=== PATIENT | male | born 1955 | race Caucasian/White ===

== ENCOUNTER 2017-12-05 13:34 | Inpatient (IN) ==
--- NOTE | 2017-12-05 14:08 | Emergency Department Note ---
Disposition Clinical Impression: Elevated troponin Decubitus ulcer Qualifiers: Pressure ulcer location: sacral region Pressure ulcer stage: unspecified pressure ulcer stage Qualified Code(s): L89.159 - Pressure ulcer of sacral region, unspecified stage Sepsis Qualifiers: Sepsis type: sepsis due to unspecified organism Qualified Code(s): A41.9 - Sepsis, unspecified organism Disposition: Admitted As Inpatient Condition: Good Time of Disposition: 17:36 General Adult HPI - General Chief complaint: ED General Medical Stated complaint: General Time Seen by Provider: 12/05/17 13:40 Source: patient, EMS Limitations: other Nursing Notes Reviewed: Yes Vital Signs Reviewed: Yes - History of Present Illness HPI Narrative: 62-year-old male presents emergency department via EMS for concern of wound infection. Patient is a poor historian states that he is been having chronic leg wounds addressed by home health Tim past several years. States they typically come visit him twice a week. Today they realized he was developing the wound on the back of his concern for infection sent here for further evaluation. Patient at this time has no complaints such as fever, nausea, vomiting. He denies any significant pain. He does appears slightly confused but is alert and oriented to person place and time. Concern for sepsis workup initiated. Patient was log rolled and he had a large decubitus ulcer to the lumbar and sacral region with eschar. It is foul-smelling. His leg wounds appear well tended to and not infected. Not hypotensive and does not require fluid resuscitation at this time. Pain Scale: 0 - Related Data Home Medications Medication Instructions Recorded Confirmed Furosemide [Lasix] 40 mg PO DAILY 04/27/15 12/05/17 Gabapentin [Neurontin] 600 mg PO TID 04/27/15 12/05/17 Ferrous Sulfate [Iron] 325 mg PO DAILY 04/30/16 12/05/17 Doxycycline 100 mg PO BID 12/05/17 12/05/17 Spironolactone [Aldactone] 100 mg PO DAILY 12/05/17 12/05/17 Allergies Allergy/AdvReac Type Severity Reaction Status Date / Time No Known Allergies Allergy Verified 03/19/15 11:08 All systems ED: reviewed and negative except as stated. Review of Systems: As Per HPI Constitutional: Denies: fever, chills ENT ED: Denies: congestion Cardiovascular: Denies: chest pain Respiratory: Denies: cough, dyspnea Gastrointestinal: Denies: abdominal pain, nausea, vomiting Genitourinary: Denies: dysuria Musculoskeletal: Reports: back pain Integumentary: Reports: abrasion, lesions. Denies: rash Neurological: Reports: confusion. Denies: headache Endocrine: Reports: fatigue Past Medical History - Past Medical History Attestation: Yes The following information was validated with the patient. Source: patient Medical history: Reports: other Surgical history: Reports: no surgical history Psychiatric history: Reports: no psych history - Social History Smoking Status: Never smoker Smokeless Tobacco Status: No Alcohol use: Reports: rarely Drug use: Reports: marijuana Physical Exam - General Limitations: other General appearance: alert, in no apparent distress, obese (morbidly) - Head Head exam: atraumatic, normocephalic, normal inspection - Eye Eye exam: Present: normal appearance, PERRL, EOMI, scleral icterus (mild) - ENT ENT exam: normal exam, normal oropharynx, mucous membranes moist - Neck Neck exam: Present: normal inspection, full ROM, trachea midline - Chest Chest inspection: Present: normal inspection, symmetric chest wall rise - Respiratory Respiratory exam: Present: normal lung sounds bilaterally - Cardiovascular Cardiovascular exam: Present: regular rate, normal rhythm, normal heart sounds - Abdominal Exam Abdominal exam: Present: soft (obese), Non-Tender, hernia (umbilical, reducible) . Absent: tenderness, distention, guarding, rebound, rigidity - Extremities Exam Extremities exam: Present: full ROM, other (lymphedema bilateral). Absent: tenderness, pedal edema - Back Exam Back exam: Present: other (decubitus ulcer to lower back and sacrum with eschar) - Neurological Exam Neurological exam: Present: alert, oriented X3 - Expanded Neurological Exam Patient oriented to: Present: person, place, time - Psychiatric Psychiatric exam: Present: flat affect - Expanded Skin Exam Type of lesion: Present: other (decubitus ulcer) Distribution: back Description: Present: size (large) 1 - eschar 2 - decubitus ulceration with erythema and foul smell Course Course Narrative: 62-year-old male presents with back wound. Concern for infection. There is eschar to the lumbar sacral region. Patient has no other complaints. Lungs are clear auscultation bilaterally. Heart's regular rate and rhythm. Review of his labs leukocytosis of 16. Lactate is normal 1.6. Creatinine function is normal. His liver function is elevated. Sodium and chloride are low. He has been given 1 L normal saline bolus. Card catheter was place given his wounds. Urinalysis appears slightly contaminated with many squamous cells but no nitrites or leuk esterase. - Reevaluation(s) Reevaluation #1: CT does not reveal abscess or fistula. He will require wound care and admission for sepsis secondary to skin infection with possible surgerical consultation. Patient was given aspirin given his elevated troponin. EKG did not show's ischemic changes. He remains hemodynamically stable. He will not require a 30 mL per kilo fluid resuscitation. CT of the head is unremarkable. Impression is decubitus ulcer elevated troponin and sepsis. - Consultations Consultation #1: Spoke with on-call hospitalist dwight Hernandez to admit for decubitus ulcer, sepsis, elevated trop. No further orders at this time Time: 17:58 Vital Signs Temperature 97.6 F 12/05/17 13:47 Pulse Rate 88 12/05/17 13:47 Respiratory Rate 18 12/05/17 13:47 Blood Pressure 117/73 12/05/17 13:47 O2 Sat by Pulse Oximetry 94 12/05/17 13:47 Temperature 98.2 F 12/05/17 19:04 Pulse Rate 88 12/05/17 19:04 Respiratory Rate 20 12/05/17 19:04 Blood Pressure 122/48 12/05/17 19:04 O2 Sat by Pulse Oximetry 92 12/05/17 19:04 Oxygen Delivery Oxygen Delivery Room Air Medical Decision Making - MDM Narrative Medical decision making narrative: Patient was discussed with my attending physician who agrees with ED management and final disposition. They independently evaluated the patient. Please refer to their attestation to this encounter for additional information. This note was generated by [employer] voice recognition software and as a result grammatical or spelling errors may occur using this program. - Medical Records Medical records reviewed: Yes I reviewed the patient's medical records. - Lab Data Lab results reviewed: Yes I reviewed the patient's lab results. Result diagrams: 12/05/17 14:31 18 14:31 Lab Results 12/05/17 12/05/17 12/05/17 Range/Units 14:16 14:31 14:31 WBC 16.4 H (4.3-11.1) K/mcL RBC 4.70 (4.19-5.50) M/mcL Hgb 11.8 L (12.9-16.9) g/dL Hct 37.2 L (37.5-50.1) % MCV 79.1 L (83.0-100.0) fL MCH 25.1 L (28.0-33.3) pg MCHC 31.7 (31.6-35.5) g/dL RDW 17.0 H (11.5-14.5) % Plt Count 512 H (140-400) K/mcL MPV 9.8 (9.4-12.4) fL Immature Gran % 0.9 (0-4) % Seg Neutrophils % 85.8 % Lymphocytes % 7.7 % Monocytes % 5.3 % Eosinophils % 0.1 % Basophils % 0.2 % Neutrophils # 14.1 H (1.6-8.9) K/mcL Lymphocytes # 1.3 (0.6-4.6) K/mcL Monocytes # 0.9 (0.0-1.3) K/mcL Eosinophils # 0.0 (0.0-0.6) K/mcL Basophils # 0.0 (0.0-0.2) K/mcL PT 17.7 H (9.4-12.1) Seconds INR 1.6 APTT 27.0 (26.0-36.0) Seconds Sodium (136-145) mEq/L Potassium (3.5-5.1) mEq/L Chloride (98-107) mEq/L Carbon Dioxide (23-29) mEq/L BUN (8-23) mg/dL Creatinine (0.70-1.30) mg/dL Est GFR ( Amer) (> 60) Est GFR (Non-Af Amer) (> 60) BUN/Creatinine Ratio (6-26) Glucose (70-105) mg/dL Calculated Osmolality (280-300) Lactic Acid (0.5-2.2) mmol/L Calcium (8.6-10.3) mg/dL Phosphorus (2.7-4.5) mg/dL Magnesium (1.6-2.6) mg/dL Total Bilirubin (0.3-1.0) mg/dL Direct Bilirubin (0.0-0.2) mg/dL Indirect Bilirubin (0.0-1.2) mg/dL AST (13-39) Units/L ALT (7-52) Units/L Alkaline Phosphatase (34-104) Units/L Troponin I (< 0.04) ng/mL Serum Total Protein (6.4-8.9) g/dL Albumin (3.5-5.7) g/dL Globulin (2.4-3.5) g/dL Albumin/Globulin Ratio (1.1-2.2) Urine Color Dark Yellow (Yellow) Urine Clarity Slightly Hazy (Clear) Urine pH 6.0 (5.0-8.0) pH Units Ur Specific [place] > 1.030 H (1.010-1.025) Urine Protein 30 H (Neg-Trace) mg/dL Urine Glucose (UA) Normal (Normal) mg/dL Urine Ketones 15 H (Negative) mg/dL Urine Blood Negative (Negative) Urine Nitrite Negative (Negative) Urine Bilirubin Large H (Negative) Urine Urobilinogen Normal (Normal) mg/dL Ur Leukocyte Esterase Negative (Negative) Urine Microscopic RBC 5-15 H (0-3) per hpf Urine Microscopic WBC 3-5 H (0-3) per hpf Ur Squamous Epith Cells Many H (None-Few) per lpf Urine Bacteria Many H (None-Few) per hpf Hyaline Casts Moderate H (None-Few) per lpf Ur Culture Indicated? NO (NO) 12/05/17 12/05/17 Range/Units 14:31 14:31 WBC (4.3-11.1) K/mcL RBC (4.19-5.50) M/mcL Hgb (12.9-16.9) g/dL Hct (37.5-50.1) % MCV (83.0-100.0) fL MCH (28.0-33.3) pg MCHC (31.6-35.5) g/dL RDW (11.5-14.5) % Plt Count (140-400) K/mcL MPV (9.4-12.4) fL Immature Gran % (0-4) % Seg Neutrophils % % Lymphocytes % % Monocytes % % Eosinophils % % Basophils % % Neutrophils # (1.6-8.9) K/mcL Lymphocytes # (0.6-4.6) K/mcL Monocytes # (0.0-1.3) K/mcL Eosinophils # (0.0-0.6) K/mcL Basophils # (0.0-0.2) K/mcL PT (9.4-12.1) Seconds INR APTT (26.0-36.0) Seconds Sodium 132 L (136-145) mEq/L Potassium 4.4 (3.5-5.1) mEq/L Chloride 95 L (98-107) mEq/L Carbon Dioxide 25 (23-29) mEq/L BUN 23 (8-23) mg/dL Creatinine 0.90 (0.70-1.30) mg/dL Est GFR ( Amer) > 60 (> 60) Est GFR (Non-Af Amer) > 60 (> 60) BUN/Creatinine Ratio 26 (6-26) Glucose 119 H (70-105) mg/dL Calculated Osmolality 279 L (280-300) Lactic Acid 1.6 (0.5-2.2) mmol/L Calcium 8.4 L (8.6-10.3) mg/dL Phosphorus 4.1 (2.7-4.5) mg/dL Magnesium 2.1 (1.6-2.6) mg/dL Total Bilirubin 0.7 (0.3-1.0) mg/dL Direct Bilirubin 0.4 H (0.0-0.2) mg/dL Indirect Bilirubin 0.3 (0.0-1.2) mg/dL AST 98 H (13-39) Units/L ALT 60 H (7-52) Units/L Alkaline Phosphatase 39 (34-104) Units/L Troponin I 0.04 H* (< 0.04) ng/mL Serum Total Protein 7.5 (6.4-8.9) g/dL Albumin 2.8 L (3.5-5.7) g/dL Globulin 4.7 H (2.4-3.5) g/dL Albumin/Globulin Ratio 0.6 L (1.1-2.2) Urine Color (Yellow) Urine Clarity (Clear) Urine pH (5.0-8.0) pH Units Ur Specific [place] (1.010-1.025) Urine Protein (Neg-Trace) mg/dL Urine Glucose (UA) (Normal) mg/dL Urine Ketones (Negative) mg/dL Urine Blood (Negative) Urine Nitrite (Negative) Urine Bilirubin (Negative) Urine Urobilinogen (Normal) mg/dL Ur Leukocyte Esterase (Negative) Urine Microscopic RBC (0-3) per hpf Urine Microscopic WBC (0-3) per hpf Ur Squamous Epith Cells (None-Few) per lpf Urine Bacteria (None-Few) per hpf Hyaline Casts (None-Few) per lpf Ur Culture Indicated? (NO) - Radiology Data Radiology results reviewed: Yes I reviewed the patient's radiology results. Abdomen/Pelvis CT 12/05/17 15:48 IMPRESSION: 1. Nonspecific soft tissue findings at the [place] cleft may be related to underlying ulceration or infection. No discrete fluid collection is seen. 2. The bowel gas findings are most in keeping with mild adynamic ileus but are nonspecific. 3. Nonspecific right inguinal and right pelvic adenopathy may be reactive or neoplastic. 4. Degenerative changes with grade 1 anterolisthesis L4 on L5. D/ / Saturnino Macias / Saturnino Macias Interpreting Provider: Saturnino Macias Head CT 12/05/17 15:48 IMPRESSION: No acute intracranial abnormality. D/ / Dm Silverman MD / Dm Silverman MD Interpreting Provider: Dm Silverman MD - EKG Data EKG #1 EKG attestation: Yes I reviewed and interpreted this EKG. EKG results narrative: EKG performed 1440 forced normal sinus rhythm 84 beats per minute, normal axis, good R wave progression,. No ST elevation or depression. No T wave inversion. There is no old EKG available for comparison at this time. No acute ischemic changes. Attestation Statement - Attestation Attestation: Patient was seen with resident physician. I reviewed the history, physical, assessment and plan, and agree with the findings. I also personally evaluated this patient and had [id number] time with this patient. 62-year-old morbidly obese male presents emergency department for check of chronic decubitus ulcers. Patient states that he has not been feeling well. He has home healthcare that attempts to take care of his decubitus ulcers. Says his been not feeling well for some time. No fevers or chills no chest pain shortness of breath. He is really nonspecific in terms of symptoms not giving us much to work with in that regard. Review of systems was done, the patient is poor historian all areas were covered but only positive as above. Physical exam vital signs are stable patient's afebrile with stable blood pressure. ENT is unremarkable. Heart regular rhythm and rate. Lungs clear. Abdomen obese nontender. Extremities lymphedema lower extremities with erythema throughout. Patient was log rolled in the back he has significant and extensive decubitus ulcers. The skin appears to be black and sharp at this point. Neurologically the patient occasionally is confused but moves all extremities. There does not appear to be focal deficits. Psych flat affect. Skin decubitus ulcers as noted. ED course we will start the patient on vancomycin do full septic workup and have admitted the hospital for further evaluation and treatment. Labs revealed elevated white blood cell count. CT scan head was unremarkable. CT scan of the abdomen and pelvis did not reveal an abscess but changes consistent with the decubitus ulcers. Patient was given IV hydration while he was in the emergency department. Was also found to have an elevated troponin of 0.04 which is just above the cutoff for negative. This information was communicated to the hospitalist service while arranging for admission. Critical care time 35 minutes. Agree with resident physician assessment and plan.
[2017-12-05 14:36] LABS: Bilirubin,Urine Large (Negative); Blood,Urine Negative (Negative); Color,Urine Dark Yellow (Yellow); Glucose,Urine (UA) Normal (Normal); Ketones,Urine 15 mg/dL (Negative); Leukocyte Esterase,Urine Negative (Negative); Nitrite,Urine Negative (Negative); Protein,Urine 30 mg/dL (Neg-Trace); Specific Gravity,Urine > 1.030 (1.010-1.025); Urobilinogen,Urine Normal (Normal)
[2017-12-05 14:39] LABS: Bacteria,Urine Many per hpf (None-Few); Hyaline Casts,Urine Moderate per lpf (None-Few); Squamous Epithelial Cell,Urine Many per lpf (None-Few)
[2017-12-05 14:41] LABS: Clarity,Urine Slightly Hazy (Clear)
[2017-12-05 14:45] LABS: Basophils % 0.2 %; Eosinophils % 0.1 %; Hematocrit 37.2 % (37.5-50.1); Hemoglobin 11.8 g/dL (12.9-16.9); Immature Granulocytes % 0.9 % (0-4); Lymphocytes # 1.3 K/mcL (0.6-4.6); Lymphocytes % 7.7 %; Mean Corpuscular HGB Conc 31.7 g/dL (31.6-35.5); Mean Corpuscular Hemoglobin 25.1 pg (28.0-33.3); Mean Corpuscular Volume 79.1 fL (83.0-100.0); Mean Platelet Volume 9.8 fL (9.4-12.4); Monocytes # 0.9 K/mcL (0.0-1.3); Monocytes % 5.3 %; Neutrophils # 14.1 K/mcL (1.6-8.9); Platelet Count 512 K/mcL (140-400); Segmented Neutrophils % 85.8 %
[2017-12-05 14:50] LABS: INR 1.6; Prothrombin Time 17.7 Seconds (9.4-12.1)
[2017-12-05 15:06] LABS: Alanine Aminotransferase 60 Units/L (7-52); Albumin 2.8 g/dL (3.5-5.7); Albumin/Globulin Ratio 0.6 (1.1-2.2); Alkaline Phosphatase 39 Units/L (34-104); Aspartate Amino Transferase 98 Units/L (13-39); BUN/Creatinine Ratio 26 (6-26); Bilirubin,Direct 0.4 mg/dL (0.0-0.2); Bilirubin,Indirect 0.3 mg/dL (0.0-1.2); Bilirubin,Total 0.7 mg/dL (0.3-1.0); Blood Urea Nitrogen 23 mg/dL (8-23); Calcium 8.4 mg/dL (8.6-10.3); Carbon Dioxide 25 mEq/L (23-29); Chloride 95 mEq/L (98-107); Globulin 4.7 g/dL (2.4-3.5); Glucose 119 mg/dL (70-105); Magnesium 2.1 mg/dL (1.6-2.6); Osmolality,Calculated 279 (280-300); Phosphorous 4.1 mg/dL (2.7-4.5); Potassium 4.4 mEq/L (3.5-5.1); Sodium 132 mEq/L (136-145); Total Protein 7.5 g/dL (6.4-8.9); eGFR For African Americans > 60 (> 60); eGFR For Non-African Americans > 60 (> 60)
[2017-12-05] MEDS ORDERED: 0.9 % Sodium Chloride 1,000 ML IVC ONE ×2 (15:09→18:24)
[2017-12-05 15:10] LABS: Troponin I 0.04 ng/mL (< 0.04)
[2017-12-05] MEDS ORDERED: Isovue-370 500 ML INFUS..BTL IV ONE (15:48)
[2017-12-05] MEDS ORDERED: Aspirin 81 MG TAB.CHEW PO STA (17:11)
[2017-12-05] MEDS ORDERED: *HR* HYDROcodone/Acet 5/325 mg TABLET PO PRN (19:48)
[2017-12-05] MEDS ORDERED: Naloxone 0.4 MG/ML INJ IVP PRN (19:49)
--- NOTE | 2017-12-05 20:01 | Internal Med History&Physical ---
<Saad Garcia J - Last Filed: 12/05/17 19:58> Date of Encounter: 12/05/17 Time of Encounter: 19:58 Internal Medicine - H&P: HPI Chief complaint: Large wound on buttocks Admitted From: Home Plans for Post Hospital Care: Home History of present illness: Mr. Adams is a 62 year old male with a history of bilateral lower extremity chronic wounds which are being cared for by home health wound care. The patient is a poor historian and limited in his ability to pay is patent in the H &P. However, he reports that his wound care team typically visits him only twice a week. Today while dressing his wounds they realize he had a large infection on his buttocks with eschar. Patient is slightly confused but alert to person and situation but disoriented to place and time. He is unaware of how long he has had these wounds on his buttocks. The patient was rolled was found to have large decubitus ulcer along the intergluteal cleft into the gluteal folds and extending onto the buttock bilaterally toward greater trochanter. CT of abdomen and pelvis was obtained revealing nonspecific soft tissue findings at the gluteal cleft. No discrete fluid collection seen. Head CT negative for acute intracranial abnormality Past Med Surg Social Fam HX - Past Medical History Medical history: other Psychiatric history: no psych history - Past Surgical History Surgical History: no surgical history - Social History Smoking Status: Never smoker Smokeless Tobacco Status: No Alcohol use: rarely Drug use: marijuana - Family History Father Living Status: Hx Family Cardiac Disorders: Yes (htn) Hx Family Neurologic Disorders: Yes Internal Medicine - H&P: Meds Furosemide [Lasix] 40 mg PO DAILY 04/27/15 [History] Gabapentin [Neurontin] 600 mg PO TID 04/27/15 [History] Ferrous Sulfate [Iron] 325 mg PO DAILY 04/30/16 [History] Doxycycline 100 mg PO BID 12/05/17 [History] Spironolactone [Aldactone] 100 mg PO DAILY 12/05/17 [History] 3 Allergy/AdvReac Type Severity Reaction Status Date / Time No Known Allergies Allergy Verified 03/19/15 11:08 All Systems PM: A 10-system review of systems was performed and is negative for pertinent findings except as documented above in the HPI. Review of systems: REVIEW OF SYSTEMS GENERAL: Negative for any nausea, vomiting, fevers, chills, or weight loss. NEUROLOGIC: Negative for any blurry vision, blind spots, double vision, facial asymmetry, dysphagia, dysarthria, hemiparesis, hemisensory deficits, vertigo, ataxia. HEENT: Negative for any head trauma, neck trauma, neck stiffness, photophobia, phonophobia, sinusitis, rhinitis. CARDIAC: Negative for any chest pain, dyspnea on exertion, paroxysmal nocturnal dyspnea, peripheral edema. PULMONARY: Negative for any shortness of breath, wheezing, COPD, or TB exposure. GASTROINTESTINAL: Negative for any abdominal pain, nausea, vomiting, bright red blood per rectum, melena. GENITOURINARY: Negative for any dysuria, hematuria, incontinence. INTEGUMENTARY: Large decubitus ulcers on his buttocks RHEUMATOLOGIC: Negative for any joint pains, photosensitive rashes, history of vasculitis or kidney problems. HEMATOLOGIC: Negative for any abnormal bruising, frequent infections or bleeding. - Constitutional Vitals: Temp Pulse Resp BP Pulse Ox 98.2 F 88 20 122/48 92 12/05/17 19:04 12/05/17 19:04 12/05/17 19:04 12/05/17 19:04 12/05/17 19:04 General appearance: Present: A&O X 1 Exam: PHYSICAL EXAMINATION: GENERAL: The patient is a morbidly obese ill-appearing male in no apparent distress. He is alert and oriented to self and situation, disoriented to place and time VITAL SIGNS: Temperature 98.2, respiratory rate 20, SPO2 92% on nasal cannula 2 L, pulse rate 88 and blood pressure 122/48 HEENT: Head is normocephalic and atraumatic. Extraocular muscles are intact. Pupils are equal, round, and reactive to light and accommodation. NECK: Supple. No carotid bruits. No lymphadenopathy or thyromegaly. LUNGS: Clear/diminished to auscultation. HEART: Regular rate and rhythm without murmur, S1, S2. ABDOMEN: Round, Soft, nontender, and nondistended. Positive active bowel sounds. No hepatosplenomegaly was noted. NEUROLOGIC: Confused, no slurred speech or facial droop noted - Expanded Lower Extremities Exam Lower Leg exam: Present: erythema (Bilateral lower extremities), swelling, tenderness 1 - Bilateral lymphedema, erythema - Expanded Back Exam 1 - Large decubitus ulcers with eschar in the gluteal cleft to the gluteal folds and laterally to greater trochanter. No obvious tunneling noted - Neurological Exam Neurological exam: Present: alert, altered. Absent: facial droop, speech deficit - Skin Skin exam: Present: erythema, warm. Absent: intact Internal Med - H&P Results - Labs CBC & Chem 7: 12/05/17 14:31 12/05/17 14:31 - EKG Data EKG comments: Review of EKG shows normal sinus rhythm rate of 84, no ST elevation or depression, no T-wave inversion. No prior EKG available for comparison 12/05/17 20:25 - Impressions Impressions Abdomen/Pelvis CT 12/05/17 15:48 IMPRESSION: 1. Nonspecific soft tissue findings at the cleft may be related to underlying ulceration or infection. No discrete fluid collection is seen. 2. The bowel gas findings are most in keeping with mild adynamic ileus but are nonspecific. 3. Nonspecific right inguinal and right pelvic adenopathy may be reactive or neoplastic. 4. Degenerative changes with grade 1 anterolisthesis L4 on L5. D/ / Saturnino Macias / Saturnino Macias Interpreting Provider: Saturnino Macias Head CT 12/05/17 15:48 IMPRESSION: No acute intracranial abnormality. D/ / Dm Silverman MD / Dm Silverman MD Interpreting Provider: Dm Silverman MD - Assessment and plan (1) Sepsis Current Visit: Yes Status: Acute Assessment and plan: Large decubitus ulcer with eschar in the sacral region found today by his wound care team. Patient is being treated for lymphedema and wounds to his bilateral legs by home wound care team. -Consult surgery-spoke with Dr. Hawkins who will see the patient in consultation -Aerobic and anaerobic wound cultures -Blood cultures -Hydrocodone pain management -Vancomycin with pharmacy to dose and Zosyn -enrollment services vice president consult to set up a home wound care. Also patient may benefit from a stay in a short-term care facility for wound care -Consult to nutrition-assess by mouth supplementation needs, patient would benefit from increased protein intake -Consult wound care team Qualifiers: Sepsis type: sepsis due to unspecified organism Qualified Code(s): A41.9 - Sepsis, unspecified organism (2) Decubitus ulcer Current Visit: Yes Status: Acute Qualifiers: Pressure ulcer location: sacral region Pressure ulcer stage: unspecified pressure ulcer stage Qualified Code(s): L89.159 - Pressure ulcer of sacral region, unspecified stage (3) Elevated troponin Current Visit: Yes Status: Acute Assessment and plan: Troponin elevation of 0.04. Likely due to sepsis. Patient denies any chest pain, EKG did not show any ischemic changes. Patient remains hemodynamically stable, continue to trend troponins (4) Lymphedema of both lower extremities Current Visit: Yes Status: Acute Assessment and plan: Chronic, consult wound care (5) DVT prophylaxis Current Visit: Yes Status: Acute Assessment and plan: Heparin 5000 units SC BID - Time Spent With Patient Total time spent is greater than 50% in coordination of care (as documented) at patient's floor/unit and/or counseling patient: Greater than 35 minutes <Alonzo Preston - Last Filed: 12/05/17 22:57> Date of Encounter: 12/05/17 Internal Medicine - H&P: HPI History of present illness: Mr. Adams is a 62 year old male All Systems PM: A 10-system review of systems was performed and is negative for pertinent findings except as documented above in the HPI. - Constitutional Vitals: Temp Pulse Resp BP Pulse Ox 98.2 F 88 20 122/48 92 12/05/17 19:04 12/05/17 19:04 12/05/17 19:04 12/05/17 19:04 12/05/17 19:04 Internal Med - H&P Results - Labs CBC & Chem 7: 12/05/17 14:31 12/05/17 14:31 - Attending Attestation Seen and examined independently, agree with plan as documented in JULIANO Torrez's documentation - Assessment and plan (1) Lymphedema of both lower extremities Current Visit: Yes Status: Acute (2) Decubitus ulcer Current Visit: Yes Status: Acute Qualifiers: Pressure ulcer location: sacral region Pressure ulcer stage: unspecified pressure ulcer stage Qualified Code(s): L89.159 - Pressure ulcer of sacral region, unspecified stage (3) Elevated troponin Current Visit: Yes Status: Acute (4) Sepsis Current Visit: Yes Status: Acute Qualifiers: Sepsis type: sepsis due to unspecified organism Qualified Code(s): A41.9 - Sepsis, unspecified organism (5) DVT prophylaxis Current Visit: Yes Status: Acute - Time Spent With Patient Total time spent is greater than 50% in coordination of care (as documented) at patient's floor/unit and/or counseling patient:
[2017-12-05] MEDS: Gabapentin 300 MG CAPSULE PO SCH (21:53)
[2017-12-06 01:09] LABS: Basophils % 0.3 %; Eosinophils # 0.1 K/mcL (0.0-0.6); Eosinophils % 0.7 %; Hematocrit 35.9 % (37.5-50.1); Hemoglobin 11.6 g/dL (12.9-16.9); Immature Granulocytes % 0.8 % (0-4); Lymphocytes # 1.6 K/mcL (0.6-4.6); Lymphocytes % 13.2 %; Mean Corpuscular HGB Conc 32.3 g/dL (31.6-35.5); Mean Corpuscular Hemoglobin 25.5 pg (28.0-33.3); Mean Corpuscular Volume 78.9 fL (83.0-100.0); Mean Platelet Volume 9.8 fL (9.4-12.4); Monocytes # 0.9 K/mcL (0.0-1.3); Monocytes % 7.9 %; Neutrophils # 9.1 K/mcL (1.6-8.9); Platelet Count 476 K/mcL (140-400); Red Blood Count 4.55 M/mcL (4.19-5.50); Red Cell Distribution Width 17.2 % (11.5-14.5); Segmented Neutrophils % 77.1 %
[2017-12-06 01:25] LABS: BUN/Creatinine Ratio 32 (6-26); Blood Urea Nitrogen 24 mg/dL (8-23); Calcium 8.3 mg/dL (8.6-10.3); Carbon Dioxide 25 mEq/L (23-29); Chloride 98 mEq/L (98-107); Glucose 127 mg/dL (70-105); Osmolality,Calculated 278 (280-300); Potassium 4.6 mEq/L (3.5-5.1); Sodium 131 mEq/L (136-145); eGFR For African Americans > 60 (> 60); eGFR For Non-African Americans > 60 (> 60)
[2017-12-06] MEDS: *HR* Heparin 5,000 UNIT/ML VIAL SQ SCH ×2 (06:46→17:21)
[2017-12-06] MEDS: Piperacillin/Tazobactam 3.375 GM in 0.9 % Sodium Chloride Mini Bag 100 ML IVPB SCH ×2 (09:01→17:20)
[2017-12-06] MEDS: Gabapentin 300 MG CAPSULE PO SCH ×3 (09:02→22:48)
[2017-12-06] MEDS: Furosemide 40 MG TABLET PO SCH (09:02)
--- NOTE | 2017-12-06 10:17 | Internal Med Progress Note ---
Date of Encounter: 12/06/17 Time of Encounter: 10:15 - Assessment and plan (1) Sepsis Current Visit: Yes Status: Acute Assessment and plan: acute metabolic encephalopathy 2ryt o sepsis due to Large infected necrotic decubitus ulcers with eschar in the sacral region WBC 16.4, hypotension 99/72, confused Patient is being treated for lymphedema and wounds to his bilateral legs by home wound care team. -Consulted surgery- -Aerobic and anaerobic wound cultures -Blood cultures -Hydrocodone -Vancomycin and Zosyn day 2, may de-escalate antibiotic therapy when possible -donor services team leader consult . -Consult wound care team Qualifiers: Sepsis type: sepsis due to unspecified organism Qualified Code(s): A41.9 - Sepsis, unspecified organism (2) Lymphedema of both lower extremities Current Visit: Yes Status: Acute Assessment and plan: Chronic, consulted wound care (3) Decubitus ulcer Current Visit: Yes Status: Acute Qualifiers: Pressure ulcer location: sacral region Pressure ulcer stage: unspecified pressure ulcer stage Qualified Code(s): L89.159 - Pressure ulcer of sacral region, unspecified stage (4) Elevated troponin Current Visit: Yes Status: Acute Assessment and plan: Likely due to demadn ischemia. Troponin elevation of 0.04. Patient denied any chest pain, EKG did not show any ischemic changes. (5) DVT prophylaxis Current Visit: Yes Status: Acute Assessment and plan: Heparin 5000 units SC BID (6) Morbidly obese Current Visit: Yes Status: Acute - Time Spent With Patient Total time spent is greater than 50% in coordination of care (as documented) at patient's floor/unit and/or counseling patient: - Subjective Interval history: has numbness on the his right bottom, denies CP or SOB, no abdominal pain , no fever, no diarrhea, confused - Constitutional Vitals: Temp Pulse Resp BP Pulse Ox 98.3 F 86 18 119/73 92 12/06/17 07:32 12/06/17 07:32 12/06/17 07:32 12/06/17 06:10 12/06/17 07:32 General appearance: Present: A&O X 1, morbidly obese - Head Head exam: Present: atraumatic, normocephalic - Eye Eye exam: Present: PERRL, conjuntiva pink, sclera anicteric Pupils: Present: PERRL - Neck Neck exam general surgery: Present: supple, trachea midline. Absent: lymphadenopathy - Respiratory Respiratory exam: Present: CTAB. Absent: accessory muscle use, rales, rhonchi, wheezes - Cardiovascular Cardiovascular exam: Present: RRR, +S1, +S2. Absent: diastolic murmur, gallop, rubs, systolic murmur - GI/Abdominal GI/Abdominal exam: Present: normal bowel sounds, soft, no peritoneal signs. Absent: distended, tenderness - Extremities Exam Extremities exam: Present: warm, radial pulses palpable and symmetrical. Absent : calf tenderness, cyanotic, pedal edema - Neurological Exam Neurological exam: Present: CN II-XII intact, no focal deficits. Absent: oriented X3, pronater drift, facial droop, speech deficit - Skin Skin exam: Absent: dry, intact Additional comments: large necrotic tissue area on the right buttock extending to the right lumbar area. Multiple large ulcers on left buttocks and left lower extremity Internal Medicine: Result - Labs CBC & Chem 7: 12/06/17 00:43 12/06/17 00:43 Labs: Short CBC 12/06/17 Range/Units 00:43 WBC 11.9 H (4.3-11.1) K/mcL Hgb 11.6 L (12.9-16.9) g/dL Hct 35.9 L (37.5-50.1) % Plt Count 476 H (140-400) K/mcL Neutrophils # 9.1 H (1.6-8.9) K/mcL BMP 12/06/17 00:43 Sodium 131 L Potassium 4.6 Chloride 98 Carbon Dioxide 25 BUN 24 H Creatinine 0.75 Glucose 127 H Calcium 8.3 L Cardiac Enzymes 12/06/17 Range/Units 00:43 Troponin I 0.03 (< 0.04) ng/mL - ABG Interpretation ABG results: PT/INR, D-dimer PT 17.7 Seconds (9.4-12.1) H 12/05/17 14:31 Consult Discharge Plan - Plan Referrals: Nicolas Sanchez MD [Primary Care Provider] -
--- NOTE | 2017-12-06 11:15 | General Surgery Consult Note ---
<LaurohititogetLawson - Last Filed: 12/06/17 13:16> Date of Encounter: 12/06/17 Time of Encounter: 08:45 Assessment and Plan (1) Decubitus ulcer Current Visit: Yes Status: Acute Large decubitus ulcers affecting R buttock into austen cleft and onto L buttock large Eschar. No evidence of tunneling CT scan did not reveal abscess or fistula Wound cultures pending No need for surgical debridement at this time. Wound care recommendations: Apply 50/50 Mixture of Santyl and Gentamicin ointment to the sacral ulcer Change dressing Daily Keep area clean as possible Q2H turns Patient can follow up with surgery wound clinic if convenient for him. If he'd prefer to continue wound care where he has his lymphadema managed that is up to him. Qualifiers: Pressure ulcer location: sacral region Pressure ulcer stage: unspecified pressure ulcer stage Qualified Code(s): L89.159 - Pressure ulcer of sacral region, unspecified stage (2) Sepsis Current Visit: Yes Status: Acute Pt met sepsis criteria based on Tachypnea and WBC count of 16.4 Blood cultures and Wound cultures pending. Management per Primary team. Qualifiers: Sepsis type: sepsis due to unspecified organism Qualified Code(s): A41.9 - Sepsis, unspecified organism (3) Lymphedema of both lower extremities Current Visit: Yes Status: Acute Pt with chronic lymphadema. Managed by home health nurses/wound care. (4) Morbidly obese Current Visit: Yes Status: Acute History of Present Illness Consult date: 12/05/17 Reason for consult: wound care Requesting physician: Saad Garcia History of present illness: 62 yo M c PMHx of Lyphedema, morbid obesity, HTN, Peripheral neuropathy, and Iron Deficency Anemia reports to the [facility] after home health nurses who manage his B/L lymphedema noticed a large sacral decubitus ulcer while trying to get patient up from a fall. Patient does not appear to be a reliable historian. Patient was brought in for evaluation. Patient denies pain in the affected area. He denies Fever, N, V, D. In the ED patient was found to have an elevated WBC of 16.4. He met sepsis criteria based on that and a breathing rate of 20. His LA was normal at 1.6. He has been afebrile since admission. CT scan of head showed no acute process CT scan of abd/pelvis showed: "1. Nonspecific soft tissue findings at the austen cleft may be related to underlying ulceration or infection. No discrete fluid collection is seen. 2. The bowel gas findings are most in keeping with mild adynamic ileus but are nonspecific. 3. Nonspecific right inguinal and right pelvic adenopathy may be reactive or neoplastic. 4. Degenerative changes with grade 1 anterolisthesis L4 on L5." Patient was admitted for management of his sepsis presumeably 2/2 to wound. Patient was started on Vanc and Zosyn. Surgery was consulted for wound care recommendations. Past Med Surg Social Fam HX - Past Medical History Medical history: other Psychiatric history: no psych history - Past Surgical History Surgical History: no surgical history - Social History Smoking Status: Never smoker Smokeless Tobacco Status: No Alcohol use: rarely Drug use: marijuana - Family History Father Living Status: Hx Family Cardiac Disorders: Yes (htn) Hx Family Neurologic Disorders: Yes Medications and Allergies Furosemide [Lasix] 40 mg PO DAILY 04/27/15 [History] Gabapentin [Neurontin] 600 mg PO TID 04/27/15 [History] Ferrous Sulfate [Iron] 325 mg PO DAILY 04/30/16 [History] Doxycycline 100 mg PO BID 12/05/17 [History] Spironolactone [Aldactone] 100 mg PO DAILY 12/05/17 [History] 3 Allergy/AdvReac Type Severity Reaction Status Date / Time No Known Allergies Allergy Verified 03/19/15 11:08 Review of Systems All systems PM: The remainder of the systems were reviewed and are negative General Surgery Exam Initial Vital Signs Temp Pulse Resp BP Pulse Ox 97.6 F 88 18 117/73 94 12/05/17 13:47 12/05/17 13:47 12/05/17 13:47 12/05/17 13:47 12/05/17 13:47 - General physical appearance well developed, well nourished, no distress, obese - Eyes normal ocular movement - ENT normal mucosa - Neck trachea midline - Respiratory normal expansion, normal respiratory effort, clear to auscultation - Cardiovascular Cardiovascular exam: Present: RRR, no murmurs/rubs/gallops - Abdomen Abdomen general surgery: Present: bowel sounds present, soft, non tender - Integumentary Integumentary general surgery: Present: other (Large decubitus ulcers affecting R buttock into cleft and onto L buttock, no tunnelling noted) - Musculoskeletal Present: normal posture - Psychiatric Psychiatric general surgery: Present: speech is normal Exam Initial Vital Signs Temp Pulse Resp BP Pulse Ox 97.6 F 88 18 117/73 94 12/05/17 13:47 12/05/17 13:47 12/05/17 13:47 12/05/17 13:47 12/05/17 13:47 Results - Labs 12/06/17 00:43 12/06/17 00:43 Abnormal lab results WBC 11.9 K/mcL (4.3-11.1) H 12/06/17 00:43 Hgb 11.6 g/dL (12.9-16.9) L 12/06/17 00:43 Hct 35.9 % (37.5-50.1) L 12/06/17 00:43 MCV 78.9 fL (83.0-100.0) L 12/06/17 00:43 MCH 25.5 pg (28.0-33.3) L 12/06/17 00:43 RDW 17.2 % (11.5-14.5) H 12/06/17 00:43 Plt Count 476 K/mcL (140-400) H 12/06/17 00:43 Neutrophils # 9.1 K/mcL (1.6-8.9) H 12/06/17 00:43 PT 17.7 Seconds (9.4-12.1) H 12/05/17 14:31 Sodium 131 mEq/L (136-145) L 12/06/17 00:43 BUN 24 mg/dL (8-23) H 12/06/17 00:43 BUN/Creatinine Ratio 32 (6-26) H 12/06/17 00:43 Glucose 127 mg/dL (70-105) H 12/06/17 00:43 POC Glucose 113 mg/dL (70-99) H 12/05/17 19:21 Calculated Osmolality 278 (280-300) L 12/06/17 00:43 Calcium 8.3 mg/dL (8.6-10.3) L 12/06/17 00:43 Direct Bilirubin 0.4 mg/dL (0.0-0.2) H 12/05/17 14:31 AST 98 Units/L (13-39) H 12/05/17 14:31 ALT 60 Units/L (7-52) H 12/05/17 14:31 Albumin 2.8 g/dL (3.5-5.7) L 12/05/17 14:31 Globulin 4.7 g/dL (2.4-3.5) H 12/05/17 14:31 Albumin/Globulin Ratio 0.6 (1.1-2.2) L 12/05/17 14:31 Ur Specific [place] > 1.030 (1.010-1.025) H 12/05/17 14:16 Urine Protein 30 mg/dL (Neg-Trace) H 12/05/17 14:16 Urine Ketones 15 mg/dL (Negative) H 12/05/17 14:16 Urine Bilirubin Large (Negative) H 12/05/17 14:16 Urine Microscopic RBC 5-15 per hpf (0-3) H 12/05/17 14:16 Urine Microscopic WBC 3-5 per hpf (0-3) H 12/05/17 14:16 Ur Squamous Epith Cells Many per lpf (None-Few) H 12/05/17 14:16 Urine Bacteria Many per hpf (None-Few) H 12/05/17 14:16 Hyaline Casts Moderate per lpf (None-Few) H 12/05/17 14:16 Diabetes panel 12/06/17 Range/Units 00:43 Sodium 131 L (136-145) mEq/L Potassium 4.6 (3.5-5.1) mEq/L Chloride 98 (98-107) mEq/L Carbon Dioxide 25 (23-29) mEq/L BUN 24 H (8-23) mg/dL Creatinine 0.75 (0.70-1.30) mg/dL Glucose 127 H (70-105) mg/dL Calcium 8.3 L (8.6-10.3) mg/dL Calcium panel 12/06/17 Range/Units 00:43 Calcium 8.3 L (8.6-10.3) mg/dL Pituitary panel 12/06/17 Range/Units 00:43 Sodium 131 L (136-145) mEq/L Potassium 4.6 (3.5-5.1) mEq/L Chloride 98 (98-107) mEq/L Carbon Dioxide 25 (23-29) mEq/L BUN 24 H (8-23) mg/dL Creatinine 0.75 (0.70-1.30) mg/dL Glucose 127 H (70-105) mg/dL Calcium 8.3 L (8.6-10.3) mg/dL Adrenal panel 12/06/17 Range/Units 00:43 Sodium 131 L (136-145) mEq/L Potassium 4.6 (3.5-5.1) mEq/L Chloride 98 (98-107) mEq/L Carbon Dioxide 25 (23-29) mEq/L BUN 24 H (8-23) mg/dL Creatinine 0.75 (0.70-1.30) mg/dL Glucose 127 H (70-105) mg/dL Calcium 8.3 L (8.6-10.3) mg/dL All other labs normal. Consult Discharge Plan - Plan Referrals: Nicolas Sanchez MD [Primary Care Provider] - <Antonio Hawkins - Last Filed: 12/06/17 15:47> Date of Encounter: 12/06/17 Review of Systems All systems PM: The remainder of the systems were reviewed and are negative General Surgery Exam Initial Vital Signs Temp Pulse Resp BP Pulse Ox 97.6 F 88 18 117/73 94 12/05/17 13:47 12/05/17 13:47 12/05/17 13:47 12/05/17 13:47 12/05/17 13:47 Exam Initial Vital Signs Temp Pulse Resp BP Pulse Ox 97.6 F 88 18 117/73 94 12/05/17 13:47 12/05/17 13:47 12/05/17 13:47 12/05/17 13:47 12/05/17 13:47 Results - Labs 12/06/17 00:43 12/06/17 00:43 Abnormal lab results WBC 11.9 K/mcL (4.3-11.1) H 12/06/17 00:43 Hgb 11.6 g/dL (12.9-16.9) L 12/06/17 00:43 Hct 35.9 % (37.5-50.1) L 12/06/17 00:43 MCV 78.9 fL (83.0-100.0) L 12/06/17 00:43 MCH 25.5 pg (28.0-33.3) L 12/06/17 00:43 RDW 17.2 % (11.5-14.5) H 12/06/17 00:43 Plt Count 476 K/mcL (140-400) H 12/06/17 00:43 Neutrophils # 9.1 K/mcL (1.6-8.9) H 12/06/17 00:43 PT 17.7 Seconds (9.4-12.1) H 12/05/17 14:31 Sodium 131 mEq/L (136-145) L 12/06/17 00:43 BUN 24 mg/dL (8-23) H 12/06/17 00:43 BUN/Creatinine Ratio 32 (6-26) H 12/06/17 00:43 Glucose 127 mg/dL (70-105) H 12/06/17 00:43 POC Glucose 113 mg/dL (70-99) H 12/05/17 19:21 Calculated Osmolality 278 (280-300) L 12/06/17 00:43 Calcium 8.3 mg/dL (8.6-10.3) L 12/06/17 00:43 Direct Bilirubin 0.4 mg/dL (0.0-0.2) H 12/05/17 14:31 AST 98 Units/L (13-39) H 12/05/17 14:31 ALT 60 Units/L (7-52) H 12/05/17 14:31 Albumin 2.8 g/dL (3.5-5.7) L 12/05/17 14:31 Globulin 4.7 g/dL (2.4-3.5) H 12/05/17 14:31 Albumin/Globulin Ratio 0.6 (1.1-2.2) L 12/05/17 14:31 Ur Specific [place] > 1.030 (1.010-1.025) H 12/05/17 14:16 Urine Protein 30 mg/dL (Neg-Trace) H 12/05/17 14:16 Urine Ketones 15 mg/dL (Negative) H 12/05/17 14:16 Urine Bilirubin Large (Negative) H 12/05/17 14:16 Urine Microscopic RBC 5-15 per hpf (0-3) H 12/05/17 14:16 Urine Microscopic WBC 3-5 per hpf (0-3) H 12/05/17 14:16 Ur Squamous Epith Cells Many per lpf (None-Few) H 12/05/17 14:16 Urine Bacteria Many per hpf (None-Few) H 12/05/17 14:16 Hyaline Casts Moderate per lpf (None-Few) H 12/05/17 14:16 Diabetes panel 12/06/17 Range/Units 00:43 Sodium 131 L (136-145) mEq/L Potassium 4.6 (3.5-5.1) mEq/L Chloride 98 (98-107) mEq/L Carbon Dioxide 25 (23-29) mEq/L BUN 24 H (8-23) mg/dL Creatinine 0.75 (0.70-1.30) mg/dL Glucose 127 H (70-105) mg/dL Calcium 8.3 L (8.6-10.3) mg/dL Calcium panel 12/06/17 Range/Units 00:43 Calcium 8.3 L (8.6-10.3) mg/dL Pituitary panel 12/06/17 Range/Units 00:43 Sodium 131 L (136-145) mEq/L Potassium 4.6 (3.5-5.1) mEq/L Chloride 98 (98-107) mEq/L Carbon Dioxide 25 (23-29) mEq/L BUN 24 H (8-23) mg/dL Creatinine 0.75 (0.70-1.30) mg/dL Glucose 127 H (70-105) mg/dL Calcium 8.3 L (8.6-10.3) mg/dL Adrenal panel 12/06/17 Range/Units 00:43 Sodium 131 L (136-145) mEq/L Potassium 4.6 (3.5-5.1) mEq/L Chloride 98 (98-107) mEq/L Carbon Dioxide 25 (23-29) mEq/L BUN 24 H (8-23) mg/dL Creatinine 0.75 (0.70-1.30) mg/dL Glucose 127 H (70-105) mg/dL Calcium 8.3 L (8.6-10.3) mg/dL All other labs normal. - Attending Attestation I have personally seen and examined the patient. I have reviewed pertinent labs , imaging, progress notes, including this one. I agree with the above assessment and plan and wish to include the following... 62M with unstageable decubitus ulcer; poor historian, limited mobility, h/o lower extremity lymphedema; non septic; no acute surgical intervention; Wound care recommendations: Apply 50/50 Mixture of Santyl and Gentamicin ointment to the sacral ulcer Change dressing Daily Keep area clean as possible Q2H turns Patient can follow up with surgery wound clinic if convenient for him. If he'd prefer to continue wound care where he has his lymphadema managed that is up to him. general surgery will sign off; please call with any new questions or concerns
[2017-12-06] MEDS ORDERED: Ondansetron 4 MG/2 ML VIAL ONE (18:33)
[2017-12-06] MEDS: Ondansetron 4 MG/2 ML VIAL IVP PRN (18:43)
[2017-12-06] MEDS ORDERED: Piperacillin/Tazobactam 3.375 GM in 0.9 % Sodium Chloride Mini Bag 100 ML IVPB SCH (21:00)
[2017-12-06] MEDS: Gentamicin Oint 15 GM TUBE TP SCH (22:54)
[2017-12-07] MEDS: Ondansetron 4 MG/2 ML VIAL IVP PRN ×2 (03:01→09:06)
[2017-12-07] MEDS: Piperacillin/Tazobactam 3.375 GM in 0.9 % Sodium Chloride Mini Bag 100 ML IVPB SCH ×3 (03:01→18:10)
[2017-12-07] MEDS: *HR* Heparin 5,000 UNIT/ML VIAL SQ SCH ×2 (06:34→18:02)
[2017-12-07] MEDS: Gabapentin 300 MG CAPSULE PO SCH (10:53)
--- NOTE | 2017-12-07 11:09 | Internal Med Progress Note ---
Date of Encounter: 12/07/17 Time of Encounter: 11:06 - Assessment and plan (1) Sepsis Current Visit: Yes Status: Acute Assessment and plan: acute metabolic encephalopathy 2ryt o sepsis due to Large infected necrotic decubitus ulcers with eschar in the sacral region WBC 16.4, hypotension 99/72, confused Patient is being treated for lymphedema and wounds to his bilateral legs by home wound care team. -Consulted surgery-no intervention at the moment -Aerobic and anaerobic wound cultures -Blood cultures , send urine culture -Hydrocodone -Vancomycin and Zosyn day 3, may de-escalate antibiotic therapy when possible -ground services instructor consult . -Consult wound care team Qualifiers: Sepsis type: sepsis due to unspecified organism Qualified Code(s): A41.9 - Sepsis, unspecified organism (2) Ileus Current Visit: Yes Status: Acute Assessment and plan: Possible ileus Start IV fluids Consider NG tube Zofran as needed Order KUB CT scan of the abdomen and pelvis from 12/05/2017 showed:1. Nonspecific soft tissue findings at the austen cleft may be related to underlying ulceration or infection. No discrete fluid collection is seen. 2. The bowel gas findings are most in keeping with mild adynamic ileus but are nonspecific. 3. Nonspecific right inguinal and right pelvic adenopathy may be reactive or neoplastic. 4. Degenerative changes with grade 1 anterolisthesis L4 on L5. (3) Lymphedema of both lower extremities Current Visit: Yes Status: Acute Assessment and plan: Chronic, consulted wound care (4) Decubitus ulcer Current Visit: Yes Status: Acute Qualifiers: Pressure ulcer location: sacral region Pressure ulcer stage: unspecified pressure ulcer stage Qualified Code(s): L89.159 - Pressure ulcer of sacral region, unspecified stage (5) Elevated troponin Current Visit: Yes Status: Acute Assessment and plan: Likely due to demadn ischemia. Troponin elevation of 0.04. Patient denied any chest pain, EKG did not show any ischemic changes. 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 Complains of diffuse abdominal pain. Not passing gas has numbness on the his right bottom, denies CP or SOB, no fever, confused - Constitutional Vitals: Temp Pulse Resp BP Pulse Ox 97.8 F 86 18 114/74 95 12/07/17 06:51 12/07/17 06:51 12/07/17 06:51 12/07/17 06:51 12/07/17 06:51 General appearance: Present: A&O X 1, morbidly obese Exam: - Head Head exam: Present: atraumatic, normocephalic - Eye Eye exam: Present: PERRL, conjuntiva pink, sclera anicteric Pupils: Present: PERRL - Neck Neck exam general surgery: Present: supple, trachea midline. Absent: lymphadenopathy - Respiratory Respiratory exam: Present: CTAB. Absent: accessory muscle use, rales, rhonchi, wheezes - Cardiovascular Cardiovascular exam: Present: RRR, +S1, +S2. Absent: diastolic murmur, gallop, rubs, systolic murmur - GI/Abdominal GI/Abdominal exam: Present: normal bowel sounds, soft, no peritoneal signs. Absent: distended, tenderness - Extremities Exam Extremities exam: Present: warm, radial pulses palpable and symmetrical. Absent : calf tenderness, cyanotic, pedal edema - Neurological Exam Neurological exam: Present: CN II-XII intact, no focal deficits. Absent: oriented X3, pronater drift, facial droop, speech deficit - Skin Skin exam: Absent: dry, intact Additional comments: large necrotic tissue area on the right buttock extending to the right lumbar area. Multiple large ulcers on left buttocks and left lower extremity Internal Medicine: Result - Labs CBC & Chem 7: 12/06/17 00:43 12/06/17 00:43 - ABG Interpretation ABG results: PT/INR, D-dimer PT 17.7 Seconds (9.4-12.1) H 12/05/17 14:31 Consult Discharge Plan - Plan Referrals: Nicolas Sanchez MD [Primary Care Provider] -
[2017-12-07] MEDS: Furosemide 40 MG TABLET PO SCH (11:11)
[2017-12-07] MEDS ORDERED: 0.9 % Sodium Chloride 1,000 ML IVC SCH (11:15)
[2017-12-07 11:37] LABS: Basophils # 0.1 K/mcL (0.0-0.2); Basophils % 0.6 %; Eosinophils % 0.2 %; Immature Granulocytes % 0.8 % (0-4); Lymphocytes # 1.4 K/mcL (0.6-4.6); Lymphocytes % 16.8 %; Mean Corpuscular Volume 80.6 fL (83.0-100.0); Mean Platelet Volume 10.3 fL (9.4-12.4); Monocytes # 0.9 K/mcL (0.0-1.3); Monocytes % 11.1 %; Platelet Count 441 K/mcL (140-400); Red Blood Count 5.21 M/mcL (4.19-5.50); Red Cell Distribution Width 18.1 % (11.5-14.5); Segmented Neutrophils % 70.5 %
[2017-12-07 11:40] LABS: Neutrophils # 5.9 K/mcL (1.6-8.9)
[2017-12-07 11:58] LABS: BUN/Creatinine Ratio 32 (6-26); Blood Urea Nitrogen 33 mg/dL (8-23); Calcium 8.1 mg/dL (8.6-10.3); Carbon Dioxide 25 mEq/L (23-29); Chloride 97 mEq/L (98-107); Glucose 127 mg/dL (70-105); Osmolality,Calculated 287 (280-300); Potassium 4.7 mEq/L (3.5-5.1); Sodium 134 mEq/L (136-145); eGFR For African Americans > 60 (> 60); eGFR For Non-African Americans > 60 (> 60)
[2017-12-07] MEDS: 0.9 % Sodium Chloride 1,000 ML IVC SCH (21:06)
[2017-12-07] MEDS: Gentamicin Oint 15 GM TUBE TP SCH (21:07)
[2017-12-08] MEDS: 0.9 % Sodium Chloride 1,000 ML IVC SCH ×4 (01:44→20:30)
[2017-12-08] MEDS: Piperacillin/Tazobactam 3.375 GM in 0.9 % Sodium Chloride Mini Bag 100 ML IVPB SCH ×3 (01:45→17:16)
[2017-12-08] MEDS: Gentamicin Oint 15 GM TUBE TP SCH (01:46)
--- NOTE | 2017-12-08 05:50 | Electrocardiograph Report ---
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
[2017-12-08 05:52] LABS: Mean Corpuscular HGB Conc 31.2 g/dL (31.6-35.5); Mean Corpuscular Hemoglobin 24.9 pg (28.0-33.3); Mean Corpuscular Volume 79.9 fL (83.0-100.0); Mean Platelet Volume 9.9 fL (9.4-12.4); Platelet Count 377 K/mcL (140-400); Red Blood Count 4.13 M/mcL (4.19-5.50); Red Cell Distribution Width 17.4 % (11.5-14.5)
[2017-12-08 05:59] LABS: Hemoglobin 10.3 g/dL (12.9-16.9)
[2017-12-08 06:12] LABS: BUN/Creatinine Ratio 29 (6-26); Blood Urea Nitrogen 27 mg/dL (8-23); Calcium 7.3 mg/dL (8.6-10.3); Carbon Dioxide 30 mEq/L (23-29); Chloride 102 mEq/L (98-107); Glucose 100 mg/dL (70-105); Osmolality,Calculated 291 (280-300); Potassium 4.1 mEq/L (3.5-5.1); Sodium 138 mEq/L (136-145); eGFR For African Americans > 60 (> 60); eGFR For Non-African Americans > 60 (> 60)
[2017-12-08] MEDS: *HR* Heparin 5,000 UNIT/ML VIAL SQ SCH ×2 (06:33→17:16)
[2017-12-08] MEDS ORDERED: Aminoglycoside Consult 1 EACH MC ONE (08:22)
[2017-12-08] MEDS ORDERED: 0.9 % Sodium Chloride 1,000 ML IVC SCH (11:18)
--- NOTE | 2017-12-08 11:19 | Internal Med Progress Note ---
Date of Encounter: 12/08/17 Time of Encounter: 11:15 - Assessment and plan (1) Sepsis Current Visit: Yes Status: Acute Assessment and plan: acute metabolic encephalopathy 2ryt o sepsis due to Large infected necrotic decubitus ulcers with eschar in the sacral region WBC 16.4, hypotension 99/72, confused Patient is being treated for lymphedema and wounds to his bilateral legs by home wound care team. -Consulted surgery-no intervention at the moment -Aerobic and anaerobic wound cultures -Blood cultures , send urine culture -Hydrocodone Wound cultures are growing Proteus and Staphylococcus aureus, Proteus sensitivity is still pending Discontinue Vancomycin at day 4 Zosyn day 4, we will adjust antibiotic therapy after sensitivities available -rehabilitation services director consult . -Consult wound care team Qualifiers: Sepsis type: sepsis due to unspecified organism Qualified Code(s): A41.9 - Sepsis, unspecified organism (2) Ileus Current Visit: Yes Status: Acute Assessment and plan: Severe ileus possibly from sepsis Increase IV fluids NG tube to suction Zofran as needed CT scan of the abdomen and pelvis from 12/05/2017 showed:1. Nonspecific soft tissue findings at the cleft may be related to underlying ulceration or infection. No discrete fluid collection is seen. 2. The bowel gas findings are most in keeping with mild adynamic ileus but are nonspecific. 3. Nonspecific right inguinal and right pelvic adenopathy may be reactive or neoplastic. 4. Degenerative changes with grade 1 anterolisthesis L4 on L5. (3) Lymphedema of both lower extremities Current Visit: Yes Status: Acute Assessment and plan: Chronic, consulted wound care (4) Decubitus ulcer Current Visit: Yes Status: Acute Qualifiers: Pressure ulcer location: sacral region Pressure ulcer stage: unspecified pressure ulcer stage Qualified Code(s): L89.159 - Pressure ulcer of sacral region, unspecified stage (5) Elevated troponin Current Visit: Yes Status: Acute Assessment and plan: Likely due to demadn ischemia. Troponin elevation of 0.04. Patient denied any chest pain, EKG did not show any ischemic changes. (6) DVT prophylaxis Current Visit: Yes Status: Acute Assessment and plan: Heparin 5000 units SC BID (7) Morbidly obese Current Visit: Yes Status: Acute - Time Spent With Patient Total time spent is greater than 50% in coordination of care (as documented) at patient's floor/unit and/or counseling patient: - Subjective Interval history: Complains of less nausea, vomiting stopped after placing the NG tube. Complains of less diffuse abdominal pain. Not passing gas has numbness on the his right bottom, denies CP or SOB, no fever, confused at times - Constitutional Vitals: Temp Pulse Resp BP Pulse Ox 98.3 F 82 19 121/64 91 12/08/17 07:00 12/08/17 07:00 12/08/17 07:00 12/08/17 07:00 12/08/17 07:00 General appearance: Present: A&O X 2, morbidly obese Exam: - Head Head exam: Present: atraumatic, normocephalic - Eye Eye exam: Present: PERRL, conjuntiva pink, sclera anicteric Pupils: Present: PERRL - Neck Neck exam general surgery: Present: supple, trachea midline. Absent: lymphadenopathy - Respiratory Respiratory exam: Present: CTAB. Absent: accessory muscle use, rales, rhonchi, wheezes - Cardiovascular Cardiovascular exam: Present: RRR, +S1, +S2. Absent: diastolic murmur, gallop, rubs, systolic murmur - GI/Abdominal GI/Abdominal exam: Present: normal bowel sounds, soft, no peritoneal signs. Absent: distended, tenderness - Extremities Exam Extremities exam: Present: warm, radial pulses palpable and symmetrical. Absent : calf tenderness, cyanotic, pedal edema - Neurological Exam Neurological exam: Present: CN II-XII intact, no focal deficits. Absent: oriented X3, pronater drift, facial droop, speech deficit - Skin Skin exam: Absent: dry, intact Additional comments: large necrotic tissue area on the right buttock extending to the right lumbar area. Multiple large ulcers on left buttocks and left lower extremity Internal Medicine: Result - Labs CBC & Chem 7: 12/08/17 05:13 12/08/17 05:13 Labs: Short CBC 12/07/17 12/08/17 Range/Units 11:26 05:13 WBC 8.3 7.9 (4.3-11.1) K/mcL Hgb 13.0 10.3 L D (12.9-16.9) g/dL Hct 42.0 33.0 L (37.5-50.1) % Plt Count 441 H 377 (140-400) K/mcL Neutrophils # 5.9 (1.6-8.9) K/mcL BMP 12/07/17 12/08/17 11:26 05:13 Sodium 134 L 138 Potassium 4.7 4.1 Chloride 97 L 102 Carbon Dioxide 25 30 H BUN 33 H 27 H Creatinine 1.04 0.93 Glucose 127 H 100 Calcium 8.1 L 7.3 L - ABG Interpretation ABG results: PT/INR, D-dimer PT 17.7 Seconds (9.4-12.1) H 12/05/17 14:31 Consult Discharge Plan - Plan Referrals: Nicolas Sanchez MD [Primary Care Provider] -
[2017-12-09] MEDS: Piperacillin/Tazobactam 3.375 GM in 0.9 % Sodium Chloride Mini Bag 100 ML IVPB SCH ×2 (01:29→08:07)
[2017-12-09] MEDS: 0.9 % Sodium Chloride 1,000 ML IVC SCH ×3 (03:11→16:29)
[2017-12-09 04:28] LABS: Hematocrit 32.6 % (37.5-50.1); Mean Corpuscular HGB Conc 30.7 g/dL (31.6-35.5); Mean Corpuscular Hemoglobin 24.9 pg (28.0-33.3); Mean Corpuscular Volume 81.1 fL (83.0-100.0); Platelet Count 366 K/mcL (140-400); Red Blood Count 4.02 M/mcL (4.19-5.50); Red Cell Distribution Width 17.7 % (11.5-14.5)
[2017-12-09 04:36] LABS: INR 1.7; Prothrombin Time 18.5 Seconds (9.4-12.1)
[2017-12-09 04:39] LABS: BUN/Creatinine Ratio 26 (6-26); Blood Urea Nitrogen 20 mg/dL (8-23); Calcium 7.3 mg/dL (8.6-10.3); Carbon Dioxide 29 mEq/L (23-29); Chloride 105 mEq/L (98-107); Glucose 78 mg/dL (70-105); Osmolality,Calculated 297 (280-300); Potassium 3.7 mEq/L (3.5-5.1); Sodium 143 mEq/L (136-145); eGFR For African Americans > 60 (> 60); eGFR For Non-African Americans > 60 (> 60)
[2017-12-09] MEDS: Gentamicin Oint 15 GM TUBE TP SCH (04:54)
[2017-12-09] MEDS: *HR* Heparin 5,000 UNIT/ML VIAL SQ SCH ×2 (05:36→18:03)
--- NOTE | 2017-12-09 10:20 | Internal Med Progress Note ---
Date of Encounter: 12/09/17 Time of Encounter: 10:17 - Assessment and plan (1) Sepsis Current Visit: Yes Status: Acute Assessment and plan: acute metabolic encephalopathy 2ry to sepsis due to Large infected necrotic decubitus ulcers with eschar in the sacral region WBC 16.4, hypotension 99/72, confused Patient is being treated for lymphedema and wounds to his bilateral legs by home wound care team. -Consulted surgery-no intervention at the moment Wound cultures grew Proteous, MSSA and Ecoli all sensitive to Levaquin -Hydrocodone Wound cultures are growing Proteus and Staphylococcus aureus, Proteus sensitivity is still pending Discontinued Vancomycin at day 4, descontinue Zosyn at day 5, Start Levaquin IV -support services manager consult . -Consult wound care team Qualifiers: Sepsis type: sepsis due to unspecified organism Qualified Code(s): A41.9 - Sepsis, unspecified organism (2) Ileus Current Visit: Yes Status: Acute Assessment and plan: Severe ileus possibly from sepsis Improving IV fluids Remove NG tube Try clear liquids Zofran as needed CT scan of the abdomen and pelvis from 12/05/2017 showed:1. Nonspecific soft tissue findings at the [place] cleft may be related to underlying ulceration or infection. No discrete fluid collection is seen. 2. The bowel gas findings are most in keeping with mild adynamic ileus but are nonspecific. 3. Nonspecific right inguinal and right pelvic adenopathy may be reactive or neoplastic. 4. Degenerative changes with grade 1 anterolisthesis L4 on L5. (3) Lymphedema of both lower extremities Current Visit: Yes Status: Acute Assessment and plan: Chronic, consulted wound care (4) Decubitus ulcer Current Visit: Yes Status: Acute Qualifiers: Pressure ulcer location: sacral region Pressure ulcer stage: unspecified pressure ulcer stage Qualified Code(s): L89.159 - Pressure ulcer of sacral region, unspecified stage (5) Elevated troponin Current Visit: Yes Status: Acute Assessment and plan: Likely due to demadn ischemia. Troponin elevation of 0.04. Patient denied any chest pain, EKG did not show any ischemic changes. (6) DVT prophylaxis Current Visit: Yes Status: Acute Assessment and plan: Heparin 5000 units SC BID (7) Morbidly obese Current Visit: Yes Status: Acute - Time Spent With Patient Total time spent is greater than 50% in coordination of care (as documented) at patient's floor/unit and/or counseling patient: - Subjective Interval history: Complains of less nausea, vomiting stopped after placing the NG tube. Passing gas now. Complains of no abdominal pain, has numbness on the his right bottom, denies CP or SOB, no fever. - Constitutional Vitals: Temp Pulse Resp BP Pulse Ox 98.4 F 76 20 121/65 94 12/09/17 07:23 12/09/17 07:23 12/09/17 07:23 12/09/17 07:23 12/09/17 07:23 General appearance: Present: A&O X 3, morbidly obese Exam: - Head Head exam: Present: atraumatic, normocephalic - Eye Eye exam: Present: PERRL, conjuntiva pink, sclera anicteric Pupils: Present: PERRL - Neck Neck exam general surgery: Present: supple, trachea midline. Absent: lymphadenopathy - Respiratory Respiratory exam: Present: CTAB. Absent: accessory muscle use, rales, rhonchi, wheezes - Cardiovascular Cardiovascular exam: Present: RRR, +S1, +S2. Absent: diastolic murmur, gallop, rubs, systolic murmur - GI/Abdominal GI/Abdominal exam: Present: normal bowel sounds, soft, no peritoneal signs. Absent: distended, tenderness - Extremities Exam Extremities exam: Present: warm, radial pulses palpable and symmetrical. Absent : calf tenderness, cyanotic, pedal edema - Neurological Exam Neurological exam: Present: CN II-XII intact, no focal deficits. Absent: oriented X3, pronater drift, facial droop, speech deficit - Skin Skin exam: Absent: dry, intact Additional comments: large necrotic tissue area on the right buttock extending to the right lumbar area. Multiple large ulcers on left buttocks and left lower extremity Internal Medicine: Result - Labs CBC & Chem 7: 12/09/17 03:40 12/09/17 03:40 Labs: Short CBC 12/09/17 Range/Units 03:40 WBC 7.1 (4.3-11.1) K/mcL Hgb 10.0 L (12.9-16.9) g/dL Hct 32.6 L (37.5-50.1) % Plt Count 366 (140-400) K/mcL BMP 12/09/17 03:40 Sodium 143 Potassium 3.7 Chloride 105 Carbon Dioxide 29 BUN 20 Creatinine 0.77 Glucose 78 Calcium 7.3 L - ABG Interpretation ABG results: PT/INR, D-dimer PT 18.5 Seconds (9.4-12.1) H 12/09/17 03:40 Consult Discharge Plan - Plan Referrals: Nicolas Sanchez MD [Primary Care Provider] -
[2017-12-09] MEDS: Levofloxacin 750 MG/150 ML 750 MG/150 ML BAG IVPB SCH (11:49)
[2017-12-09] MEDS: MORPHINE SUL Oral CONC 10 MG/0.5 ML ORAL.SYG SL PRN (16:29)
[2017-12-09] MEDS: Ondansetron 4 MG/2 ML VIAL IVP PRN (20:59)
[2017-12-10] MEDS: Ondansetron 4 MG/2 ML VIAL IVP PRN ×2 (03:08→08:34)
[2017-12-10] MEDS: *HR* Heparin 5,000 UNIT/ML VIAL SQ SCH ×2 (06:04→18:20)
--- NOTE | 2017-12-10 08:13 | Internal Med Progress Note ---
Date of Encounter: 12/10/17 Time of Encounter: 08:11 - Assessment and plan (1) Sepsis Current Visit: Yes Status: Acute Assessment and plan: acute metabolic encephalopathy 2ry to sepsis due to Large infected necrotic decubitus ulcers with eschar in the sacral region WBC 16.4, hypotension 99/72, confused Patient is being treated for lymphedema and wounds to his bilateral legs by home wound care team. -Consulted surgery-no intervention at the [facility] Wound cultures grew Proteous, MSSA and Ecoli all sensitive to Levaquin Discontinued Vancomycin at day 4, descontinued Zosyn at day 5, Continue Levaquin IV day #2 -library services assistant consult . -Consult wound care team Qualifiers: Sepsis type: sepsis due to unspecified organism Qualified Code(s): A41.9 - Sepsis, unspecified organism (2) Ileus Current Visit: Yes Status: Acute Assessment and plan: Severe ileus possibly from sepsis Not improving IV fluids Removed NG tube but had to be reinserted on 12/09/17 NPO Zofran as needed Small bowel series Surgery will be reconsulted CT scan of the abdomen and pelvis from 12/05/2017 showed:1. Nonspecific soft tissue findings at the [place] cleft may be related to underlying ulceration or infection. No discrete fluid collection is seen. 2. The bowel gas findings are most in keeping with mild adynamic ileus but are nonspecific. 3. Nonspecific right inguinal and right pelvic adenopathy may be reactive or neoplastic. 4. Degenerative changes with grade 1 anterolisthesis L4 on L5. (3) Lymphedema of both lower extremities Current Visit: Yes Status: Acute Assessment and plan: Chronic, consulted wound care (4) Decubitus ulcer Current Visit: Yes Status: Acute Qualifiers: Pressure ulcer location: sacral region Pressure ulcer stage: unspecified pressure ulcer stage Qualified Code(s): L89.159 - Pressure ulcer of sacral region, unspecified stage (5) Elevated troponin Current Visit: Yes Status: Acute Assessment and plan: Likely due to demadn ischemia. Troponin elevation of 0.04. Patient denied any chest pain, EKG did not show any ischemic changes. (6) Morbidly obese Current Visit: Yes Status: Acute - Time Spent With Patient Total time spent is greater than 50% in coordination of care (as documented) at patient's floor/unit and/or counseling patient: - Subjective Interval history: Had to have the NG tube placed again. Complains of nausea, vomiting stopped after placing the NG tube. Not passing gas. Complains of no abdominal pain, has numbness on the his right bottom, denies CP or SOB, no fever. - Constitutional Vitals: Temp Pulse Resp BP Pulse Ox 97.9 F 86 19 118/71 98 12/10/17 07:00 12/10/17 07:00 12/10/17 07:00 12/10/17 07:00 12/10/17 07:00 General appearance: Present: A&O X 3, morbidly obese Exam: - Head Head exam: Present: atraumatic, normocephalic NG tube in place - Eye Eye exam: Present: PERRL, conjuntiva pink, sclera anicteric Pupils: Present: PERRL - Neck Neck exam general surgery: Present: supple, trachea midline. Absent: lymphadenopathy - Respiratory Respiratory exam: Present: CTAB. Absent: accessory muscle use, rales, rhonchi, wheezes - Cardiovascular Cardiovascular exam: Present: RRR, +S1, +S2. Absent: diastolic murmur, gallop, rubs, systolic murmur - GI/Abdominal GI/Abdominal exam: Present: normal bowel sounds, soft, no peritoneal signs. Absent: distended, tenderness - Extremities Exam Extremities exam: Present: warm, radial pulses palpable and symmetrical. Absent : calf tenderness, cyanotic, pedal edema - Neurological Exam Neurological exam: Present: CN II-XII intact, no focal deficits. Absent: oriented X3, pronater drift, facial droop, speech deficit - Skin Skin exam: Absent: dry, intact Additional comments: large necrotic tissue area on the right buttock extending to the right lumbar area. Multiple large ulcers on left buttocks and left lower extremities Internal Medicine: Result - Labs CBC & Chem 7: 12/09/17 03:40 12/09/17 03:40 - ABG Interpretation ABG results: PT/INR, D-dimer PT 18.5 Seconds (9.4-12.1) H 12/09/17 03:40 - Impressions Impressions KUB X-Ray 12/10/17 04:47 IMPRESSION: Appropriate esophagogastric tube positioning. D/ / Kip Eden / Kip Eden Interpreting Provider: Kip Eden Consult Discharge Plan - Plan Referrals: Nicolas Sanchez MD [Primary Care Provider] -
[2017-12-10] MEDS: MORPHINE SUL Oral CONC 10 MG/0.5 ML ORAL.SYG SL PRN (08:35)
[2017-12-10] MEDS: Gentamicin Oint 15 GM TUBE TP SCH ×2 (08:38→19:20)
[2017-12-10] MEDS: Levofloxacin 750 MG/150 ML 750 MG/150 ML BAG IVPB SCH (11:50)
[2017-12-10] MEDS: D5% in 0.45% NACL 1,000 ML IVC SCH (14:31)
[2017-12-10 15:15] LABS: Magnesium 2.4 mg/dL (1.6-2.6); Phosphorous 2.5 mg/dL (2.7-4.5)
[2017-12-10] MEDS ORDERED: Bisacodyl 10 MG RECTAL SUPPOSITORY RC ONE (16:04)
[2017-12-10] MEDS ORDERED: Isovue-370 500 ML INFUS..BTL IV ONE (16:11)
--- NOTE | 2017-12-10 16:24 | General Surgery Progress Note ---
<Bautista Jordan - Last Filed: 12/10/17 16:41> Date of Encounter: 12/10/17 Time of Encounter: 14:00 - Assessment and Plan (1) Ileus Current Visit: Yes Status: Acute Patient's last bowel movement 12/06 Large amount of stool seen on imaging No obstruction Afebrile, no wt ct Plan: Aggressive bowel regimen: Dulcolax/Colase; ileus does not seem to be medication induced - limited morphine use in setting of acute pressure ulcer/he is non- diabetic. Suspect ileus induced in part by large stool volume Repeat KUB in the AM; a repeat CT abd/pelvis per radiology cannot be done without significant artifact due to barium dye Black eschar service as protective barrier, continue wound care, no surgery at this time, will continue to follow patient and course of ileus and wound care Trial clears with NG tube off; plan for LIWS if patient experiences nausea/ vomiting at dinner time, after CT abd/pelvis (2) Decubitus ulcer Current Visit: Yes Status: Acute Qualifiers: Pressure ulcer location: sacral region Pressure ulcer stage: unspecified pressure ulcer stage Qualified Code(s): L89.159 - Pressure ulcer of sacral region, unspecified stage Subjective Narrative: Patient reconsulted in setting of constipation since 12/06 and re-evalation of necrotic decubitus ulcer. He denies fevers, abdominal bloating, he had nausea/vomiting when on clears yesterday. He currently has an NG tube that his off while barium is in his system. Objective Vital Signs - Last 8 Hours Pulse Resp BP 12/10/17 16:00 76 18 112/56 Intake and Output 12/10/17 12/10/17 12/10/17 07:59 15:59 23:59 Intake Total 0 / 0 150 / 150 Output Total 5125 / 5125 Balance -5125 / -5125 150 / 150 Intake: IV Fluids 150 / 150 Levaquin Premix 750mg/150 mL 150 / 150 750 mg In 150 ml @ 100 mls/hr IVPB DAILY [facility] Rx#:[id number] Oral 0 / 0 Output: Catheter 525 / 525 Gastric Drainage 4600 / 4600 Other: Weight 182.6 kg Blood Glucose* 87 Patient Weight 12/10/17 23:59 Weight 182.6 kg - General physical appearance well developed, well nourished, no distress - Eyes normal ocular movement - ENT normal mucosa - Neck Neck exam: no lymphadectomy - Respiratory normal expansion, normal respiratory effort, clear to auscultation - Cardiovascular Cardiovascular exam: Present: RRR, no murmurs/rubs/gallops. Absent: JVD - Abdomen Abdomen: Present: soft. Absent: guarding, rebound, rigid - Integumentary other (large eschar sacral) - Psychiatric speech is normal, memory intact, other (slow to answer questions) - Labs 12/09/17 03:40 12/09/17 03:40 Calcium panel 12/10/17 Range/Units 14:39 Phosphorus 2.5 L (2.7-4.5) mg/dL Consult Discharge Plan - Plan Referrals: Nicolas Sanchez MD [Primary Care Provider] - <Antonio Hawkins - Last Filed: 12/10/17 17:25> Date of Encounter: 12/10/17 Objective Vital Signs - Last 8 Hours Pulse Resp BP 12/10/17 16:00 76 18 112/56 Intake and Output 12/10/17 12/10/17 12/10/17 07:59 15:59 23:59 Intake Total 0 / 0 150 / 150 Output Total 5125 / 5125 Balance -5125 / -5125 150 / 150 Intake: IV Fluids 150 / 150 Levaquin Premix 750mg/150 mL 150 / 150 750 mg In 150 ml @ 100 mls/hr IVPB DAILY [facility] Rx#:[id number] Oral 0 / 0 Output: Catheter 525 / 525 Gastric Drainage 4600 / 4600 Other: Weight 182.6 kg Blood Glucose* 87 Patient Weight 12/10/17 23:59 Weight 182.6 kg - Labs 12/09/17 03:40 12/09/17 03:40 Calcium panel 12/10/17 Range/Units 14:39 Phosphorus 2.5 L (2.7-4.5) mg/dL - Attending Attestation I have personally seen and examined the patient. I have reviewed pertinent labs , imaging, progress notes, including this one. I agree with the above assessment and plan and wish to include the following... 62M, called due to concern for ileus; reportedly having bowel function, but did have NG output of >4L upon insertion of NG tube; No obvious infectious cause from IV lines, urinary tract, or GI tract. Patient is non peritoneal; WBC wnl; recommend the following limit narcotics keep NG at present to LIWS replete lytes (k@4.0, Po4@3.0, Mg@ 2.0) CT scan to evalu for intraabdominal cause of ileus aggressive bowel regimen for stool burden will cont to follow;
[2017-12-11] MEDS: D5% in 0.45% NACL 1,000 ML IVC SCH (01:02)
[2017-12-11] MEDS: *HR* Heparin 5,000 UNIT/ML VIAL SQ SCH ×2 (05:28→18:01)
[2017-12-11] MEDS ORDERED: Isovue-370 500 ML INFUS..BTL IV ONE (09:07)
--- NOTE | 2017-12-11 09:10 | General Surgery Progress Note ---
<RaymongetLawson - Last Filed: 12/11/17 11:01> Date of Encounter: 12/11/17 Time of Encounter: 08:30 - Assessment and Plan (1) Ileus Current Visit: Yes Status: Acute LBM 12/06 CT scan of the abdomen and pelvis from 12/05/2017 showed:1. Nonspecific soft tissue findings at the cleft may be related to underlying ulceration or infection. No discrete fluid collection is seen. 2. The bowel gas findings are most in keeping with mild adynamic ileus but are nonspecific. 3. Nonspecific right inguinal and right pelvic adenopathy may be reactive or neoplastic. 4. Degenerative changes with grade 1 anterolisthesis L4 on L5. Attempted to get CT scan 12/10 but was unabe to due to presence of retained contrast from prior study got KUB instead KUB from 12/10/17 showed: 1. No significant advancement of the contrast in the small bowel since the previous study. The contrast was injected over 9 hours ago. Findings are concerning for a small bowel obstruction. Attmepted to get a CT scan again today but still unable to due to retained contrast so got KUB instead. KUB this morning shows: "Contrast filled dilated small bowel loop. Contrast appears more distal when compared to the small bowel follow-through examination 1 day prior. No contrast is seen within the colon." Plan: repeat KUB in 6hrs to track progress of contrast. limit narcotics Continue NG continue aggressive bowel regimen (2) Decubitus ulcer Current Visit: Yes Status: Acute Large decubitus ulcers affecting R buttock into cleft and onto L buttock large Eschar. No evidence of tunneling CT scan did not reveal abscess or fistula Wound cultures pending No need for surgical debridement at this time. Wound care recommendations: Apply 50/50 Mixture of Santyl and Gentamicin ointment to the sacral ulcer Change dressing Daily Keep area clean as possible Q2H turns Patient can follow up with surgery wound clinic if convenient for him. If he'd prefer to continue wound care where he has his lymphadema managed that is up to him. Qualifiers: Pressure ulcer location: sacral region Pressure ulcer stage: unspecified pressure ulcer stage Qualified Code(s): L89.159 - Pressure ulcer of sacral region, unspecified stage (3) Sepsis Current Visit: Yes Status: Acute Management per Primary team. WBC has resolved. Qualifiers: Sepsis type: sepsis due to unspecified organism Qualified Code(s): A41.9 - Sepsis, unspecified organism (4) Lymphedema of both lower extremities Current Visit: Yes Status: Acute Pt with chronic lymphadema. Managed by home health nurses/wound care. (5) Morbidly obese Current Visit: Yes Status: Acute Subjective Patient reports: no new complaints, no bowel movement, afebrile Narrative: Patient still hasn't had BM. Large output from NG tube. Pt afebrile, denies abd pain, nausea, vomiting. Objective Vital Signs - Last 8 Hours Temp Pulse Resp BP Pulse Ox 12/11/17 07:35 97.4 F L 74 18 119/59 99 12/11/17 04:45 98.6 F 75 18 129/57 96 Intake and Output 12/10/17 12/11/17 12/11/17 23:59 07:59 15:59 Intake Total 850 / 850 1000 / 1000 Output Total 3150 / 3150 1650 / 1650 Balance -2300 / -2300 -650 / -650 Intake: IV Fluids 1000 / 1000 D5% And 0.45% Nacl 1000 Ml Bag 1000 / 1000 1,000 ML @ 150 mls/hr IVC . Q6H40M [facility] Rx#:[id number] Oral 850 / 850 Output: Urine 650 / 650 Catheter 600 / 600 Gastric Drainage 2550 / 2550 1000 / 1000 Other: Weight 173.6 kg Blood Glucose* 100 116 Patient Weight 12/11/17 23:59 Weight 173.6 kg - General physical appearance well developed, no distress, obese - Eyes normal ocular movement - ENT normal mucosa - Neck Neck exam: trachea midline - Respiratory normal expansion, normal respiratory effort, clear to auscultation - Cardiovascular Cardiovascular exam: Present: RRR, no murmurs/rubs/gallops - Abdomen Abdomen: Present: soft, non tender - Integumentary other (large sacral eschar) - Psychiatric speech is normal - Labs 12/09/17 03:40 12/09/17 03:40 Calcium panel 12/10/17 Range/Units 14:39 Phosphorus 2.5 L (2.7-4.5) mg/dL Consult Discharge Plan - Plan Referrals: Nicolas Sanchez MD [Primary Care Provider] - 12/21/17 10:15 am <Antonio Hawkins - Last Filed: 12/11/17 17:28> Date of Encounter: 12/11/17 Objective Vital Signs - Last 8 Hours Temp Pulse Resp BP Pulse Ox 12/11/17 15:32 98.3 F 68 18 133/71 96 12/11/17 12:00 97.9 F 73 18 120/68 95 Intake and Output 12/11/17 12/11/17 12/11/17 07:59 15:59 23:59 Intake Total 1000 / 1000 Output Total 1650 / 1650 1800 / 1800 1000 / 1000 Balance -650 / -650 -1800 / -1800 -1000 / -1000 Intake: IV Fluids 1000 / 1000 D5% And 0.45% Nacl 1000 Ml Bag 1000 / 1000 1,000 ML @ 150 mls/hr IVC . Q6H40M [facility] Rx#:[id number] Output: Urine 650 / 650 Catheter 800 / 800 Gastric Drainage 1000 / 1000 1000 / 1000 1000 / 1000 Other: Weight 173.6 kg Blood Glucose* 116 92 Patient Weight 12/11/17 23:59 Weight 173.6 kg - Labs 12/09/17 03:40 12/11/17 11:35 Diabetes panel 12/11/17 Range/Units 11:35 Sodium 141 (136-145) mEq/L Potassium 3.6 (3.5-5.1) mEq/L Chloride 105 (98-107) mEq/L Carbon Dioxide 33 H (23-29) mEq/L BUN 16 (8-23) mg/dL Creatinine 0.64 L (0.70-1.30) mg/dL Glucose 110 H (70-105) mg/dL Calcium 7.4 L (8.6-10.3) mg/dL Triglycerides 107 (< 150) mg/dL Calcium panel 12/11/17 Range/Units 11:35 Calcium 7.4 L (8.6-10.3) mg/dL Phosphorus 2.5 L (2.7-4.5) mg/dL Pituitary panel 12/11/17 Range/Units 11:35 Sodium 141 (136-145) mEq/L Potassium 3.6 (3.5-5.1) mEq/L Chloride 105 (98-107) mEq/L Carbon Dioxide 33 H (23-29) mEq/L BUN 16 (8-23) mg/dL Creatinine 0.64 L (0.70-1.30) mg/dL Glucose 110 H (70-105) mg/dL Calcium 7.4 L (8.6-10.3) mg/dL Adrenal panel 12/11/17 Range/Units 11:35 Sodium 141 (136-145) mEq/L Potassium 3.6 (3.5-5.1) mEq/L Chloride 105 (98-107) mEq/L Carbon Dioxide 33 H (23-29) mEq/L BUN 16 (8-23) mg/dL Creatinine 0.64 L (0.70-1.30) mg/dL Glucose 110 H (70-105) mg/dL Calcium 7.4 L (8.6-10.3) mg/dL - Attending Attestation I have personally seen and examined the patient. I have reviewed pertinent labs , imaging, progress notes, including this one. I agree with the above assessment and plan and wish to include the following... concern for ileus vs small bowel obstruction; due to body habitus, his exam isn' t exactly reliable; KUB demonstrates progress of contrast; will plan for repeat KUB this evening; if contrast progresses to colon, recommend reglan and/ erythromycin, diet as tolerated, aggressive bowel regimen; if there is found to be an obstruction, then cont with NG tube to LIWS;
--- NOTE | 2017-12-11 09:42 | Internal Med Progress Note ---
Date of Encounter: 12/11/17 Time of Encounter: 09:40 - Assessment and plan (1) Sepsis Current Visit: Yes Status: Acute Assessment and plan: acute metabolic encephalopathy 2ry to sepsis due to Large infected necrotic decubitus ulcers with eschar in the sacral region WBC 16.4, hypotension 99/72, confused Patient is being treated for lymphedema and wounds to his bilateral legs by home wound care team. -Consulted surgery-no intervention at the [facility] Wound cultures grew Proteous, MSSA and Ecoli all sensitive to Levaquin Discontinued Vancomycin at day 4, descontinued Zosyn at day 5, Continue Levaquin IV day #3 -student services representative consult . -Consulted wound care team Qualifiers: Sepsis type: sepsis due to unspecified organism Qualified Code(s): A41.9 - Sepsis, unspecified organism (2) Ileus Current Visit: Yes Status: Acute Assessment and plan: SBO vs possible Severe ileus from sepsis Not improving IV fluids Removed NG tube but had to be reinserted on 12/09/17 NPO Zofran as needed Small bowel series Surgery was reconsulted May start TPN PICC line consult CT scan of the abdomen and pelvis from 12/05/2017 showed:1. Nonspecific soft tissue findings at the [place] cleft may be related to underlying ulceration or infection. No discrete fluid collection is seen. 2. The bowel gas findings are most in keeping with mild adynamic ileus but are nonspecific. 3. Nonspecific right inguinal and right pelvic adenopathy may be reactive or neoplastic. 4. Degenerative changes with grade 1 anterolisthesis L4 on L5. KUB from 12/10/17 showed: 1. No significant advancement of the contrast in the small bowel since the previous study. The contrast was injected over 9 hours ago. Findings are concerning for a small bowel obstruction. (3) Lymphedema of both lower extremities Current Visit: Yes Status: Acute Assessment and plan: Chronic, consulted wound care (4) Decubitus ulcer Current Visit: Yes Status: Acute Qualifiers: Pressure ulcer location: sacral region Pressure ulcer stage: unspecified pressure ulcer stage Qualified Code(s): L89.159 - Pressure ulcer of sacral region, unspecified stage (5) Elevated troponin Current Visit: Yes Status: Acute Assessment and plan: Likely due to demadn ischemia. Troponin elevation of 0.04. Patient denied any chest pain, EKG did not show any ischemic changes. (6) Morbidly obese Current Visit: Yes Status: Acute - Time Spent With Patient Total time spent is greater than 50% in coordination of care (as documented) at patient's floor/unit and/or counseling patient: - Subjective Interval history: NG tube still draining large amounts. Complains of nausea, vomiting stopped after placing the NG tube. Not passing gas. Complains of no abdominal pain, has numbness on the his right bottom, denies CP or SOB, no fever. - Constitutional Vitals: Temp Pulse Resp BP Pulse Ox 97.4 F L 74 18 119/59 99 12/11/17 07:35 12/11/17 07:35 12/11/17 07:35 12/11/17 07:35 12/11/17 07:35 General appearance: Present: A&O X 3, morbidly obese Exam: - Head Head exam: Present: atraumatic, normocephalic NG tube in place - Eye Eye exam: Present: PERRL, conjuntiva pink, sclera anicteric Pupils: Present: PERRL - Neck Neck exam general surgery: Present: supple, trachea midline. Absent: lymphadenopathy - Respiratory Respiratory exam: Present: CTAB. Absent: accessory muscle use, rales, rhonchi, wheezes - Cardiovascular Cardiovascular exam: Present: RRR, +S1, +S2. Absent: diastolic murmur, gallop, rubs, systolic murmur - GI/Abdominal GI/Abdominal exam: Present: normal bowel sounds, soft, no peritoneal signs. Absent: distended, tenderness - Extremities Exam Extremities exam: Present: warm, radial pulses palpable and symmetrical. Absent : calf tenderness, cyanotic, pedal edema - Neurological Exam Neurological exam: Present: CN II-XII intact, no focal deficits. Absent: oriented X3, pronater drift, facial droop, speech deficit - Skin Skin exam: Absent: dry, intact Additional comments: large necrotic tissue area on the right buttock extending to the right lumbar area. Multiple large ulcers on left buttocks and left lower extremities Internal Medicine: Result - Labs CBC & Chem 7: 12/09/17 03:40 12/09/17 03:40 - ABG Interpretation ABG results: PT/INR, D-dimer PT 18.5 Seconds (9.4-12.1) H 04/25/18 03:40 - Impressions Impressions Small Bowel X-Ray 12/10/17 08:07 IMPRESSION: Markedly limited exam as described. The patient could not continue the examination was not able to drink additional contrast D/ / Benjamin Mcintosh MD / Benjamin Mcintosh MD Interpreting Provider: Benjamin Mcintosh MD X-Ray 12/10/17 19:00 IMPRESSION: 1. No significant advancement of the contrast in the small bowel since the previous study. The contrast was injected over 9 hours ago. Findings are concerning for a small bowel obstruction. D/ / 12/10/2017 19:40:16 Jeramie Duenas MD / jeffrey Interpreting Provider: Jeramie Duenas MD Consult Discharge Plan - Plan Referrals: Nicolas Sanchez MD [Primary Care Provider] -
[2017-12-11] MEDS ORDERED: D10% in Water 500 ML IVC PRN ×3 (10:38→10:55)
[2017-12-11] MEDS: Levofloxacin 750 MG/150 ML 750 MG/150 ML BAG IVPB SCH (10:45)
[2017-12-11] MEDS ORDERED: Lidocaine -MPF 1% 5 ML AMPUL INFILT ONE (11:35)
[2017-12-11 12:31] LABS: BUN/Creatinine Ratio 25 (6-26); Blood Urea Nitrogen 16 mg/dL (8-23); Calcium 7.4 mg/dL (8.6-10.3); Carbon Dioxide 33 mEq/L (23-29); Chloride 105 mEq/L (98-107); Glucose 110 mg/dL (70-105); Magnesium 2.2 mg/dL (1.6-2.6); Osmolality,Calculated 294 (280-300); Phosphorous 2.5 mg/dL (2.7-4.5); Potassium 3.6 mEq/L (3.5-5.1); Sodium 141 mEq/L (136-145); Triglycerides 107 mg/dL (< 150); eGFR For African Americans > 60 (> 60); eGFR For Non-African Americans > 60 (> 60)
[2017-12-11] MEDS ORDERED: Potassium Phosphate 44 MEQ in 0.9 % Sodium Chloride 250 ML IVPB ONE (13:27)
[2017-12-11] MEDS ORDERED: Clinimix E 5%-15% SOLUTION 2,000 ML with MVI, adult with vitamin K 10 ML IVC SCH (17:00)
[2017-12-12] MEDS: Gentamicin Oint 15 GM TUBE TP SCH (01:28)
[2017-12-12] MEDS: D5% in 0.45% NACL 1,000 ML IVC SCH ×2 (03:13→17:03)
[2017-12-12] MEDS: *HR* Heparin 5,000 UNIT/ML VIAL SQ SCH ×2 (05:10→17:03)
[2017-12-12 05:48] LABS: BUN/Creatinine Ratio 29 (6-26); Blood Urea Nitrogen 17 mg/dL (8-23); Calcium 7.7 mg/dL (8.6-10.3); Carbon Dioxide 30 mEq/L (23-29); Chloride 105 mEq/L (98-107); Glucose 128 mg/dL (70-105); Magnesium 2.3 mg/dL (1.6-2.6); Osmolality,Calculated 291 (280-300); Phosphorous 3.2 mg/dL (2.7-4.5); Potassium 3.7 mEq/L (3.5-5.1); Sodium 139 mEq/L (136-145); eGFR For African Americans > 60 (> 60); eGFR For Non-African Americans > 60 (> 60)
[2017-12-12] MEDS: Levofloxacin 750 MG/150 ML 750 MG/150 ML BAG IVPB SCH (10:40)
--- NOTE | 2017-12-12 10:41 | General Surgery Progress Note ---
<RaymongetLawson - Last Filed: 12/12/17 11:13> Date of Encounter: 12/12/17 Time of Encounter: 09:00 - Assessment and Plan (1) Ileus Current Visit: Yes Status: Acute LBM 12/06 CT scan of the abdomen and pelvis from 12/05/2017 showed:1. Nonspecific soft tissue findings at the cleft may be related to underlying ulceration or infection. No discrete fluid collection is seen. 2. The bowel gas findings are most in keeping with mild adynamic ileus but are nonspecific. 3. Nonspecific right inguinal and right pelvic adenopathy may be reactive or neoplastic. 4. Degenerative changes with grade 1 anterolisthesis L4 on L5. Attempted to get CT scan 12/10 but was unabe to due to presence of retained contrast from prior study got KUB instead KUB from 12/10/17 showed: 1. No significant advancement of the contrast in the small bowel since the previous study. The contrast was injected over 9 hours ago. Findings are concerning for a small bowel obstruction. Attmepted to get a CT scan again yesterday but still unable to due to retained contrast so got KUB instead. KUB yesterday showed: "Contrast filled dilated small bowel loop. Contrast appears more distal when compared to the small bowel follow-through examination 1 day prior. No contrast is seen within the colon." Repeat KUB this morning shows: "Progression of oral contrast material to more distal decompressed small bowel loops." To my and Dr. Velázquez's reading appears to be some contrast in ascending colon. Increase in bowel sounds on exam Plan: limit narcotics Continue NG continue aggressive bowel regimen start Reglan 20mg IVPB q8H for 35hrs then discontinue. (2) Decubitus ulcer Current Visit: Yes Status: Acute Large decubitus ulcers affecting R buttock into austen cleft and onto L buttock large Eschar. No evidence of tunneling CT scan did not reveal abscess or fistula Wound cultures pending No need for surgical debridement at this time. Wound care recommendations: Apply 50/50 Mixture of Santyl and Gentamicin ointment to the sacral ulcer Change dressing Daily Keep area clean as possible Q2H turns Patient can follow up with surgery wound clinic if convenient for him. If he'd prefer to continue wound care where he has his lymphadema managed that is up to him. Qualifiers: Pressure ulcer location: sacral region Pressure ulcer stage: unspecified pressure ulcer stage Qualified Code(s): L89.159 - Pressure ulcer of sacral region, unspecified stage (3) Sepsis Current Visit: Yes Status: Acute Management per Primary team. WBC has resolved. Qualifiers: Sepsis type: sepsis due to unspecified organism Qualified Code(s): A41.9 - Sepsis, unspecified organism (4) Lymphedema of both lower extremities Current Visit: Yes Status: Acute Pt with chronic lymphadema. Managed by home health nurses/wound care. (5) Morbidly obese Current Visit: Yes Status: Acute Subjective Patient reports: no new complaints, no bowel movement, afebrile Narrative: Patient denies abd pain, N, V, D, Fever chills, Chest pain. Patient reports possibly some flatus. KUB this morning shows progression of contrast from . Appears that some contrast has reached ascending colon. Patient has had very minimal out put from NG since 4am. Objective Vital Signs - Last 8 Hours Temp Pulse Resp BP Pulse Ox 12/12/17 07:08 98.1 F 81 18 125/61 92 12/12/17 03:22 97.7 F 74 18 122/90 91 Intake and Output 12/11/17 12/12/17 12/12/17 23:59 07:59 15:59 Intake Total 473 / 473 483 / 483 Output Total 2550 / 2550 1225 / 1225 Balance -2077 / -2077 -742 / -742 Intake: Oral 473 / 473 483 / 483 Output: Catheter 650 / 650 400 / 400 Gastric Drainage 1900 / 1900 825 / 825 Other: Weight 180.5 kg Blood Glucose* 112 142 Patient Weight 12/12/17 23:59 Weight 180.5 kg - General physical appearance well developed, well nourished, no distress, obese - Eyes normal ocular movement - ENT normal mucosa - Neck Neck exam: trachea midline - Respiratory normal expansion, normal respiratory effort, clear to auscultation - Cardiovascular Cardiovascular exam: Present: RRR, no murmurs/rubs/gallops - Abdomen Abdomen: Present: bowel sounds present (hypoactive but increased from prior exam ), soft, non tender - Integumentary other (large eschar covered by dressing) - Psychiatric speech is normal - Labs 12/09/17 03:40 12/12/17 04:00 Diabetes panel 12/11/17 12/12/17 Range/Units 11:35 04:00 Sodium 141 139 (136-145) mEq/L Potassium 3.6 3.7 (3.5-5.1) mEq/L Chloride 105 105 (98-107) mEq/L Carbon Dioxide 33 H 30 H (23-29) mEq/L BUN 16 17 (8-23) mg/dL Creatinine 0.64 L 0.58 L (0.70-1.30) mg/dL Glucose 110 H 128 H (70-105) mg/dL Calcium 7.4 L 7.7 L (8.6-10.3) mg/dL Triglycerides 107 (< 150) mg/dL Calcium panel 12/11/17 12/12/17 Range/Units 11:35 04:00 Calcium 7.4 L 7.7 L (8.6-10.3) mg/dL Phosphorus 2.5 L 3.2 (2.7-4.5) mg/dL Pituitary panel 12/11/17 12/12/17 Range/Units 11:35 04:00 Sodium 141 139 (136-145) mEq/L Potassium 3.6 3.7 (3.5-5.1) mEq/L Chloride 105 105 (98-107) mEq/L Carbon Dioxide 33 H 30 H (23-29) mEq/L BUN 16 17 (8-23) mg/dL Creatinine 0.64 L 0.58 L (0.70-1.30) mg/dL Glucose 110 H 128 H (70-105) mg/dL Calcium 7.4 L 7.7 L (8.6-10.3) mg/dL Adrenal panel 12/11/17 12/12/17 Range/Units 11:35 04:00 Sodium 141 139 (136-145) mEq/L Potassium 3.6 3.7 (3.5-5.1) mEq/L Chloride 105 105 (98-107) mEq/L Carbon Dioxide 33 H 30 H (23-29) mEq/L BUN 16 17 (8-23) mg/dL Creatinine 0.64 L 0.58 L (0.70-1.30) mg/dL Glucose 110 H 128 H (70-105) mg/dL Calcium 7.4 L 7.7 L (8.6-10.3) mg/dL Consult Discharge Plan - Plan Referrals: Nicolas Sanchez MD [Primary Care Provider] - 12/21/17 10:15 am <Hank Velázquez - Last Filed: 12/13/17 11:11> Date of Encounter: 12/12/17 Objective Vital Signs - Last 8 Hours Temp Pulse Resp BP Pulse Ox 12/13/17 10:44 98.9 F 91 27 132/71 96 12/13/17 07:18 98.8 F 82 22 122/71 97 12/13/17 03:46 77 19 137/81 94 Intake and Output 12/12/17 12/13/17 12/13/17 23:59 07:59 15:59 Intake Total 774 / 774 1595 / 1595 0 / 0 Output Total 2400 / 2400 1350 / 1350 1000 / 1000 Balance -1626 / -1626 245 / 245 -1000 / -1000 Intake: IV Fluids 54 / 54 1000 / 1000 D5% And 0.45% Nacl 1000 Ml Bag 1000 / 1000 1,000 ML @ 90 mls/hr IVC . Q11H7M [facility] Rx#:[id number] Reglan 20 MG In 0.9 % Sodium 54 / 54 Chloride 50 ML @ 108 mls/hr IVPB Q8H [facility] Rx#:[id number] Oral 720 / 720 595 / 595 0 / 0 Output: Gastric Tube Lavage Amount 700 / 700 Left Nare 700 / 700 Catheter 550 / 550 650 / 650 1000 / 1000 Gastric Drainage 1150 / 1150 700 / 700 Other: Meal Dinner Breakfast Percent of Meal Consumed 0% 0% Stool Size Small Stool Consistency liquid Stool Color Brown # Bowel Movement Diapers 1 Weight 180.2 kg Blood Glucose* 122 110 116 Patient Weight 12/13/17 23:59 Weight 180.2 kg - Labs 12/09/17 03:40 12/13/17 03:00 Diabetes panel 12/13/17 Range/Units 03:00 Sodium 137 (136-145) mEq/L Potassium 3.9 (3.5-5.1) mEq/L Chloride 105 (98-107) mEq/L Carbon Dioxide 27 (23-29) mEq/L BUN 22 (8-23) mg/dL Creatinine 0.60 L (0.70-1.30) mg/dL Glucose 117 H (70-105) mg/dL Calcium 7.8 L (8.6-10.3) mg/dL Calcium panel 12/13/17 Range/Units 03:00 Calcium 7.8 L (8.6-10.3) mg/dL Phosphorus 3.0 (2.7-4.5) mg/dL Pituitary panel 12/13/17 Range/Units 03:00 Sodium 137 (136-145) mEq/L Potassium 3.9 (3.5-5.1) mEq/L Chloride 105 (98-107) mEq/L Carbon Dioxide 27 (23-29) mEq/L BUN 22 (8-23) mg/dL Creatinine 0.60 L (0.70-1.30) mg/dL Glucose 117 H (70-105) mg/dL Calcium 7.8 L (8.6-10.3) mg/dL Adrenal panel 12/13/17 Range/Units 03:00 Sodium 137 (136-145) mEq/L Potassium 3.9 (3.5-5.1) mEq/L Chloride 105 (98-107) mEq/L Carbon Dioxide 27 (23-29) mEq/L BUN 22 (8-23) mg/dL Creatinine 0.60 L (0.70-1.30) mg/dL Glucose 117 H (70-105) mg/dL Calcium 7.8 L (8.6-10.3) mg/dL - Attending Attestation I examined this patient and my medical decision-making was reviewed with the Resident Physician. I agree with the documented findings, disposition and treatment plan as described except to the extent set forth below. The patient is seen and evaluated on morning rounds with resident. He has high nasogastric tube output. We will continue with nasogastric tube drainage. Start Reglan. Hank Velázquez MD FACS
[2017-12-12] MEDS: Metoclopramide 20 MG in 0.9 % Sodium Chloride 50 ML IVPB SCH ×2 (12:36→21:08)
--- NOTE | 2017-12-12 13:56 | Internal Med Progress Note ---
Date of Encounter: 12/12/17 Time of Encounter: 13:51 - Assessment and plan (1) Sepsis Current Visit: Yes Status: Acute Assessment and plan: acute metabolic encephalopathy 2ry to sepsis due to Large infected necrotic decubitus ulcers with eschar in the sacral region WBC 16.4, hypotension 99/72, confused Patient is being treated for lymphedema and wounds to his bilateral legs by home wound care team. -Consulted surgery-no intervention at the moment Wound cultures grew Proteous, MSSA and Ecoli all sensitive to Levaquin Discontinued Vancomycin at day 4, descontinued Zosyn at day 5, Continue Levaquin IV day #4 -business services director consult . -Consulted wound care team Qualifiers: Sepsis type: sepsis due to unspecified organism Qualified Code(s): A41.9 - Sepsis, unspecified organism (2) Ileus Current Visit: Yes Status: Acute Assessment and plan: SBO vs possible Severe ileus from sepsis Not improving IV fluids Removed NG tube but had to be reinserted on 12/09/17 NPO Reglan tried by surgery recommendations Zofran as needed TPN CT scan of the abdomen and pelvis from 12/05/2017 showed:1. Nonspecific soft tissue findings at the cleft may be related to underlying ulceration or infection. No discrete fluid collection is seen. 2. The bowel gas findings are most in keeping with mild adynamic ileus but are nonspecific. 3. Nonspecific right inguinal and right pelvic adenopathy may be reactive or neoplastic. 4. Degenerative changes with grade 1 anterolisthesis L4 on L5. KUB from 12/10/17 showed: 1. No significant advancement of the contrast in the small bowel since the previous study. The contrast was injected over 9 hours ago. Findings are concerning for a small bowel obstruction. KUB from 12/11/17 showed: Progression of oral contrast material to more distal decompressed small bowel loops. (3) Lymphedema of both lower extremities Current Visit: Yes Status: Acute Assessment and plan: Chronic, consulted wound care (4) Decubitus ulcer Current Visit: Yes Status: Acute Qualifiers: Pressure ulcer location: sacral region Pressure ulcer stage: unspecified pressure ulcer stage Qualified Code(s): L89.159 - Pressure ulcer of sacral region, unspecified stage (5) Elevated troponin Current Visit: Yes Status: Acute Assessment and plan: Likely due to demadn ischemia. Troponin elevation of 0.04. Patient denied any chest pain, EKG did not show any ischemic changes. (6) Morbidly obese Current Visit: Yes Status: Acute - Time Spent With Patient Total time spent is greater than 50% in coordination of care (as documented) at patient's floor/unit and/or counseling patient: - Subjective Interval history: NG tube still draining large amounts. Having nausea, vomiting stopped after placing the NG tube. Not passing gas. Complains of no abdominal pain, has numbness on the his right bottom, denies CP or SOB, no fever. - Constitutional Vitals: Temp Pulse Resp BP Pulse Ox 98 F 78 16 133/76 98 12/12/17 11:25 12/12/17 11:25 12/12/17 11:25 12/12/17 11:25 12/12/17 11:25 General appearance: Present: A&O X 3, morbidly obese Exam: - Head Head exam: Present: atraumatic, normocephalic NG tube in place - Eye Eye exam: Present: PERRL, conjuntiva pink, sclera anicteric Pupils: Present: PERRL - Neck Neck exam general surgery: Present: supple, trachea midline. Absent: lymphadenopathy - Respiratory Respiratory exam: Present: CTAB. Absent: accessory muscle use, rales, rhonchi, wheezes - Cardiovascular Cardiovascular exam: Present: RRR, +S1, +S2. Absent: diastolic murmur, gallop, rubs, systolic murmur - GI/Abdominal GI/Abdominal exam: Present: normal bowel sounds, soft, no peritoneal signs. Absent: distended, tenderness - Extremities Exam Extremities exam: Present: warm, radial pulses palpable and symmetrical. Absent : calf tenderness, cyanotic, pedal edema - Neurological Exam Neurological exam: Present: CN II-XII intact, no focal deficits. Absent: oriented X3, pronater drift, facial droop, speech deficit - Skin Skin exam: Absent: dry, intact Additional comments: large necrotic tissue area on the right buttock extending to the right lumbar area. Multiple large ulcers on left buttocks and left lower extremities Internal Medicine: Result - Labs CBC & Chem 7: 12/09/17 03:40 12/12/17 04:00 Labs: BMP 12/12/17 04:00 Sodium 139 Potassium 3.7 Chloride 105 Carbon Dioxide 30 H BUN 17 Creatinine 0.58 L Glucose 128 H Calcium 7.7 L - ABG Interpretation ABG results: PT/INR, D-dimer PT 18.5 Seconds (9.4-12.1) H 12/09/17 03:40 - Impressions Impressions KUB X-Ray 12/11/17 00:00 IMPRESSION: Contrast filled dilated small bowel loop. No contrast is seen within the colon. Bowel obstruction is not excluded. D/ / 12/11/2017 10:16:28 Manpreet High MD / will Interpreting Provider: Manpreet High MD X-Ray 12/11/17 17:00 IMPRESSION: Persistent distention of the small bowel, similar to the prior examination. No significant progression of the contrast from the previous examination. D/ / Jayant Linares MD / Jayant Linares MD Interpreting Provider: Jayant Linares MD X-Ray 12/12/17 07:36 IMPRESSION: Progression of oral contrast material to more distal decompressed small bowel loops. D/ / 12/12/2017 10:12:10 Karri Desai MD / will Interpreting Provider: Karri Desai MD Consult Discharge Plan - Plan Referrals: Nicolas Sanchez MD [Primary Care Provider] - 12/21/17 10:15 am
[2017-12-12] MEDS ORDERED: Metoclopramide 10 MG/2 ML VIAL IVP SCH (16:00)
[2017-12-12] MEDS ORDERED: [UNRECOGNIZED DRUG - OTHER] IVC SCH (17:00)
[2017-12-12] MEDS ORDERED: CLINIMIX E IVC SCH (17:00)
[2017-12-12] MEDS ORDERED: MVI IVC SCH (17:00)
[2017-12-12] MEDS ORDERED: PARENTERAL AMINO ACID 10% IVC SCH (17:00)
[2017-12-13 03:38] LABS: BUN/Creatinine Ratio 37 (6-26); Blood Urea Nitrogen 22 mg/dL (8-23); Calcium 7.8 mg/dL (8.6-10.3); Carbon Dioxide 27 mEq/L (23-29); Chloride 105 mEq/L (98-107); Glucose 117 mg/dL (70-105); Magnesium 2.1 mg/dL (1.6-2.6); Osmolality,Calculated 288 (280-300); Potassium 3.9 mEq/L (3.5-5.1); Sodium 137 mEq/L (136-145); eGFR For African Americans > 60 (> 60); eGFR For Non-African Americans > 60 (> 60)
[2017-12-13] MEDS: Metoclopramide 20 MG in 0.9 % Sodium Chloride 50 ML IVPB SCH ×3 (04:23→20:12)
[2017-12-13] MEDS: D5% in 0.45% NACL 1,000 ML IVC SCH ×2 (04:23→15:38)
[2017-12-13] MEDS: Gentamicin Oint 15 GM TUBE TP SCH (04:53)
[2017-12-13] MEDS: *HR* Heparin 5,000 UNIT/ML VIAL SQ SCH ×2 (06:38→17:01)
[2017-12-13] MEDS: Levofloxacin 750 MG/150 ML 750 MG/150 ML BAG IVPB SCH (08:56)
--- NOTE | 2017-12-13 09:51 | General Surgery Progress Note ---
<LaurohititogetLawson - Last Filed: 12/13/17 10:21> Date of Encounter: 12/13/17 Time of Encounter: 08:00 - Assessment and Plan (1) Ileus Current Visit: Yes Status: Acute CT scan of the abdomen and pelvis from 12/05/2017 showed:1. Nonspecific soft tissue findings at the austen cleft may be related to underlying ulceration or infection. No discrete fluid collection is seen. 2. The bowel gas findings are most in keeping with mild adynamic ileus but are nonspecific. 3. Nonspecific right inguinal and right pelvic adenopathy may be reactive or neoplastic. 4. Degenerative changes with grade 1 anterolisthesis L4 on L5. Attempted to get CT scan 12/10 but was unabe to due to presence of retained contrast from prior study got KUB instead KUB from 12/10/17 showed: 1. No significant advancement of the contrast in the small bowel since the previous study. The contrast was injected over 9 hours ago. Findings are concerning for a small bowel obstruction. Attmepted to get a CT scan again yesterday but still unable to due to retained contrast so got KUB instead. KUB yesterday showed: "Contrast filled dilated small bowel loop. Contrast appears more distal when compared to the small bowel follow-through examination 1 day prior. No contrast is seen within the colon." Repeat KUB this morning shows: "Progression of oral contrast material to more distal decompressed small bowel loops." To my and Dr. Velázquez's reading appears to be some contrast in ascending colon. Increase in bowel sounds on exam Patient has had 2 BM since last exam. Plan: limit narcotics Continue NG stop LIWS attach to torres bag if low output can d/c continue aggressive bowel regimen continue Reglan 20mg IVPB q8H for 36hrs then discontinue. (2) Decubitus ulcer Current Visit: Yes Status: Acute Large decubitus ulcers affecting R buttock into austen cleft and onto L buttock large Eschar. No evidence of tunneling CT scan did not reveal abscess or fistula Wound cultures pending No need for surgical debridement at this time. Wound care recommendations: Apply 50/50 Mixture of Santyl and Gentamicin ointment to the sacral ulcer Change dressing Daily Keep area clean as possible Q2H turns Patient can follow up with surgery wound clinic if convenient for him. If he'd prefer to continue wound care where he has his lymphadema managed that is up to him. Qualifiers: Pressure ulcer location: sacral region Pressure ulcer stage: unspecified pressure ulcer stage Qualified Code(s): L89.159 - Pressure ulcer of sacral region, unspecified stage (3) Sepsis Current Visit: Yes Status: Resolved Management per Primary team. WBC has resolved. Qualifiers: Sepsis type: sepsis due to unspecified organism Qualified Code(s): A41.9 - Sepsis, unspecified organism (4) Lymphedema of both lower extremities Current Visit: Yes Status: Acute Pt with chronic lymphadema. Managed by home health nurses/wound care. (5) Morbidly obese Current Visit: Yes Status: Acute Subjective Patient reports: no new complaints, flatus, bowel movement, afebrile Narrative: Patient reprots passing gas last night. Patient had small liquid BM yesterday and again last night. Bowel sounds improved. Objective Vital Signs - Last 8 Hours Temp Pulse Resp BP Pulse Ox 12/13/17 07:18 98.8 F 82 22 122/71 97 12/13/17 03:46 77 19 137/81 94 Intake and Output 12/12/17 12/13/17 12/13/17 23:59 07:59 15:59 Intake Total 774 / 774 1595 / 1595 0 / 0 Output Total 2400 / 2400 1350 / 1350 Balance -1626 / -1626 245 / 245 0 / 0 Intake: IV Fluids 54 / 54 1000 / 1000 D5% And 0.45% Nacl 1000 Ml Bag 1000 / 1000 1,000 ML @ 90 mls/hr IVC . Q11H7M [facility] Rx#:[id number] Reglan 20 MG In 0.9 % Sodium 54 / 54 Chloride 50 ML @ 108 mls/hr IVPB Q8H [facility] Rx#:[id number] Oral 720 / 720 595 / 595 0 / 0 Output: Gastric Tube Lavage Amount 700 / 700 Left Nare 700 / 700 Catheter 550 / 550 650 / 650 Gastric Drainage 1150 / 1150 700 / 700 Other: Meal Dinner Breakfast Percent of Meal Consumed 0% 0% Stool Size Small Stool Consistency liquid Stool Color Brown # Bowel Movement Diapers 1 Weight 180.2 kg Blood Glucose* 122 110 Patient Weight 12/13/17 23:59 Weight 180.2 kg - General physical appearance well developed, well nourished, no distress - Eyes normal ocular movement - ENT normal mucosa - Neck Neck exam: trachea midline - Respiratory normal expansion, normal respiratory effort, clear to auscultation, other ( decreased breath soudns through out) - Cardiovascular Cardiovascular exam: Present: RRR, no murmurs/rubs/gallops - Abdomen Abdomen: Present: bowel sounds present, soft, non tender - Integumentary other (large escharon sacrum covered by dressing) - Psychiatric oriented to time, oriented to person, oriented to place, speech is normal - Labs 12/09/17 03:40 12/13/17 03:00 Diabetes panel 12/13/17 Range/Units 03:00 Sodium 137 (136-145) mEq/L Potassium 3.9 (3.5-5.1) mEq/L Chloride 105 (98-107) mEq/L Carbon Dioxide 27 (23-29) mEq/L BUN 22 (8-23) mg/dL Creatinine 0.60 L (0.70-1.30) mg/dL Glucose 117 H (70-105) mg/dL Calcium 7.8 L (8.6-10.3) mg/dL Calcium panel 12/13/17 Range/Units 03:00 Calcium 7.8 L (8.6-10.3) mg/dL Phosphorus 3.0 (2.7-4.5) mg/dL Pituitary panel 12/13/17 Range/Units 03:00 Sodium 137 (136-145) mEq/L Potassium 3.9 (3.5-5.1) mEq/L Chloride 105 (98-107) mEq/L Carbon Dioxide 27 (23-29) mEq/L BUN 22 (8-23) mg/dL Creatinine 0.60 L (0.70-1.30) mg/dL Glucose 117 H (70-105) mg/dL Calcium 7.8 L (8.6-10.3) mg/dL Adrenal panel 12/13/17 Range/Units 03:00 Sodium 137 (136-145) mEq/L Potassium 3.9 (3.5-5.1) mEq/L Chloride 105 (98-107) mEq/L Carbon Dioxide 27 (23-29) mEq/L BUN 22 (8-23) mg/dL Creatinine 0.60 L (0.70-1.30) mg/dL Glucose 117 H (70-105) mg/dL Calcium 7.8 L (8.6-10.3) mg/dL Consult Discharge Plan - Plan Referrals: Nicolas Sanchez MD [Primary Care Provider] - 12/21/17 10:15 am <Hank Velázquez - Last Filed: 12/13/17 11:26> Date of Encounter: 12/13/17 Objective Vital Signs - Last 8 Hours Temp Pulse Resp BP Pulse Ox 12/13/17 10:44 98.9 F 91 27 132/71 96 12/13/17 07:18 98.8 F 82 22 122/71 97 12/13/17 03:46 77 19 137/81 94 Intake and Output 12/12/17 12/13/17 12/13/17 23:59 07:59 15:59 Intake Total 774 / 774 1595 / 1595 0 / 0 Output Total 2400 / 2400 1350 / 1350 1000 / 1000 Balance -1626 / -1626 245 / 245 -1000 / -1000 Intake: IV Fluids 54 / 54 1000 / 1000 D5% And 0.45% Nacl 1000 Ml Bag 1000 / 1000 1,000 ML @ 90 mls/hr IVC . Q11H7M [facility] Rx#:[id number] Reglan 20 MG In 0.9 % Sodium 54 / 54 Chloride 50 ML @ 108 mls/hr IVPB Q8H [facility] Rx#:[id number] Oral 720 / 720 595 / 595 0 / 0 Output: Gastric Tube Lavage Amount 700 / 700 Left Nare 700 / 700 Catheter 550 / 550 650 / 650 1000 / 1000 Gastric Drainage 1150 / 1150 700 / 700 Other: Meal Dinner Breakfast Percent of Meal Consumed 0% 0% Stool Size Small Stool Consistency liquid Stool Color Brown # Bowel Movement Diapers 1 Weight 180.2 kg Blood Glucose* 122 110 116 Patient Weight 12/13/17 23:59 Weight 180.2 kg - Labs 12/09/17 03:40 12/13/17 03:00 Diabetes panel 12/13/17 Range/Units 03:00 Sodium 137 (136-145) mEq/L Potassium 3.9 (3.5-5.1) mEq/L Chloride 105 (98-107) mEq/L Carbon Dioxide 27 (23-29) mEq/L BUN 22 (8-23) mg/dL Creatinine 0.60 L (0.70-1.30) mg/dL Glucose 117 H (70-105) mg/dL Calcium 7.8 L (8.6-10.3) mg/dL Calcium panel 12/13/17 Range/Units 03:00 Calcium 7.8 L (8.6-10.3) mg/dL Phosphorus 3.0 (2.7-4.5) mg/dL Pituitary panel 12/13/17 Range/Units 03:00 Sodium 137 (136-145) mEq/L Potassium 3.9 (3.5-5.1) mEq/L Chloride 105 (98-107) mEq/L Carbon Dioxide 27 (23-29) mEq/L BUN 22 (8-23) mg/dL Creatinine 0.60 L (0.70-1.30) mg/dL Glucose 117 H (70-105) mg/dL Calcium 7.8 L (8.6-10.3) mg/dL Adrenal panel 12/13/17 Range/Units 03:00 Sodium 137 (136-145) mEq/L Potassium 3.9 (3.5-5.1) mEq/L Chloride 105 (98-107) mEq/L Carbon Dioxide 27 (23-29) mEq/L BUN 22 (8-23) mg/dL Creatinine 0.60 L (0.70-1.30) mg/dL Glucose 117 H (70-105) mg/dL Calcium 7.8 L (8.6-10.3) mg/dL - Attending Attestation I examined this patient and my medical decision-making was reviewed with the Resident Physician. I agree with the documented findings, disposition and treatment plan as described except to the extent set forth below. The patient had 2 bowel movements yesterday. Nasogastric tube drainage remains high. She does have hypoactive bowel sounds. We will place the nasogastric tube to Torres bag to see if we can get the nasogastric tube out later today if there is not much drainage. Continue aggressive treatment for ileus Hank Velázquez MD FACS
--- NOTE | 2017-12-13 11:48 | Internal Med Progress Note ---
Date of Encounter: 12/13/17 Time of Encounter: 11:45 - Assessment and plan (1) Sepsis Current Visit: Yes Status: Resolved Assessment and plan: acute metabolic encephalopathy 2ry to sepsis due to Large infected necrotic decubitus ulcers with eschar in the sacral region WBC 16.4, hypotension 99/72, confused Patient is being treated for lymphedema and wounds to his bilateral legs by home wound care team. -Consulted surgery-no intervention at the moment Wound cultures grew Proteous, MSSA and Ecoli all sensitive to Levaquin Discontinued Vancomycin at day 4, descontinued Zosyn at day 5, Continue Levaquin IV day #5 -patient services technician consult . -Consulted wound care team Qualifiers: Sepsis type: sepsis due to unspecified organism Qualified Code(s): A41.9 - Sepsis, unspecified organism (2) Ileus Current Visit: Yes Status: Acute Assessment and plan: SBO vs possible Severe ileus from sepsis Not improving IV fluids Removed NG tube but had to be reinserted on 12/09/17 NPO Reglan for 36h recommended by surgery Zofran as needed TPN CT scan of the abdomen and pelvis from 12/05/2017 showed:1. Nonspecific soft tissue findings at the cleft may be related to underlying ulceration or infection. No discrete fluid collection is seen. 2. The bowel gas findings are most in keeping with mild adynamic ileus but are nonspecific. 3. Nonspecific right inguinal and right pelvic adenopathy may be reactive or neoplastic. 4. Degenerative changes with grade 1 anterolisthesis L4 on L5. KUB from 12/10/17 showed: 1. No significant advancement of the contrast in the small bowel since the previous study. The contrast was injected over 9 hours ago. Findings are concerning for a small bowel obstruction. KUB from 12/11/17 showed: Progression of oral contrast material to more distal decompressed small bowel loops. (3) Lymphedema of both lower extremities Current Visit: Yes Status: Acute Assessment and plan: Chronic, consulted wound care (4) Decubitus ulcer Current Visit: Yes Status: Acute Qualifiers: Pressure ulcer location: sacral region Pressure ulcer stage: unspecified pressure ulcer stage Qualified Code(s): L89.159 - Pressure ulcer of sacral region, unspecified stage (5) Elevated troponin Current Visit: Yes Status: Acute Assessment and plan: Likely due to demadn ischemia. Troponin elevation of 0.04. Patient denied any chest pain, EKG did not show any ischemic changes. (6) Morbidly obese Current Visit: Yes Status: Acute - Time Spent With Patient Total time spent is greater than 50% in coordination of care (as documented) at patient's floor/unit and/or counseling patient: - Subjective Interval history: NG tube draining less Having nausea, vomiting stopped after placing the NG tube. Not passing gas. Complains of no abdominal pain, has numbness on the his right bottom, denies CP or SOB, no fever. - Constitutional Vitals: Temp Pulse Resp BP Pulse Ox 98.9 F 91 27 132/71 96 12/13/17 10:44 12/13/17 10:44 12/13/17 10:44 12/13/17 10:44 12/13/17 10:44 General appearance: Present: A&O X 3, morbidly obese Exam: - Head Head exam: Present: atraumatic, normocephalic NG tube in place - Eye Eye exam: Present: PERRL, conjuntiva pink, sclera anicteric Pupils: Present: PERRL - Neck Neck exam general surgery: Present: supple, trachea midline. Absent: lymphadenopathy - Respiratory Respiratory exam: Present: CTAB. Absent: accessory muscle use, rales, rhonchi, wheezes - Cardiovascular Cardiovascular exam: Present: RRR, +S1, +S2. Absent: diastolic murmur, gallop, rubs, systolic murmur - GI/Abdominal GI/Abdominal exam: Present: normal bowel sounds, soft, no peritoneal signs. Absent: distended, tenderness - Extremities Exam Extremities exam: Present: warm, radial pulses palpable and symmetrical. Absent : calf tenderness, cyanotic, pedal edema - Neurological Exam Neurological exam: Present: CN II-XII intact, no focal deficits. Absent: oriented X3, pronater drift, facial droop, speech deficit - Skin Skin exam: Absent: dry, intact Additional comments: large necrotic tissue area on the right buttock extending to the right lumbar area. Multiple large ulcers on left buttocks and left lower extremities Internal Medicine: Result - Labs CBC & Chem 7: 12/09/17 03:40 12/13/17 03:00 Labs: BMP 12/13/17 03:00 Sodium 137 Potassium 3.9 Chloride 105 Carbon Dioxide 27 BUN 22 Creatinine 0.60 L Glucose 117 H Calcium 7.8 L - ABG Interpretation ABG results: PT/INR, D-dimer PT 18.5 Seconds (9.4-12.1) H 12/09/17 03:40 - Impressions Impressions KUB X-Ray 12/12/17 07:36 IMPRESSION: Progression of oral contrast material to more distal decompressed small bowel loops. D/ / 12/12/2017 10:12:10 Karri Desai MD / will Interpreting Provider: Karri Desai MD Consult Discharge Plan - Plan Referrals: Nicolas Sanchez MD [Primary Care Provider] - 12/21/17 10:15 am
[2017-12-13] MEDS ORDERED: CLINIMIX E IVC SCH (17:00)
[2017-12-13] MEDS ORDERED: MVI IVC SCH (17:00)
[2017-12-13] MEDS ORDERED: PARENTERAL AMINO ACID 10% IVC SCH (17:00)
[2017-12-13] MEDS ORDERED: [UNRECOGNIZED DRUG - OTHER] IVC SCH (17:00)
[2017-12-14] MEDS: D5% in 0.45% NACL 1,000 ML IVC SCH ×2 (02:33→13:59)
[2017-12-14] MEDS: Metoclopramide 20 MG in 0.9 % Sodium Chloride 50 ML IVPB SCH ×2 (02:35→12:03)
[2017-12-14 05:35] LABS: BUN/Creatinine Ratio 44 (6-26); Blood Urea Nitrogen 26 mg/dL (8-23); Calcium 7.7 mg/dL (8.6-10.3); Carbon Dioxide 26 mEq/L (23-29); Chloride 103 mEq/L (98-107); Glucose 142 mg/dL (70-105); Osmolality,Calculated 285 (280-300); Phosphorous 3.1 mg/dL (2.7-4.5); Potassium 4.2 mEq/L (3.5-5.1); Sodium 134 mEq/L (136-145); eGFR For African Americans > 60 (> 60); eGFR For Non-African Americans > 60 (> 60)
[2017-12-14] MEDS: Gentamicin Oint 15 GM TUBE TP SCH (06:09)
[2017-12-14] MEDS: *HR* Heparin 5,000 UNIT/ML VIAL SQ SCH ×2 (06:30→17:41)
--- NOTE | 2017-12-14 09:32 | Internal Med Progress Note ---
<Dm Oliva - Last Filed: 12/14/17 09:20> Date of Encounter: 12/14/17 Time of Encounter: 09:20 (n) - Assessment and plan (1) Sepsis Current Visit: Yes Status: Resolved Assessment and plan: Acute metabolic encephalopathy secondary to sepsis due to Large infected necrotic decubitus ulcers with eschar in the sacral region On dadmission: WBC 16.4, hypotensive 99/72, confused Patient is being treated for lymphedema and wounds to his bilateral legs by home wound care team. -Consulted surgery-no intervention at the moment Wound cultures grew Proteous, MSSA and Ecoli all sensitive to Levaquin Discontinued Vancomycin on day 4, discontinued Zosyn on day 5, Continue Levaquin IV day #6 -real estate services administrator consulted -Consulted wound care team Qualifiers: Sepsis type: sepsis due to unspecified organism Qualified Code(s): A41.9 - Sepsis, unspecified organism (2) Decubitus ulcer Current Visit: Yes Status: Acute Assessment and plan: Large decubitus ulcers affecting R buttock into cleft and onto L buttock large Eschar. No evidence of tunneling CT scan did not reveal abscess or fistula No need for surgical debridement at this time. Wound care recommendations: Apply 50/50 Mixture of Santyl and Gentamicin ointment to the sacral ulcer Change dressing Daily Keep area clean as possible Q2H turns, assist to bed side chair Patient can follow up with surgery or wound care where he has lymphadema managed Qualifiers: Pressure ulcer location: sacral region Pressure ulcer stage: unspecified pressure ulcer stage Qualified Code(s): L89.159 - Pressure ulcer of sacral region, unspecified stage (3) Lymphedema of both lower extremities Current Visit: Yes Status: Acute Assessment and plan: Chronic, wound care following (4) Elevated troponin Current Visit: Yes Status: Acute Assessment and plan: Likely due to demand ischemia. Troponin elevation of 0.04. Patient denied any chest pain, EKG did not show any ischemic changes. (5) Morbidly obese Current Visit: Yes Status: Acute Assessment and plan: Diet modifications and exercise (6) Ileus Current Visit: Yes Status: Acute Assessment and plan: SBO vs severe ileus from sepsis CT scan of the abdomen and pelvis from 12/05/2017 showed:1. Nonspecific soft tissue findings at the austen cleft may be related to underlying ulceration or infection. No discrete fluid collection is seen. The bowel gas findings are most in keeping with mild adynamic ileus but are nonspecific. KUB from 12/11/17 revealed progression of oral contrast material to more distal decompressed small bowel loops. Slowly improving, hypoactive bowel sounds. Continue IV fluids and TPN Continue Reglan q8h, Zofran as needed Continue aggressive bowel regimen per surgery, Dulcolax and Colace BID - Time Spent With Patient Total time spent is greater than 50% in coordination of care (as documented) at patient's floor/unit and/or counseling patient: - Subjective Interval history: Patient seen and examined. Patient reports feeling improved and passing gas today. He has not had a BM today. NG remains in place on low intermittent suction with dark brown gastric output. Patient is net [id number] during this hospitalization and remains on D5 IVF and TPN. Surgery, wound care, and dietary are following. Encourage to bedside chair with PT. - Constitutional Vitals: Temp Pulse Resp BP Pulse Ox 99.0 F 93 18 117/75 95 12/14/17 07:17 12/14/17 07:17 12/14/17 07:17 12/14/17 07:17 12/14/17 07:17 General appearance: Present: cooperative, A&O X 3, morbidly obese, pleasant, no acute distress, answers questions appropriately - Head Head exam: Present: atraumatic, normocephalic - Eye Eye exam: Present: PERRL, conjuntiva pink, sclera anicteric Pupils: Present: PERRL - ENT ENT exam: Present: mucous membranes moist, normal oropharynx - Neck Neck exam general surgery: Present: supple, trachea midline. Absent: lymphadenopathy - Respiratory Respiratory exam: Present: decreased breath sounds, CTAB. Absent: accessory muscle use, rales, respiratory distress, rhonchi, wheezes - Cardiovascular Cardiovascular exam: Present: RRR, +S1, +S2. Absent: diastolic murmur, gallop, rubs, systolic murmur - GI/Abdominal GI/Abdominal exam: Present: hypoactive bowel sounds, soft, no peritoneal signs. Absent: distended, tenderness - Additional comments: torres in place - Extremities Exam Extremities exam: Present: warm, radial pulses palpable and symmetrical. Absent : calf tenderness, cyanotic, pedal edema - Neurological Exam Neurological exam: Present: CN II-XII intact, oriented X3, no focal deficits. Absent: pronater drift, facial droop, speech deficit - Psychiatric Psychiatric exam: Present: flat affect, normal mood - Skin Skin exam: Present: dry, excoriation (large eschar on sacrum covered by dressing ), intact Internal Medicine: Result - Labs CBC & Chem 7: 12/09/17 03:40 12/14/17 04:00 Labs: BMP 12/14/17 04:00 Sodium 134 L Potassium 4.2 Chloride 103 Carbon Dioxide 26 BUN 26 H Creatinine 0.59 L Glucose 142 H Calcium 7.7 L - ABG Interpretation ABG results: PT/INR, D-dimer PT 18.5 Seconds (9.4-12.1) H 12/09/17 03:40 - Pulse Oximetry Interpretation Digit-Finger Pulse Oximetry Readin (On RA) Consult Discharge Plan - Plan Referrals: Nicolas Sanchez MD [Primary Care Provider] - 12/21/17 10:15 am <Austin Cartagena H - Last Filed: 12/14/17 10:41> Date of Encounter: 12/14/17 - Assessment and plan (1) Lymphedema of both lower extremities Current Visit: Yes Status: Acute (2) Decubitus ulcer Current Visit: Yes Status: Acute Qualifiers: Pressure ulcer location: sacral region Pressure ulcer stage: unspecified pressure ulcer stage Qualified Code(s): L89.159 - Pressure ulcer of sacral region, unspecified stage (3) Elevated troponin Current Visit: Yes Status: Acute (4) Sepsis Current Visit: Yes Status: Resolved Qualifiers: Sepsis type: sepsis due to unspecified organism Qualified Code(s): A41.9 - Sepsis, unspecified organism (5) Morbidly obese Current Visit: Yes Status: Acute (6) Ileus Current Visit: Yes Status: Acute - Time Spent With Patient Total time spent is greater than 50% in coordination of care (as documented) at patient's floor/unit and/or counseling patient: - Constitutional Vitals: Temp Pulse Resp BP Pulse Ox 99.0 F 93 18 117/75 95 12/14/17 07:17 12/14/17 07:17 12/14/17 07:17 12/14/17 07:17 12/14/17 07:17 Internal Medicine: Result - Labs CBC & Chem 7: 04/25/18 03:40 12/14/17 04:00 Labs: BMP 12/14/17 04:00 Sodium 134 L Potassium 4.2 Chloride 103 Carbon Dioxide 26 BUN 26 H Creatinine 0.59 L Glucose 142 H Calcium 7.7 L - ABG Interpretation ABG results: PT/INR, D-dimer PT 18.5 Seconds (9.4-12.1) H 12/09/17 03:40 - Attending Attestation acute metabolic encephalopathy 2ry to sepsis due to Large infected necrotic decubitus ulcers with eschar in the sacral region WBC 16.4, hypotension 99/72, confused Patient is being treated for lymphedema and wounds to his bilateral legs by home wound care team. -Consulted surgery-no intervention at the moment Wound cultures grew Proteous, MSSA and Ecoli all sensitive to Levaquin Discontinued Vancomycin at day 4, descontinued Zosyn at day 5, Continue Levaquin IV day #6 -real estate services administrator consult . -Consulted wound care team Possible Severe ileus from sepsis Not improving IV fluids Removed NG tube but had to be reinserted on 12/09/17 NPO Reglan for 36h recommended by surgery Zofran as needed TPN CT scan of the abdomen and pelvis from 12/05/2017 showed:1. Nonspecific soft tissue findings at the cleft may be related to underlying ulceration or infection. No discrete fluid collection is seen. 2. The bowel gas findings are most in keeping with mild adynamic ileus but are nonspecific. 3. Nonspecific right inguinal and right pelvic adenopathy may be reactive or neoplastic. 4. Degenerative changes with grade 1 anterolisthesis L4 on L5. KUB from 12/10/17 showed: 1. No significant advancement of the contrast in the small bowel since the previous study. The contrast was injected over 9 hours ago. Findings are concerning for a small bowel obstruction. KUB from 12/11/17 showed: Progression of oral contrast material to more distal decompressed small bowel loops. I examined this patient and my medical decision-making was reviewed with the Resident Physician. I agree with the documented findings, disposition and treatment plan as described except to the extent set forth below.
[2017-12-14] MEDS: Levofloxacin 750 MG/150 ML 750 MG/150 ML BAG IVPB SCH (10:16)
--- NOTE | 2017-12-14 14:18 | General Surgery Progress Note ---
<LaurohititogetLawson - Last Filed: 12/14/17 14:15> Date of Encounter: 12/14/17 Time of Encounter: 08:00 - Assessment and Plan (1) Ileus Current Visit: Yes Status: Acute CT scan of the abdomen and pelvis from 12/05/2017 showed:1. Nonspecific soft tissue findings at the austen cleft may be related to underlying ulceration or infection. No discrete fluid collection is seen. 2. The bowel gas findings are most in keeping with mild adynamic ileus but are nonspecific. 3. Nonspecific right inguinal and right pelvic adenopathy may be reactive or neoplastic. 4. Degenerative changes with grade 1 anterolisthesis L4 on L5. Attempted to get CT scan 12/10 but was unabe to due to presence of retained contrast from prior study got KUB instead KUB from 12/10/17 showed: 1. No significant advancement of the contrast in the small bowel since the previous study. The contrast was injected over 9 hours ago. Findings are concerning for a small bowel obstruction. Attmepted to get a CT scan again yesterday but still unable to due to retained contrast so got KUB instead. KUB yesterday showed: "Contrast filled dilated small bowel loop. Contrast appears more distal when compared to the small bowel follow-through examination 1 day prior. No contrast is seen within the colon." Repeat KUB this morning shows: "Progression of oral contrast material to more distal decompressed small bowel loops." To my and Dr. Velázquez's reading appears to be some contrast in ascending colon. Plan: limit narcotics Continue NG continue aggressive bowel regimen continue Reglan 20mg IVPB q8H Checking KUB again today. (2) Decubitus ulcer Current Visit: Yes Status: Acute Large decubitus ulcers affecting R buttock into cleft and onto L buttock large Eschar. No evidence of tunneling CT scan did not reveal abscess or fistula Wound cultures pending No need for surgical debridement at this time. Wound care recommendations: Apply 50/50 Mixture of Santyl and Gentamicin ointment to the sacral ulcer Change dressing Daily Keep area clean as possible Q2H turns Patient can follow up with surgery wound clinic if convenient for him. If he'd prefer to continue wound care where he has his lymphadema managed that is up to him. Qualifiers: Pressure ulcer location: sacral region Pressure ulcer stage: unspecified pressure ulcer stage Qualified Code(s): L89.159 - Pressure ulcer of sacral region, unspecified stage (3) Sepsis Current Visit: Yes Status: Resolved Management per Primary team. Qualifiers: Sepsis type: sepsis due to unspecified organism Qualified Code(s): A41.9 - Sepsis, unspecified organism (4) Lymphedema of both lower extremities Current Visit: Yes Status: Acute Pt with chronic lymphadema. Managed by home health nurses/wound care. (5) Morbidly obese Current Visit: Yes Status: Acute Subjective Patient reports: no new complaints, flatus, bowel movement, diarrhea, afebrile Narrative: Patient reports more bowel movements and Flatus over night. Pating had 1,000 mL out NG since midnight when patient was seen this morning. Objective Vital Signs - Last 8 Hours Temp Pulse Resp BP Pulse Ox 12/14/17 11:56 98.5 F 95 18 121/74 94 12/14/17 07:17 99.0 F 93 18 117/75 95 Intake and Output 12/13/17 12/14/17 12/14/17 23:59 07:59 15:59 Intake Total 240 / 240 1108 / 1108 1204 / 1204 Output Total 1600 / 1600 1400 / 1400 1700 / 1700 Balance -1360 / -1360 -292 / -292 -496 / -496 Intake: IV Fluids 1108 / 1108 1204 / 1204 D5% And 0.45% Nacl 1000 Ml Bag 1000 / 1000 1000 / 1000 1,000 ML @ 90 mls/hr IVC . Q11H7M [facility] Rx#:[id number] Levaquin Premix 750mg/150 mL 150 / 150 750 mg In 150 ml @ 100 mls/hr IVPB DAILY [facility] Rx#:[id number] Reglan 20 MG In 0.9 % Sodium 108 / 108 54 / 54 Chloride 50 ML @ 108 mls/hr IVPB Q8H [facility] Rx#:[id number] Oral 240 / 240 0 / 0 Output: Gastric Tube Lavage Amount 1000 / 1000 1000 / 1000 Left Nare 1000 / 1000 1000 / 1000 Catheter 600 / 600 400 / 400 700 / 700 Gastric Drainage 1000 / 1000 Other: Meal npo Weight 177.4 kg Blood Glucose* 118 121 90 Patient Weight 12/14/17 23:59 Weight 177.4 kg - General physical appearance well developed, no distress, obese - Eyes normal ocular movement - ENT atraumatic, normocephalic - Neck Neck exam: trachea midline - Respiratory clear to auscultation, other (decreased breath soudns through out) - Cardiovascular Cardiovascular exam: Present: RRR, no murmurs/rubs/gallops - Abdomen Abdomen: Present: bowel sounds present (hypoactive), soft, non tender - Integumentary other (lymphedema BLE, Large eschar covered in dressing sacrum) - Neurologic CN 2-12 grossly intact - Psychiatric oriented to time, oriented to person, oriented to place, speech is normal - Labs 12/09/17 03:40 12/14/17 04:00 Diabetes panel 12/14/17 Range/Units 04:00 Sodium 134 L (136-145) mEq/L Potassium 4.2 (3.5-5.1) mEq/L Chloride 103 (98-107) mEq/L Carbon Dioxide 26 (23-29) mEq/L BUN 26 H (8-23) mg/dL Creatinine 0.59 L (0.70-1.30) mg/dL Glucose 142 H (70-105) mg/dL Calcium 7.7 L (8.6-10.3) mg/dL Calcium panel 12/14/17 Range/Units 04:00 Calcium 7.7 L (8.6-10.3) mg/dL Phosphorus 3.1 (2.7-4.5) mg/dL Pituitary panel 12/14/17 Range/Units 04:00 Sodium 134 L (136-145) mEq/L Potassium 4.2 (3.5-5.1) mEq/L Chloride 103 (98-107) mEq/L Carbon Dioxide 26 (23-29) mEq/L BUN 26 H (8-23) mg/dL Creatinine 0.59 L (0.70-1.30) mg/dL Glucose 142 H (70-105) mg/dL Calcium 7.7 L (8.6-10.3) mg/dL Adrenal panel 12/14/17 Range/Units 04:00 Sodium 134 L (136-145) mEq/L Potassium 4.2 (3.5-5.1) mEq/L Chloride 103 (98-107) mEq/L Carbon Dioxide 26 (23-29) mEq/L BUN 26 H (8-23) mg/dL Creatinine 0.59 L (0.70-1.30) mg/dL Glucose 142 H (70-105) mg/dL Calcium 7.7 L (8.6-10.3) mg/dL Consult Discharge Plan - Plan Referrals: Nicolas Sanchez MD [Primary Care Provider] - 12/21/17 10:15 am <Hank Velázquez - Last Filed: 12/14/17 17:00> Date of Encounter: 12/14/17 Objective Vital Signs - Last 8 Hours Temp Pulse Resp BP Pulse Ox 12/14/17 15:44 82 18 124/75 92 12/14/17 11:56 98.5 F 95 18 121/74 94 Intake and Output 12/14/17 12/14/17 12/14/17 07:59 15:59 23:59 Intake Total 1108 / 1108 1204 / 1204 Output Total 1400 / 1400 1700 / 1700 Balance -292 / -292 -496 / -496 Intake: IV Fluids 1108 / 1108 1204 / 1204 D5% And 0.45% Nacl 1000 Ml Bag 1000 / 1000 1000 / 1000 1,000 ML @ 90 mls/hr IVC . Q11H7M [facility] Rx#:[id number] Levaquin Premix 750mg/150 mL 150 / 150 750 mg In 150 ml @ 100 mls/hr IVPB DAILY [facility] Rx#:[id number] Reglan 20 MG In 0.9 % Sodium 108 / 108 54 / 54 Chloride 50 ML @ 108 mls/hr IVPB Q8H [facility] Rx#:[id number] Oral 0 / 0 Output: Gastric Tube Lavage Amount 1000 / 1000 1000 / 1000 Left Nare 1000 / 1000 1000 / 1000 Catheter 400 / 400 700 / 700 Other: Weight 177.4 kg Blood Glucose* 121 90 94 Patient Weight 12/14/17 23:59 Weight 177.4 kg - Labs 12/09/17 03:40 12/14/17 04:00 Diabetes panel 12/14/17 Range/Units 04:00 Sodium 134 L (136-145) mEq/L Potassium 4.2 (3.5-5.1) mEq/L Chloride 103 (98-107) mEq/L Carbon Dioxide 26 (23-29) mEq/L BUN 26 H (8-23) mg/dL Creatinine 0.59 L (0.70-1.30) mg/dL Glucose 142 H (70-105) mg/dL Calcium 7.7 L (8.6-10.3) mg/dL Calcium panel 12/14/17 Range/Units 04:00 Calcium 7.7 L (8.6-10.3) mg/dL Phosphorus 3.1 (2.7-4.5) mg/dL Pituitary panel 12/14/17 Range/Units 04:00 Sodium 134 L (136-145) mEq/L Potassium 4.2 (3.5-5.1) mEq/L Chloride 103 (98-107) mEq/L Carbon Dioxide 26 (23-29) mEq/L BUN 26 H (8-23) mg/dL Creatinine 0.59 L (0.70-1.30) mg/dL Glucose 142 H (70-105) mg/dL Calcium 7.7 L (8.6-10.3) mg/dL Adrenal panel 12/14/17 Range/Units 04:00 Sodium 134 L (136-145) mEq/L Potassium 4.2 (3.5-5.1) mEq/L Chloride 103 (98-107) mEq/L Carbon Dioxide 26 (23-29) mEq/L BUN 26 H (8-23) mg/dL Creatinine 0.59 L (0.70-1.30) mg/dL Glucose 142 H (70-105) mg/dL Calcium 7.7 L (8.6-10.3) mg/dL - Attending Attestation I examined this patient and my medical decision-making was reviewed with the Resident Physician. I agree with the documented findings, disposition and treatment plan as described except to the extent set forth below. The patient is seen and evaluated on morning rounds with resident. He has persistent mild adynamic ileus. We will continue to work to get the nasogastric tube removed and start him on diet. Hank Velázquez MD FACS
[2017-12-14] MEDS ORDERED: MVI IVC SCH (17:00)
[2017-12-14] MEDS ORDERED: [UNRECOGNIZED DRUG - OTHER] IVC SCH (17:00)
[2017-12-14] MEDS ORDERED: CLINIMIX E IVC SCH (17:00)
[2017-12-14] MEDS ORDERED: PARENTERAL AMINO ACID 10% IVC SCH (17:00)
[2017-12-14] MEDS: MORPHINE SUL Oral CONC 10 MG/0.5 ML ORAL.SYG SL PRN (20:53)
[2017-12-15] MEDS: D5% in 0.45% NACL 1,000 ML IVC SCH ×2 (02:38→17:21)
[2017-12-15] MEDS: Gentamicin Oint 15 GM TUBE TP SCH (03:45)
[2017-12-15] MEDS: *HR* Heparin 5,000 UNIT/ML VIAL SQ SCH ×2 (06:00→17:22)
[2017-12-15] MEDS ORDERED: Isovue-370 500 ML INFUS..BTL IV ONE (08:10)
--- NOTE | 2017-12-15 08:40 | General Surgery Progress Note ---
<BarbaratitoLawson deutsch - Last Filed: 12/15/17 11:12> Date of Encounter: 12/15/17 Time of Encounter: 07:30 - Assessment and Plan (1) Ileus Current Visit: Yes Status: Acute CT scan of the abdomen and pelvis from 12/05/2017 showed:1. Nonspecific soft tissue findings at the austen cleft may be related to underlying ulceration or infection. No discrete fluid collection is seen. 2. The bowel gas findings are most in keeping with mild adynamic ileus but are nonspecific. 3. Nonspecific right inguinal and right pelvic adenopathy may be reactive or neoplastic. 4. Degenerative changes with grade 1 anterolisthesis L4 on L5. Attempted to get CT scan 12/10 but was unabe to due to presence of retained contrast from prior study got KUB instead KUB from 12/10/17 showed: 1. No significant advancement of the contrast in the small bowel since the previous study. The contrast was injected over 9 hours ago. Findings are concerning for a small bowel obstruction. Attmepted to get a CT scan again but still unable to due to retained contrast so got KUB instead. KUB yesterday showed: "Contrast filled dilated small bowel loop. Contrast appears more distal when compared to the small bowel follow-through examination 1 day prior. No contrast is seen within the colon." Repeat KUB tshows: "Progression of oral contrast material to more distal decompressed small bowel loops." KUB 12/14: "Persistent small bowel distention, mildly improved from prior examination. Previously seen contrast has progressed the rectum. Diverticulosis." KUB 12/15: "1. Persistent small bowel distention concerning for a partial small bowel obstruction. 2. Large volume of residual contrast within the rectosigmoid colon." NG tube was out of place during the kub but not prior and nursing has already re -advanced NG tube. Plan: limit narcotics Continue NG continue aggressive bowel regimen continue Reglan 20mg IVPB q8H repeat KUB to confirm NG placement, hopefully CT tomorrow. (2) Decubitus ulcer Current Visit: Yes Status: Acute Large decubitus ulcers affecting R buttock into cleft and onto L buttock large Eschar. No evidence of tunneling CT scan did not reveal abscess or fistula Wound cultures pending No need for surgical debridement at this time. Wound care recommendations: Apply 50/50 Mixture of Santyl and Gentamicin ointment to the sacral ulcer Change dressing Daily Keep area clean as possible Q2H turns Patient can follow up with surgery wound clinic if convenient for him. If he'd prefer to continue wound care where he has his lymphadema managed that is up to him. Qualifiers: Pressure ulcer location: sacral region Pressure ulcer stage: unspecified pressure ulcer stage Qualified Code(s): L89.159 - Pressure ulcer of sacral region, unspecified stage (3) Sepsis Current Visit: Yes Status: Resolved Management per Primary team. Qualifiers: Sepsis type: sepsis due to unspecified organism Qualified Code(s): A41.9 - Sepsis, unspecified organism (4) Lymphedema of both lower extremities Current Visit: Yes Status: Acute Pt with chronic lymphadema. Managed by home health nurses/wound care. (5) Morbidly obese Current Visit: Yes Status: Acute Subjective Patient reports: no new complaints, flatus, no bowel movement, afebrile Narrative: Patient reports no bowel movement, no abd pain. NG output 1800 since midnight. Objective Vital Signs - Last 8 Hours Temp Pulse Resp BP Pulse Ox 12/15/17 07:00 97.7 F 106 18 128/79 93 12/15/17 04:00 98.1 F 91 16 133/80 94 Intake and Output 12/14/17 12/15/17 12/15/17 23:59 07:59 15:59 Intake Total 100 / 100 1000 / 1000 Output Total 1900 / 1900 2800 / 2800 Balance -1800 / -1800 -1800 / -1800 Intake: IV Fluids 1000 / 1000 D5% And 0.45% Nacl 1000 Ml Bag 1000 / 1000 1,000 ML @ 90 mls/hr IVC . Q11H7M [facility] Rx#:[id number] Oral 100 / 100 0 / 0 Output: Urine 700 / 700 Catheter 900 / 900 300 / 300 Gastric Drainage 1000 / 1000 1800 / 1800 Other: Weight 175.7 kg Blood Glucose* 113 113 Patient Weight 12/15/17 23:59 Weight 175.7 kg - General physical appearance no distress, no pain, obese - Eyes normal ocular movement - ENT normal mucosa - Neck Neck exam: trachea midline - Respiratory clear to auscultation, other (diminished breathsounds) - Cardiovascular Cardiovascular exam: Present: RRR, no murmurs/rubs/gallops - Abdomen Abdomen: Present: soft, non tender. Absent: bowel sounds present - Integumentary other (BLE lymphadema, Sacral eschar with dressing in place) - Neurologic CN 2-12 grossly intact - Musculoskeletal normal posture - Psychiatric oriented to time, oriented to person, oriented to place, speech is normal, memory intact - Labs 12/15/17 04:00 12/15/17 04:00 Consult Discharge Plan - Plan Referrals: Nicolas Sanchez MD [Primary Care Provider] - 12/21/17 10:15 am <Antonio Hawkins - Last Filed: 12/15/17 19:59> Date of Encounter: 12/15/17 Objective Vital Signs - Last 8 Hours Pulse Resp BP Pulse Ox 12/15/17 16:00 91 18 114/76 91 Intake and Output 12/15/17 12/15/17 12/15/17 07:59 15:59 23:59 Intake Total 1000 / 1000 1000 / 1000 Output Total 2800 / 2800 400 / 400 400 / 400 Balance -1800 / -1800 600 / 600 -400 / -400 Intake: IV Fluids 1000 / 1000 1000 / 1000 D5% And 0.45% Nacl 1000 Ml Bag 1000 / 1000 1000 / 1000 1,000 ML @ 90 mls/hr IVC . Q11H7M [facility] Rx#:[id number] Oral 0 / 0 Output: Urine 700 / 700 Catheter 300 / 300 400 / 400 400 / 400 Gastric Drainage 1800 / 1800 Other: Weight 175.7 kg Blood Glucose* 113 127 106 Patient Weight 12/15/17 23:59 Weight 175.7 kg - Labs 12/15/17 04:00 12/15/17 04:00 Diabetes panel 12/15/17 Range/Units 04:00 Sodium 133 L (136-145) mEq/L Potassium 4.1 (3.5-5.1) mEq/L Chloride 101 (98-107) mEq/L Carbon Dioxide 27 (23-29) mEq/L BUN 25 H (8-23) mg/dL Creatinine 0.53 L (0.70-1.30) mg/dL Glucose 113 H (70-105) mg/dL Calcium 8.0 L (8.6-10.3) mg/dL AST 32 (13-39) Units/L ALT 48 (7-52) Units/L Alkaline Phosphatase 62 (34-104) Units/L Albumin 2.5 L (3.5-5.7) g/dL Calcium panel 12/15/17 Range/Units 04:00 Calcium 8.0 L (8.6-10.3) mg/dL Phosphorus 3.4 (2.7-4.5) mg/dL Albumin 2.5 L (3.5-5.7) g/dL Pituitary panel 12/15/17 Range/Units 04:00 Sodium 133 L (136-145) mEq/L Potassium 4.1 (3.5-5.1) mEq/L Chloride 101 (98-107) mEq/L Carbon Dioxide 27 (23-29) mEq/L BUN 25 H (8-23) mg/dL Creatinine 0.53 L (0.70-1.30) mg/dL Glucose 113 H (70-105) mg/dL Calcium 8.0 L (8.6-10.3) mg/dL Adrenal panel 12/15/17 Range/Units 04:00 Sodium 133 L (136-145) mEq/L Potassium 4.1 (3.5-5.1) mEq/L Chloride 101 (98-107) mEq/L Carbon Dioxide 27 (23-29) mEq/L BUN 25 H (8-23) mg/dL Creatinine 0.53 L (0.70-1.30) mg/dL Glucose 113 H (70-105) mg/dL Calcium 8.0 L (8.6-10.3) mg/dL Total Bilirubin 0.7 (0.3-1.0) mg/dL AST 32 (13-39) Units/L ALT 48 (7-52) Units/L Alkaline Phosphatase 62 (34-104) Units/L Albumin 2.5 L (3.5-5.7) g/dL - Attending Attestation patient seen and examined. i have reviewed all imaging,labs, and notes, including this one. I agree with the above assessment and plan and wish to add the following... 62M with concern for an ileus; patient does give a vague history suggestive of nausea with meals beginning this hospital admission; afebrile, VSS; non peritoneal on exam; patient does report never having a colonoscopy nor an EGD before. All imaging at this point does not suggest an obstruction as contrast does transit all the way to the rectal vault; however, contrast remains within the rectal vault; will repeat KUB; plan for bowel prep on 12/16 plan for colonoscopy/EGD/push enteroscopy on 12/17 no acute surgery at present;
--- NOTE | 2017-12-15 10:19 | Internal Med Progress Note ---
<Dm Oliva - Last Filed: 12/15/17 13:00> Date of Encounter: 12/15/17 Time of Encounter: 10:17 - Assessment and plan (1) Sepsis Current Visit: Yes Status: Resolved Assessment and plan: Acute metabolic encephalopathy secondary to sepsis due to Large infected necrotic decubitus ulcers with eschar in the sacral region On admission: WBC 16.4, hypotensive 99/72, confused Patient is being treated for lymphedema and wounds to his bilateral legs by home wound care team. -Consulted surgery-no intervention at the moment Wound cultures grew Proteous, MSSA and Ecoli all sensitive to Levaquin Discontinued Vancomycin on day 4, discontinued Zosyn on day 5, Continue Levaquin IV day #7 -counseling services manager consulted -Consulted wound care team Qualifiers: Sepsis type: sepsis due to unspecified organism Qualified Code(s): A41.9 - Sepsis, unspecified organism (2) Decubitus ulcer Current Visit: Yes Status: Acute Assessment and plan: Large decubitus ulcers affecting R buttock into cleft and onto L buttock large Eschar. No evidence of tunneling CT scan did not reveal abscess or fistula No need for surgical debridement at this time. Wound care recommendations: Apply 50/50 Mixture of Santyl and Gentamicin ointment to the sacral ulcer Change dressing Daily Keep area clean as possible Q2H turns, assist to bed side chair Patient can follow up with surgery or wound care where he has lymphadema managed Qualifiers: Pressure ulcer location: sacral region Pressure ulcer stage: unspecified pressure ulcer stage Qualified Code(s): L89.159 - Pressure ulcer of sacral region, unspecified stage (3) Lymphedema of both lower extremities Current Visit: Yes Status: Acute Assessment and plan: Chronic, wound care following (4) Elevated troponin Current Visit: Yes Status: Acute Assessment and plan: Likely due to demand ischemia. Troponin elevation of 0.04. Patient denied any chest pain, EKG did not show any ischemic changes. (5) Morbidly obese Current Visit: Yes Status: Acute Assessment and plan: Diet modifications and exercise (6) Ileus Current Visit: Yes Status: Acute Assessment and plan: SBO vs severe ileus Slowly improving, hypoactive bowel sounds, large volume NG output Continue IV fluids and TPN Stop Reglan Continue Zofran as needed Continue aggressive bowel regimen per surgery, Dulcolax and Colace BID KUB 12/15/17 revealed persistent small bowel distention concerning for a partial small bowel obstruction. Large volume of residual contrast within the rectosigmoid colon. Repeat CT scan of the abdomen and pelvis tomorrow - Time Spent With Patient Total time spent is greater than 50% in coordination of care (as documented) at patient's floor/unit and/or counseling patient: - Subjective Interval history: Patient seen and examined. Patient denies having a BM today. CT abd/plv ordered today. NG remains in place on low intermittent suction with dark brown gastric output. Patient is net [id number] during this hospitalization and remains on D5 IVF and TPN. Surgery, wound care, and dietary are following. Encourage to bedside chair with PT. - Constitutional Vitals: Temp Pulse Resp BP Pulse Ox 97.7 F 106 18 128/79 93 12/15/17 07:00 12/15/17 07:00 12/15/17 07:00 12/15/17 07:00 12/15/17 07:00 General appearance: Present: cooperative, A&O X 3, morbidly obese, no acute distress, answers questions appropriately - Head Head exam: Present: atraumatic, normocephalic - Eye Eye exam: Present: PERRL, conjuntiva pink, sclera anicteric Pupils: Present: PERRL - ENT ENT exam: Present: mucous membranes dry, normal oropharynx Additional comments: NG tube in place - Neck Neck exam general surgery: Present: supple, trachea midline. Absent: lymphadenopathy - Respiratory Respiratory exam: Present: decreased breath sounds. Absent: accessory muscle use, rales, rhonchi, wheezes - Cardiovascular Cardiovascular exam: Present: RRR, +S1, +S2. Absent: diastolic murmur, gallop, rubs, systolic murmur - GI/Abdominal GI/Abdominal exam: Present: normal bowel sounds, soft, no peritoneal signs. Absent: distended, tenderness - Extremities Exam Extremities exam: Present: warm, radial pulses palpable and symmetrical. Absent : calf tenderness, cyanotic, pedal edema - Back Exam Back exam: Absent: normal inspection (large eschar on sacrum covered by dressing ) - Neurological Exam Neurological exam: Present: alert, CN II-XII intact, oriented X3, no focal deficits. Absent: pronater drift, facial droop, speech deficit - Psychiatric Psychiatric exam: Present: flat affect, normal mood - Skin Skin exam: Present: dry, intact, warm. Absent: normal color (large eschar on sacrum covered by dressing) Internal Medicine: Result - Labs CBC & Chem 7: 12/15/17 04:00 12/15/17 04:00 - ABG Interpretation ABG results: PT/INR, D-dimer PT 18.5 Seconds (9.4-12.1) H 12/09/17 03:40 - Pulse Oximetry Interpretation Digit-Finger Pulse Oximetry Readin (on RA) - Impressions Impressions KUB X-Ray 12/14/17 14:06 IMPRESSION: Persistent small bowel distention, mildly improved from prior examination. Previously seen contrast has progressed the rectum. Diverticulosis. D/ / Jayant Linares MD / Jayant Linares MD Interpreting Provider: Jayant Linares MD X-Ray 12/15/17 00:00 IMPRESSION: 1. Persistent small bowel distention concerning for a partial small bowel obstruction. 2. Large volume of residual contrast within the rectosigmoid colon. D/ / Karri Desai MD / Karri Desai MD Interpreting Provider: Karri Desai MD Consult Discharge Plan - Plan Referrals: Nicolas Sanchez MD [Primary Care Provider] - 12/21/17 10:15 am <Alonzo Preston T - Last Filed: 12/15/17 16:48> Date of Encounter: 12/15/17 - Assessment and plan (1) Lymphedema of both lower extremities Current Visit: Yes Status: Acute (2) Decubitus ulcer Current Visit: Yes Status: Acute Qualifiers: Pressure ulcer location: sacral region Pressure ulcer stage: unspecified pressure ulcer stage Qualified Code(s): L89.159 - Pressure ulcer of sacral region, unspecified stage (3) Elevated troponin Current Visit: Yes Status: Acute (4) Sepsis Current Visit: Yes Status: Resolved Qualifiers: Sepsis type: sepsis due to unspecified organism Qualified Code(s): A41.9 - Sepsis, unspecified organism (5) Morbidly obese Current Visit: Yes Status: Acute (6) Ileus Current Visit: Yes Status: Acute - Time Spent With Patient Total time spent is greater than 50% in coordination of care (as documented) at patient's floor/unit and/or counseling patient: - Constitutional Vitals: Temp Pulse Resp BP Pulse Ox 97.7 F 91 18 114/76 91 12/15/17 07:00 12/15/17 16:00 12/15/17 16:00 12/15/17 16:00 12/15/17 16:00 Internal Medicine: Result - Labs CBC & Chem 7: 12/15/17 04:00 12/15/17 04:00 Labs: Short CBC 12/15/17 Range/Units 04:00 WBC 11.5 H D (4.3-11.1) K/mcL Hgb 11.5 L D (12.9-16.9) g/dL Hct 36.5 L (37.5-50.1) % Plt Count 320 (140-400) K/mcL BMP 12/15/17 04:00 Sodium 133 L Potassium 4.1 Chloride 101 Carbon Dioxide 27 BUN 25 H Creatinine 0.53 L Glucose 113 H Calcium 8.0 L Liver Function 12/15/17 Range/Units 04:00 Total Bilirubin 0.7 (0.3-1.0) mg/dL AST 32 (13-39) Units/L ALT 48 (7-52) Units/L Alkaline Phosphatase 62 (34-104) Units/L Albumin 2.5 L (3.5-5.7) g/dL - ABG Interpretation ABG results: PT/INR, D-dimer PT 18.5 Seconds (9.4-12.1) H 12/09/17 03:40 - Impressions Impressions KUB X-Ray 12/15/17 00:00 IMPRESSION: 1. Persistent small bowel distention concerning for a partial small bowel obstruction. 2. Large volume of residual contrast within the rectosigmoid colon. D/ 12/15/2017 10:54:33 Karri Desai MD / monico Interpreting Provider: Karri Desai MD X-Ray 12/15/17 11:10 IMPRESSION: Advancement of the enteric tube with the tip and side port within the proximal stomach. D/ / 12/15/2017 12:19:56 Gillian High MD / faith Interpreting Provider: Gillian High MD - Attending Attestation I examined this patient and my medical decision-making was reviewed with the Resident Physician. I agree with the documented findings, disposition and treatment plan as described except to the extent set forth below. 63-year-old male admitted for acute encephalopathy secondary to sepsis from large necrotic decubitus ulcer over the sacral region, hospital course complicated by an ileus and small bowel obstruction. surgery is following closely. He denies new complaints. His NG tube is to have a large effluent. He is a routine abdomen and pelvis CAT scan for evaluation of a small bowel obstruction. He is receiving wound care and antibiotics. Wound is not inspected today, however patient is morbidly obese, chest is clear to auscultation bilaterally, heart sounds S1-S2, abdomen is quiet without any bowel sounds. He has trace bilateral pitting pedal edema with chronic venostasis changes. Labs and imaging reviewed. Plan is to continue current management, patient is awaiting definitive plan by surgery for small bowel obstruction. Monitor intake and output, monitor electrolytes closely, continue wound care and regular turning. Rest of details as in the resident physicians documentation.
[2017-12-15] MEDS: Levofloxacin 750 MG/150 ML 750 MG/150 ML BAG IVPB SCH (10:26)
[2017-12-15 10:33] LABS: Hematocrit 36.5 % (37.5-50.1); Hemoglobin 11.5 g/dL (12.9-16.9); Mean Corpuscular HGB Conc 31.5 g/dL (31.6-35.5); Mean Corpuscular Hemoglobin 25.1 pg (28.0-33.3); Mean Corpuscular Volume 79.7 fL (83.0-100.0); Mean Platelet Volume 10.7 fL (9.4-12.4); Platelet Count 320 K/mcL (140-400); Red Blood Count 4.58 M/mcL (4.19-5.50); Red Cell Distribution Width 19.4 % (11.5-14.5)
[2017-12-15 10:49] LABS: Alanine Aminotransferase 48 Units/L (7-52); Albumin 2.5 g/dL (3.5-5.7); Albumin/Globulin Ratio 0.7 (1.1-2.2); Alkaline Phosphatase 62 Units/L (34-104); Aspartate Amino Transferase 32 Units/L (13-39); BUN/Creatinine Ratio 47 (6-26); Bilirubin,Total 0.7 mg/dL (0.3-1.0); Blood Urea Nitrogen 25 mg/dL (8-23); Carbon Dioxide 27 mEq/L (23-29); Chloride 101 mEq/L (98-107); Globulin 3.6 g/dL (2.4-3.5); Glucose 113 mg/dL (70-105); Magnesium 1.9 mg/dL (1.6-2.6); Osmolality,Calculated 281 (280-300); Phosphorous 3.4 mg/dL (2.7-4.5); Potassium 4.1 mEq/L (3.5-5.1); Sodium 133 mEq/L (136-145); Total Protein 6.1 g/dL (6.4-8.9); eGFR For African Americans > 60 (> 60); eGFR For Non-African Americans > 60 (> 60)
[2017-12-15] MEDS ORDERED: PARENTERAL AMINO ACID 10% IVC SCH (17:00)
[2017-12-15] MEDS ORDERED: CLINIMIX E IVC SCH (17:00)
[2017-12-15] MEDS ORDERED: MVI IVC SCH (17:00)
[2017-12-15] MEDS ORDERED: [UNRECOGNIZED DRUG - OTHER] IVC SCH (17:00)
[2017-12-16] MEDS: Gentamicin Oint 15 GM TUBE TP SCH ×3 (04:05→18:43)
[2017-12-16] MEDS: D5% in 0.45% NACL 1,000 ML IVC SCH ×2 (05:41→16:46)
[2017-12-16] MEDS: *HR* Heparin 5,000 UNIT/ML VIAL SQ SCH ×2 (05:42→17:13)
[2017-12-16] MEDS: Ondansetron 4 MG/2 ML VIAL IVP PRN (06:34)
[2017-12-16 06:35] LABS: VBG Ionized Calcium 1.06 mmol/L (1.15-1.35); VBG PH 7.44 pH Units (7.32-7.42)
[2017-12-16 06:43] LABS: BUN/Creatinine Ratio 48 (6-26); Blood Urea Nitrogen 26 mg/dL (8-23); Calcium 8.1 mg/dL (8.6-10.3); Carbon Dioxide 27 mEq/L (23-29); Chloride 99 mEq/L (98-107); Glucose 127 mg/dL (70-105); Magnesium 1.9 mg/dL (1.6-2.6); Osmolality,Calculated 286 (280-300); Phosphorous 3.6 mg/dL (2.7-4.5); Potassium 3.8 mEq/L (3.5-5.1); Sodium 135 mEq/L (136-145); eGFR For African Americans > 60 (> 60); eGFR For Non-African Americans > 60 (> 60)
--- NOTE | 2017-12-16 07:43 | General Surgery Progress Note ---
<LaurohititoLawson deutsch - Last Filed: 12/16/17 09:29> Date of Encounter: 12/16/17 Time of Encounter: 07:43 - Assessment and Plan (1) Ileus Current Visit: Yes Status: Acute CT scan of the abdomen and pelvis from 12/05/2017 showed:1. Nonspecific soft tissue findings at the austen cleft may be related to underlying ulceration or infection. No discrete fluid collection is seen. 2. The bowel gas findings are most in keeping with mild adynamic ileus but are nonspecific. 3. Nonspecific right inguinal and right pelvic adenopathy may be reactive or neoplastic. 4. Degenerative changes with grade 1 anterolisthesis L4 on L5. Attempted to get CT scan 12/10 but was unabe to due to presence of retained contrast from prior study got KUB instead KUB from 12/10/17 showed: 1. No significant advancement of the contrast in the small bowel since the previous study. The contrast was injected over 9 hours ago. Findings are concerning for a small bowel obstruction. Attmepted to get a CT scan again but still unable to due to retained contrast so got KUB instead. KUB yesterday showed: "Contrast filled dilated small bowel loop. Contrast appears more distal when compared to the small bowel follow-through examination 1 day prior. No contrast is seen within the colon." Repeat KUB tshows: "Progression of oral contrast material to more distal decompressed small bowel loops." KUB 12/14: "Persistent small bowel distention, mildly improved from prior examination. Previously seen contrast has progressed the rectum. Diverticulosis." KUB 12/15: "1. Persistent small bowel distention concerning for a partial small bowel obstruction. 2. Large volume of residual contrast within the rectosigmoid colon." SBFT 12/15-2: "Delayed small bowel transit time, with contrast reaching the mid/ distal small bowel at 17 hours. The differential favors ongoing ileus, " Plan: limit narcotics Clamp NG continue aggressive bowel regimen Bowel prep today Plan for EGD/Colonoscopy/ push through enteroscopy tomorrow. (2) Decubitus ulcer Current Visit: Yes Status: Acute Large decubitus ulcers affecting R buttock into austen cleft and onto L buttock large Eschar. No evidence of tunneling CT scan did not reveal abscess or fistula Wound cultures pending No need for surgical debridement at this time. Wound care recommendations: Apply 50/50 Mixture of Santyl and Gentamicin ointment to the sacral ulcer Change dressing Daily Keep area clean as possible Q2H turns Patient can follow up with surgery wound clinic if convenient for him. If he'd prefer to continue wound care where he has his lymphadema managed that is up to him. Qualifiers: Pressure ulcer location: sacral region Pressure ulcer stage: unspecified pressure ulcer stage Qualified Code(s): L89.159 - Pressure ulcer of sacral region, unspecified stage (3) Sepsis Current Visit: Yes Status: Resolved Management per Primary team. WBC creeping back up, but vitals normal afebrile. May be reactive. Qualifiers: Sepsis type: sepsis due to unspecified organism Qualified Code(s): A41.9 - Sepsis, unspecified organism (4) Lymphedema of both lower extremities Current Visit: Yes Status: Acute Pt with chronic lymphadema. Managed by home health nurses/wound care. (5) Morbidly obese Current Visit: Yes Status: Acute Subjective Patient reports: no new complaints, flatus, bowel movement, diarrhea, afebrile Narrative: Patient had Nausea and vomiting over night with NG tube clamped. No longer nauseated with NG to suction. Objective Vital Signs - Last 8 Hours Temp Pulse Resp BP Pulse Ox 12/16/17 05:00 97.9 F 90 15 120/68 94 Intake and Output 12/15/17 12/15/17 12/16/17 15:59 23:59 07:59 Intake Total 1000 / 1000 0 / 0 1240 / 1240 Output Total 400 / 400 400 / 400 600 / 600 Balance 600 / 600 -400 / -400 640 / 640 Intake: IV Fluids 1000 / 1000 1000 / 1000 D5% And 0.45% Nacl 1000 Ml Bag 1000 / 1000 1000 / 1000 1,000 ML @ 90 mls/hr IVC . Q11H7M [facility] Rx#:[id number] Oral 0 / 0 240 / 240 Output: Catheter 400 / 400 400 / 400 600 / 600 Other: Stool Size Moderate Stool Consistency liquid Stool Color Brown Yellow Weight 174.5 kg Blood Glucose* 127 113 129 Patient Weight 12/16/17 23:59 Weight 174.5 kg - General physical appearance well developed, no distress, obese - Eyes normal ocular movement - ENT normal mucosa - Neck Neck exam: trachea midline - Respiratory normal expansion, normal respiratory effort, clear to auscultation - Cardiovascular Cardiovascular exam: Present: RRR, no murmurs/rubs/gallops - Abdomen Abdomen: Present: bowel sounds present (hypoactive best hear LUQ), soft, non tender - Neurologic CN 2-12 grossly intact - Musculoskeletal normal posture - Psychiatric oriented to time, oriented to person, oriented to place, speech is normal, memory intact - Labs 12/16/17 08:37 12/16/17 04:00 Diabetes panel 12/15/17 12/16/17 Range/Units 04:00 04:00 Sodium 133 L 135 L (136-145) mEq/L Potassium 4.1 3.8 (3.5-5.1) mEq/L Chloride 101 99 (98-107) mEq/L Carbon Dioxide 27 27 (23-29) mEq/L BUN 25 H 26 H (8-23) mg/dL Creatinine 0.53 L 0.54 L (0.70-1.30) mg/dL Glucose 113 H 127 H (70-105) mg/dL Calcium 8.0 L 8.1 L (8.6-10.3) mg/dL AST 32 (13-39) Units/L ALT 48 (7-52) Units/L Alkaline Phosphatase 62 (34-104) Units/L Albumin 2.5 L (3.5-5.7) g/dL Calcium panel 12/15/17 12/16/17 Range/Units 04:00 04:00 Calcium 8.0 L 8.1 L (8.6-10.3) mg/dL Phosphorus 3.4 3.6 (2.7-4.5) mg/dL Albumin 2.5 L (3.5-5.7) g/dL Pituitary panel 12/15/17 12/16/17 Range/Units 04:00 04:00 Sodium 133 L 135 L (136-145) mEq/L Potassium 4.1 3.8 (3.5-5.1) mEq/L Chloride 101 99 (98-107) mEq/L Carbon Dioxide 27 27 (23-29) mEq/L BUN 25 H 26 H (8-23) mg/dL Creatinine 0.53 L 0.54 L (0.70-1.30) mg/dL Glucose 113 H 127 H (70-105) mg/dL Calcium 8.0 L 8.1 L (8.6-10.3) mg/dL Adrenal panel 12/15/17 12/16/17 Range/Units 04:00 04:00 Sodium 133 L 135 L (136-145) mEq/L Potassium 4.1 3.8 (3.5-5.1) mEq/L Chloride 101 99 (98-107) mEq/L Carbon Dioxide 27 27 (23-29) mEq/L BUN 25 H 26 H (8-23) mg/dL Creatinine 0.53 L 0.54 L (0.70-1.30) mg/dL Glucose 113 H 127 H (70-105) mg/dL Calcium 8.0 L 8.1 L (8.6-10.3) mg/dL Total Bilirubin 0.7 (0.3-1.0) mg/dL AST 32 (13-39) Units/L ALT 48 (7-52) Units/L Alkaline Phosphatase 62 (34-104) Units/L Albumin 2.5 L (3.5-5.7) g/dL Consult Discharge Plan - Plan Referrals: Nicolas Sanchez MD [Primary Care Provider] - 12/21/17 10:15 am <Antonio Hawkins - Last Filed: 12/16/17 14:01> Date of Encounter: 12/16/17 Objective Vital Signs - Last 8 Hours Temp Pulse Resp BP Pulse Ox 12/16/17 11:19 99.1 F 90 16 140/80 97 12/16/17 08:29 97.9 F 86 18 126/79 92 Intake and Output 12/15/17 12/16/17 12/16/17 23:59 07:59 15:59 Intake Total 0 / 0 1240 / 1240 0 / 0 Output Total 400 / 400 2700 / 2700 Balance -400 / -400 -1460 / -1460 0 / 0 Intake: IV Fluids 1000 / 1000 D5% And 0.45% Nacl 1000 Ml Bag 1000 / 1000 1,000 ML @ 90 mls/hr IVC . Q11H7M [facility] Rx#:[id number] Oral 0 / 0 240 / 240 0 / 0 Output: Catheter 400 / 400 600 / 600 Gastric Drainage 2100 / 2100 Other: Meal Lunch Percent of Meal Consumed 0% Stool Size Moderate Large Stool Consistency liquid loose liquid Stool Color Brown Brown Yellow Yellow Weight 174.5 kg Blood Glucose* 113 129 130 Patient Weight 12/16/17 23:59 Weight 174.5 kg - Labs 12/16/17 08:37 12/16/17 04:00 Diabetes panel 12/16/17 Range/Units 04:00 Sodium 135 L (136-145) mEq/L Potassium 3.8 (3.5-5.1) mEq/L Chloride 99 (98-107) mEq/L Carbon Dioxide 27 (23-29) mEq/L BUN 26 H (8-23) mg/dL Creatinine 0.54 L (0.70-1.30) mg/dL Glucose 127 H (70-105) mg/dL Calcium 8.1 L (8.6-10.3) mg/dL Calcium panel 12/16/17 Range/Units 04:00 Calcium 8.1 L (8.6-10.3) mg/dL Phosphorus 3.6 (2.7-4.5) mg/dL Pituitary panel 12/16/17 Range/Units 04:00 Sodium 135 L (136-145) mEq/L Potassium 3.8 (3.5-5.1) mEq/L Chloride 99 (98-107) mEq/L Carbon Dioxide 27 (23-29) mEq/L BUN 26 H (8-23) mg/dL Creatinine 0.54 L (0.70-1.30) mg/dL Glucose 127 H (70-105) mg/dL Calcium 8.1 L (8.6-10.3) mg/dL Adrenal panel 12/16/17 Range/Units 04:00 Sodium 135 L (136-145) mEq/L Potassium 3.8 (3.5-5.1) mEq/L Chloride 99 (98-107) mEq/L Carbon Dioxide 27 (23-29) mEq/L BUN 26 H (8-23) mg/dL Creatinine 0.54 L (0.70-1.30) mg/dL Glucose 127 H (70-105) mg/dL Calcium 8.1 L (8.6-10.3) mg/dL - Attending Attestation patient seen and examined; i have reviewed all imaging, notes, and labs. I agree with the above assessment and plan and wish to add the following... bowel prep today NPO at midnight EGD, colonoscopy tomorrow
[2017-12-16 08:42] LABS: Basophils # 0.1 K/mcL (0.0-0.2); Basophils % 0.5 %; Eosinophils # 0.4 K/mcL (0.0-0.6); Eosinophils % 2.9 %; Hematocrit 38.2 % (37.5-50.1); Hemoglobin 11.9 g/dL (12.9-16.9); Immature Granulocytes % 1.5 % (0-4); Lymphocytes # 2.2 K/mcL (0.6-4.6); Lymphocytes % 17.8 %; Mean Corpuscular HGB Conc 31.2 g/dL (31.6-35.5); Mean Corpuscular Hemoglobin 24.7 pg (28.0-33.3); Mean Corpuscular Volume 79.4 fL (83.0-100.0); Mean Platelet Volume 10.9 fL (9.4-12.4); Monocytes # 0.8 K/mcL (0.0-1.3); Monocytes % 6.6 %; Neutrophils # 8.7 K/mcL (1.6-8.9); Platelet Count 323 K/mcL (140-400); Red Blood Count 4.81 M/mcL (4.19-5.50); Segmented Neutrophils % 70.7 %
[2017-12-16] MEDS ORDERED: Polyethylene Glycol 3350 255 GM POWDER PO ONE ×2 (09:25→09:40)
--- NOTE | 2017-12-16 09:44 | Internal Med Progress Note ---
<Dm Oliva - Last Filed: 12/16/17 09:40> Date of Encounter: 12/16/17 Time of Encounter: 09:40 - Assessment and plan (1) Sepsis Current Visit: Yes Status: Resolved Assessment and plan: Acute metabolic encephalopathy secondary to sepsis due to Large infected necrotic decubitus ulcers with eschar in the sacral region On admission: WBC 16.4, hypotensive 99/72, confused Patient is being treated for lymphedema and wounds to his bilateral legs by home wound care team. -Consulted surgery-no intervention at the moment Wound cultures grew Proteous, MSSA and Ecoli all sensitive to Levaquin Discontinued Vancomycin on day 4, discontinued Zosyn on day 5, Continue Levaquin IV day #7 -client services administrator consulted -Consulted wound care team Qualifiers: Sepsis type: sepsis due to unspecified organism Qualified Code(s): A41.9 - Sepsis, unspecified organism (2) Decubitus ulcer Current Visit: Yes Status: Acute Assessment and plan: Large decubitus ulcers affecting R buttock into cleft and onto L buttock large Eschar. No evidence of tunneling CT scan did not reveal abscess or fistula No need for surgical debridement at this time. Wound care recommendations: Apply 50/50 Mixture of Santyl and Gentamicin ointment to the sacral ulcer Change dressing Daily Q2H turns, assist to bed side chair Patient can follow up with surgery or wound care where he has lymphadema managed Keep area clean as possible, insert rectal tube during bowel prep Qualifiers: Pressure ulcer location: sacral region Pressure ulcer stage: unspecified pressure ulcer stage Qualified Code(s): L89.159 - Pressure ulcer of sacral region, unspecified stage (3) Lymphedema of both lower extremities Current Visit: Yes Status: Acute Assessment and plan: Chronic, trace bilateral pitting pedal edema with chronic venostasis changes Wound care following (4) Elevated troponin Current Visit: Yes Status: Acute Assessment and plan: Likely due to demand ischemia. Troponin elevation of 0.04. Patient denied any chest pain, EKG did not show any ischemic changes. 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 Patient reports BM yesterday. Continue IV fluids and TPN Stop Reglan Continue Zofran as needed Continue aggressive bowel regimen per surgery, Dulcolax and Colace BID Small bowel follow through study reveled delayed small bowel transit time, with contrast reaching the mid/ distal small bowel at 17 hours favoring ongoing ileus. NG remains in place on low intermittent suction with dark brown gastric output. Surgery, wound care, and dietary are following. Start bowel prep tonight. Anticipate EGD/Colonoscopy/ push through enteroscopy tomorrow per surgery. - Time Spent With Patient Total time spent is greater than 50% in coordination of care (as documented) at patient's floor/unit and/or counseling patient: - Subjective Interval history: Patient seen and examined. Patient reports BM yesterday. Small bowel follow through study reveled delayed small bowel transit time, with contrast reaching the mid/ distal small bowel at 17 hours favoring ongoing ileus. NG remains in place on low intermittent suction with dark brown gastric output. Patient is net -[id number] during this hospitalization and remains on D5 IVF and TPN. Surgery , wound care, and dietary are following. Start bowel prep tonight. Anticipate EGD/Colonoscopy/ push through enteroscopy tomorrow per surgery. - Constitutional Vitals: Temp Pulse Resp BP Pulse Ox 97.9 F 86 18 126/79 92 12/16/17 08:29 12/16/17 08:29 12/16/17 08:29 12/16/17 08:29 12/16/17 08:29 General appearance: Present: cooperative, A&O X 3, morbidly obese, no acute distress, answers questions appropriately - Head Head exam: Present: atraumatic, normocephalic - Eye Eye exam: Present: PERRL, conjuntiva pink, sclera anicteric Pupils: Present: PERRL - ENT ENT exam: Present: mucous membranes dry, normal oropharynx Additional comments: NG tube in place - Neck Neck exam general surgery: Present: supple, trachea midline. Absent: lymphadenopathy - Respiratory Respiratory exam: Present: CTAB. Absent: accessory muscle use, rales, rhonchi, wheezes - Cardiovascular Cardiovascular exam: Present: RRR, +S1, +S2. Absent: diastolic murmur, gallop, rubs, systolic murmur - GI/Abdominal GI/Abdominal exam: Present: hypoactive bowel sounds, soft, no peritoneal signs. Absent: distended, normal bowel sounds, tenderness Additional comments: obese - Extremities Exam Extremities exam: Present: pedal edema (trace bilateral pitting pedal edema with chronic venostasis changes), warm, radial pulses palpable and symmetrical. Absent: calf tenderness, cyanotic - Neurological Exam Neurological exam: Present: CN II-XII intact, oriented X3, no focal deficits. Absent: pronater drift, facial droop, speech deficit - Psychiatric Psychiatric exam: Present: flat affect, normal mood - Skin Skin exam: Present: dry, intact. Absent: normal color (large eschar on sacrum covered by dressing) Internal Medicine: Result - Labs CBC & Chem 7: 12/16/17 08:37 12/16/17 04:00 Labs: Short CBC 12/15/17 12/16/17 Range/Units 04:00 08:37 WBC 11.5 H D 12.2 H (4.3-11.1) K/mcL Hgb 11.5 L D 11.9 L (12.9-16.9) g/dL Hct 36.5 L 38.2 (37.5-50.1) % Plt Count 320 323 (140-400) K/mcL Neutrophils # 8.7 (1.6-8.9) K/mcL BMP 12/15/17 12/16/17 04:00 04:00 Sodium 133 L 135 L Potassium 4.1 3.8 Chloride 101 99 Carbon Dioxide 27 27 BUN 25 H 26 H Creatinine 0.53 L 0.54 L Glucose 113 H 127 H Calcium 8.0 L 8.1 L Liver Function 12/15/17 Range/Units 04:00 Total Bilirubin 0.7 (0.3-1.0) mg/dL AST 32 (13-39) Units/L ALT 48 (7-52) Units/L Alkaline Phosphatase 62 (34-104) Units/L Albumin 2.5 L (3.5-5.7) g/dL - ABG Interpretation ABG results: PT/INR, D-dimer PT 18.5 Seconds (9.4-12.1) H 12/09/17 03:40 - Pulse Oximetry Interpretation Digit-Finger Pulse Oximetry Readin (On RA) - Impressions Impressions KUB X-Ray 12/15/17 00:00 IMPRESSION: 1. Persistent small bowel distention concerning for a partial small bowel obstruction. 2. Large volume of residual contrast within the rectosigmoid colon. D/ / 12/15/2017 10:54:33 Karri Desai MD / monico Interpreting Provider: Karri Desai MD X-Ray 12/15/17 11:10 IMPRESSION: Advancement of the enteric tube with the tip and side port within the proximal stomach. D/ / 12/15/2017 12:19:56 Gillian High MD / faith Interpreting Provider: Gillian High MD Small Bowel X-Ray 12/15/17 13:52 IMPRESSION: Delayed small bowel transit time, with contrast reaching the mid/ distal small bowel at 17 hours. The differential favors ongoing ileus, with partial small bowel obstruction a less likely possibility. RECOMMENDATIONS: Follow-up KUB in 12-24 hours to assess for progression of contrast. D/ / Jayant Elizabeth MD / Jayant Elizabeth MD Interpreting Provider: Jayant Elizabeth MD Consult Discharge Plan - Plan Referrals: Nicolas Sanchez MD [Primary Care Provider] - 12/21/17 10:15 am <Alonzo Preston T - Last Filed: 12/16/17 16:01> Date of Encounter: 12/16/17 - Assessment and plan (1) Lymphedema of both lower extremities Current Visit: Yes Status: Acute (2) Decubitus ulcer Current Visit: Yes Status: Acute Qualifiers: Pressure ulcer location: sacral region Pressure ulcer stage: unspecified pressure ulcer stage Qualified Code(s): L89.159 - Pressure ulcer of sacral region, unspecified stage (3) Elevated troponin Current Visit: Yes Status: Acute (4) Sepsis Current Visit: Yes Status: Resolved Qualifiers: Sepsis type: sepsis due to unspecified organism Qualified Code(s): A41.9 - Sepsis, unspecified organism (5) Morbidly obese Current Visit: Yes Status: Acute (6) Ileus Current Visit: Yes Status: Acute - Time Spent With Patient Total time spent is greater than 50% in coordination of care (as documented) at patient's floor/unit and/or counseling patient: - Constitutional Vitals: Temp Pulse Resp BP Pulse Ox 98.4 F 84 18 111/65 94 12/16/17 15:43 12/16/17 15:43 12/16/17 15:43 12/16/17 15:43 12/16/17 15:43 Internal Medicine: Result - Labs CBC & Chem 7: 12/16/17 08:37 12/16/17 04:00 Labs: Short CBC 12/16/17 Range/Units 08:37 WBC 12.2 H (4.3-11.1) K/mcL Hgb 11.9 L (12.9-16.9) g/dL Hct 38.2 (37.5-50.1) % Plt Count 323 (140-400) K/mcL Neutrophils # 8.7 (1.6-8.9) K/mcL BMP 12/16/17 04:00 Sodium 135 L Potassium 3.8 Chloride 99 Carbon Dioxide 27 BUN 26 H Creatinine 0.54 L Glucose 127 H Calcium 8.1 L - ABG Interpretation ABG results: PT/INR, D-dimer PT 18.5 Seconds (9.4-12.1) H 12/09/17 03:40 - Impressions Impressions Small Bowel X-Ray 12/15/17 13:52 IMPRESSION: Delayed small bowel transit time, with contrast reaching the mid/ distal small bowel at 17 hours. The differential favors ongoing ileus, with partial small bowel obstruction a less likely possibility. RECOMMENDATIONS: Follow-up KUB in 12-24 hours to assess for progression of contrast. D/ / Jayant Elizabeth MD / Jayant Elizabeth MD Interpreting Provider: Jayant Elizabeth MD - Attending Attestation I examined this patient and my medical decision-making was reviewed with the Resident Physician. I agree with the documented findings, disposition and treatment plan as described except to the extent set forth below. 63-year-old male admitted for acute encephalopathy secondary to sepsis from large necrotic decubitus ulcer over the sacral region, hospital course complicated by an ileus and suspected small bowel obstruction. Surgery is following closely. He denies new complaints. His NG tube is noted to have a large effluent. He still has hypoactive bowel sounds, now has a rectal tube since he is being prepped Surgery plans an EGD and colonosocpy a.m On exam patient is morbidly obese, chest is clear to auscultation bilaterally, heart sounds S1-S2, abdomen is quiet without any bowel sounds. He has trace bilateral pitting pedal edema with chronic venostasis changes. Labs and imaging reviewed.-white cell count is trending up Plan is to continue current management, patient is awaiting definitive plan by surgery for small bowel obstruction. Monitor intake and output, monitor electrolytes closely, continue wound care , antibiotics and regular turning. Rest of details as in the resident physicians documentation.
[2017-12-16] MEDS: Levofloxacin 750 MG/150 ML 750 MG/150 ML BAG IVPB SCH (10:14)
[2017-12-16] MEDS ORDERED: D10% in Water 500 ML IVC PRN (10:56)
[2017-12-16] MEDS ORDERED: [UNRECOGNIZED DRUG - OTHER] IVC SCH (17:00)
[2017-12-16] MEDS ORDERED: PARENTERAL AMINO ACID 10% IVC SCH (17:00)
[2017-12-16] MEDS ORDERED: MVI IVC SCH (17:00)
[2017-12-16] MEDS ORDERED: CLINIMIX E IVC SCH (17:00)
[2017-12-17 04:30] LABS: Basophils # 0.1 K/mcL (0.0-0.2); Basophils % 0.9 %; Eosinophils # 0.5 K/mcL (0.0-0.6); Eosinophils % 5.9 %; Hematocrit 34.2 % (37.5-50.1); Hemoglobin 10.8 g/dL (12.9-16.9); Immature Granulocytes % 1.3 % (0-4); Lymphocytes # 2.1 K/mcL (0.6-4.6); Lymphocytes % 23.5 %; Mean Corpuscular HGB Conc 31.6 g/dL (31.6-35.5); Mean Corpuscular Hemoglobin 25.1 pg (28.0-33.3); Mean Corpuscular Volume 79.5 fL (83.0-100.0); Mean Platelet Volume 10.8 fL (9.4-12.4); Monocytes # 0.8 K/mcL (0.0-1.3); Monocytes % 8.4 %; Neutrophils # 5.5 K/mcL (1.6-8.9); Platelet Count 275 K/mcL (140-400); Red Cell Distribution Width 19.2 % (11.5-14.5)
[2017-12-17 04:40] LABS: VBG Ionized Calcium 1.07 mmol/L (1.15-1.35)
[2017-12-17 04:52] LABS: BUN/Creatinine Ratio 45 (6-26); Blood Urea Nitrogen 22 mg/dL (8-23); Calcium 7.7 mg/dL (8.6-10.3); Carbon Dioxide 27 mEq/L (23-29); Chloride 100 mEq/L (98-107); Glucose 119 mg/dL (70-105); Magnesium 1.8 mg/dL (1.6-2.6); Osmolality,Calculated 282 (280-300); Phosphorous 3.6 mg/dL (2.7-4.5); Potassium 3.6 mEq/L (3.5-5.1); Sodium 134 mEq/L (136-145); eGFR For African Americans > 60 (> 60); eGFR For Non-African Americans > 60 (> 60)
[2017-12-17] MEDS: Gentamicin Oint 15 GM TUBE TP SCH (05:48)
[2017-12-17] MEDS: D5% in 0.45% NACL 1,000 ML IVC SCH ×2 (05:48→19:56)
[2017-12-17] MEDS: *HR* Heparin 5,000 UNIT/ML VIAL SQ SCH ×2 (06:43→16:29)
--- NOTE | 2017-12-17 07:53 | General Surgery Progress Note ---
<BarbaratitoLawson deutsch - Last Filed: 12/17/17 07:47> Date of Encounter: 12/17/17 Time of Encounter: 07:47 - Assessment and Plan (1) Ileus Current Visit: Yes Status: Acute CT scan of the abdomen and pelvis from 12/05/2017 showed:1. Nonspecific soft tissue findings at the [place] cleft may be related to underlying ulceration or infection. No discrete fluid collection is seen. 2. The bowel gas findings are most in keeping with mild adynamic ileus but are nonspecific. 3. Nonspecific right inguinal and right pelvic adenopathy may be reactive or neoplastic. 4. Degenerative changes with grade 1 anterolisthesis L4 on L5. Attempted to get CT scan 12/10 but was unabe to due to presence of retained contrast from prior study got KUB instead KUB from 12/10/17 showed: 1. No significant advancement of the contrast in the small bowel since the previous study. The contrast was injected over 9 hours ago. Findings are concerning for a small bowel obstruction. Attmepted to get a CT scan again but still unable to due to retained contrast so got KUB instead. KUB yesterday showed: "Contrast filled dilated small bowel loop. Contrast appears more distal when compared to the small bowel follow-through examination 1 day prior. No contrast is seen within the colon." Repeat KUB tshows: "Progression of oral contrast material to more distal decompressed small bowel loops." KUB 12/14: "Persistent small bowel distention, mildly improved from prior examination. Previously seen contrast has progressed the rectum. Diverticulosis." KUB 12/15: "1. Persistent small bowel distention concerning for a partial small bowel obstruction. 2. Large volume of residual contrast within the rectosigmoid colon." SBFT 12/15-2: "Delayed small bowel transit time, with contrast reaching the mid/ distal small bowel at 17 hours. The differential favors ongoing ileus, " Patient not clear after bowel prep yesterday. Will hold off until tomorrow. Plan: limit narcotics continue aggressive bowel regimen Bowel prep again today Plan for EGD/Colonoscopy/ push through enteroscopy tomorrow. (2) Decubitus ulcer Current Visit: Yes Status: Acute Large decubitus ulcers affecting R buttock into cleft and onto L buttock large Eschar. No evidence of tunneling CT scan did not reveal abscess or fistula Wound cultures pending No need for surgical debridement at this time. Wound care recommendations: Apply 50/50 Mixture of Santyl and Gentamicin ointment to the sacral ulcer Change dressing Daily Keep area clean as possible Q2H turns Patient can follow up with surgery wound clinic if convenient for him. If he'd prefer to continue wound care where he has his lymphadema managed that is up to him. Qualifiers: Pressure ulcer location: sacral region Pressure ulcer stage: unspecified pressure ulcer stage Qualified Code(s): L89.159 - Pressure ulcer of sacral region, unspecified stage (3) Sepsis Current Visit: Yes Status: Resolved Management per Primary team. WBC re-normalized Qualifiers: Sepsis type: sepsis due to unspecified organism Qualified Code(s): A41.9 - Sepsis, unspecified organism (4) Lymphedema of both lower extremities Current Visit: Yes Status: Acute Pt with chronic lymphadema. Managed by home health nurses/wound care. (5) Morbidly obese Current Visit: Yes Status: Acute Subjective Patient reports: no new complaints, bowel movement, diarrhea, afebrile Narrative: Patient not fully clear after bowel prep yesterday. Denies abd pain, chest pain , SOB, N, V. Objective Vital Signs - Last 8 Hours Temp Pulse Resp BP Pulse Ox 12/17/17 07:00 68 14 136/68 93 12/17/17 04:05 98.6 F 81 20 133/65 95 Intake and Output 12/16/17 12/16/17 12/17/17 15:59 23:59 07:59 Intake Total 0 / 0 1000 / 1000 1000 / 1000 Output Total 850 / 850 350 / 350 2850 / 2850 Balance -850 / -850 650 / 650 -1850 / -1850 Intake: IV Fluids 1000 / 1000 1000 / 1000 D5% And 0.45% Nacl 1000 Ml Bag 1000 / 1000 1000 / 1000 1,000 ML @ 90 mls/hr IVC . Q11H7M [facility] Rx#:[id number] Oral 0 / 0 0 / 0 0 / 0 Output: Catheter 850 / 850 350 / 350 2250 / 2250 Gastric Drainage 600 / 600 Other: Meal Lunch Percent of Meal Consumed 0% Stool Size Large Moderate Large Stool Consistency loose loose liquid liquid soft Stool Color Brown Brown Brown Yellow Yellow # Bowel Movements 1 Weight 173.9 kg Blood Glucose* 101 120 107 Patient Weight 12/17/17 23:59 Weight 173.9 kg - General physical appearance well developed, no distress, obese - Eyes normal ocular movement - ENT normal mucosa - Neck Neck exam: trachea midline - Respiratory normal expansion, normal respiratory effort, clear to auscultation - Cardiovascular Cardiovascular exam: Present: RRR, no murmurs/rubs/gallops - Abdomen Abdomen: Present: bowel sounds present (hypoactive), soft, non tender - Integumentary other (warm and dry) - Neurologic CN 2-12 grossly intact - Psychiatric oriented to time, oriented to person, oriented to place, speech is normal, memory intact - Labs 12/17/17 04:15 12/17/17 04:00 Diabetes panel 12/17/17 Range/Units 04:00 Sodium 134 L (136-145) mEq/L Potassium 3.6 (3.5-5.1) mEq/L Chloride 100 (98-107) mEq/L Carbon Dioxide 27 (23-29) mEq/L BUN 22 (8-23) mg/dL Creatinine 0.49 L (0.70-1.30) mg/dL Glucose 119 H (70-105) mg/dL Calcium 7.7 L (8.6-10.3) mg/dL Calcium panel 12/17/17 Range/Units 04:00 Calcium 7.7 L (8.6-10.3) mg/dL Phosphorus 3.6 (2.7-4.5) mg/dL Pituitary panel 12/17/17 Range/Units 04:00 Sodium 134 L (136-145) mEq/L Potassium 3.6 (3.5-5.1) mEq/L Chloride 100 (98-107) mEq/L Carbon Dioxide 27 (23-29) mEq/L BUN 22 (8-23) mg/dL Creatinine 0.49 L (0.70-1.30) mg/dL Glucose 119 H (70-105) mg/dL Calcium 7.7 L (8.6-10.3) mg/dL Adrenal panel 12/17/17 Range/Units 04:00 Sodium 134 L (136-145) mEq/L Potassium 3.6 (3.5-5.1) mEq/L Chloride 100 (98-107) mEq/L Carbon Dioxide 27 (23-29) mEq/L BUN 22 (8-23) mg/dL Creatinine 0.49 L (0.70-1.30) mg/dL Glucose 119 H (70-105) mg/dL Calcium 7.7 L (8.6-10.3) mg/dL Consult Discharge Plan - Plan Referrals: Nicolas Sanchez MD [Primary Care Provider] - 12/21/17 10:15 am <Antonio Hawkins Simi - Last Filed: 12/18/17 08:53> Date of Encounter: 12/18/17 Objective Vital Signs - Last 8 Hours Temp Pulse Resp BP Pulse Ox 12/18/17 07:44 97.9 F 82 18 135/70 100 12/18/17 04:42 96.6 F L 76 20 141/69 93 Intake and Output 12/17/17 12/18/17 12/18/17 23:59 07:59 15:59 Intake Total 1400 / 1400 1360 / 1360 Output Total 300 / 300 750 / 750 Balance 1100 / 1100 610 / 610 Intake: IV Fluids 1000 / 1000 1000 / 1000 D5% And 0.45% Nacl 1000 Ml Bag 1000 / 1000 1000 / 1000 1,000 ML @ 90 mls/hr IVC . Q11H7M [facility] Rx#:[id number] Oral 400 / 400 0 / 0 Tube Feeding 360 / 360 Output: Emesis 150 / 150 Catheter 300 / 300 600 / 600 Other: Meal Dinner Weight 176 kg Blood Glucose* 133 129 Patient Weight 12/18/17 23:59 Weight 176 kg - Labs 12/18/17 04:05 12/18/17 04:05 Diabetes panel 12/18/17 Range/Units 04:05 Sodium 133 L (136-145) mEq/L Potassium 3.7 (3.5-5.1) mEq/L Chloride 99 (98-107) mEq/L Carbon Dioxide 28 (23-29) mEq/L BUN 24 H (8-23) mg/dL Creatinine 0.47 L (0.70-1.30) mg/dL Glucose 128 H (70-105) mg/dL Calcium 8.2 L (8.6-10.3) mg/dL Calcium panel 12/18/17 Range/Units 04:05 Calcium 8.2 L (8.6-10.3) mg/dL Phosphorus 3.6 (2.7-4.5) mg/dL Pituitary panel 12/18/17 Range/Units 04:05 Sodium 133 L (136-145) mEq/L Potassium 3.7 (3.5-5.1) mEq/L Chloride 99 (98-107) mEq/L Carbon Dioxide 28 (23-29) mEq/L BUN 24 H (8-23) mg/dL Creatinine 0.47 L (0.70-1.30) mg/dL Glucose 128 H (70-105) mg/dL Calcium 8.2 L (8.6-10.3) mg/dL Adrenal panel 12/18/17 Range/Units 04:05 Sodium 133 L (136-145) mEq/L Potassium 3.7 (3.5-5.1) mEq/L Chloride 99 (98-107) mEq/L Carbon Dioxide 28 (23-29) mEq/L BUN 24 H (8-23) mg/dL Creatinine 0.47 L (0.70-1.30) mg/dL Glucose 128 H (70-105) mg/dL Calcium 8.2 L (8.6-10.3) mg/dL - Attending Attestation I have personally seen and examined the patient. I have reviewed pertinent labs , imaging, progress notes, including this one. I agree with the above assessment and plan.
[2017-12-17] MEDS ORDERED: Polyethylene Glycol 3350 255 GM POWDER PO ONE (07:54)
--- NOTE | 2017-12-17 09:40 | Internal Med Progress Note ---
<Dm Oliva - Last Filed: 12/17/17 09:33> Date of Encounter: 12/17/17 Time of Encounter: 09:33 - Assessment and plan (1) Sepsis Current Visit: Yes Status: Resolved Assessment and plan: Acute metabolic encephalopathy secondary to sepsis due to Large infected necrotic decubitus ulcers with eschar in the sacral region On admission: WBC 16.4, hypotensive 99/72, confused Patient is being treated for lymphedema and wounds to his bilateral legs by home wound care team. -Consulted surgery-no intervention at the moment Wound cultures grew Proteous, MSSA and Ecoli all sensitive to Levaquin Discontinued Vancomycin on day 4, discontinued Zosyn on day 5, Continue Levaquin IV day #8 -office services coordinator consulted -Consulted wound care team Qualifiers: Sepsis type: sepsis due to unspecified organism Qualified Code(s): A41.9 - Sepsis, unspecified organism (2) Decubitus ulcer Current Visit: Yes Status: Acute Assessment and plan: Large decubitus ulcers affecting R buttock into cleft and onto L buttock large Eschar. No evidence of tunneling CT scan did not reveal abscess or fistula No need for surgical debridement at this time. Wound care recommendations: Apply 50/50 Mixture of Santyl and Gentamicin ointment to the sacral ulcer Change dressing Daily Q2H turns, assist to bed side chair Patient can follow up with surgery or wound care where he has lymphadema managed Keep area clean as possible, insert rectal tube during bowel prep Qualifiers: Pressure ulcer location: sacral region Pressure ulcer stage: unspecified pressure ulcer stage Qualified Code(s): L89.159 - Pressure ulcer of sacral region, unspecified stage (3) Lymphedema of both lower extremities Current Visit: Yes Status: Acute Assessment and plan: Chronic, trace bilateral pitting pedal edema with chronic venostasis changes Wound care following (4) Elevated troponin Current Visit: Yes Status: Acute Assessment and plan: Likely due to demand ischemia. Troponin elevation of 0.04. Patient denied any chest pain, EKG did not show any ischemic changes. 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 Patient reports BM yesterday. Continue IV fluids and TPN Continue Zofran as needed Continue aggressive bowel regimen per surgery, Dulcolax and Colace BID Small bowel follow through study reveled delayed small bowel transit time, with contrast reaching the mid/ distal small bowel at 17 hours favoring ongoing ileus. NG remains in place Clear liquid diet, NPO after midnight Surgery, wound care, and dietary are following. Continue bowel prep tonight. Anticipate EGD/Colonoscopy/ push through enteroscopy tomorrow per surgery. - Time Spent With Patient Total time spent is greater than 50% in coordination of care (as documented) at patient's floor/unit and/or counseling patient: - Subjective Interval history: Patient seen and examined. Patient was unable to complete bowel prep regimen yesterday. He was started on clear liquids today per surgery. NG remains in place. Patient is net -[id number] during this hospitalization and remains on D5 IVF and TPN. Surgery, wound care, and dietary are following. Continue bowel prep tonight. Anticipate EGD/Colonoscopy/ push through enteroscopy tomorrow per surgery. - Constitutional Vitals: Temp Pulse Resp BP Pulse Ox 98.6 F 68 14 136/68 93 12/17/17 04:05 12/17/17 07:00 12/17/17 07:00 12/17/17 07:00 12/17/17 07:00 General appearance: Present: cooperative, A&O X 3, morbidly obese, no acute distress, answers questions appropriately - Head Head exam: Present: atraumatic, normocephalic - Eye Eye exam: Present: PERRL, conjuntiva pink, sclera anicteric Pupils: Present: PERRL - ENT ENT exam: Present: mucous membranes dry, normal oropharynx - Neck Neck exam general surgery: Present: supple, trachea midline. Absent: lymphadenopathy - Respiratory Respiratory exam: Present: decreased breath sounds (bibasilar), CTAB. Absent: accessory muscle use, rales, respiratory distress, rhonchi, wheezes - Cardiovascular Cardiovascular exam: Present: RRR, +S1, +S2. Absent: diastolic murmur, gallop, rubs, systolic murmur - GI/Abdominal GI/Abdominal exam: Present: hypoactive bowel sounds, soft, no peritoneal signs. Absent: distended, normal bowel sounds, tenderness - Extremities Exam Extremities exam: Present: pedal edema (trace bilateral pitting pedal edema with chronic venostasis changes), warm, radial pulses palpable and symmetrical. Absent: calf tenderness, cyanotic - Neurological Exam Neurological exam: Present: CN II-XII intact, oriented X3, no focal deficits. Absent: pronater drift, facial droop, speech deficit - Psychiatric Psychiatric exam: Present: flat affect, normal mood - Skin Skin exam: Present: dry, intact. Absent: normal color (large eschar on sacrum covered by dressing) Internal Medicine: Result - Labs CBC & Chem 7: 12/17/17 04:15 12/17/17 04:00 Labs: Short CBC 12/17/17 Range/Units 04:15 WBC 9.1 (4.3-11.1) K/mcL Hgb 10.8 L (12.9-16.9) g/dL Hct 34.2 L (37.5-50.1) % Plt Count 275 (140-400) K/mcL Neutrophils # 5.5 (1.6-8.9) K/mcL BMP 12/17/17 04:00 Sodium 134 L Potassium 3.6 Chloride 100 Carbon Dioxide 27 BUN 22 Creatinine 0.49 L Glucose 119 H Calcium 7.7 L - ABG Interpretation ABG results: PT/INR, D-dimer PT 18.5 Seconds (9.4-12.1) H 12/09/17 03:40 - Pulse Oximetry Interpretation Digit-Finger Pulse Oximetry Readin (On RA) - Impressions Impressions KUB X-Ray 12/15/17 11:10 IMPRESSION: Advancement of the enteric tube with the tip and side port within the proximal stomach. D/ / 12/15/2017 12:19:56 Gillian High MD / faith Interpreting Provider: Gillian High MD X-Ray 12/16/17 21:20 IMPRESSION: The tip of the nasogastric tube is in the stomach. The side hole is near the expected position of the GE junction. Tube should be advanced 5-10 cm. D/ / Javy Cohen MD / Javy Cohen MD Interpreting Provider: Javy Cohen MD Consult Discharge Plan - Plan Referrals: Nicolas Sanchez MD [Primary Care Provider] - 12/21/17 10:15 am <Alonzo Preston - Last Filed: 12/17/17 16:33> Date of Encounter: 12/17/17 - Assessment and plan (1) Lymphedema of both lower extremities Current Visit: Yes Status: Acute (2) Decubitus ulcer Current Visit: Yes Status: Acute Qualifiers: Pressure ulcer location: sacral region Pressure ulcer stage: unspecified pressure ulcer stage Qualified Code(s): L89.159 - Pressure ulcer of sacral region, unspecified stage (3) Elevated troponin Current Visit: Yes Status: Acute (4) Sepsis Current Visit: Yes Status: Resolved Qualifiers: Sepsis type: sepsis due to unspecified organism Qualified Code(s): A41.9 - Sepsis, unspecified organism (5) Morbidly obese Current Visit: Yes Status: Acute (6) Ileus Current Visit: Yes Status: Acute - Time Spent With Patient Total time spent is greater than 50% in coordination of care (as documented) at patient's floor/unit and/or counseling patient: - Constitutional Vitals: Temp Pulse Resp BP Pulse Ox 98.3 F 88 20 128/71 98 12/17/17 15:00 12/17/17 15:00 12/17/17 15:00 12/17/17 15:00 12/17/17 15:00 Internal Medicine: Result - Labs CBC & Chem 7: 12/17/17 04:15 12/17/17 04:00 Labs: Short CBC 12/17/17 Range/Units 04:15 WBC 9.1 (4.3-11.1) K/mcL Hgb 10.8 L (12.9-16.9) g/dL Hct 34.2 L (37.5-50.1) % Plt Count 275 (140-400) K/mcL Neutrophils # 5.5 (1.6-8.9) K/mcL BMP 12/17/17 04:00 Sodium 134 L Potassium 3.6 Chloride 100 Carbon Dioxide 27 BUN 22 Creatinine 0.49 L Glucose 119 H Calcium 7.7 L - ABG Interpretation ABG results: PT/INR, D-dimer PT 18.5 Seconds (9.4-12.1) H 12/09/17 03:40 - Impressions Impressions KUB X-Ray 12/15/17 11:10 IMPRESSION: Advancement of the enteric tube with the tip and side port within the proximal stomach. D/ / 12/15/2017 12:19:56 Gillian High MD / faith Interpreting Provider: Gillian High MD X-Ray 12/16/17 21:20 IMPRESSION: The tip of the nasogastric tube is in the stomach. The side hole is near the expected position of the GE junction. Tube should be advanced 5-10 cm. D/ / Javy Cohen MD / Javy Cohen MD Interpreting Provider: Javy Cohen MD - Attending Attestation I examined this patient and my medical decision-making was reviewed with the Resident Physician. on 12/17/17. I agree with the documented findings, disposition and treatment plan as described except to the extent set forth below. 63-year-old male admitted for acute encephalopathy secondary to sepsis from large necrotic decubitus ulcer over the sacral region, hospital course complicated by an ileus and suspected small bowel obstruction. Surgery is following closely. He denies new complaints. His NG tube is not draining or connected to sunction Decubitus wound inspected today : Diffuse necrotic wound with eschar on both buttocks as well as %X10cm wound on left hip and extending into leg leg, no discharge visible and the wound looks slightly improve compared to prior exam on admission. He still has hypoactive bowel sounds, now has a rectal tube since he is being prepped Surgery plans an EGD and colonosocpy a.m, not done today due to poor bowel prep On exam patient is morbidly obese, chest is clear to auscultation bilaterally, heart sounds S1-S2, abdomen is quiet without any bowel sounds. He has trace bilateral pitting pedal edema with chronic venostasis changes. Labs and imaging reviewed.-CBC and Chem WNL, Leukoytosis resolved Plan is to continue current management, for EGD and colonosocpy a.m. Monitor intake and output, monitor electrolytes closely, continue wound care , antibiotics and regular turning. Rest of details as in the resident physicians documentation.
[2017-12-17] MEDS: Levofloxacin 750 MG/150 ML 750 MG/150 ML BAG IVPB SCH (10:18)
[2017-12-17] MEDS ORDERED: PARENTERAL AMINO ACID 10% IVC SCH (17:00)
[2017-12-17] MEDS ORDERED: MVI IVC SCH (17:00)
[2017-12-17] MEDS ORDERED: [UNRECOGNIZED DRUG - OTHER] IVC SCH (17:00)
[2017-12-17] MEDS ORDERED: CLINIMIX E IVC SCH (17:00)
[2017-12-17] MEDS: Ondansetron 4 MG/2 ML VIAL IVP PRN (23:18)
[2017-12-18] MEDS: *HR* Promethazine 25 MG/ML VIAL IVP PRN ×2 (01:31→09:40)
[2017-12-18] MEDS: Gentamicin Oint 15 GM TUBE TP SCH (04:10)
[2017-12-18 04:19] LABS: Hematocrit 36.2 % (37.5-50.1); Hemoglobin 11.5 g/dL (12.9-16.9); Mean Corpuscular HGB Conc 31.8 g/dL (31.6-35.5); Mean Corpuscular Hemoglobin 25.2 pg (28.0-33.3); Mean Corpuscular Volume 79.4 fL (83.0-100.0); Platelet Count 305 K/mcL (140-400); Red Blood Count 4.56 M/mcL (4.19-5.50); Red Cell Distribution Width 19.3 % (11.5-14.5)
[2017-12-18 04:29] LABS: VBG Ionized Calcium 1.06 mmol/L (1.15-1.35)
[2017-12-18 04:33] LABS: INR 1.1; Prothrombin Time 12.1 Seconds (9.4-12.1)
[2017-12-18 04:41] LABS: BUN/Creatinine Ratio 51 (6-26); Blood Urea Nitrogen 24 mg/dL (8-23); Calcium 8.2 mg/dL (8.6-10.3); Carbon Dioxide 28 mEq/L (23-29); Chloride 99 mEq/L (98-107); Glucose 128 mg/dL (70-105); Osmolality,Calculated 282 (280-300); Phosphorous 3.6 mg/dL (2.7-4.5); Potassium 3.7 mEq/L (3.5-5.1); Sodium 133 mEq/L (136-145); eGFR For African Americans > 60 (> 60); eGFR For Non-African Americans > 60 (> 60)
[2017-12-18] MEDS: *HR* Heparin 5,000 UNIT/ML VIAL SQ SCH ×2 (06:11→18:51)
[2017-12-18] MEDS: D5% in 0.45% NACL 1,000 ML IVC SCH (06:11)
--- NOTE | 2017-12-18 08:16 | Event Note ---
<Lawson Pearson - Last Filed: 12/18/17 09:48> Date of Encounter: 12/18/17 Time of Encounter: 08:00 Patient seen and examned by me at bedside. Patient had Nausea and vomiting all night did not tolerate bowel prep. Patient's exam remains unchanged from prior( hypoactive BS, SNT abd, heart RRR no m/g/r; lungs CTAB) except patient is nauseated and actively vomiting while being examined. NG tube became dislodged and has come out of place. KUB performed and NG tube adjusted and set back to LIWS. Patient will have EGD today with Dr. Hawkins around 10am. <Antonio Hawkins - Last Filed: 12/18/17 17:02> Date of Encounter: 12/18/17 please see attending progress note from this day
--- NOTE | 2017-12-18 08:37 | Anesthesia Evaluation PreOp ---
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 (Peripheral neuropathy) Other Medical History: Other (Super Morbid obesity (BMI 57), Iron deficiency anemia, chronic LE wounds) Anesthesia History: Past Anesthesia (denies PSH) Alcohol Use: rarely Drug use: marijuana Medications and Allergies Furosemide [Lasix] 40 mg PO DAILY 04/27/15 [History] Gabapentin [Neurontin] 600 mg PO TID 04/27/15 [History] Ferrous Sulfate [Iron] 325 mg PO DAILY 04/30/16 [History] Doxycycline 100 mg PO BID 12/05/17 [History] Spironolactone [Aldactone] 100 mg PO DAILY 12/05/17 [History] 3 Allergy/AdvReac Type Severity Reaction Status Date / Time No Known Allergies Allergy Verified 03/19/15 11:08 - Meds/Allergy Pre-op Review Medications Reviewed: Yes Allergies Reviewed: Yes Beta Blockers on Current Med List: No Anesthesia Results - Labs 12/18/17 04:05 12/18/17 04:05 - Imaging EKG: report reviewed (NSR) Anesthesia Exam Selected Entries 12/18/17 07:44 Temperature 97.9 F Pulse Rate 82 Respiratory Rate 18 Blood Pressure 135/70 O2 Sat by Pulse Oximetry 100 Oxygen Delivery Method Room Air Weight: 176kg BMI 57 NPO (# of Hours): 8 - HEENT Pupil (Motor): EOMI Mallampati: III Teeth: Missing, Poor dentition Oral Opening: Greater than 3 - SOUND PRINTER LOC: Oriented SOUND PRINTER Motor: Normal RUE, Normal LUE, Normal RLE, Normal LLE, Normal Face SOUND PRINTER Sensory: Normal: RUE, LUE, RLE, LLE, Face - Cardiac Rhythm: Regular Murmur: None - Pulmonary Breath Sounds: bilateral Clear Respiratory Effort: Symmetrical Anesthesia Assess/Plan ASA Score: 3 Modified Marlyn Scale for Level of Consciousness: Cooperative, oriented, and tranquil Anesthetic Plan: General Monitoring Plan: Standard Monitors (agrees to MAC) Recovery Plan: PACU (agrees to GA)
[2017-12-18] MEDS ORDERED: *HR* Propofol 200 MG/20 ML VIAL IVP ONE (09:13)
[2017-12-18] MEDS ORDERED: Chloraseptic Spray 177 ML BOTTLE MM PRN (09:39)
[2017-12-18] MEDS: Levofloxacin 750 MG/150 ML 750 MG/150 ML BAG IVPB SCH ×2 (09:40→18:52)
[2017-12-18] MEDS ORDERED: Lidocaine -MPF 4% 5 ML AMPUL ONE (10:06)
[2017-12-18] MEDS ORDERED: *HR* FentaNYL (PF) 100 MCG/2 ML VIAL ONE ×2 (10:07→10:25)
[2017-12-18] MEDS ORDERED: Esmolol 100 MG/10 ML VIAL IVP ONE (10:13)
[2017-12-18] MEDS ORDERED: Ondansetron 4 MG/2 ML VIAL ONE (10:29)
[2017-12-18] MEDS ORDERED: Dexamethasone 4 MG/ML VIAL ONE (10:29)
--- NOTE | 2017-12-18 10:32 | Internal Med Progress Note ---
<Dm Oliva - Last Filed: 12/18/17 10:57> Date of Encounter: 12/18/17 Time of Encounter: 10:30 - Assessment and plan (1) Ileus Current Visit: Yes Status: Acute Assessment and plan: Hypoactive bowel sounds, large volume NG output. Patient reports BM yesterday. Continue IV fluids and TPN Continue Zofran as needed Continue aggressive bowel regimen per surgery, Dulcolax and Colace BID Small bowel follow through study reveled delayed small bowel transit time, with contrast reaching the mid/ distal small bowel at 17 hours favoring ongoing ileus. NG remains in place Surgery, wound care, and dietary are following. Anticipate EGD/Colonoscopy/ push through enteroscopy today per surgery. (2) Sepsis Current Visit: Yes Status: Resolved Assessment and plan: Acute metabolic encephalopathy secondary to sepsis due to Large infected necrotic decubitus ulcers with eschar in the sacral region On admission: WBC 16.4, hypotensive 99/72, confused Patient is being treated for lymphedema and wounds to his bilateral legs by home wound care team. Consulted surgery-no intervention at the moment Wound cultures grew Proteous, MSSA and Ecoli all sensitive to Levaquin Discontinued Vancomycin on day 4, discontinued Zosyn on day 5, Continue Levaquin IV day #9 Qualifiers: Sepsis type: sepsis due to unspecified organism Qualified Code(s): A41.9 - Sepsis, unspecified organism (3) Decubitus ulcer Current Visit: Yes Status: Acute Assessment and plan: Large decubitus ulcers affecting R buttock into cleft and onto L buttock large Eschar. No evidence of tunneling CT scan did not reveal abscess or fistula No need for surgical debridement at this time. Wound care recommendations: Apply 50/50 Mixture of Santyl and Gentamicin ointment to the sacral ulcer Change dressing Daily Q2H turns, assist to bed side chair Patient can follow up with surgery or wound care where he has lymphadema managed Keep area clean as possible, insert rectal tube during bowel prep Qualifiers: Pressure ulcer location: sacral region Pressure ulcer stage: unspecified pressure ulcer stage Qualified Code(s): L89.159 - Pressure ulcer of sacral region, unspecified stage (4) Lymphedema of both lower extremities Current Visit: Yes Status: Acute Assessment and plan: Chronic, trace bilateral pitting pedal edema with chronic venostasis changes Wound care following (5) Elevated troponin Current Visit: Yes Status: Acute Assessment and plan: Likely due to demand ischemia. Troponin elevation of 0.04. Patient denied any chest pain, EKG did not show any ischemic changes. 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 Patient had bowel prep regimen yesterday via NG. NG remains in place with large volume coffee ground output. Surgery, wound care, and dietary are following. Anticipate EGD/Colonoscopy/ push through enteroscopy today per surgery. - Constitutional Vitals: Temp Pulse Resp BP Pulse Ox 97.9 F 82 18 135/70 100 12/18/17 07:44 12/18/17 07:44 12/18/17 07:44 12/18/17 07:44 12/18/17 10:00 General appearance: Present: cooperative, A&O X 3, morbidly obese, no acute distress, answers questions appropriately - Head Head exam: Present: atraumatic, normocephalic - Eye Eye exam: Present: PERRL, conjuntiva pink, sclera anicteric Pupils: Present: PERRL - ENT ENT exam: Present: mucous membranes dry, normal oropharynx - Neck Neck exam general surgery: Present: supple, trachea midline. Absent: lymphadenopathy - Respiratory Respiratory exam: Present: CTAB. Absent: accessory muscle use, rales, rhonchi, wheezes - Cardiovascular Cardiovascular exam: Present: RRR, +S1, +S2. Absent: diastolic murmur, gallop, rubs, systolic murmur - GI/Abdominal GI/Abdominal exam: Present: diminished bowel sounds, hypoactive bowel sounds, soft, no peritoneal signs. Absent: distended, normal bowel sounds, tenderness - Extremities Exam Extremities exam: Present: warm, radial pulses palpable and symmetrical. Absent : calf tenderness, cyanotic, pedal edema - Neurological Exam Neurological exam: Present: CN II-XII intact, oriented X3, no focal deficits. Absent: pronater drift, facial droop, speech deficit - Psychiatric Psychiatric exam: Present: flat affect, normal mood - Skin Skin exam: Present: dry. Absent: intact (necrotic sacral ulcer) Internal Medicine: Result - Labs CBC & Chem 7: 12/18/17 04:05 12/18/17 04:05 Labs: Short CBC 12/18/17 Range/Units 04:05 WBC 10.9 (4.3-11.1) K/mcL Hgb 11.5 L (12.9-16.9) g/dL Hct 36.2 L (37.5-50.1) % Plt Count 305 (140-400) K/mcL BMP 12/18/17 04:05 Sodium 133 L Potassium 3.7 Chloride 99 Carbon Dioxide 28 BUN 24 H Creatinine 0.47 L Glucose 128 H Calcium 8.2 L - ABG Interpretation ABG results: PT/INR, D-dimer PT 12.1 Seconds (9.4-12.1) 12/18/17 04:05 - Pulse Oximetry Interpretation Digit-Finger Pulse Oximetry Readin (On RA) - Impressions Impressions KUB X-Ray 12/18/17 07:46 IMPRESSION: NG tube in the distal esophagus should be further advanced. D/ / Neal Shannon MD / Neal Shannon MD Interpreting Provider: Neal Shannon MD Consult Discharge Plan - Plan Referrals: Nicolas Sanchez MD [Primary Care Provider] - 12/21/17 10:15 am <Alonzo Preston T - Last Filed: 12/18/17 17:53> Date of Encounter: 12/18/17 - Assessment and plan (1) Lymphedema of both lower extremities Current Visit: Yes Status: Acute (2) Decubitus ulcer Current Visit: Yes Status: Acute Qualifiers: Pressure ulcer location: sacral region Pressure ulcer stage: unspecified pressure ulcer stage Qualified Code(s): L89.159 - Pressure ulcer of sacral region, unspecified stage (3) Elevated troponin Current Visit: Yes Status: Acute (4) Sepsis Current Visit: Yes Status: Resolved Qualifiers: Sepsis type: sepsis due to unspecified organism Qualified Code(s): A41.9 - Sepsis, unspecified organism (5) Morbidly obese Current Visit: Yes Status: Acute (6) Ileus Current Visit: Yes Status: Acute (7) Hypocalcemia Current Visit: Yes Status: Acute - Time Spent With Patient Total time spent is greater than 50% in coordination of care (as documented) at patient's floor/unit and/or counseling patient: - Constitutional Vitals: Temp Pulse Resp BP Pulse Ox 97.8 F 94 18 111/71 96 12/18/17 16:00 12/18/17 16:00 12/18/17 16:00 12/18/17 16:00 12/18/17 17:11 Internal Medicine: Result - Labs CBC & Chem 7: 12/18/17 04:05 12/18/17 04:05 Labs: Short CBC 12/18/17 Range/Units 04:05 WBC 10.9 (4.3-11.1) K/mcL Hgb 11.5 L (12.9-16.9) g/dL Hct 36.2 L (37.5-50.1) % Plt Count 305 (140-400) K/mcL BMP 12/18/17 04:05 Sodium 133 L Potassium 3.7 Chloride 99 Carbon Dioxide 28 BUN 24 H Creatinine 0.47 L Glucose 128 H Calcium 8.2 L - ABG Interpretation ABG results: PT/INR, D-dimer PT 12.1 Seconds (9.4-12.1) 12/18/17 04:05 - Impressions Impressions KUB X-Ray 12/18/17 07:46 IMPRESSION: NG tube in the distal esophagus should be further advanced. D/ / Neal Shannon MD / Neal Shannon MD Interpreting Provider: Neal Shannon MD - Attending Attestation I examined this patient and my medical decision-making was reviewed with the Resident Physician. on 12/18/17. I agree with the documented findings, disposition and treatment plan as described except to the extent set forth below. 63-year-old male admitted for acute encephalopathy secondary to sepsis from large necrotic decubitus ulcer over the sacral region, hospital course complicated by an ileus and suspected small bowel obstruction. Surgery is following closely. He complained on this morning of nausea and vomiting overnight after being given breath. At my time of review, he had 5 L of coffee ground effluent from his nasogastric tube. Decubitus wound inspected 12/17: Diffuse necrotic wound with eschar on both buttocks as well as %X10cm wound on left hip and extending into leg leg, no discharge visible and the wound looks slightly improve compared to prior exam on admission. Wound exam not repeated today He still has hypoactive bowel sounds, now has a rectal tube since he is being prepped He is status post EGD today which revealed duodenal ulcers, push enteroscope was unsuccessful. Colonoscopy was not done due to inability to complete bowel prep. On exam patient is morbidly obese, chest is clear to auscultation bilaterally, heart sounds S1-S2, abdomen is quiet without any bowel sounds. He has trace bilateral pitting pedal edema with chronic venostasis changes. Labs and imaging reviewed.-CBC and Chem WNL Plan is to continue current management, possible diversion ileostomy by surgery , continue PPI and Carafate., continue wound care , antibiotics and regular turning. Rest of details as in the resident physicians documentation.
--- NOTE | 2017-12-18 12:14 | General Surgery Progress Note ---
Date of Encounter: 12/18/17 Time of Encounter: 12:11 - Assessment and Plan (1) Decubitus ulcer Current Visit: Yes Status: Acute unstageable; approximately 20cm x 15cm; no purulent drainage; soiled with stool ; cont with low air loss mattress q2hr turns clean daily james: gent across wounds, gauze, ABD pad, tape will discuss with patient concerning the utility of a diverting ileostomy; Qualifiers: Pressure ulcer location: sacral region Pressure ulcer stage: unspecified pressure ulcer stage Qualified Code(s): L89.159 - Pressure ulcer of sacral region, unspecified stage (2) Ileus Current Visit: Yes Status: Acute s/p EGD, push enteroscopy (unable to perform colonoscopy due to poor prep); has gastric ulcers along lesser curve a well as esophagitis; small esophageal varix? PPI gtt carafate consult with GI patient will also need agressive bowel regimen consider CLD colonoscopy can be done once appropriately prepped will discuss with patient the utility of possible diverting ileostomy Subjective Patient reports: no new complaints, bowel movement, vomiting Objective Vital Signs - Last 8 Hours Temp Pulse Resp BP Pulse Ox 12/18/17 11:04 93 16 156/69 93 12/18/17 10:00 100 12/18/17 07:44 97.9 F 82 18 135/70 100 12/18/17 04:42 96.6 F L 76 20 141/69 93 Intake and Output 12/17/17 12/18/17 12/18/17 23:59 07:59 15:59 Intake Total 1400 / 1400 1360 / 1360 Output Total 300 / 300 750 / 750 900 / 900 Balance 1100 / 1100 610 / 610 -900 / -900 Intake: IV Fluids 1000 / 1000 1000 / 1000 D5% And 0.45% Nacl 1000 Ml Bag 1000 / 1000 1000 / 1000 1,000 ML @ 90 mls/hr IVC . Q11H7M [facility] Rx#:[id number] Oral 400 / 400 0 / 0 Tube Feeding 360 / 360 Output: Emesis 150 / 150 Catheter 300 / 300 600 / 600 900 / 900 Other: Meal Dinner Weight 176 kg Blood Glucose* 133 129 Patient Weight 12/18/17 23:59 Weight 176 kg - General physical appearance no distress - Respiratory normal expansion, normal respiratory effort - Cardiovascular Cardiovascular exam: Present: RRR - Abdomen Abdomen: Present: soft, distended - Rectum normal sphincter tone, no hemorrhoids, no masses, no bleeding - Integumentary other (unstable pressure sacral decubitus ulcer) - Neurologic CN 2-12 grossly intact - Psychiatric oriented to time, oriented to person, oriented to place - Labs 12/18/17 04:05 12/18/17 04:05 Diabetes panel 12/18/17 Range/Units 04:05 Sodium 133 L (136-145) mEq/L Potassium 3.7 (3.5-5.1) mEq/L Chloride 99 (98-107) mEq/L Carbon Dioxide 28 (23-29) mEq/L BUN 24 H (8-23) mg/dL Creatinine 0.47 L (0.70-1.30) mg/dL Glucose 128 H (70-105) mg/dL Calcium 8.2 L (8.6-10.3) mg/dL Calcium panel 12/18/17 Range/Units 04:05 Calcium 8.2 L (8.6-10.3) mg/dL Phosphorus 3.6 (2.7-4.5) mg/dL Pituitary panel 12/18/17 Range/Units 04:05 Sodium 133 L (136-145) mEq/L Potassium 3.7 (3.5-5.1) mEq/L Chloride 99 (98-107) mEq/L Carbon Dioxide 28 (23-29) mEq/L BUN 24 H (8-23) mg/dL Creatinine 0.47 L (0.70-1.30) mg/dL Glucose 128 H (70-105) mg/dL Calcium 8.2 L (8.6-10.3) mg/dL Adrenal panel 12/18/17 Range/Units 04:05 Sodium 133 L (136-145) mEq/L Potassium 3.7 (3.5-5.1) mEq/L Chloride 99 (98-107) mEq/L Carbon Dioxide 28 (23-29) mEq/L BUN 24 H (8-23) mg/dL Creatinine 0.47 L (0.70-1.30) mg/dL Glucose 128 H (70-105) mg/dL Calcium 8.2 L (8.6-10.3) mg/dL Consult Discharge Plan - Plan Referrals: Nicolas Sanchez MD [Primary Care Provider] - 12/21/17 10:15 am
--- NOTE | 2017-12-18 13:04 | Anesthesia Evaluation Post Op ---
Date of Encounter: 12/18/17 Time of Encounter: 13:03 - Vital Signs Vital Signs: Last Vital Signs Temp 98.5 F 12/18/17 12:55 Pulse 97 12/18/17 12:55 Resp 18 12/18/17 12:55 BP 111/63 12/18/17 12:55 Pulse Ox 94 12/18/17 12:55 - Lungs Lungs: Clear Ascult./Percussion - Airway Airway: Non-obstructed - Cardiovascular Regular Rate - Mental Status Mental Status: Alert & Oriented, Answers Appropriately - Pain Pain Scale: 2 - Nausea Vomiting Nausea Vomiting: Not Present - Hydration Hydration: NPO - Discharge PostOp Status: Transfer Patient to floor
[2017-12-18] MEDS: Pantoprazole 40 MG VIAL IVP SCH (15:42)
[2017-12-18] MEDS: 0.9 % Sodium Chloride 1,000 ML IVC SCH (16:10)
[2017-12-18] MEDS ORDERED: CLINIMIX E IVC SCH ×2 (17:00)
[2017-12-18] MEDS ORDERED: MVI IVC SCH ×2 (17:00)
[2017-12-18] MEDS ORDERED: [UNRECOGNIZED DRUG - OTHER] IVC SCH ×2 (17:00)
[2017-12-18] MEDS ORDERED: PARENTERAL AMINO ACID 10% IVC SCH ×2 (17:00)
[2017-12-18] MEDS: Sucralfate 1 GM TABLET PO SCH ×2 (18:51→23:10)
[2017-12-19] MEDS: 0.9 % Sodium Chloride 1,000 ML IVC SCH ×2 (04:55→16:35)
[2017-12-19] MEDS: Gentamicin Oint 15 GM TUBE TP SCH ×2 (05:37→21:49)
[2017-12-19 06:10] LABS: BUN/Creatinine Ratio 52 (6-26); Blood Urea Nitrogen 25 mg/dL (8-23); Carbon Dioxide 26 mEq/L (23-29); Chloride 104 mEq/L (98-107); Glucose 115 mg/dL (70-105); Osmolality,Calculated 287 (280-300); Potassium 3.5 mEq/L (3.5-5.1); Sodium 136 mEq/L (136-145); eGFR For African Americans > 60 (> 60); eGFR For Non-African Americans > 60 (> 60)
[2017-12-19 07:58] LABS: VBG Ionized Calcium 1.06 mmol/L (1.15-1.35); VBG PH 7.43 pH Units (7.32-7.42)
--- NOTE | 2017-12-19 08:01 | General Surgery Progress Note ---
<Bautista Jordan - Last Filed: 12/19/17 13:52> Date of Encounter: 12/19/17 Time of Encounter: 07:30 - Assessment and Plan (1) Decubitus ulcer Current Visit: Yes Status: Acute unstageable; approximately 20cm x 15cm; no purulent drainage; second ulcer with beefy granulation tissue inferior to primary ulcer on R glute cont with low air loss mattress q2hr turns clean daily james: gent across wounds, gauze, ABD pad, tape patient aware of possibility of diverting ileostomy Qualifiers: Pressure ulcer location: sacral region Pressure ulcer stage: unspecified pressure ulcer stage Qualified Code(s): L89.159 - Pressure ulcer of sacral region, unspecified stage (2) Ileus Current Visit: Yes Status: Acute s/p EGD, push enteroscopy 12/18 (unable to perform colonoscopy due to poor prep); has gastric ulcers along lesser curve a well as esophagitis; small esophageal varix PPI gtt carafate consult with GI continue aggressive bowel regimen colonoscopy can be done once appropriately prepped transitioned to full liquids today with possible soft diet tomorrow if tolerates Subjective Patient reports: tolerating liquids well, voiding w/o difficulty, bowel movement (pt reports large bm 5/3 and possible bm late night 5/4), afebrile Objective Vital Signs - Last 8 Hours Temp Pulse Resp BP Pulse Ox 12/19/17 06:51 71 15 122/65 95 12/19/17 05:00 94 12/19/17 04:45 97.7 F 69 18 124/65 97 Intake and Output 12/18/17 12/19/17 12/19/17 23:59 07:59 15:59 Intake Total 0 / 0 1250 / 1250 Output Total 900 / 900 850 / 850 Balance -900 / -900 400 / 400 Intake: IV Fluids 1250 / 1250 0.9 % Sodium Chloride 1,000 ML 1000 / 1000 @ 90 mls/hr IVC .Q11H7M [facility] Rx# :[id number] Intralipid 20% 250 ML @ 21 mls/ 250 / 250 hr IVPB MoWeFr@1700 [facility] Rx#: [id number] Oral 0 / 0 0 / 0 Output: Catheter 900 / 900 850 / 850 Other: Weight 174.6 kg Blood Glucose* 117 92 Patient Weight 12/19/17 23:59 Weight 174.6 kg - General physical appearance well developed, well nourished, no distress - Eyes normal ocular movement - ENT normal mucosa - Neck Neck exam: no lymphadectomy - Respiratory normal expansion, normal respiratory effort, clear to auscultation - Cardiovascular Cardiovascular exam: Present: RRR, no murmurs/rubs/gallops. Absent: JVD - Abdomen Abdomen: Present: bowel sounds present, soft - Integumentary other ([id number] ulcer with black eschar; inferior to this a [id number] ulcer with beefy granulation tissue) - Neurologic normal coordination, normal sensation - Psychiatric speech is normal, memory intact - Labs 12/18/17 04:05 12/19/17 05:02 Diabetes panel 12/19/17 Range/Units 05:02 Sodium 136 (136-145) mEq/L Potassium 3.5 (3.5-5.1) mEq/L Chloride 104 (98-107) mEq/L Carbon Dioxide 26 (23-29) mEq/L BUN 25 H (8-23) mg/dL Creatinine 0.48 L (0.70-1.30) mg/dL Glucose 115 H (70-105) mg/dL Calcium 8.0 L (8.6-10.3) mg/dL Calcium panel 12/19/17 Range/Units 05:02 Calcium 8.0 L (8.6-10.3) mg/dL Pituitary panel 12/19/17 Range/Units 05:02 Sodium 136 (136-145) mEq/L Potassium 3.5 (3.5-5.1) mEq/L Chloride 104 (98-107) mEq/L Carbon Dioxide 26 (23-29) mEq/L BUN 25 H (8-23) mg/dL Creatinine 0.48 L (0.70-1.30) mg/dL Glucose 115 H (70-105) mg/dL Calcium 8.0 L (8.6-10.3) mg/dL Adrenal panel 12/19/17 Range/Units 05:02 Sodium 136 (136-145) mEq/L Potassium 3.5 (3.5-5.1) mEq/L Chloride 104 (98-107) mEq/L Carbon Dioxide 26 (23-29) mEq/L BUN 25 H (8-23) mg/dL Creatinine 0.48 L (0.70-1.30) mg/dL Glucose 115 H (70-105) mg/dL Calcium 8.0 L (8.6-10.3) mg/dL Consult Discharge Plan - Plan Referrals: Nicolas Sanchez MD [Primary Care Provider] - 12/21/17 10:15 am <Giuseppe Vazquez - Last Filed: 12/20/17 08:08> Date of Encounter: 12/19/17 Objective Vital Signs - Last 8 Hours Temp Pulse Resp BP Pulse Ox 12/20/17 07:00 97.7 F 81 17 111/76 12/20/17 04:00 97.9 F 86 16 134/86 94 Intake and Output 12/19/17 12/20/17 12/20/17 23:59 07:59 15:59 Intake Total 1480 / 1480 1480 / 1480 Output Total 1150 / 1150 1800 / 1800 Balance 330 / 330 -320 / -320 Intake: IV Fluids 1000 / 1000 1000 / 1000 0.9 % Sodium Chloride 1,000 ML 1000 / 1000 1000 / 1000 @ 90 mls/hr IVC .Q11H7M [facility] Rx# :[id number] Oral 480 / 480 480 / 480 Output: Catheter 1150 / 1150 1800 / 1800 Other: Stool Size Large Stool Consistency liquid # Bowel Movements 1 Weight 171.4 kg Blood Glucose* 89 92 Patient Weight 12/20/17 23:59 Weight 171.4 kg - Labs 12/18/17 04:05 12/20/17 05:22 Diabetes panel 12/20/17 Range/Units 05:22 Sodium 136 (136-145) mEq/L Potassium 3.9 (3.5-5.1) mEq/L Chloride 107 (98-107) mEq/L Carbon Dioxide 23 (23-29) mEq/L BUN 24 H (8-23) mg/dL Creatinine 0.45 L (0.70-1.30) mg/dL Glucose 91 (70-105) mg/dL Calcium 7.5 L (8.6-10.3) mg/dL Calcium panel 12/20/17 Range/Units 05:22 Calcium 7.5 L (8.6-10.3) mg/dL Pituitary panel 12/20/17 Range/Units 05:22 Sodium 136 (136-145) mEq/L Potassium 3.9 (3.5-5.1) mEq/L Chloride 107 (98-107) mEq/L Carbon Dioxide 23 (23-29) mEq/L BUN 24 H (8-23) mg/dL Creatinine 0.45 L (0.70-1.30) mg/dL Glucose 91 (70-105) mg/dL Calcium 7.5 L (8.6-10.3) mg/dL Adrenal panel 12/20/17 Range/Units 05:22 Sodium 136 (136-145) mEq/L Potassium 3.9 (3.5-5.1) mEq/L Chloride 107 (98-107) mEq/L Carbon Dioxide 23 (23-29) mEq/L BUN 24 H (8-23) mg/dL Creatinine 0.45 L (0.70-1.30) mg/dL Glucose 91 (70-105) mg/dL Calcium 7.5 L (8.6-10.3) mg/dL - Attending Attestation I examined this patient and my medical decision-making was reviewed with the Resident Physician. I agree with the documented findings, disposition and treatment plan as described except to the extent set forth below. I reviewed the above assessment and evaluation with the resident and agree with the above plan. Continue local wound care of the sacral wound. Will advance to full liquids to see how he tolerates; to consider advancement of soft foods tomorrow.
[2017-12-19] MEDS: Levofloxacin 750 MG/150 ML 750 MG/150 ML BAG IVPB SCH (08:31)
[2017-12-19] MEDS: Pantoprazole 40 MG VIAL IVP SCH (08:31)
[2017-12-19] MEDS: Sucralfate 1 GM TABLET PO SCH ×4 (08:35→21:35)
[2017-12-19] MEDS: *HR* Heparin 5,000 UNIT/ML VIAL SQ SCH ×2 (08:48→16:35)
--- NOTE | 2017-12-19 11:59 | Internal Med Progress Note ---
Date of Encounter: 12/19/17 Time of Encounter: 11:56 - Assessment and plan (1) Lymphedema of both lower extremities Current Visit: Yes Status: Acute Assessment and plan: Chronic, trace bilateral pitting pedal edema with chronic venostasis changes Wound care following (2) Decubitus ulcer Current Visit: Yes Status: Acute Assessment and plan: Large decubitus ulcers affecting R buttock into austen cleft and onto L buttock large Eschar. No evidence of tunneling CT scan did not reveal abscess or fistula No need for surgical debridement at this time. Wound care recommendations: Apply 50/50 Mixture of Santyl and Gentamicin ointment to the sacral ulcer Change dressing Daily Q2H turns, assist to bed side chair Patient can follow up with surgery or wound care where he has lymphadema managed Keep area clean as possible, insert rectal tube during bowel prep Continue levaquin (based on culture ) for at least 10 days Qualifiers: Pressure ulcer location: sacral region Pressure ulcer stage: unspecified pressure ulcer stage Qualified Code(s): L89.159 - Pressure ulcer of sacral region, unspecified stage (3) Elevated troponin Current Visit: Yes Status: Acute Assessment and plan: Likely due to demand ischemia. Troponin elevation of 0.04. Patient denied any chest pain, EKG did not show any ischemic changes. (4) Sepsis Current Visit: Yes Status: Resolved Assessment and plan: Acute metabolic encephalopathy secondary to sepsis due to Large infected necrotic decubitus ulcers with eschar in the sacral region On admission: WBC 16.4, hypotensive 99/72, confused Patient is being treated for lymphedema and wounds to his bilateral legs by home wound care team. 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 Patient reports BM yesterday. Continue IV fluids and TPN Continue Zofran as needed Continue aggressive bowel regimen per surgery, Dulcolax and Colace BID Small bowel follow through study reveled delayed small bowel transit time, with contrast reaching the mid/ distal small bowel at 17 hours favoring ongoing ileus. Surgery, wound care, and dietary are following. EGD noted NG tube out Follow surgery recommendations (7) Hypocalcemia Current Visit: Yes Status: Acute Assessment and plan: Check ionized Ca Replete Ca, monitor - Time Spent With Patient Total time spent is greater than 50% in coordination of care (as documented) at patient's floor/unit and/or counseling patient: - Subjective Interval history: Seen and examined this morning, no new complains He is s/p EGD+push enteroscopy Surgery, dietary and wound care following He is on clear liquid diet From a medical standpoint, this patient remains in the hospital due to paralytic ileus. He is pending possible surgical intervention. However, he did have 2 bowel movements overnight. We will await surgical recommendations. Continue wound care, antibiotics, and dietary modification. - Constitutional Vitals: Temp Pulse Resp BP Pulse Ox 97.7 F 71 15 122/65 95 12/19/17 04:45 12/19/17 06:51 12/19/17 06:51 12/19/17 06:51 12/19/17 06:51 General appearance: Present: cooperative, A&O X 3, morbidly obese, no acute distress, answers questions appropriately - Head Head exam: Present: atraumatic, normocephalic - Eye Eye exam: Present: PERRL, conjuntiva pink, sclera anicteric Pupils: Present: PERRL - Neck Neck exam general surgery: Present: supple, trachea midline. Absent: lymphadenopathy - Respiratory Respiratory exam: Present: CTAB. Absent: accessory muscle use, rales, rhonchi, wheezes - Cardiovascular Cardiovascular exam: Present: RRR, +S1, +S2. Absent: diastolic murmur, gallop, rubs, systolic murmur - GI/Abdominal GI/Abdominal exam: Present: normal bowel sounds, soft, no peritoneal signs. Absent: distended, tenderness - Extremities Exam Additional comments: Chronic venostasis changes, multiple wounds on the left posterior leg and hip. Both legs in Kerlix. - Neurological Exam Neurological exam: Present: alert, CN II-XII intact, oriented X3, no focal deficits. Absent: pronater drift, facial droop, speech deficit - Skin Skin exam: Present: dry, intact Internal Medicine: Result - Labs CBC & Chem 7: 12/18/17 04:05 12/19/17 05:02 Labs: BMP 12/19/17 05:02 Sodium 136 Potassium 3.5 Chloride 104 Carbon Dioxide 26 BUN 25 H Creatinine 0.48 L Glucose 115 H Calcium 8.0 L - ABG Interpretation ABG results: PT/INR, D-dimer PT 12.1 Seconds (9.4-12.1) 12/18/17 04:05 Consult Discharge Plan - Plan Referrals: Nicolas Sanchez MD [Primary Care Provider] - 12/21/17 10:15 am
[2017-12-19] MEDS ORDERED: [UNRECOGNIZED DRUG - OTHER] IVC SCH (17:00)
[2017-12-19] MEDS ORDERED: MVI IVC SCH (17:00)
[2017-12-19] MEDS ORDERED: CLINIMIX E IVC SCH (17:00)
[2017-12-19] MEDS ORDERED: PARENTERAL AMINO ACID 10% IVC SCH (17:00)
[2017-12-20] MEDS: 0.9 % Sodium Chloride 1,000 ML IVC SCH ×2 (04:17→16:24)
[2017-12-20] MEDS: *HR* Heparin 5,000 UNIT/ML VIAL SQ SCH ×2 (05:26→16:24)
[2017-12-20 05:59] LABS: BUN/Creatinine Ratio 53 (6-26); Blood Urea Nitrogen 24 mg/dL (8-23); Calcium 7.5 mg/dL (8.6-10.3); Carbon Dioxide 23 mEq/L (23-29); Chloride 107 mEq/L (98-107); Glucose 91 mg/dL (70-105); Osmolality,Calculated 286 (280-300); Potassium 3.9 mEq/L (3.5-5.1); Sodium 136 mEq/L (136-145); eGFR For African Americans > 60 (> 60); eGFR For Non-African Americans > 60 (> 60)
[2017-12-20] MEDS: Sucralfate 1 GM TABLET PO SCH ×4 (07:38→20:41)
[2017-12-20] MEDS: Pantoprazole 40 MG VIAL IVP SCH (07:38)
--- NOTE | 2017-12-20 12:12 | Internal Med Progress Note ---
Date of Encounter: 12/20/17 Time of Encounter: 12:12 - Assessment and plan (1) Lymphedema of both lower extremities Current Visit: Yes Status: Chronic Assessment and plan: Chronic, trace bilateral pitting pedal edema with chronic venostasis changes Wound care following (2) Decubitus ulcer Current Visit: Yes Status: Acute Assessment and plan: Large decubitus ulcers affecting R buttock into cleft and onto L buttock large Eschar. No evidence of tunneling CT scan did not reveal abscess or fistula No need for surgical debridement at this time. Wound care recommendations: Apply 50/50 Mixture of Santyl and Gentamicin ointment to the sacral ulcer Change dressing Daily Q2H turns, assist to bed side chair Patient can follow up with surgery or wound care where he has lymphadema managed Keep area clean as possible, insert rectal tube during bowel prep Continue levaquin (based on culture ) for at least 10 days, completed treatment , consider restarting antibiotics if patient decompensates Qualifiers: Pressure ulcer location: sacral region Pressure ulcer stage: unspecified pressure ulcer stage Qualified Code(s): L89.159 - Pressure ulcer of sacral region, unspecified stage (3) Elevated troponin Current Visit: Yes Status: Resolved Assessment and plan: Likely due to demand ischemia. Troponin elevation of 0.04. Patient denied any chest pain, EKG did not show any ischemic changes (4) Sepsis Current Visit: Yes Status: Resolved Assessment and plan: resolved Acute metabolic encephalopathy secondary to sepsis due to Large infected necrotic decubitus ulcers with eschar in the sacral region On admission: WBC 16.4, hypotensive 99/72, confused Patient is being treated for lymphedema and wounds to his bilateral legs by home wound care team. 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 Patient reports BM yesterday. Continue IV fluids and TPN Continue Zofran as needed Small bowel follow through study reveled delayed small bowel transit time, with contrast reaching the mid/ distal small bowel at 17 hours favoring ongoing ileus. Surgery, wound care, and dietary are following. EGD noted NG tube out Follow surgery recommendations (7) Hypocalcemia Current Visit: Yes Status: Acute - Time Spent With Patient Total time spent is greater than 50% in coordination of care (as documented) at patient's floor/unit and/or counseling patient: - Subjective Interval history: Seen and examined this morning, no new complains He is s/p EGD+push enteroscopy Surgery, dietary and wound care following From a medical standpoint, this patient remains in the hospital due to paralytic ileus. He is pending possible surgical intervention. However, he did have 2 bowel movements yesterday 12/19. he has no new complains Medically this patient can be discharged home if there is no plan for surgical intervention- Surgery documentation noted: for ileus : "continue aggressive bowel regimen, colonoscopy can be done once appropriately prepped, transitioned to full liquids today with possible soft diet tomorrow if tolerates" and for necrotic ulcer: patient aware of possibility of diverting ileostomy Paged surgery, in the meantime, continue supportive care - Constitutional Vitals: Temp Pulse Resp BP Pulse Ox 97.7 F 81 17 111/76 94 12/20/17 07:00 12/20/17 07:00 12/20/17 07:00 12/20/17 07:00 12/20/17 04:00 General appearance: Present: cooperative, A&O X 3, morbidly obese, no acute distress, answers questions appropriately - Head Head exam: Present: atraumatic, normocephalic - Eye Eye exam: Present: PERRL, conjuntiva pink, sclera anicteric Pupils: Present: PERRL - Neck Neck exam general surgery: Present: supple, trachea midline. Absent: lymphadenopathy - Respiratory Respiratory exam: Present: CTAB. Absent: accessory muscle use, rales, rhonchi, wheezes - Cardiovascular Cardiovascular exam: Present: RRR, +S1, +S2. Absent: diastolic murmur, gallop, rubs, systolic murmur - GI/Abdominal GI/Abdominal exam: Present: normal bowel sounds, soft, no peritoneal signs. Absent: distended, tenderness - Extremities Exam Additional comments: Chronic venostasis changes, multiple wounds on the left posterior leg and hip. Both legs in Kerlix. - Neurological Exam Neurological exam: Present: alert, CN II-XII intact, oriented X3, no focal deficits. Absent: pronater drift, facial droop, speech deficit - Skin Skin exam: Present: dry, intact Internal Medicine: Result - Labs CBC & Chem 7: 12/18/17 04:05 12/20/17 05:22 Labs: BMP 12/20/17 05:22 Sodium 136 Potassium 3.9 Chloride 107 Carbon Dioxide 23 BUN 24 H Creatinine 0.45 L Glucose 91 Calcium 7.5 L - ABG Interpretation ABG results: PT/INR, D-dimer PT 12.1 Seconds (9.4-12.1) 12/18/17 04:05 Consult Discharge Plan - Plan Referrals: Nicolas Sanchez MD [Primary Care Provider] - 12/21/17 10:15 am
[2017-12-20] MEDS ORDERED: [UNRECOGNIZED DRUG - OTHER] IVC SCH ×2 (12:15→17:00)
[2017-12-20] MEDS ORDERED: MVI IVC SCH ×2 (12:15→17:00)
[2017-12-20] MEDS ORDERED: CLINIMIX E IVC SCH ×2 (12:15→17:00)
[2017-12-20] MEDS ORDERED: PARENTERAL AMINO ACID 10% IVC SCH ×2 (12:15→17:00)
--- NOTE | 2017-12-20 12:43 | General Surgery Progress Note ---
Addendum entered and electronically signed by Bautista Jordan DO 12/20/17 13:22: "transitioned to full liquids today" should say "transitioned to soft diet" under (2) ileus Plan for possible colonoscopy with bowel regimen may be considered during the week with Dr. Hawkins For now, monitoring tolerance of soft diet; decreasing TPN to 50cc/hr Original Note: <Bautista Jordan - Last Filed: 12/20/17 12:45> Date of Encounter: 12/20/17 Time of Encounter: 08:55 - Assessment and Plan (1) Decubitus ulcer Status: Acute unstageable; approximately 20cm x 15cm; no purulent drainage; second ulcer with beefy granulation tissue inferior to primary ulcer on R glute cont with low air loss mattress q2hr turns clean daily james: gent across wounds, gauze, ABD pad, tape patient aware of possibility of diverting ileostomy advancing diet from fulls to soft diet, decreasing TPN to 50cc/hr from 102cc/hr Qualifiers: Pressure ulcer location: sacral region Pressure ulcer stage: unspecified pressure ulcer stage Qualified Code(s): L89.159 - Pressure ulcer of sacral region, unspecified stage (2) Ileus Status: Acute s/p EGD, push enteroscopy 12/18 (unable to perform colonoscopy due to poor prep); has gastric ulcers along lesser curve a well as esophagitis; small esophageal varix PPI gtt carafate consult with GI continue aggressive bowel regimen colonoscopy can be done once appropriately prepped transitioned to full liquids today with possible soft diet tomorrow if tolerates Subjective Narrative: Mr. Adams tolerated advancement of his diet from clears to fulls without nausea or vomiting. He has a rectal tube for bowel movements, last inserted 5 evening. He had a large bowel movement yesterday. He denies fevers/chills, shortness of breath, confusion, chest discomfort, or abdominal pain. No acute events overnight. Objective Vital Signs - Last 8 Hours Temp Pulse Resp BP 12/20/17 07:00 97.7 F 81 17 111/76 Intake and Output 12/19/17 12/20/17 12/20/17 23:59 07:59 15:59 Intake Total 1480 / 1480 1480 / 1480 240 / 240 Output Total 1150 / 1150 1800 / 1800 1250 / 1250 Balance 330 / 330 -320 / -320 -1010 / -1010 Intake: IV Fluids 1000 / 1000 1000 / 1000 0.9 % Sodium Chloride 1,000 ML 1000 / 1000 1000 / 1000 @ 90 mls/hr IVC .Q11H7M [facility] Rx# :[id number] Oral 480 / 480 480 / 480 240 / 240 Output: Urine 600 / 600 Catheter 1150 / 1150 1800 / 1800 650 / 650 Other: Meal Breakfast Percent of Meal Consumed 100% Stool Size Large Stool Consistency liquid # Bowel Movements 1 Weight 171.4 kg Blood Glucose* 89 92 89 Patient Weight 12/20/17 23:59 Weight 171.4 kg - General physical appearance well developed, no distress, other (morbid obesity) - Eyes normal ocular movement - ENT normal mucosa, atraumatic, normocephalic - Neck Neck exam: no lymphadectomy - Respiratory normal expansion, normal respiratory effort, clear to auscultation - Cardiovascular Cardiovascular exam: Present: RRR, no murmurs/rubs/gallops. Absent: JVD - Abdomen Abdomen: Present: bowel sounds present, soft. Absent: guarding, rebound, rigid - Integumentary other (20cm by 15 cm ulcer sacrum, has eschar covering entirety of ulcer; inferior to this is a granuated possibly stage 2 ulcer) - Neurologic normal coordination, normal sensation - Psychiatric speech is normal, memory intact - Labs 12/18/17 04:05 12/20/17 05:22 Diabetes panel 12/20/17 Range/Units 05:22 Sodium 136 (136-145) mEq/L Potassium 3.9 (3.5-5.1) mEq/L Chloride 107 (98-107) mEq/L Carbon Dioxide 23 (23-29) mEq/L BUN 24 H (8-23) mg/dL Creatinine 0.45 L (0.70-1.30) mg/dL Glucose 91 (70-105) mg/dL Calcium 7.5 L (8.6-10.3) mg/dL Calcium panel 12/20/17 Range/Units 05:22 Calcium 7.5 L (8.6-10.3) mg/dL Pituitary panel 12/20/17 Range/Units 05:22 Sodium 136 (136-145) mEq/L Potassium 3.9 (3.5-5.1) mEq/L Chloride 107 (98-107) mEq/L Carbon Dioxide 23 (23-29) mEq/L BUN 24 H (8-23) mg/dL Creatinine 0.45 L (0.70-1.30) mg/dL Glucose 91 (70-105) mg/dL Calcium 7.5 L (8.6-10.3) mg/dL Adrenal panel 12/20/17 Range/Units 05:22 Sodium 136 (136-145) mEq/L Potassium 3.9 (3.5-5.1) mEq/L Chloride 107 (98-107) mEq/L Carbon Dioxide 23 (23-29) mEq/L BUN 24 H (8-23) mg/dL Creatinine 0.45 L (0.70-1.30) mg/dL Glucose 91 (70-105) mg/dL Calcium 7.5 L (8.6-10.3) mg/dL Consult Discharge Plan - Plan Instructions: Peripheral Vascular Disorders (DC), Sepsis (DC), Ileus (DC), Ileus (GEN) Referrals: Antonio Hawkins MD [Non-Partnered Physician] - (wound care, colonoscopy, hospital follow up. ) Nicolas Sanchez MD [Primary Care Provider] - 12/21/17 10:15 am Valorie Pruitt MD [Partnered Physician] - (hospital follow up. Found to have low grade esophageal varices.) <Giuseppe Vazquez - Last Filed: 12/23/17 06:53> Date of Encounter: 12/20/17 Objective Intake and Output 12/22/17 12/22/17 12/23/17 15:59 23:59 07:59 Intake Total 840 / 840 Output Total 450 / 450 450 / 450 Balance 390 / 390 -450 / -450 Intake: Oral 840 / 840 Output: Catheter 450 / 450 450 / 450 Other: Meal Lunch Dinner Percent of Meal Consumed 50% 75% Blood Glucose* 96 84 - Labs 12/18/17 04:05 12/22/17 03:30 - Attending Attestation I examined this patient and my medical decision-making was reviewed with the Resident Physician. I agree with the documented findings, disposition and treatment plan as described except to the extent set forth below. I reviewed the above assessment and evaluation and agree with the above plan. Patient was able to tolerate by mouth diet. We will advance to soft foods and decrease his TPN by 50%. Continue with local wound care of the sacral wound.
[2017-12-20] MEDS ORDERED: Clinimix E 5%-15% SOLUTION 2,000 ML with MVI, adult with vitamin K 10 ML, Trace Eleme... IVC SCH (17:00)
[2017-12-20] MEDS: Gentamicin Oint 15 GM TUBE TP SCH (21:00)
[2017-12-21] MEDS: 0.9 % Sodium Chloride 1,000 ML IVC SCH (03:21)
[2017-12-21] MEDS: *HR* Heparin 5,000 UNIT/ML VIAL SQ SCH ×2 (05:21→17:13)
[2017-12-21 05:52] LABS: VBG Ionized Calcium 1.06 mmol/L (1.15-1.35); VBG PH 7.39 pH Units (7.32-7.42)
[2017-12-21 06:09] LABS: BUN/Creatinine Ratio 43 (6-26); Blood Urea Nitrogen 18 mg/dL (8-23); Calcium 7.6 mg/dL (8.6-10.3); Carbon Dioxide 22 mEq/L (23-29); Chloride 108 mEq/L (98-107); Glucose 91 mg/dL (70-105); Osmolality,Calculated 279 (280-300); Potassium 3.9 mEq/L (3.5-5.1); Sodium 134 mEq/L (136-145); eGFR For African Americans > 60 (> 60); eGFR For Non-African Americans > 60 (> 60)
[2017-12-21 06:10] LABS: Magnesium 1.8 mg/dL (1.6-2.6); Phosphorous 3.6 mg/dL (2.7-4.5)
--- NOTE | 2017-12-21 08:34 | General Surgery Progress Note ---
Date of Encounter: 12/21/17 Time of Encounter: 08:31 - Assessment and Plan (1) Decubitus ulcer Current Visit: Yes Status: Acute unstageable; approximately 20cm x 15cm; no purulent drainage; cont with low air loss mattress q2hr turns clean daily james: gent across wounds, gauze, ABD pad, tape discussed with patient concerning diversion; will wait until that becomes necessary; in the meantime recommend keeping nutrition optimized (alb @ 3, prealb @20); Qualifiers: Pressure ulcer location: sacral region Pressure ulcer stage: unspecified pressure ulcer stage Qualified Code(s): L89.159 - Pressure ulcer of sacral region, unspecified stage (2) Ileus Current Visit: Yes Status: Chronic s/p EGD, push enteroscopy (unable to perform colonoscopy due to poor prep); has gastric ulcers along lesser curve a well as esophagitis; currently tolerating diet; ileus resolved PPI gtt carafate consult with GI patient will also need agressive bowel regimen diet as tolerated can plan for colonoscopy as an outpatient; can do inpatient if need (whether due to disease or social circumstance) dictates general surgery will sign off; please call with any new questions or concerns Subjective Patient reports: no new complaints, tolerating a regular diet, bowel movement Objective Vital Signs - Last 8 Hours Temp Pulse Resp BP Pulse Ox 12/21/17 07:00 97.3 F L 77 19 133/64 99 12/21/17 05:27 81 15 130/61 96 Intake and Output 12/20/17 12/21/17 12/21/17 23:59 07:59 15:59 Intake Total 1240 / 1240 1000 / 1000 Output Total 600 / 600 1974 Balance 640 / 640 -975 / -975 Intake: IV Fluids 1000 / 1000 1000 / 1000 0.9 % Sodium Chloride 1,000 ML 1000 / 1000 1000 / 1000 @ 90 mls/hr IVC .Q11H7M [facility] Rx# :[id number] Oral 240 / 240 Output: Catheter 600 / 600 1974 Other: Meal Dinner Percent of Meal Consumed 20% Weight 169.3 kg Blood Glucose* 86 79 Patient Weight 12/21/17 23:59 Weight 169.3 kg - General physical appearance well developed, no distress - Eyes normal ocular movement - ENT normocephalic - Respiratory normal expansion, normal respiratory effort - Cardiovascular Cardiovascular exam: Present: RRR - Abdomen Abdomen: Present: soft, non tender - Neurologic CN 2-12 grossly intact - Labs 12/18/17 04:05 12/21/17 04:00 Diabetes panel 12/21/17 12/21/17 Range/Units 04:00 04:00 Sodium 134 L (136-145) mEq/L Potassium 3.9 (3.5-5.1) mEq/L Chloride 108 H (98-107) mEq/L Carbon Dioxide 22 L (23-29) mEq/L BUN 18 (8-23) mg/dL Creatinine 0.42 L (0.70-1.30) mg/dL Glucose 91 (70-105) mg/dL Calcium 7.6 L (8.6-10.3) mg/dL Triglycerides 118 (< 150) mg/dL Calcium panel 12/21/17 12/21/17 Range/Units 04:00 04:00 Calcium 7.6 L (8.6-10.3) mg/dL Phosphorus 3.6 (2.7-4.5) mg/dL Pituitary panel 12/21/17 Range/Units 04:00 Sodium 134 L (136-145) mEq/L Potassium 3.9 (3.5-5.1) mEq/L Chloride 108 H (98-107) mEq/L Carbon Dioxide 22 L (23-29) mEq/L BUN 18 (8-23) mg/dL Creatinine 0.42 L (0.70-1.30) mg/dL Glucose 91 (70-105) mg/dL Calcium 7.6 L (8.6-10.3) mg/dL Adrenal panel 12/21/17 Range/Units 04:00 Sodium 134 L (136-145) mEq/L Potassium 3.9 (3.5-5.1) mEq/L Chloride 108 H (98-107) mEq/L Carbon Dioxide 22 L (23-29) mEq/L BUN 18 (8-23) mg/dL Creatinine 0.42 L (0.70-1.30) mg/dL Glucose 91 (70-105) mg/dL Calcium 7.6 L (8.6-10.3) mg/dL Consult Discharge Plan - Plan Referrals: Nicolas Sanchez MD [Primary Care Provider] - 12/21/17 10:15 am
--- NOTE | 2017-12-21 09:27 | Internal Med Progress Note ---
<Jai Sarah - Last Filed: 12/21/17 15:47> Date of Encounter: 12/21/17 Time of Encounter: 09:25 - Assessment and plan (1) Decubitus ulcer Current Visit: Yes Status: Acute Assessment and plan: Patient has a large decbitus ulcer of buttock with eschars noted. Surgery indicates not need for surgical debridement at this time and signed off. Patient has completed 10 days of levaquin. Rectal tube still in place, was likely present for bowel prep, but uncertain if needing to be continued. Contacted surgery to discuss, will likely pull if no response. Continue with wound care per wound care recommendations and q2h turns. Okay for discharge to retirement, but at this time will need prior authorization completed. Qualifiers: Pressure ulcer location: sacral region Pressure ulcer stage: unspecified pressure ulcer stage Qualified Code(s): L89.159 - Pressure ulcer of sacral region, unspecified stage (2) Sepsis Current Visit: Yes Status: Resolved Assessment and plan: Resolved. Presented with Acute metabolic encephalopathy secondary to sepsis due to necrotic decubitus ulcer. WBC 16.4, hypotensive and confused. Wound cultures grew Proteus, MSSA, and E.coli. Completed 10 days of levaquin, previously completed vanc x 4 days and zosyn x 5 days. Qualifiers: Sepsis type: sepsis due to unspecified organism Qualified Code(s): A41.9 - Sepsis, unspecified organism (3) Elevated troponin Current Visit: Yes Status: Resolved Assessment and plan: Troponin elevation likely demand ischemia as EKG was negative for acute changes and no chest pain. No additional follow up. (4) Lymphedema of both lower extremities Current Visit: Yes Status: Chronic Assessment and plan: Chronic history of bilatera lower extremity lymphedema and associated stasis changes. Continue with wound care recommendations. (5) Morbidly obese Current Visit: Yes Status: Acute Assessment and plan: BMI 56.8 Window [place] following Diet modifications and exercise (6) Ileus Current Visit: Yes Status: Resolved Assessment and plan: Patient has no abd pain, has had bowel movmeents with rectal tube in place without upper gi symptoms includig no vomiting or nausea. Advanced diet to softs successfully. Surgery signed off, continue to monitor (7) Hypocalcemia Current Visit: Yes Status: Acute Assessment and plan: Ionized calcium and replete as needed. - Time Spent With Patient Total time spent is greater than 50% in coordination of care (as documented) at patient's floor/unit and/or counseling patient: - Subjective Interval history: Reports doing well, no new complaints. Has tolerated the increased soft diet though still has some TPN hanging and has had multiple bowel movements. Patient does not complaint of pain at this time. Denies fevers, chills, sweats, nausea, vomiting, chest pain, shortness of breath , abdominal pain, changes in bowels or bladder, new weakness, new loss of sensation. - Constitutional Vitals: Temp Pulse Resp BP Pulse Ox 97.3 F L 77 19 133/64 99 12/21/17 07:00 12/21/17 07:00 12/21/17 07:00 12/21/17 07:00 12/21/17 07:00 General appearance: Present: cooperative, A&O X 3, morbidly obese, no acute distress, answers questions appropriately - Head Head exam: Present: atraumatic, normal inspection, normocephalic - Eye Eye exam: Present: EOMI, normal appearance - ENT ENT exam: Present: mucous membranes moist - Neck Neck exam general surgery: Present: full ROM - Respiratory Respiratory exam: Present: CTAB. Absent: rales, rhonchi, wheezes - Cardiovascular Cardiovascular exam: Present: RRR, +S1, +S2 - GI/Abdominal GI/Abdominal exam: Present: normal bowel sounds, soft. Absent: tenderness - Rectal Additional comments: rectal tube with brown-yellow liquid stool. Sacral decubitus ulcer with eschar covering - Extremities Exam Extremities exam: Present: normal inspection, pedal edema, warm, radial pulses palpable and symmetrical - Skin Skin exam: Present: dry, intact, normal color, warm Additional comments: except as noted above. Internal Medicine: Result - Labs CBC & Chem 7: 12/18/17 04:05 12/21/17 04:00 Labs: BMP 12/21/17 04:00 Sodium 134 L Potassium 3.9 Chloride 108 H Carbon Dioxide 22 L BUN 18 Creatinine 0.42 L Glucose 91 Calcium 7.6 L - ABG Interpretation ABG results: PT/INR, D-dimer PT 12.1 Seconds (9.4-12.1) 12/18/17 04:05 Consult Discharge Plan - Plan Referrals: Nicolas Sanchez MD [Primary Care Provider] - 12/21/17 10:15 am <Alonzo Preston T - Last Filed: 12/21/17 17:21> Date of Encounter: 12/21/17 - Assessment and plan (1) Lymphedema of both lower extremities Current Visit: Yes Status: Chronic (2) Decubitus ulcer Current Visit: Yes Status: Acute Qualifiers: Pressure ulcer location: sacral region Pressure ulcer stage: unspecified pressure ulcer stage Qualified Code(s): L89.159 - Pressure ulcer of sacral region, unspecified stage (3) Elevated troponin Current Visit: Yes Status: Resolved (4) Sepsis Current Visit: Yes Status: Resolved Qualifiers: Sepsis type: sepsis due to unspecified organism Qualified Code(s): A41.9 - Sepsis, unspecified organism (5) Morbidly obese Current Visit: Yes Status: Acute (6) Ileus Current Visit: Yes Status: Resolved (7) Hypocalcemia Current Visit: Yes Status: Acute - Time Spent With Patient Total time spent is greater than 50% in coordination of care (as documented) at patient's floor/unit and/or counseling patient: - Constitutional Vitals: Temp Pulse Resp BP Pulse Ox 97.8 F 89 17 108/64 98 12/21/17 15:00 12/21/17 15:00 12/21/17 15:00 12/21/17 15:00 12/21/17 15:00 Internal Medicine: Result - Labs CBC & Chem 7: 12/18/17 04:05 12/21/17 04:00 Labs: BMP 12/21/17 04:00 Sodium 134 L Potassium 3.9 Chloride 108 H Carbon Dioxide 22 L BUN 18 Creatinine 0.42 L Glucose 91 Calcium 7.6 L - ABG Interpretation ABG results: PT/INR, D-dimer PT 12.1 Seconds (9.4-12.1) 12/18/17 04:05 - Attending Attestation I examined this patient 12/21, and my medical decision-making was reviewed with the Resident Physician. I agree with the documented findings, disposition and treatment plan as described except to the extent set forth below.
[2017-12-21] MEDS: Pantoprazole 40 MG VIAL IVP SCH (09:32)
[2017-12-21] MEDS: Sucralfate 1 GM TABLET PO SCH ×4 (09:32→23:00)
[2017-12-21] MEDS: Gabapentin 300 MG CAPSULE PO SCH ×2 (17:13→23:00)
[2017-12-22] MEDS: 0.9 % Sodium Chloride 1,000 ML IVC SCH (02:06)
[2017-12-22 04:09] LABS: BUN/Creatinine Ratio 37 (6-26); Blood Urea Nitrogen 18 mg/dL (8-23); Calcium 7.8 mg/dL (8.6-10.3); Carbon Dioxide 22 mEq/L (23-29); Chloride 108 mEq/L (98-107); Glucose 97 mg/dL (70-105); Osmolality,Calculated 282 (280-300); Potassium 3.9 mEq/L (3.5-5.1); Sodium 135 mEq/L (136-145); eGFR For African Americans > 60 (> 60); eGFR For Non-African Americans > 60 (> 60)
[2017-12-22] MEDS: Gentamicin Oint 15 GM TUBE TP SCH (06:04)
[2017-12-22] MEDS: *HR* Heparin 5,000 UNIT/ML VIAL SQ SCH (06:42)
[2017-12-22] MEDS: Sucralfate 1 GM TABLET PO SCH ×3 (07:43→15:16)
[2017-12-22] MEDS: Gabapentin 300 MG CAPSULE PO SCH ×2 (07:43→15:17)
[2017-12-22] MEDS ORDERED: 0.9 % Sodium Chloride 1,000 ML IVC SCH (13:00)
--- NOTE | 2017-12-22 13:04 | Discharge Summary ---
<Ortiz Malloy - Last Filed: 12/22/17 13:02> Orders not resulted at time of discharge: Pending orders 12/18/17 12:14 Surgical Pathology [PTH] Routine Date of Encounter: 12/22/17 Time of Encounter: 13:03 - Discharge Diagnosis (1) Sepsis Priority: Primary Status: Resolved Qualifiers: Sepsis type: sepsis due to unspecified organism Qualified Code(s): A41.9 - Sepsis, unspecified organism (2) Decubitus ulcer Priority: Secondary Status: Chronic Qualifiers: Pressure ulcer location: sacral region Pressure ulcer stage: unspecified pressure ulcer stage Qualified Code(s): L89.159 - Pressure ulcer of sacral region, unspecified stage (3) Lymphedema of both lower extremities Priority: Secondary Status: Chronic (4) Elevated troponin Priority: Secondary Status: Resolved (5) Morbidly obese Priority: Secondary Status: Chronic (6) Ileus Priority: Secondary Status: Resolved (7) Hypocalcemia Priority: Secondary Status: Acute Hospital course: Mr. Adams is a 62 year old male presented with chief complaint of large wound on buttocks on 12/05/17. Patient has a history of bilateral lower extremity chronic wounds being cared for by a [facility] wound care. He was noted to be alert and oriented to person and situation but not to place and time on admission. CT of the abdomen and pelvis showed nonspecific soft tissue findings at the gluteal cleft. Head CT was negative. Patient was found to be in sepsis secondary to large decubitus ulcer with Ariel in the sacral region. Surgery was consulted. Anaerobic and aerobic wound cultures, blood cultures were collected and patient was started on broad-spectrum antibiotics. Initial evaluation of surgery noted the patient did not need debridement and patient was started on aggressive wound care. On 12/07/17 patient developed ileus. He was started on IV fluids, and NG tube was placed. Wound cultures grew Proteus, MSSA, Escherichia coli SENSITIVE to Levaquin and therefore patient was transitioned to Levaquin. On 12/09/17 NG tube was removed however ileus was not improving and was reinserted. Surgery was reconsulted. Surgery started patient on aggressive bowel regimen. KUB on 12/10/17 showed no significant advancement of contrast in the small bowel since the previous study and there is concern for small bowel obstruction. Patient had a PICC line placed on and TPN was started. Patient's ileus versus small bowel obstruction slowly improved and he regained bowel sounds. On 12/16 patient had a small bowel follow- through which showed delayed small bowel transit time with contrast reaching mid /distal small bowel at 17 hours. Patient had the NG tube clamped and plan was to undergo EGD and colonoscopy. Patient's bowel prep failed multiple times. He was unable to undergo colonoscopy due to poor bowel prep but did undergo EGD on 12/18/2017 which showed nonbleeding gastric ulcers with no stigmata of bleeding , grade 1 esophageal varices, reflux esophagitis. Patient was started on Carafate and omeprazole. Patient's ileus was not improving and surgery considered diverging ileostomy. Over the weekend of 12/20 patient started having bowel movements with rectal tube in place. Rectal tube was removed. His diet was advanced from soft to solids and he tolerated his diet. Therefore surgery was put on hold and plan surgery signed off. Patient had completed total of 10 days of IV antibiotics for his decubitus ulcer and sepsis resolved. He will plan to follow-up with surgery outpatient for wound care and also colonoscopy. This morning patient does not have any complaints. He is tolerating his diet. He will be discharged today to SNF for further physical rehabilitation. Discharge discussed with: patient - Time Spent with Patient Total time spent providing and/or coordinating discharge services: - Discharge Medications Home Medications: Furosemide [Lasix] 40 mg PO DAILY 04/27/15 [History] Gabapentin [Neurontin] 600 mg PO TID 04/27/15 [History] Ferrous Sulfate [Iron] 325 mg PO DAILY 04/30/16 [History] Spironolactone [Aldactone] 100 mg PO DAILY 12/05/17 [History] Collagenase Oint [Santyl] 1 appl TP 2200 tube 12/22/17 [Rx] Gentamicin Oint [Garamycin] 1 appl TP 2200 tube 12/22/17 [Rx] Omeprazole [PriLOSEC] 40 mg PO DAILY@0730 capsule. 12/22/17 [Rx] Sucralfate [Carafate] 1 gm PO QIDAC #0 tablet 12/22/17 [Rx] Allergies/Adverse Reactions: 3 Allergy/AdvReac Type Severity Reaction Status Date / Time No Known Allergies Allergy Verified 03/19/15 11:08 Date of admission: 12/05/17 19:49 Primary care physician: Nicolas Sanchez MD Consults: 12/05/17 19:54 Consult to Wound Care [CONS] Routine Reason for Consult: Dressing and wound care recommendations Time Notified: 19:55 Call Completed: Yes 12/07/17 15:24 Consult to Occupational Therapy [CONS] Routine Comment: Evaluate, develop and implement POC Reason for Consult: Per physician, patient will need rehab at discharge. Does patient have active BEDREST order?: No Is patient medically & hemodynamically stable?: Yes Consult to Physical Therapy [CONS] Routine Comment: Evaluate, develop and implement POC Reason for Consult: Per physician, patient will need rehab at discharge. Does patient have active BEDREST order?: No Is patient medically & hemodynamically stable?: Yes 12/11/17 10:06 consult to sign writer hand [Consult to Nutrition] [CONS] Routine Comment: Consulting Provider: NUTRITION Reason for Dietary Consult: TPN Start and Manage Other:: verbal order per Dr. Amezquita 12/11/17 11:35 Consult to Invasive Line Access Team [CONS] Routine Reason for Consult: Picc Line Insertion Line Type: PICC Discharging clinician: Ortiz Malloy Anticipated date of discharge: 12/22/17 - Constitutional Vitals: Temp Pulse Resp BP Pulse Ox 98.3 F 80 16 124/70 92 12/22/17 11:09 12/22/17 11:09 12/22/17 11:09 12/22/17 11:09 12/22/17 11:09 General appearance: Present: cooperative, A&O X 3, morbidly obese, no acute distress, answers questions appropriately - Other Additional findings: General: Pleasant without distress HEENT: Head atraumatic, normocephalic, EOMI, PERRL, neck nontender to palpation , absent lymphadenopathy, Moist Mucous Membranes, Heart: Regular rate and rhythm with no murmur Lungs: Clear to auscultation bilaterally Abdomen: Soft nontender, nondistended positive bowel sounds Skin: Large decubitus ulcers of right buttock and bilateral lower extremity lymphedema with ulcerations. Extremities: Bilateral lower extremity edema. Neuro: Alert oriented 3 Vascular: Pedal and radial pulses 2 out of 4 - Patient Status Disposition: Transfer SNF Condition: Good Functional capacity at discharge: wheelchair bound Overall status at discharge: patient is progressing back to baseline - Discharge Instructions Follow Up With: Nicolas Sanchez MD [Primary Care Provider] - 12/21/17 10:15 am Antonio Hawkins MD [Non-Partnered Physician] - (wound care, colonoscopy, hospital follow up. ) Valorie Pruitt MD [Partnered Physician] - (hospital follow up. Found to have low grade esophageal varices.) - Diet and Activity Activity: as per physical therapy Diet: other (Advanced soft diet chopped meat with vanilla Ensure 3 times a day) <Alonzo Preston - Last Filed: 12/22/17 14:28> Orders not resulted at time of discharge: Pending orders 12/18/17 12:14 Surgical Pathology [PTH] Routine Date of Encounter: 12/22/17 - Discharge Diagnosis (1) Lymphedema of both lower extremities Status: Chronic (2) Decubitus ulcer Status: Chronic Qualifiers: Pressure ulcer location: sacral region Pressure ulcer stage: unspecified pressure ulcer stage Qualified Code(s): L89.159 - Pressure ulcer of sacral region, unspecified stage (3) Elevated troponin Status: Resolved (4) Sepsis Status: Resolved Qualifiers: Sepsis type: sepsis due to unspecified organism Qualified Code(s): A41.9 - Sepsis, unspecified organism (5) Morbidly obese Status: Chronic (6) Ileus Status: Resolved (7) Hypocalcemia Status: Acute Hospital course: Mr. Adams is a 62 year old male - Time Spent with Patient Total time spent providing and/or coordinating discharge services: Date of admission: 12/05/17 19:49 Primary care physician: Nicolas Sanchez MD Consults: 12/05/17 19:54 Consult to Wound Care [CONS] Routine Reason for Consult: Dressing and wound care recommendations Time Notified: 19:55 Call Completed: Yes 12/07/17 15:24 Consult to Occupational Therapy [CONS] Routine Comment: Evaluate, develop and implement POC Reason for Consult: Per physician, patient will need rehab at discharge. Does patient have active BEDREST order?: No Is patient medically & hemodynamically stable?: Yes Consult to Physical Therapy [CONS] Routine Comment: Evaluate, develop and implement POC Reason for Consult: Per physician, patient will need rehab at discharge. Does patient have active BEDREST order?: No Is patient medically & hemodynamically stable?: Yes 12/11/17 10:06 consult to sign writer hand [Consult to Nutrition] [CONS] Routine Comment: Consulting Provider: NUTRITION Reason for Dietary Consult: TPN Start and Manage Other:: verbal order per Dr. Amezqiuta 12/11/17 11:35 Consult to Invasive Line Access Team [CONS] Routine Reason for Consult: Picc Line Insertion Line Type: PICC - Constitutional Vitals: Temp Pulse Resp BP Pulse Ox 98.3 F 80 16 124/70 92 12/22/17 11:09 12/22/17 11:09 12/22/17 11:09 12/22/17 11:09 12/22/17 11:09 - Attending Attestation I examined this patient 12/22, and my medical decision-making was reviewed with the Resident Physician. I agree with the documented findings, disposition and treatment plan as described except to the extent set forth below. Patient has had a prolonged hospital stay for acute encephalopathy (resolved) secondary to necrotic decubitus , paralytic ileus, duodenal ulcer. Completed course of antibiotics, now stable for discharge to continue care at SNF. He still needs a colonoscopy as out-patient, and possible diverting ileostomy in the future Follow up with his PCP and Surgery Rest as in resident physician's documentation
--- NOTE | 2017-12-22 13:33 | Physician Discharge Referral ---
ExtendedCare Referral Info Transfer To: [facility] Provider in Charge: Dr. Preston Provider in Charge after Transfer: PCP Institutional Level of Care: Skilled - Diagnosis (1) Sepsis Priority: Primary Status: Resolved (2) Decubitus ulcer Priority: Secondary Status: Chronic (3) Lymphedema of both lower extremities Priority: Secondary Status: Chronic (4) Elevated troponin Priority: Secondary Status: Resolved (5) Morbidly obese Priority: Secondary Status: Chronic (6) Ileus Priority: Secondary Status: Resolved (7) Hypocalcemia Priority: Secondary Status: Acute Prognosis: Fair Aware of Diagnosis: Patient Aware of Prognosis: Patient - Transfer Medications Home Medications: Furosemide [Lasix] 40 mg PO DAILY 04/27/15 [History] Gabapentin [Neurontin] 600 mg PO TID 04/27/15 [History] Ferrous Sulfate [Iron] 325 mg PO DAILY 04/30/16 [History] Spironolactone [Aldactone] 100 mg PO DAILY 12/05/17 [History] Collagenase Oint [Santyl] 1 appl TP 2200 tube 12/22/17 [Rx] Gentamicin Oint [Garamycin] 1 appl TP 2200 tube 12/22/17 [Rx] Omeprazole [PriLOSEC] 40 mg PO DAILY@0730 capsule. 12/22/17 [Rx] Sucralfate [Carafate] 1 gm PO QIDAC #0 tablet 12/22/17 [Rx] Allergies/Adverse Reactions: 3 Allergy/AdvReac Type Severity Reaction Status Date / Time No Known Allergies Allergy Verified 03/19/15 11:08 - Respiratory Orders None Smoking Cessation: Smoking cessation has been advised. For more information, call the [place] Tobacco Quit Line at 1-316-SNOS-NOW. - Ancillary Orders May use pressure relief devices daily prn - Advance Directives Code Status: Full Code - Mobility Orders Other (as per physical theraphy) - Rehabiliation Orders Rehab Potential: Fair Rehab Orders: ROM Exercises, Evaluation for Physical Therapy, Evaluation for Occupational Therapy - Treatments Skin tear care topically daily PRN per policy, May check for fecal impaction rectally daily PRN List/Other: Wound Care: unstageable sacral pressure ulcer (eschar) - continue with wound care recommendations per Dr. Hawkins - Santyl and Gentamicin ointments 50:50 nickel thick to the eschar - cover with N/S moistened 4x4s - pad with 5x9 ABD - hold secure with medipore tape - change daily Wound Care: lymphedema to BLE - cleanse legs and feet daily with CHG soap and water - rinse well with water and pat dry - apply calcium alginate (Maxorb) to any open weeping wounds - pad with 4x4s - wrap with kerlix from toes to knees - wrap with 4" michael bandgages from toes to knees - change daily until D/C back to home care - Diet Orders Mechanical Soft House Supplement per Dietary: esure tid CERTIFICATION: I certify that the transfer of the above named patient to an Extended Care Facility is necessary for the continuing treatment of the diagnosis listed. The above information is true and accurate reflection of patient's current condition. Confidential - Redisclosure prohibited without a patient's written consent.
[2017-12-22 16:21] VITALS: BP 116/58
== END 2017-12-22 18:23 | DRG 720 ==
LOC: 2NENU 13:34 → EMEROO 13:34 → 2NENU 19:22 → SUATTDRO 19:49
PROVIDERS: ADMIT Nurse Practitioner; ATTEND Internal Medicine
PROC: ENDOEBX (2017-12-18 10:00)

== ENCOUNTER 2018-01-05 11:16 | Inpatient (IN) ==
--- NOTE | 2018-01-05 16:20 | General Surg History&Physical ---
<Jayden Crockett - Last Filed: 01/06/18 06:53> Date of Encounter: 01/05/18 Time of Encounter: 14:01 Assessment and Plan (1) Pressure ulcer of sacral region, stage 4 Current Visit: Yes Status: Acute Admitted from wound care clinic directly to the hospital with planned OR debridement on 01/08/2018. Healing has been limited by immobility as well as stool irritant/contamination of wound. - OR debridement of sacral ulcer (with diverting ileostomy) 01/08/2018 - Wound care consulted; tamara to wound b.i.d. - Consulted cardiology (Dr. Tomlinson) for risk stratification given the limited medical inventory - will do two day bowel prep starting 01/06/2018 - may have regular diet for now; NPO on 01/07/2018 at 23:59 - FSBG AC/HS - vitals Q shift - may need to place rectal tube - DVT prophylaxis: subcutaneous heparin 5K units Q8 hours (2) Pressure ulcer of ankle, right, unstageable Current Visit: Yes Status: Acute Others include: - santyl to wound History of Present Illness Chief complaint: Large Sacral Decubitus Ulcer HPI: Mr. Adams is a 62 year old male directly admitted from the wound care clinic for plan surgical debridement of large sacral decubitus ulcer. Patient has poor chronic medical follow-up and was initially admitted with sepsis due to this decubitus ulcer on 12/05/17. In the interim since that admission date, conservative measures have been opted for. Patient was ultimately discharged from hospital service to SNF facility with wound care on 12/22/17. Was seen today in wound care clinic by Dr. Antonio Hawkins who opted to admit the patient for planned procedure as stated above. Per wound care H&P, there has been some improvement of eschar surface area. However, there has been noted difficulty in keeping the wound clean due to stool contamination. This is also a problem during previous inpatient admission. At this time, patient is not showing any systemic symptoms or signs of sepsis. Medical history significant for morbid obesity, lymphedema, and sacral decubitus ulcer as described above. Scant records available for further inventory of chronic medical conditions. When asked patient about his medical history, he comments with no positives except for current wounds. Explicitly denies diabetes. Otherwise unable to elucidate. Of note, at baseline patient has significant limitation of ambulation. No known drug allergies. Past Med Surg Social Fam HX - Past Medical History Attestation: Yes The following information was validated with the patient. Source: patient Medical history: other Psychiatric history: no psych history - Past Surgical History Surgical History: no surgical history - Social History Smoking Status: Never smoker Smokeless Tobacco Status: No Alcohol use: rarely Drug use: marijuana - Family History Mother Family Member Ethnicity: Non- Living Status: Hx Family Cardiac Disorders: Yes Hx Family Respiratory Disorders: Yes Hx Family Cancer: No Hx Family GI Disorders: No Hx Family Endocrine Disorder: No Hx Family Neuromuscular Disorders: No Hx Family Neurologic Disorders: No Hx Family HEENT Disorders: No Hx Family Autoimmune Disorders: No Father Living Status: Hx Family Cardiac Disorders: Yes (htn) Hx Family Respiratory Disorders: No Hx Family Cancer: No Hx Family GI Disorders: No Hx Family Endocrine Disorder: Yes Hx Family Neuromuscular Disorders: Yes Hx Family Neurologic Disorders: Yes Hx Family HEENT Disorders: No Hx Family Autoimmune Disorders: No Medications and Allergies Furosemide [Lasix] 40 mg PO DAILY 04/27/15 [History] Gabapentin [Neurontin] 600 mg PO TID 04/27/15 [History] Ferrous Sulfate [Iron] 325 mg PO DAILY 04/30/16 [History] Spironolactone [Aldactone] 100 mg PO DAILY 12/05/17 [History] Collagenase Oint [Santyl] 1 appl TP 2200 tube 12/22/17 [Rx] Gentamicin Oint [Garamycin] 1 appl TP 2200 tube 12/22/17 [Rx] Omeprazole [PriLOSEC] 40 mg PO DAILY@0730 capsule. 12/22/17 [Rx] Sucralfate [Carafate] 1 gm PO QIDAC #0 tablet 12/22/17 [Rx] 3 Allergy/AdvReac Type Severity Reaction Status Date / Time No Known Allergies Allergy Verified 01/03/18 11:58 Review of Systems All systems PM: Patient denies subjective fevers, chills, sweats, syncope, lightheadedness, visual disturbances, chest pain, palpitations, shortness of breath, nausea, vomiting, dysuria, gross hematuria. He does state he has frequent loose stools. General Surgery Exam Initial Vital Signs Temp Pulse Resp BP Pulse Ox 98.3 F 86 15 113/67 95 01/05/18 14:18 01/05/18 14:18 01/05/18 14:18 01/05/18 14:18 01/05/18 14:18 VITAL SIGNS: Reviewed. See [facility] GENERAL: alert and comfortable. No acute distress. Answers questions appropriately. HEENT: PER, EOMi, oropharynx pink/moist CV: distant auscultation, RRR, no murmurs or extra heart sounds, no JVD noted HOB at about 40deg RESPIRATORY: distant auscultation, CTAB without wheezes, rales, or rhonchi ABD: rotund, normoactive, soft, non-tender, no guarding, no rigidity/distention EXTREMITY: significant bilateral pedal edema which is chronic, appreciable stasis skin change NEUROLOGIC EXAM: AOx3, obeys commands, no speech deficits. PSYCHIATRIC: normal mood and affect SKIN: no acute skin changes Results - Labs 01/06/18 05:58 01/05/18 16:49 All other labs normal. <Antonio Hawkins - Last Filed: 01/06/18 07:04> Date of Encounter: 01/06/18 History of Present Illness HPI: Mr. Adams is a 62 year old male Review of Systems All systems PM: The remainder of the systems were reviewed and are negative General Surgery Exam Initial Vital Signs Temp Pulse Resp BP Pulse Ox 98.3 F 86 15 113/67 95 01/05/18 14:18 01/05/18 14:18 01/05/18 14:18 01/05/18 14:18 01/05/18 14:18 Results - Labs 01/06/18 05:58 01/05/18 16:49 Abnormal lab results Hgb 11.2 g/dL (12.9-16.9) L 01/06/18 05:58 Hct 34.0 % (37.5-50.1) L 01/06/18 05:58 MCV 78.9 fL (83.0-100.0) L 01/06/18 05:58 MCH 26.0 pg (28.0-33.3) L 01/06/18 05:58 RDW 18.7 % (11.5-14.5) H 01/06/18 05:58 Plt Count 434 K/mcL (140-400) H 01/06/18 05:58 PT 13.7 Seconds (9.4-12.1) H 01/06/18 05:58 Sodium 131 mEq/L (136-145) L 01/05/18 16:49 Chloride 96 mEq/L (98-107) L 01/05/18 16:49 Creatinine 0.52 mg/dL (0.70-1.30) L 01/05/18 16:49 BUN/Creatinine Ratio 33 (6-26) H 01/05/18 16:49 Glucose 106 mg/dL (70-105) H 01/05/18 16:49 Calculated Osmolality 274 (280-300) L 01/05/18 16:49 Diabetes panel 01/05/18 Range/Units 16:49 Sodium 131 L (136-145) mEq/L Potassium 4.3 (3.5-5.1) mEq/L Chloride 96 L (98-107) mEq/L Carbon Dioxide 26 (23-29) mEq/L BUN 17 (8-23) mg/dL Creatinine 0.52 L (0.70-1.30) mg/dL Glucose 106 H (70-105) mg/dL Calcium 8.9 (8.6-10.3) mg/dL Calcium panel 01/05/18 Range/Units 16:49 Calcium 8.9 (8.6-10.3) mg/dL Pituitary panel 01/05/18 Range/Units 16:49 Sodium 131 L (136-145) mEq/L Potassium 4.3 (3.5-5.1) mEq/L Chloride 96 L (98-107) mEq/L Carbon Dioxide 26 (23-29) mEq/L BUN 17 (8-23) mg/dL Creatinine 0.52 L (0.70-1.30) mg/dL Glucose 106 H (70-105) mg/dL Calcium 8.9 (8.6-10.3) mg/dL Adrenal panel 01/05/18 Range/Units 16:49 Sodium 131 L (136-145) mEq/L Potassium 4.3 (3.5-5.1) mEq/L Chloride 96 L (98-107) mEq/L Carbon Dioxide 26 (23-29) mEq/L BUN 17 (8-23) mg/dL Creatinine 0.52 L (0.70-1.30) mg/dL Glucose 106 H (70-105) mg/dL Calcium 8.9 (8.6-10.3) mg/dL All other labs normal. - Attending Attestation I have personally seen and examined the patient. I have reviewed pertinent labs , imaging, progress notes, including this one. I agree with the above assessment and plan and wish to include the following... 62M BMI ~ 40 with large size sacral decubitus ulcer contaminated by stool, admitted from wound clinic. Discussed with patient the conundrum of trying to heal his wound, but having the challenge of keeping it clean so it can heal; after repeated discussion the plan is for debridement of sacral decubitus ulcer followed by diverting ileostomy vs colostomy;
[2018-01-05] MEDS ORDERED: Naloxone 0.4 MG/ML INJ IVP PRN (16:26)
[2018-01-05] MEDS ORDERED: Ondansetron 4 MG/2 ML VIAL IVP PRN (16:26)
[2018-01-05] MEDS ORDERED: Ibuprofen 800 MG TABLET PO PRN (16:26)
[2018-01-05 17:39] LABS: Basophils # 0.1 K/mcL (0.0-0.2); Basophils % 1.1 %; Eosinophils # 0.5 K/mcL (0.0-0.6); Eosinophils % 5.2 %; Hematocrit 33.9 % (37.5-50.1); Hemoglobin 10.9 g/dL (12.9-16.9); Immature Granulocytes % 2.1 % (0-4); Lymphocytes # 2.3 K/mcL (0.6-4.6); Lymphocytes % 22.7 %; Mean Corpuscular HGB Conc 32.2 g/dL (31.6-35.5); Mean Corpuscular Hemoglobin 25.4 pg (28.0-33.3); Monocytes # 0.8 K/mcL (0.0-1.3); Monocytes % 8.4 %; Neutrophils # 6.1 K/mcL (1.6-8.9); Platelet Count 448 K/mcL (140-400); Red Blood Count 4.29 M/mcL (4.19-5.50); Red Cell Distribution Width 18.8 % (11.5-14.5); Segmented Neutrophils % 60.5 %
[2018-01-05 18:02] LABS: BUN/Creatinine Ratio 33 (6-26); Blood Urea Nitrogen 17 mg/dL (8-23); Calcium 8.9 mg/dL (8.6-10.3); Carbon Dioxide 26 mEq/L (23-29); Chloride 96 mEq/L (98-107); Glucose 106 mg/dL (70-105); Osmolality,Calculated 274 (280-300); Potassium 4.3 mEq/L (3.5-5.1); Sodium 131 mEq/L (136-145); eGFR For African Americans > 60 (> 60); eGFR For Non-African Americans > 60 (> 60)
[2018-01-05] MEDS: *HR* OxyCODONE Immed Rel 5 MG TABLET PO PRN (18:29)
[2018-01-05] MEDS: *HR* Heparin 5,000 UNIT/ML VIAL SQ SCH (22:17)
[2018-01-06] MEDS: *HR* OxyCODONE Immed Rel 5 MG TABLET PO PRN ×3 (00:42→21:15)
[2018-01-06] MEDS: *HR* Heparin 5,000 UNIT/ML VIAL SQ SCH ×3 (05:51→21:15)
[2018-01-06 06:41] LABS: Basophils # 0.1 K/mcL (0.0-0.2); Basophils % 1.3 %; Eosinophils # 0.5 K/mcL (0.0-0.6); Eosinophils % 4.7 %; Hemoglobin 11.2 g/dL (12.9-16.9); Immature Granulocytes % 3.4 % (0-4); Lymphocytes # 2.4 K/mcL (0.6-4.6); Lymphocytes % 24.2 %; Mean Corpuscular HGB Conc 32.9 g/dL (31.6-35.5); Mean Corpuscular Volume 78.9 fL (83.0-100.0); Mean Platelet Volume 9.8 fL (9.4-12.4); Monocytes # 0.9 K/mcL (0.0-1.3); Monocytes % 8.8 %; Neutrophils # 5.7 K/mcL (1.6-8.9); Platelet Count 434 K/mcL (140-400); Red Blood Count 4.31 M/mcL (4.19-5.50); Red Cell Distribution Width 18.7 % (11.5-14.5); Segmented Neutrophils % 57.6 %
[2018-01-06 06:46] LABS: INR 1.3; Prothrombin Time 13.7 Seconds (9.4-12.1)
[2018-01-06 06:48] LABS: Activated Partial Thrombo Time 27.9 Seconds (26.0-36.0)
[2018-01-06 07:03] LABS: BUN/Creatinine Ratio 35 (6-26); Blood Urea Nitrogen 17 mg/dL (8-23); Calcium 8.7 mg/dL (8.6-10.3); Carbon Dioxide 24 mEq/L (23-29); Chloride 97 mEq/L (98-107); Glucose 109 mg/dL (70-105); Osmolality,Calculated 274 (280-300); Potassium 3.9 mEq/L (3.5-5.1); Sodium 131 mEq/L (136-145); eGFR For African Americans > 60 (> 60); eGFR For Non-African Americans > 60 (> 60)
--- NOTE | 2018-01-06 07:07 | General Surgery Progress Note ---
Date of Encounter: 01/06/18 Time of Encounter: 07:04 - Assessment and Plan (1) Pressure ulcer of sacral region, stage 4 Current Visit: Yes Status: Acute 62M with stage IV sacral decubitus ulcer; clean wound daily (dakin's solution soaked guaze, ABD pad, medipore tape; please use skin prep) pressure off loading low air loss mattress q2hr turns dvt prophylaxis; begin bowel prep; okay to place rectal tube if need be CLD today plan for diverting colostomy this week (2) Pressure ulcer of ankle, right, unstageable Current Visit: Yes Status: Acute see above Subjective Patient reports: no new complaints Objective Vital Signs - Last 8 Hours Temp Pulse Resp BP Pulse Ox 01/06/18 04:55 98.2 F 83 14 115/76 93 01/06/18 00:06 98.8 F 84 16 99/64 94 Intake and Output 01/05/18 01/05/18 01/06/18 15:59 23:59 07:59 Intake Total 0 / 0 480 / 480 0 / 0 Output Total 250 / 250 250 / 250 400 / 400 Balance -250 / -250 230 / 230 -400 / -400 Intake: Oral 0 / 0 480 / 480 0 / 0 Output: Urine 0 / 0 Catheter 250 / 250 250 / 250 400 / 400 Other: Meal Dinner Percent of Meal Consumed 90% Weight 156.036 kg 156.036 kg Patient Weight 01/06/18 23:59 Weight 156.036 kg - General physical appearance no distress - Respiratory normal expansion, normal respiratory effort - Cardiovascular Cardiovascular exam: Present: RRR - Abdomen Abdomen: Present: soft - Integumentary no rash - Neurologic CN 2-12 grossly intact - Psychiatric oriented to time, oriented to person, oriented to place - Labs 01/06/18 05:58 01/06/18 05:58 Diabetes panel 01/05/18 01/06/18 Range/Units 16:49 05:58 Sodium 131 L 131 L (136-145) mEq/L Potassium 4.3 3.9 (3.5-5.1) mEq/L Chloride 96 L 97 L (98-107) mEq/L Carbon Dioxide 26 24 (23-29) mEq/L BUN 17 17 (8-23) mg/dL Creatinine 0.52 L 0.49 L (0.70-1.30) mg/dL Glucose 106 H 109 H (70-105) mg/dL Calcium 8.9 8.7 (8.6-10.3) mg/dL Calcium panel 01/05/18 01/06/18 Range/Units 16:49 05:58 Calcium 8.9 8.7 (8.6-10.3) mg/dL Pituitary panel 01/05/18 01/06/18 Range/Units 16:49 05:58 Sodium 131 L 131 L (136-145) mEq/L Potassium 4.3 3.9 (3.5-5.1) mEq/L Chloride 96 L 97 L (98-107) mEq/L Carbon Dioxide 26 24 (23-29) mEq/L BUN 17 17 (8-23) mg/dL Creatinine 0.52 L 0.49 L (0.70-1.30) mg/dL Glucose 106 H 109 H (70-105) mg/dL Calcium 8.9 8.7 (8.6-10.3) mg/dL Adrenal panel 01/05/18 01/06/18 Range/Units 16:49 05:58 Sodium 131 L 131 L (136-145) mEq/L Potassium 4.3 3.9 (3.5-5.1) mEq/L Chloride 96 L 97 L (98-107) mEq/L Carbon Dioxide 26 24 (23-29) mEq/L BUN 17 17 (8-23) mg/dL Creatinine 0.52 L 0.49 L (0.70-1.30) mg/dL Glucose 106 H 109 H (70-105) mg/dL Calcium 8.9 8.7 (8.6-10.3) mg/dL Consult Discharge Plan - Plan Referrals: Nicolas Sanchez MD [Primary Care Provider] -
--- NOTE | 2018-01-06 07:49 | Cardiology Consult Note ---
Date of Encounter: 01/06/18 Time of Encounter: 08:00 Assessment and Plan (1) Preoperative cardiovascular examination Current Visit: Yes Status: Acute Pt reports 4 METS within 6 months without chest/jaw/arm discomfort. EKG normal. He is acceptable intermediate CV risk for intermediate risk surgery. (2) Lymphedema of both lower extremities Current Visit: No Status: Chronic continue compression stocking as needed (3) Pressure ulcer of sacral region, stage 4 Current Visit: Yes Status: Acute per primary team Discussion w patient/family: The assessment and plan as outlined above was discussed with the patient and/or family members who expressed understanding and agreement. All questions were answered. Thank you for involving us in the care of your patient. Please call with any questions. History of Present Illness Consult date: 01/06/18 Consult reason: preop cv eval Chief complaint: sacral ulcer, nonhealing History of present illness: Mr. Adams is a 62 year old male with no previous cardiac history who follows with Dr. Sanchez (last a few months ago) who denies comorbids states until a few months ago was walking up to 30 minutes at a time including up ramps without chest/jaw/arm discomfort or dyspnea. Over the last month he has been more sedentary after he fell with injury resulting in sacral ulcer which has been difficult to heal. He notes BL LE edema and chronic skin changes for some time. He denies family history of CAD or smoking, DM. Past Med Surg Social Fam HX - Past Medical History Medical history: other Psychiatric history: no psych history - Past Surgical History Surgical History: no surgical history - Social History Smoking Status: Never smoker Smokeless Tobacco Status: No Alcohol use: rarely Drug use: marijuana - Family History Mother Family Member Ethnicity: Non- Living Status: Hx Family Cardiac Disorders: Yes Hx Family Respiratory Disorders: Yes Hx Family Cancer: No Hx Family GI Disorders: No Hx Family Endocrine Disorder: No Hx Family Neuromuscular Disorders: No Hx Family Neurologic Disorders: No Hx Family HEENT Disorders: No Hx Family Autoimmune Disorders: No Father Living Status: Hx Family Cardiac Disorders: Yes (htn) Hx Family Respiratory Disorders: No Hx Family Cancer: No Hx Family GI Disorders: No Hx Family Endocrine Disorder: Yes Hx Family Neuromuscular Disorders: Yes Hx Family Neurologic Disorders: Yes Hx Family HEENT Disorders: No Hx Family Autoimmune Disorders: No Medications and Allergies Furosemide [Lasix] 40 mg PO DAILY 04/27/15 [History] Gabapentin [Neurontin] 600 mg PO TID 04/27/15 [History] Ferrous Sulfate [Iron] 325 mg PO DAILY 04/30/16 [History] Spironolactone [Aldactone] 100 mg PO DAILY 12/05/17 [History] Collagenase Oint [Santyl] 1 appl TP 2200 tube 12/22/17 [Rx] Gentamicin Oint [Garamycin] 1 appl TP 2200 tube 12/22/17 [Rx] Omeprazole [PriLOSEC] 40 mg PO DAILY@0730 capsule. 12/22/17 [Rx] Sucralfate [Carafate] 1 gm PO QIDAC #0 tablet 12/22/17 [Rx] HYDROcodone/Acet 5/325 mg [[place] 5-325 mg] 2 tab PO Q6H 01/06/18 [History] 3 Allergy/AdvReac Type Severity Reaction Status Date / Time No Known Allergies Allergy Verified 01/03/18 11:58 All Systems Review: The remainder of the systems were reviewed and are negative - Constitutional Constitutional: no chills, no fever(s) - EENT Eyes: no blurred vision, no loss of vision Nose, mouth and throat: no epistaxis, no odynophagia - Cardiovascular Cardiovascular: no chest pain at rest, no chest pain with exertion - Respiratory Respiratory: no hemoptysis, no wheezing - Gastrointestinal Gastrointestinal: no hematemesis, no hematochezia - Genitourinary Genitourinary: no dysuria, no hematuria - Musculoskeletal Musculoskeletal: no arthralgias, no myalgias - Integumentary Integumentary: no erythema, no rash - Neurological Neurological: no syncope, no tingling - Psychiatric Psychiatric: no hallucinations, no panic attacks - Hematological/Lymphatic Hematologic/Lymphatic: no easy bleeding, no easy bruising Physical Examination Vital Signs, Last 4 Hours Temp Pulse Resp BP Pulse Ox 01/06/18 07:05 98 F 79 15 108/69 90 01/06/18 04:55 98.2 F 83 14 115/76 93 General: Conversant HEENT: Atraumatic Neck: No JVD Cardiac: Reg Rate and Rhythm Lungs: Normal Breath Sounds Neuro: Alert and responsive Abdomen: Soft Skin: No rashes noted on visualized skin Extremities: Other (2+ edema with skin changes) Results 01/06/18 05:58 01/06/18 05:58 Lab Results 01/05/18 01/05/18 01/06/18 16:49 16:49 05:58 WBC 10.0 9.9 Hgb 10.9 L 11.2 L Hct 33.9 L 34.0 L Plt Count 448 H 434 H INR APTT Sodium 131 L Potassium 4.3 Chloride 96 L Carbon Dioxide 26 BUN 17 Creatinine 0.52 L Glucose 106 H Calcium 8.9 01/06/18 01/06/18 05:58 05:58 WBC Hgb Hct Plt Count INR 1.3 APTT 27.9 Sodium 131 L Potassium 3.9 Chloride 97 L Carbon Dioxide 24 BUN 17 Creatinine 0.49 L Glucose 109 H Calcium 8.7 - EKG Interpretation EKG results cardiology: personally reviewed, normal ECG, sinus rhythm, no diagnostic ischemia Consult Discharge Plan - Plan Referrals: Nicolas Sanchez MD [Primary Care Provider] -
[2018-01-06] MEDS: Polyethylene Glycol 3350 255 GM POWDER PO SCH (09:41)
[2018-01-06] MEDS ORDERED: Lidocaine -MPF 1% 5 ML AMPUL INFILT ONE (11:17)
--- NOTE | 2018-01-06 20:37 | Electrocardiograph Report ---
[place] [address] Test Date: 2018-01-06 Pat Name: Benjamin Adams Department: 115 Room: [facility] Gender: M Correspondence Dictator: [id number] : 1955 Requested By: Gunnar Tomlinson Order Number: [id number] Reading MD: Gunnar Tomlinson Measurements Intervals [place] Rate: 80 P: 23 TX: 160 QRS: 45 QRSD: 104 T: 48 QT: 359 QTc: 395 Interpretive Statements SINUS RHYTHM Electronically Signed On 01-06-2018 20:36:04 EDT by Gunnar Tomlinson
[2018-01-06] MEDS ORDERED: *HR* OxyCODONE Immed Rel 5 MG TABLET PO ONE (22:32)
[2018-01-07] MEDS: *HR* OxyCODONE Immed Rel 5 MG TABLET PO PRN ×3 (04:20→22:34)
[2018-01-07] MEDS: *HR* Heparin 5,000 UNIT/ML VIAL SQ SCH ×3 (05:49→22:34)
[2018-01-07 08:14] LABS: Basophils # 0.1 K/mcL (0.0-0.2); Basophils % 1.1 %; Eosinophils # 0.4 K/mcL (0.0-0.6); Eosinophils % 4.8 %; Hemoglobin 11.3 g/dL (12.9-16.9); Immature Granulocytes % 2.9 % (0-4); Lymphocytes # 2.4 K/mcL (0.6-4.6); Mean Corpuscular HGB Conc 31.4 g/dL (31.6-35.5); Mean Corpuscular Hemoglobin 25.1 pg (28.0-33.3); Mean Platelet Volume 9.7 fL (9.4-12.4); Monocytes # 0.7 K/mcL (0.0-1.3); Monocytes % 8.4 %; Neutrophils # 4.9 K/mcL (1.6-8.9); Platelet Count 440 K/mcL (140-400); Red Cell Distribution Width 18.7 % (11.5-14.5); Segmented Neutrophils % 55.8 %
[2018-01-07 09:54] LABS: BUN/Creatinine Ratio 26 (6-26); Blood Urea Nitrogen 15 mg/dL (8-23); Calcium 9.2 mg/dL (8.6-10.3); Carbon Dioxide 25 mEq/L (23-29); Chloride 97 mEq/L (98-107); Glucose 101 mg/dL (70-105); Osmolality,Calculated 275 (280-300); Sodium 132 mEq/L (136-145); eGFR For African Americans > 60 (> 60); eGFR For Non-African Americans > 60 (> 60)
[2018-01-07] MEDS: Polyethylene Glycol 3350 255 GM POWDER PO SCH (09:55)
--- NOTE | 2018-01-07 13:11 | General Surgery Progress Note ---
<Jayden Crockett - Last Filed: 01/07/18 13:24> Date of Encounter: 01/07/18 Time of Encounter: 11:00 - Assessment and Plan (1) Pressure ulcer of sacral region, stage 4 Current Visit: Yes Status: Acute - Cont wound care measures as below - Cardio has determined patient intermediate risk for planned procedure on - Tentatively planned wound debridement with colostomy to control stool contamination - okay to place rectal tube if needed - cont clear liquids with bowel prep until midnight at which time patient should be NPO Wound care: clean wound daily (dakin's solution soaked guaze, ABD pad, medipore tape; please use skin prep) pressure off loading low air loss mattress q2hr turns (2) Pressure ulcer of ankle, right, unstageable Current Visit: Yes Status: Acute Subjective Narrative: Pt refused bowel prep 01/06/18 due to misunderstanding towards its purpose regarding his scheduled surgery. Agrees to bowel prep today. On clear liquids for this. VSS overnight. No other concerns at this time. Objective Vital Signs - Last 8 Hours Temp Pulse Resp BP Pulse Ox 01/07/18 11:19 97.2 F L 72 16 133/77 96 01/07/18 07:01 97.6 F 64 18 125/76 96 Intake and Output 01/06/18 01/07/18 01/07/18 23:59 07:59 15:59 Intake Total 1000 / 1000 0 / 0 120 / 120 Output Total 0 / 0 1250 / 1250 200 / 200 Balance 1000 / 1000 -1250 / -1250 -80 / -80 Intake: Oral 1000 / 1000 0 / 0 120 / 120 Output: Urine 0 / 0 Catheter 1250 / 1250 200 / 200 Other: Meal Breakfast Percent of Meal Consumed 0% VITAL SIGNS: Reviewed. See Appsembler GENERAL: alert and comfortable. No acute distress. Answers questions appropriately. HEENT: PER, EOMi, oropharynx pink/moist CV: distant auscultation, RRR, no murmurs or extra heart sounds, no JVD noted HOB at about 40deg RESPIRATORY: distant auscultation, CTAB without wheezes, rales, or rhonchi ABD: rotund, normoactive, soft, non-tender, no guarding, no rigidity/distention EXTREMITY: significant bilateral pedal edema which is chronic, appreciable stasis skin change NEUROLOGIC EXAM: AOx3, obeys commands, no speech deficits. PSYCHIATRIC: somewhat agitated, but not abusive or physically aggressive; still AOx3 SKIN: no acute skin changes - Labs 01/07/18 07:18 01/07/18 07:18 Diabetes panel 01/07/18 Range/Units 07:18 Sodium 132 L (136-145) mEq/L Potassium 4.0 (3.5-5.1) mEq/L Chloride 97 L (98-107) mEq/L Carbon Dioxide 25 (23-29) mEq/L BUN 15 (8-23) mg/dL Creatinine 0.57 L (0.70-1.30) mg/dL Glucose 101 (70-105) mg/dL Calcium 9.2 (8.6-10.3) mg/dL Calcium panel 01/07/18 Range/Units 07:18 Calcium 9.2 (8.6-10.3) mg/dL Pituitary panel 01/07/18 Range/Units 07:18 Sodium 132 L (136-145) mEq/L Potassium 4.0 (3.5-5.1) mEq/L Chloride 97 L (98-107) mEq/L Carbon Dioxide 25 (23-29) mEq/L BUN 15 (8-23) mg/dL Creatinine 0.57 L (0.70-1.30) mg/dL Glucose 101 (70-105) mg/dL Calcium 9.2 (8.6-10.3) mg/dL Adrenal panel 01/07/18 Range/Units 07:18 Sodium 132 L (136-145) mEq/L Potassium 4.0 (3.5-5.1) mEq/L Chloride 97 L (98-107) mEq/L Carbon Dioxide 25 (23-29) mEq/L BUN 15 (8-23) mg/dL Creatinine 0.57 L (0.70-1.30) mg/dL Glucose 101 (70-105) mg/dL Calcium 9.2 (8.6-10.3) mg/dL - VTE Reasons for not Prescribing Prophylaxis: Treatment not Indicated - Low risk for VTE Documentation of Mechanical Device: Intermittent pneumatic compression device Consult Discharge Plan - Plan Referrals: Nicolas Sanchez MD [Primary Care Provider] - <Antonio Hawkins - Last Filed: 01/07/18 17:53> Date of Encounter: 01/07/18 - Assessment and Plan (1) Pressure ulcer of sacral region, stage 4 Current Visit: Yes Status: Acute (2) Pressure ulcer of ankle, right, unstageable Current Visit: Yes Status: Acute Objective Vital Signs - Last 8 Hours Temp Pulse Resp BP Pulse Ox 01/07/18 15:26 97.6 F 77 18 107/63 96 01/07/18 11:19 97.2 F L 72 16 133/77 96 Intake and Output 01/07/18 01/07/18 01/07/18 07:59 15:59 23:59 Intake Total 0 / 0 120 / 120 Output Total 1250 / 1250 400 / 400 Balance -1250 / -1250 -280 / -280 Intake: Oral 0 / 0 120 / 120 Output: Catheter 1250 / 1250 400 / 400 Other: Meal Breakfast Percent of Meal Consumed 0% - Labs 01/07/18 07:18 01/07/18 07:18 Diabetes panel 01/07/18 Range/Units 07:18 Sodium 132 L (136-145) mEq/L Potassium 4.0 (3.5-5.1) mEq/L Chloride 97 L (98-107) mEq/L Carbon Dioxide 25 (23-29) mEq/L BUN 15 (8-23) mg/dL Creatinine 0.57 L (0.70-1.30) mg/dL Glucose 101 (70-105) mg/dL Calcium 9.2 (8.6-10.3) mg/dL Calcium panel 01/07/18 Range/Units 07:18 Calcium 9.2 (8.6-10.3) mg/dL Pituitary panel 01/07/18 Range/Units 07:18 Sodium 132 L (136-145) mEq/L Potassium 4.0 (3.5-5.1) mEq/L Chloride 97 L (98-107) mEq/L Carbon Dioxide 25 (23-29) mEq/L BUN 15 (8-23) mg/dL Creatinine 0.57 L (0.70-1.30) mg/dL Glucose 101 (70-105) mg/dL Calcium 9.2 (8.6-10.3) mg/dL Adrenal panel 01/07/18 Range/Units 07:18 Sodium 132 L (136-145) mEq/L Potassium 4.0 (3.5-5.1) mEq/L Chloride 97 L (98-107) mEq/L Carbon Dioxide 25 (23-29) mEq/L BUN 15 (8-23) mg/dL Creatinine 0.57 L (0.70-1.30) mg/dL Glucose 101 (70-105) mg/dL Calcium 9.2 (8.6-10.3) mg/dL - Attending Attestation I have personally seen and examined the patient. I have reviewed pertinent labs , imaging, progress notes, including this one. I agree with the above assessment and plan.
[2018-01-07] MEDS ORDERED: metroNIDAZOLE 500 MG TABLET PO SCH (14:00)
[2018-01-07] MEDS: metroNIDAZOLE 500 MG TABLET PO SCH ×3 (14:59→22:33)
[2018-01-08] MEDS: *HR* OxyCODONE Immed Rel 5 MG TABLET PO PRN (03:51)
[2018-01-08] MEDS: *HR* Heparin 5,000 UNIT/ML VIAL SQ SCH ×2 (04:40→13:07)
[2018-01-08 05:02] LABS: Basophils # 0.1 K/mcL (0.0-0.2); Eosinophils # 0.5 K/mcL (0.0-0.6); Eosinophils % 3.9 %; Hematocrit 35.2 % (37.5-50.1); Hemoglobin 10.9 g/dL (12.9-16.9); Immature Granulocytes % 1.9 % (0-4); Lymphocytes # 1.9 K/mcL (0.6-4.6); Lymphocytes % 16.8 %; Mean Corpuscular Hemoglobin 24.8 pg (28.0-33.3); Mean Platelet Volume 9.5 fL (9.4-12.4); Monocytes % 8.3 %; Neutrophils # 7.8 K/mcL (1.6-8.9); Platelet Count 463 K/mcL (140-400); Red Cell Distribution Width 18.5 % (11.5-14.5); Segmented Neutrophils % 68.1 %
[2018-01-08 05:22] LABS: BUN/Creatinine Ratio 26 (6-26); Blood Urea Nitrogen 15 mg/dL (8-23); Carbon Dioxide 25 mEq/L (23-29); Chloride 97 mEq/L (98-107); Glucose 114 mg/dL (70-105); Osmolality,Calculated 276 (280-300); Sodium 132 mEq/L (136-145); eGFR For African Americans > 60 (> 60); eGFR For Non-African Americans > 60 (> 60)
[2018-01-08] MEDS ORDERED: Ketamine *HR* 500 MG/10 ML MDV ONE (07:56)
--- NOTE | 2018-01-08 08:06 | Anesthesia Evaluation PreOp ---
Date of Encounter: 01/08/18 Time of Encounter: 08:10 - Past History Planned Operation: lap diverting ileostomy, debride sacral decub, R heel Cardiac History: HTN, Other (chronic lymphedema shalonda LE) Pulmonary History: Denies Any Significant HX INSPECTOR TOYS History: Other (peripheral neuropathy) Other Medical History: Other (BMI 49, anemia, sacral decub) Anesthesia History: No Prior Anesthetic Complications, Past Anesthesia (EGD, colonoscopy) Alcohol Use: rarely Drug use: marijuana Medications and Allergies Furosemide [Lasix] 40 mg PO DAILY 04/27/15 [History] Gabapentin [Neurontin] 600 mg PO TID 04/27/15 [History] Ferrous Sulfate [Iron] 325 mg PO DAILY 04/30/16 [History] Spironolactone [Aldactone] 100 mg PO DAILY 12/05/17 [History] Collagenase Oint [Santyl] 1 appl TP 2200 tube 12/22/17 [Rx] Gentamicin Oint [Garamycin] 1 appl TP 2200 tube 12/22/17 [Rx] Omeprazole [PriLOSEC] 40 mg PO DAILY@0730 capsule. 12/22/17 [Rx] Sucralfate [Carafate] 1 gm PO QIDAC #0 tablet 12/22/17 [Rx] HYDROcodone/Acet 5/325 mg [[place] 5-325 mg] 2 tab PO Q6H 01/06/18 [History] 3 Allergy/AdvReac Type Severity Reaction Status Date / Time No Known Allergies Allergy Verified 01/03/18 11:58 - Meds/Allergy Pre-op Review Medications Reviewed: Yes Allergies Reviewed: Yes Beta Blockers on Current Med List: No Anesthesia Results - Labs 01/08/18 04:48 01/08/18 04:48 - Imaging EKG: report reviewed (SR) Anesthesia Exam Vital Signs/O2 Sat, Most Current Temp Pulse Resp BP Pulse Ox 97.6 F 87 15 130/76 92 01/08/18 07:00 01/08/18 07:00 01/08/18 07:00 01/08/18 07:00 01/08/18 07:00 Height: 1.78m Weight: 156kg - HEENT Pupil (Motor): Pupils equal, EOMI Mallampati: III Teeth: Missing, Poor dentition Oral Opening: Greater than 3 - INSPECTOR TOYS LOC: Oriented INSPECTOR TOYS Motor: Normal RUE, Normal LUE, Normal RLE, Normal LLE, Normal Face INSPECTOR TOYS Sensory: Normal: RUE, LUE, RLE, LLE, Face - Cardiac Rhythm: Regular - Pulmonary Breath Sounds: bilateral Clear Respiratory Effort: Symmetrical Anesthesia Assess/Plan ASA Score: 3 Modified Marlyn Scale for Level of Consciousness: Cooperative, oriented, and tranquil Anesthetic Plan: General (easily intubated with kendrick 2 grade one view for EGD and colonoscopy a few weeks ago) Monitoring Plan: Standard Monitors Recovery Plan: PACU
[2018-01-08] MEDS ORDERED: Vancomycin 1,000 MG VIAL ONE (08:33)
[2018-01-08] MEDS ORDERED: MetroNIDAZOLE 500 MG/100 ML 500 MG/100 ML BAG IVPB ONE (09:43)
[2018-01-08] MEDS ORDERED: Ondansetron 4 MG/2 ML VIAL IVP PRN ×2 (10:24→14:06)
[2018-01-08] MEDS ORDERED: *HR* OxyCODONE Immed Rel 5 MG TABLET PO PRN ×2 (10:24→14:06)
[2018-01-08] MEDS ORDERED: *HR* HYDROmorphone 2 MG TABLET PO PRN (10:24)
[2018-01-08] MEDS ORDERED: Acetaminophen IV 1,000 MG/100 ML INFUS..BTL ONE (10:27)
[2018-01-08] MEDS ORDERED: Ringers Solution, Lactated 1,000 ML ONE (12:08)
--- NOTE | 2018-01-08 12:08 | Anesthesia Evaluation Post Op ---
Date of Encounter: 01/08/18 Time of Encounter: 12:07 - Vital Signs Vital Signs: Vital Signs/O2 Sat, Most Current Temp Pulse Resp BP Pulse Ox 97.3 F L 78 13 110/69 97 01/08/18 11:34 01/08/18 11:54 01/08/18 11:54 01/08/18 11:54 01/08/18 11:54 - Lungs Lungs: Clear Ascult./Percussion - Airway Airway: Non-obstructed - Cardiovascular Regular Rate - Mental Status Mental Status: Alert & Oriented, Answers Appropriately - Pain Pain Scale: 0 Pain Scale used: Numeric (1 - 10) - Nausea Vomiting Nausea Vomiting: Not Present - Hydration Hydration: Ice chips, Card catheter - Discharge PostOp Status: Transfer Patient to floor
[2018-01-08] MEDS ORDERED: Naloxone 0.4 MG/ML INJ IVP PRN (14:06)
[2018-01-08] MEDS ORDERED: Ibuprofen 800 MG TABLET PO PRN (14:06)
[2018-01-08 15:25] VITALS: BP 90/56
[2018-01-08] MEDS ORDERED: *HR* Heparin 5,000 UNIT/ML VIAL SQ SCH (22:00)
--- NOTE | 2018-01-09 21:56 | Discharge Summary ---
- NOTES TO OUTPATIENT PROVIDER Notes to Outpatient Provider: The extent of his wound fairly deep. It will be difficult due to his obesity and inability to walk. Orders not resulted at time of discharge: Pending orders 01/08/18 10:26 Surgical Pathology [PTH] Routine Date of Encounter: 01/08/18 Time of Encounter: 11:00 - Discharge Diagnosis (1) Pressure ulcer of sacral region, stage 4 Priority: Primary Status: Acute Comments: s/p excisional debridement; will need flap in the future; will need diverting colostomy to help with wound healing; General Surgery Exam Initial Vital Signs Temp Pulse Resp BP Pulse Ox 98.3 F 86 15 113/67 95 01/05/18 14:18 01/05/18 14:18 01/05/18 14:18 01/05/18 14:18 01/05/18 14:18 - General physical appearance no distress - Eyes normal ocular movement - ENT normocephalic - Neck no lymphadectomy - Respiratory normal expansion, normal respiratory effort - Cardiovascular Cardiovascular exam: Present: RRR - Abdomen Abdomen general surgery: Present: soft, non tender - Rectum Rectum: Present: normal sphincter tone, no hemorrhoids, other (stage IV sacral decubitus ulcer) - Neurologic Present: CN 2-12 grossly intact - Psychiatric Psychiatric general surgery: Present: A&Ox3 - Hospital Course Hospital course: Mr. Adams is a 62 year old male - Time Spent with Patient Total time spent providing and/or coordinating discharge services: Greater than 30 minutes - Discharge Medications Home Medications: Furosemide [Lasix] 40 mg PO DAILY 04/27/15 [History] Gabapentin [Neurontin] 600 mg PO TID 04/27/15 [History] Ferrous Sulfate [Iron] 325 mg PO DAILY 04/30/16 [History] Spironolactone [Aldactone] 100 mg PO DAILY 12/05/17 [History] Collagenase Oint [Santyl] 1 appl TP 2200 tube 12/22/17 [Rx] Gentamicin Oint [Garamycin] 1 appl TP 2200 tube 12/22/17 [Rx] Omeprazole [PriLOSEC] 40 mg PO DAILY@0730 capsule. 12/22/17 [Rx] Sucralfate [Carafate] 1 gm PO QIDAC #0 tablet 12/22/17 [Rx] HYDROcodone/Acet 5/325 mg [[place] 5-325 mg] 2 tab PO Q6H 01/06/18 [History] Allergies/Adverse Reactions: 3 Allergy/AdvReac Type Severity Reaction Status Date / Time No Known Allergies Allergy Verified 01/03/18 11:58 Date of admission: 01/08/18 18:16 Primary care physician: Nicolas Sanchez MD Consults: 01/05/18 16:26 Consult to Wound Care [CONS] Routine Reason for Consult: Obese 61-year-old gentleman with poorly inventoried medical history; planned OR debridement of large sacral decubitus ulcer on 01/08/[address] Hawkins. Direct admit from wound care clinic. Coordinate ongoing wound care in the interim prior to surgery. Time Notified: 13:36 Call Completed: Yes 01/06/18 11:17 Consult to Invasive Line Access Team [CONS] Routine Reason for Consult: Picc Line Insertion Line Type: PICC PICC line indications: Parental nutrition Consult to Occupational Therapy [CONS] Routine Comment: Evaluate, develop and implement POC Reason for Consult: Mobilization and d/c planning Does patient have active BEDREST order?: No Is patient medically & hemodynamically stable?: Yes Patient assessed for mobility or mobilized this visit?: No Consult to Physical Therapy [CONS] Routine Comment: Evaluate, develop and implement POC Reason for Consult: Mobilization and d/c planning Does patient have active BEDREST order?: No Is patient medically & hemodynamically stable?: Yes Patient assessed for mobility or mobilized this visit?: No Discharging clinician: Antonio Hawkins Anticipated date of discharge: 01/08/18 Labs on day of discharge: Labs from last 24 hours 01/08/18 16:57 POC Glucose 122 H - Patient Status Disposition: Transfer Short-Term Hosp Condition: Good Functional capacity at discharge: bed bound Overall status at discharge: patient is back to baseline - Discharge Instructions Follow Up With: Nicolas Sanchez MD [Primary Care Provider] - - Attending Attestation patient admitted from wound clinic due to significant fecal contamination of sacral decubitus ulcer; concern for non viable, necrotic tissue below it; admitted to hospital for plan for excisional debridement and diverting colostomy ; on the day of surgery the extent of his wound was more extensive than I anticipated; with that the decision was made for transfer to [facility] for further management and, ideally, for reconstructive surgery to place a flap on the wound ; I spoke with the transfer center at [facility] and coordinated the transfer.
--- NOTE | 2018-01-13 11:58 | Operative Note ---
Date of procedure: 01/08/18 Pre-op diagnosis: sacral decubitus ulcer, unstageable, decubitus ulcer of R ankle Post-op diagnosis: other (stage IV sacral decubitus ulcer, stage III right ankle decubitus ulcer) Procedure: excisional debridement of sacral and ankle decubitus ulcers; Implants: none Complications: none Anesthesia: [id number] Surgeon: Antonio Hawkins Was there an cosmetic sales assistant present: No Filter Plant Operator Other: stevenson mesa Estimated blood loss (cc): 150 Specimen: sacral and right ankle ulcer tissue Condition: stable Disposition: PACU Procedure in Detail: patient was brought into the operating room suite. underwent smooth induction of anesthesia. placed in the prone position. preoperative antibiotics were given; he was prepped and draped in the usual fashion. a time out was held identifying correct patient, pathology, procedure, and physician. I started by removing the remaining eschar along the sacral decubitus ulcer. I then began excising all non viable, non bleeding, necrotic appearing tissue. I quickly found myself almost to the bone with more tissue needing debridement. I was well into the subcutaneous tissue and, again, I could feel bone just beneath the tissue. The size of the wound was approximately 20cm x 30cm. I also removed necrotic tissue from the right ankle. I debrided to the subcutaneous tissue. the wound was approximately 4cm x 3cm in size. It was clear that the wound after complete debridement was more extensive than originally planned and that could be handled at this facility. The decision was made to conclude the procedure and transfer to a hospital for higher level of care. The wounds were packed with kerlix soaked in 0.25% dakin's, ABD pads, and tape. The patient tolerated the procedure and was escorted to PACU in stable condition.
== END 2018-01-08 18:33 | disposition short-term general hospital (02) | DRG 380 ==
LOC: 3ANU
PROVIDERS: ADMIT Surgery; ATTEND Surgery

== ENCOUNTER 2018-12-07 16:46 | Inpatient (IN) ==
[2018-12-07] MEDS ORDERED: 0.9 % Sodium Chloride 1,000 ML IVC ONE (16:59)
[2018-12-07] MEDS ORDERED: Ondansetron 4 MG/2 ML VIAL IVP ONE (16:59)
--- NOTE | 2018-12-07 17:03 | Emergency Department Note ---
Disposition Clinical Impression: Ileus Nausea and vomiting Qualifiers: Vomiting type: unspecified Vomiting Intractability: non-intractable Qualified Code(s): R11.2 - Nausea with vomiting, unspecified Disposition: Admitted As Inpatient Condition: Fair General Adult HPI - General Stated complaint: Abdominal Pain Time Seen by Provider: 12/07/18 16:58 Source: patient, EMS Mode of arrival: EMS Limitations: no limitations Nursing Notes Reviewed: Yes Vital Signs Reviewed: Yes - History of Present Illness HPI Narrative: Patient is a bedbound 63-year-old male who resides at [facility], with past medical history including decubitus ulceration and ileus status post bowel surgery with colostomy placement 1 year ago at [facility], lymphedema bilateral lower extremity, history of pressure ulcerations, presenting from the nursing facility via EMS with chief complaint of nausea and vomiting since yesterday evening. The patient states yesterday he drank a lot of coffee and ate a lot of chocolate cookies. Started vomiting brown emesis yesterday. He states he has not been able to keep anything down today. He denies any bloody emesis. He denies any abdominal pain, abnormal bowel movements from colostomy bag, dysuria, fevers or chills, chest pain, shortness of breath, cough. Patient states he does not get any wound care for his lower extremities. He states the wounds and lymphedema or chronic. - Related Data Home Medications Medication Instructions Recorded Confirmed Furosemide [Lasix] 40 mg PO DAILY 04/27/15 01/06/18 Gabapentin [Neurontin] 600 mg PO TID 04/27/15 01/06/18 Ferrous Sulfate [Iron] 325 mg PO DAILY 04/30/16 01/06/18 Spironolactone [Aldactone] 100 mg PO DAILY 12/05/17 01/06/18 Colace 100 mg PO BID PRN 12/07/18 12/07/18 Oxycodone HCl 10 mg PO DAILY PRN 12/07/18 12/07/18 Previous Rx's Medication Instructions Recorded Collagenase Oint [Santyl] 1 appl TP 2200 tube 12/22/17 Omeprazole [PriLOSEC] 40 mg PO DAILY@0730 capsule. 12/22/17 Sucralfate [Carafate] 1 gm PO QIDAC #0 tablet 12/22/17 Allergies Allergy/AdvReac Type Severity Reaction Status Date / Time No Known Allergies Allergy Verified 01/03/18 11:58 All systems ED: reviewed and negative except as stated. Review of Systems: As Per HPI Constitutional: Denies: fever, chills Cardiovascular: Denies: chest pain, palpitations Respiratory: Denies: cough, dyspnea Gastrointestinal: Reports: nausea, vomiting. Denies: abdominal pain, diarrhea, melena, hematochezia Genitourinary: Denies: dysuria, hematuria Musculoskeletal: Denies: back pain Neurological: Denies: headache, weakness Past Medical History - Past Medical History Attestation: Yes The following information was validated with the patient. Source: patient Medical history: Reports: other Surgical history: Reports: no surgical history Psychiatric history: Reports: no psych history - Social History Smoking Status: Never smoker Smokeless Tobacco Status: No Alcohol use: Reports: rarely Drug use: Reports: marijuana Physical Exam - General Limitations: physical limitation (bed bound) General appearance: obese, other (hiccuping, not in acute distress) - Head Head exam: atraumatic, normocephalic - Eye Eye exam: Present: normal appearance, EOMI - ENT ENT exam: mucous membranes dry - Neck Neck exam: Present: trachea midline - Chest Chest inspection: Present: normal inspection, symmetric chest wall rise - Respiratory Respiratory exam: Present: normal lung sounds bilaterally. Absent: respiratory distress, wheezes, prolonged expiratory phase - Cardiovascular Cardiovascular exam: Present: regular rate, normal rhythm, normal heart sounds - Abdominal Exam Abdominal exam: Present: other (Obese abdomen that is soft and nontender, no guarding or rebound. colostomy bag with brown stool. No surrounding erythema or drainage) - Rectal Exam Rectal exam: Present: other (decubitus ulcer that is foul smelling, macerated, no necrosis) - Extremities Exam Extremities exam: Present: other (4+ pitting edema bilateral lower extremities up to the thigh. Chronic venous stasis changes. Superficial pustules and ulcerations of the right lower extremity on the calf and dowell) - Neurological Exam Neurological exam: Present: alert, oriented X3 - Psychiatric Psychiatric exam: Present: normal affect, normal mood - Skin Skin exam: Present: warm. Absent: cyanosis, diaphoresis, pallor Course Vital Signs Temperature 97.7 F 12/07/18 17:23 Pulse Rate 87 12/07/18 17:23 Respiratory Rate 22 12/07/18 17:23 Blood Pressure 142/99 12/07/18 17:23 O2 Sat by Pulse Oximetry 93 12/07/18 17:23 Temperature 97.7 F 12/07/18 17:23 Pulse Rate 87 12/07/18 18:10 Respiratory Rate 18 12/07/18 18:10 Blood Pressure 137/85 12/07/18 18:10 O2 Sat by Pulse Oximetry 92 12/07/18 18:10 Oxygen Delivery Oxygen Delivery Nasal Cannula Medical Decision Making - [facility] Narrative Medical decision making narrative: Patient is presenting from [facility] with chief complaint of nausea and vomiting since yesterday. He denies abdominal pain. In the EMS room, the patient was hypoxic and placed on 2 L of oxygen per nasal cannula. He denies shortness of breath, or chest pain. He does not wear oxygen at [place]. Afebrile. We will obtain chest x-ray, EKG. We will obtain basic lab work including troponin, hepatic panel, lipase is patient has been vomiting. We will give him Zofran and IV fluids. There is normal stool in the patient's left lower quadrant colostomy. Will also obtain CT abd/pelvis with no contrast to evauate for obstruction or other acute pathology. 19:20 CT results reviewed. His dilation of the stomach and proximal small bowel extending to the proximal to mid jejunum. Findings are related to ileus versus early small bowel obstruction. Patient has had no vomiting while here. He states he feels better. We will not place an NG tube as he is not actively vomiting. He has not eaten anything today. Discussed with Dr. Cabrera admission. We will place patient on maintenance fluids. Patient is hemodynamically stable and is not complaining of any pain. - Medical Records Medical records reviewed: Yes I reviewed the patient's medical records. - Lab Data Lab results reviewed: Yes I reviewed the patient's lab results. Result diagrams: 12/07/18 17:28 12/07/18 17:28 Lab Results 12/07/18 12/07/18 Range/Units 17:28 17:28 WBC 9.0 (4.3-11.1) K/mcL RBC 5.72 H (4.19-5.50) M/mcL Hgb 15.8 (12.9-16.9) g/dL Hct 48.6 (37.5-50.1) % MCV 85.0 (83.0-100.0) fL MCH 27.6 L (28.0-33.3) pg MCHC 32.5 (31.6-35.5) g/dL RDW 14.6 H (11.5-14.5) % Plt Count 285 (140-400) K/mcL MPV 10.8 (9.4-12.4) fL Immature Gran % 0.6 (0-4) % Seg Neutrophils % 75.7 % Lymphocytes % 17.8 % Monocytes % 5.5 % Eosinophils % 0.1 % Basophils % 0.3 % Neutrophils # 6.8 (1.6-8.9) K/mcL Lymphocytes # 1.6 (0.6-4.6) K/mcL Monocytes # 0.5 (0.0-1.3) K/mcL Eosinophils # 0.0 (0.0-0.6) K/mcL Basophils # 0.0 (0.0-0.2) K/mcL Sodium 139 (136-145) mEq/L Potassium 3.5 (3.5-5.1) mEq/L Chloride 97 L (98-107) mEq/L Carbon Dioxide 32 H (23-29) mEq/L BUN 24 H (8-23) mg/dL Creatinine 0.79 (0.70-1.30) mg/dL Est GFR ( Amer) > 60 (> 60) Est GFR (Non-Af Amer) > 60 (> 60) BUN/Creatinine Ratio 30 H (6-26) Glucose 134 H (70-105) mg/dL Calculated Osmolality 294 (280-300) Calcium 9.5 (8.6-10.3) mg/dL Total Bilirubin 0.9 (0.3-1.0) mg/dL Direct Bilirubin 0.3 H (0.0-0.2) mg/dL Indirect Bilirubin 0.6 (0.0-1.2) mg/dL AST 26 (13-39) Units/L ALT 40 (7-52) Units/L Alkaline Phosphatase 58 (34-104) Units/L Troponin I < 0.03 (< 0.04) ng/mL Serum Total Protein 8.3 (6.4-8.9) g/dL Albumin 4.0 (3.5-5.7) g/dL Globulin 4.3 H (2.4-3.5) g/dL Albumin/Globulin Ratio 0.9 L (1.1-2.2) Lipase 26 (11-82) Units/L - Radiology Data Radiology results reviewed: Yes I reviewed the patient's radiology results. Chest X-Ray 12/07/18 16:59 IMPRESSION: Mild pulmonary vascular congestion and mild left mid lung atelectasis. D/ / Rama Perez MD / Rama Perez MD Interpreting Provider: Rama Perez MD Abdomen/Pelvis CT 12/07/18 17:18 IMPRESSION: 1. Dilation of the stomach and proximal small bowel extending to the proximal to mid jejunum. Findings are either related to ileus versus an early small bowel obstruction. The distal small bowel and colon are relatively collapsed. 2. Indeterminate soft tissue stranding within the right gluteal soft tissues along the cleft with overlying skin thickening. Findings are suggestive of at least cellulitis. Early phlegmonous change cannot be excluded. A drainable fluid collection is not otherwise identified. 3. No other acute abdominal or pelvic abnormality on this unenhanced study. D/ / 12/07/2018 19:09:11 Gillian High MD / [facility] Interpreting Provider: Gillian High MD - EKG Data EKG #1 EKG attestation: Yes I reviewed and interpreted this EKG. EKG results narrative: EKG obtained at 1709 shows sinus rhythm with heart rate 93. There is a wavy baseline in lead [address] elevation or depression. Compared to old EKG on 01/06/2018 which shows no acute changes. Second EKG was obtained at 1717 that shows a better baseline. Sinus rhythm with heart rate 94, FL interval 168, QRS duration 105, QTC 414. No ST elevation or depression is noted. Right axis deviation.
[2018-12-07 17:42] LABS: Basophils % 0.3 %; Eosinophils % 0.1 %; Hematocrit 48.6 % (37.5-50.1); Hemoglobin 15.8 g/dL (12.9-16.9); Immature Granulocytes % 0.6 % (0-4); Lymphocytes # 1.6 K/mcL (0.6-4.6); Lymphocytes % 17.8 %; Mean Corpuscular HGB Conc 32.5 g/dL (31.6-35.5); Mean Corpuscular Hemoglobin 27.6 pg (28.0-33.3); Mean Platelet Volume 10.8 fL (9.4-12.4); Monocytes # 0.5 K/mcL (0.0-1.3); Monocytes % 5.5 %; Neutrophils # 6.8 K/mcL (1.6-8.9); Platelet Count 285 K/mcL (140-400); Red Blood Count 5.72 M/mcL (4.19-5.50); Red Cell Distribution Width 14.6 % (11.5-14.5); Segmented Neutrophils % 75.7 %
--- NOTE | 2018-12-07 17:46 | Emergency Department Note ---
Disposition Clinical Impression: Ileus Nausea and vomiting Qualifiers: Vomiting type: unspecified Vomiting Intractability: non-intractable Qualified Code(s): R11.2 - Nausea with vomiting, unspecified Disposition: Admitted As Inpatient Forms: ED Satisfaction Letter, Work/School Release General Adult HPI - General Chief complaint: ED Abdominal Pain Stated complaint: Abdominal Pain Time Seen by Provider: 12/07/18 16:58 Source: patient, EMS Mode of arrival: EMS Limitations: physical limitation (bed bound) - History of Present Illness Pain Scale: 6 - Related Data Home Medications Medication Instructions Recorded Confirmed RX: Furosemide [Lasix] 40 mg PO DAILY 04/27/15 12/07/18 RX: Gabapentin [Neurontin] 600 mg PO TID 04/27/15 12/07/18 RX: Ferrous Sulfate [Iron] 325 mg PO DAILY 04/30/16 12/07/18 RX: Spironolactone [Aldactone] 100 mg PO DAILY 12/05/17 12/07/18 Colace 100 mg PO BID PRN 12/07/18 12/07/18 Oxycodone HCl 10 mg PO DAILY PRN 12/07/18 12/07/18 Previous Rx's Medication Instructions Recorded RX: Collagenase Oint [Santyl] 1 appl TP 2200 tube 12/22/17 RX: Omeprazole [PriLOSEC] 40 mg PO DAILY@0730 capsule. 12/22/17 RX: Sucralfate [Carafate] 1 gm PO QIDAC #0 tablet 12/22/17 Allergies Allergy/AdvReac Type Severity Reaction Status Date / Time No Known Allergies Allergy Verified 01/03/18 11:58 Constitutional: Denies: fever, chills Cardiovascular: Denies: chest pain, palpitations Respiratory: Denies: cough, dyspnea Gastrointestinal: Reports: nausea, vomiting. Denies: abdominal pain, diarrhea, melena, hematochezia Genitourinary: Denies: dysuria, hematuria Musculoskeletal: Denies: back pain Neurological: Denies: headache, weakness Past Medical History - Past Medical History Medical history: Reports: other Surgical history: Reports: no surgical history Psychiatric history: Reports: no psych history - Social History Smoking Status: Never smoker Smokeless Tobacco Status: No Alcohol use: Reports: rarely Drug use: Reports: marijuana Physical Exam - General Limitations: physical limitation (bed bound) General appearance: obese, other (hiccuping, not in acute distress) Course Vital Signs Temperature 97.7 F 12/07/18 17:23 Pulse Rate 87 12/07/18 17:23 Respiratory Rate 22 12/07/18 17:23 Blood Pressure 142/99 12/07/18 17:23 O2 Sat by Pulse Oximetry 93 12/07/18 17:23 Temperature 97.7 F 12/07/18 17:23 Pulse Rate 87 12/07/18 18:10 Respiratory Rate 18 12/07/18 18:10 Blood Pressure 137/85 12/07/18 18:10 O2 Sat by Pulse Oximetry 92 12/07/18 18:10 Oxygen Delivery Oxygen Delivery Nasal Cannula Medical Decision Making - Lab Data Result diagrams: 12/07/18 17:28 12/07/18 17:28 Lab Results 12/07/18 12/07/18 Range/Units 17:28 17:28 WBC 9.0 (4.3-11.1) K/mcL RBC 5.72 H (4.19-5.50) M/mcL Hgb 15.8 (12.9-16.9) g/dL Hct 48.6 (37.5-50.1) % MCV 85.0 (83.0-100.0) fL MCH 27.6 L (28.0-33.3) pg MCHC 32.5 (31.6-35.5) g/dL RDW 14.6 H (11.5-14.5) % Plt Count 285 (140-400) K/mcL MPV 10.8 (9.4-12.4) fL Immature Gran % 0.6 (0-4) % Seg Neutrophils % 75.7 % Lymphocytes % 17.8 % Monocytes % 5.5 % Eosinophils % 0.1 % Basophils % 0.3 % Neutrophils # 6.8 (1.6-8.9) K/mcL Lymphocytes # 1.6 (0.6-4.6) K/mcL Monocytes # 0.5 (0.0-1.3) K/mcL Eosinophils # 0.0 (0.0-0.6) K/mcL Basophils # 0.0 (0.0-0.2) K/mcL Sodium 139 (136-145) mEq/L Potassium 3.5 (3.5-5.1) mEq/L Chloride 97 L (98-107) mEq/L Carbon Dioxide 32 H (23-29) mEq/L BUN 24 H (8-23) mg/dL Creatinine 0.79 (0.70-1.30) mg/dL Est GFR ( Amer) > 60 (> 60) Est GFR (Non-Af Amer) > 60 (> 60) BUN/Creatinine Ratio 30 H (6-26) Glucose 134 H (70-105) mg/dL Calculated Osmolality 294 (280-300) Calcium 9.5 (8.6-10.3) mg/dL Total Bilirubin 0.9 (0.3-1.0) mg/dL Direct Bilirubin 0.3 H (0.0-0.2) mg/dL Indirect Bilirubin 0.6 (0.0-1.2) mg/dL AST 26 (13-39) Units/L ALT 40 (7-52) Units/L Alkaline Phosphatase 58 (34-104) Units/L Troponin I < 0.03 (< 0.04) ng/mL Serum Total Protein 8.3 (6.4-8.9) g/dL Albumin 4.0 (3.5-5.7) g/dL Globulin 4.3 H (2.4-3.5) g/dL Albumin/Globulin Ratio 0.9 L (1.1-2.2) Lipase 26 (11-82) Units/L Attestation Statement - Attestation Attestation: I examined this patient and my medical decision-making was reviewed with the Resident Physician. I agree with the documented findings, disposition and treatment plan as described except to the extent set forth below. Patient presents to the ED with a chief complaint of upper abdominal pain and multiple episodes of vomiting. He presents from the shelter. The vomit was dark. Patient states this is secondary to some dark fluid that he ate last night. Patient has a history of a colostomy. On examination he is awake and alert. He has not any distress. Breathing comfortably. Abdomen is soft with some mild upper tenderness. Skin examination does reveal some erythema/skin breakdown on the right buttock. There are multiple areas of ulceration. No purulent drainage. He also has multiple areas of eschar on the right dowell. Plan. Patient CT shows an ileus versus early small bowel obstruction. He has had no episodes of vomiting here. His vitals are stable. Patient will be admitted for observation. Wound cultures were sent of the ulcerations on his buttock. Chest X-Ray 12/07/18 16:59 IMPRESSION: Mild pulmonary vascular congestion and mild left mid lung atelectasis. D/ / Rama Perez MD / Rama Perez MD Interpreting Provider: Rama Perez MD Abdomen/Pelvis CT 12/07/18 17:18 IMPRESSION: 1. Dilation of the stomach and proximal small bowel extending to the proximal to mid jejunum. Findings are either related to ileus versus an early small bowel obstruction. The distal small bowel and colon are relatively collapsed. 2. Indeterminate soft tissue stranding within the right gluteal soft tissues along the cleft with overlying skin thickening. Findings are suggestive of at least cellulitis. Early phlegmonous change cannot be excluded. A drainable fluid collection is not otherwise identified. 3. No other acute abdominal or pelvic abnormality on this unenhanced study. D/ / 12/07/2018 19:09:11 Gillian High MD / [facility] Interpreting Provider: Gillian High MD
[2018-12-07 18:02] LABS: Alanine Aminotransferase 40 Units/L (7-52); Albumin/Globulin Ratio 0.9 (1.1-2.2); Alkaline Phosphatase 58 Units/L (34-104); Aspartate Amino Transferase 26 Units/L (13-39); BUN/Creatinine Ratio 30 (6-26); Bilirubin,Direct 0.3 mg/dL (0.0-0.2); Bilirubin,Indirect 0.6 mg/dL (0.0-1.2); Bilirubin,Total 0.9 mg/dL (0.3-1.0); Blood Urea Nitrogen 24 mg/dL (8-23); Calcium 9.5 mg/dL (8.6-10.3); Carbon Dioxide 32 mEq/L (23-29); Chloride 97 mEq/L (98-107); Globulin 4.3 g/dL (2.4-3.5); Glucose 134 mg/dL (70-105); Lipase 26 Units/L (11-82); Osmolality,Calculated 294 (280-300); Potassium 3.5 mEq/L (3.5-5.1); Sodium 139 mEq/L (136-145); Total Protein 8.3 g/dL (6.4-8.9); Troponin I < 0.03 ng/mL (< 0.04); eGFR For Non-African Americans > 60 (> 60)
[2018-12-07] MEDS ORDERED: 0.9 % Sodium Chloride 1,000 ML IVC SCH (19:45)
--- NOTE | 2018-12-07 20:19 | Internal Med History&Physical ---
Date of Encounter: 12/07/18 Time of Encounter: 20:17 Internal Medicine - H&P: HPI Chief complaint: vomiting Admitted From: Long-term Nursing Facility Plans for Post Hospital Care: [facility] History of present illness: Benjamin Adams is a morbidly obese 63 year old man resident of [facility] who is bedridden with bilateral lower extremity and decubitus wounds and has a colostomy done for diversion at [facility] presenting to the ER complaining of nausea and dark brown vomitus that occurred multiple times in the past 1 day leaving him unable to keep anything own. No bloody emesis reported, no abdominal pain, changes in the colostomy output, fever or chills. In the ER he was seen clinically and hemodynamically stable. Lab work was grossly unremarkable. Imaging studies as reviewed by me showed dilation of the stomach and proximal small bowel extending to the proximal to mid jejunum, findings related to ileus or early SBO as per the official report. He is now admitted for observation. Vitals: Reviewed General: Obese white male lying in bed in NAD Skin: Warm, dry HEENT: Moist mucous membranes. No conjunctivae pallor. Neck: No lymphadenopathy. No JVD. No carotid bruits. No palpable thyroid. Chest: Diminished thoracic expansion. Reduced breath sounds symmetrically. Heart: Normal S1 & S2; rhythmic. No rubs or murmurs. Abdomen: Obese, soft and non-tender to palpation. No peritoneal reaction. Colostomy bag in left lower quadrant with semisolid brown stool. Extremities: 2-3+ pitting edema of both legs with skin tags and keratotic lesions. Neurological: Awake, alert and oriented to person, place and time. No focal deficits. Psych: Affect appropriate. Assessment/Plan Nausea & vomiting: Seemingly secondary to an ileus or early small bowel obstruction given the radiologic findings. He is currently doing well and not vomiting therefore not prompting an urgent need for NG tube however if this changes, will act accordingly. Will monitor electrolytes closely and supplement accordingly. Maintenance fluids for now as I will keep him NPO overnight. Obtain abdomen x-rays in the morning for follow up evaluation. Decubitus ulcers: Although they are chronic and notably unkempt, there is no indication for systemic antimicrobials at this time. Although there are concerns for cellulitis on CT, clinically the changes are longstanding and not acutely inflammatory. He will benefit from strict wound care services. He has already undergone colonic diversion surgery however given his bedridden state secondary to his obesity, the pressure and lack of position changes makes these factors a persistent cause of worsening skin breakdown. Lymphedema: Will provide compression stockings. Morbid class III obesity: Counseled and educated on therapeutic lifestyle changes for weight loss as it will be of benefit in controlling comorbidities. Animal Trainer Supervisor evaluation advised. Past Med Surg Social Fam HX - Past Medical History Medical history: other Additional medical history: lymphedema Psychiatric history: no psych history - Past Surgical History Surgical History: no surgical history Additional surgical history: colostomy - Social History Smoking Status: Never smoker Smokeless Tobacco Status: No Alcohol use: rarely Drug use: marijuana - Family History Mother Family Member Ethnicity: Non- Living Status: Hx Family Cardiac Disorders: Yes Hx Family Respiratory Disorders: Yes Hx Family Cancer: No Hx Family GI Disorders: No Hx Family Endocrine Disorder: No Hx Family Neuromuscular Disorders: No Hx Family Neurologic Disorders: No Hx Family HEENT Disorders: No Hx Family Autoimmune Disorders: No Father Living Status: Hx Family Cardiac Disorders: Yes (htn) Hx Family Respiratory Disorders: No Hx Family Cancer: No Hx Family GI Disorders: No Hx Family Endocrine Disorder: Yes Hx Family Neuromuscular Disorders: Yes Hx Family Neurologic Disorders: Yes Hx Family HEENT Disorders: No Hx Family Autoimmune Disorders: No Internal Medicine - H&P: Meds Furosemide [Lasix] 40 mg PO DAILY 04/27/15 [History] Gabapentin [Neurontin] 600 mg PO TID 04/27/15 [History] Ferrous Sulfate [Iron] 325 mg PO DAILY 04/30/16 [History] Spironolactone [Aldactone] 100 mg PO DAILY 12/05/17 [History] Collagenase Oint [Santyl] 1 appl TP 2200 tube 12/22/17 [Rx] Omeprazole [PriLOSEC] 40 mg PO DAILY@0730 capsule. 12/22/17 [Rx] Sucralfate [Carafate] 1 gm PO QIDAC #0 tablet 12/22/17 [Rx] Colace 100 mg PO BID PRN 12/07/18 [History] Oxycodone HCl 10 mg PO DAILY PRN 12/07/18 [History] Allergy/AdvReac Type Severity Reaction Status Date / Time No Known Allergies Allergy Verified 01/03/18 11:58 All Systems PM: A 10-system review of systems was performed and is negative for pertinent findings except as documented above in the HPI. - Constitutional Vitals: Temp Pulse Resp BP Pulse Ox 97.7 F 87 18 137/85 92 12/07/18 17:23 12/07/18 18:10 12/07/18 18:10 12/07/18 18:10 12/07/18 18:10 Exam: . Internal Med - H&P Results - Labs CBC & Chem 7: 12/07/18 17:28 12/07/18 17:28 Labs: Short CBC 12/07/18 Range/Units 17:28 WBC 9.0 (4.3-11.1) K/mcL Hgb 15.8 (12.9-16.9) g/dL Hct 48.6 (37.5-50.1) % Plt Count 285 (140-400) K/mcL Neutrophils # 6.8 (1.6-8.9) K/mcL BMP 12/07/18 17:28 Sodium 139 Potassium 3.5 Chloride 97 L Carbon Dioxide 32 H BUN 24 H Creatinine 0.79 Glucose 134 H Calcium 9.5 Cardiac Enzymes 12/07/18 Range/Units 17:28 Troponin I < 0.03 (< 0.04) ng/mL Liver Function 12/07/18 Range/Units 17:28 Total Bilirubin 0.9 (0.3-1.0) mg/dL Direct Bilirubin 0.3 H (0.0-0.2) mg/dL AST 26 (13-39) Units/L ALT 40 (7-52) Units/L Alkaline Phosphatase 58 (34-104) Units/L Albumin 4.0 (3.5-5.7) g/dL - Impressions ITS Impressions Chest X-Ray 12/07/18 16:59 IMPRESSION: Mild pulmonary vascular congestion and mild left mid lung atelectasis. D/ / Rama Perez MD / Rama Perez MD Interpreting Provider: Rama Perez MD Abdomen/Pelvis CT 12/07/18 17:18 IMPRESSION: 1. Dilation of the stomach and proximal small bowel extending to the proximal to mid jejunum. Findings are either related to ileus versus an early small bowel obstruction. The distal small bowel and colon are relatively collapsed. 2. Indeterminate soft tissue stranding within the right gluteal soft tissues along the cleft with overlying skin thickening. Findings are suggestive of at least cellulitis. Early phlegmonous change cannot be excluded. A drainable fluid collection is not otherwise identified. 3. No other acute abdominal or pelvic abnormality on this unenhanced study. D/ / 12/07/2018 19:09:11 Gillian High MD / [facility] Interpreting Provider: Gillian High MD - Time Spent With Patient Total time spent is greater than 50% in coordination of care (as documented) at patient's floor/unit and/or counseling patient: Greater than 35 minutes
[2018-12-07] MEDS: D5% in Lactated Ringers 1,000 ML IVC SCH (23:07)
[2018-12-07] MEDS: Ondansetron 4 MG/2 ML VIAL IVP PRN (23:22)
[2018-12-08] MEDS: D5% in Lactated Ringers 1,000 ML IVC SCH (04:22)
[2018-12-08] MEDS: *HR* Heparin 5,000 UNIT/ML VIAL SQ SCH ×4 (04:28→20:30)
[2018-12-08 08:04] LABS: Basophils # 0.1 K/mcL (0.0-0.2); Basophils % 0.6 %; Eosinophils % 0.3 %; Hematocrit 46.4 % (37.5-50.1); Immature Granulocytes % 0.3 % (0-4); Lymphocytes % 20.4 %; Mean Corpuscular HGB Conc 32.3 g/dL (31.6-35.5); Mean Corpuscular Volume 86.7 fL (83.0-100.0); Mean Platelet Volume 10.5 fL (9.4-12.4); Monocytes # 0.7 K/mcL (0.0-1.3); Monocytes % 7.1 %; Neutrophils # 6.8 K/mcL (1.6-8.9); Platelet Count 238 K/mcL (140-400); Red Blood Count 5.35 M/mcL (4.19-5.50); Segmented Neutrophils % 71.3 %
[2018-12-08 08:43] LABS: BUN/Creatinine Ratio 32 (6-26); Blood Urea Nitrogen 26 mg/dL (8-23); Calcium 8.9 mg/dL (8.6-10.3); Carbon Dioxide 27 mEq/L (23-29); Chloride 100 mEq/L (98-107); Glucose 138 mg/dL (70-105); Magnesium 2.3 mg/dL (1.6-2.6); Osmolality,Calculated 299 (280-300); Potassium 3.6 mEq/L (3.5-5.1); Sodium 141 mEq/L (136-145); eGFR For Non-African Americans > 60 (> 60)
[2018-12-08 09:27] LABS: INR 1.1; Prothrombin Time 12.6 Seconds (9.4-12.1)
[2018-12-08 09:30] LABS: Activated Partial Thrombo Time 27.9 Seconds (26.0-36.0)
[2018-12-08] MEDS: Ondansetron 4 MG/2 ML VIAL IVP PRN (10:00)
[2018-12-08] MEDS: Pantoprazole 40 MG VIAL IVP SCH (10:01)
--- NOTE | 2018-12-09 05:25 | Internal Med Progress Note ---
Hospitalist Progress Note - Encounter Date of Encounter: 12/08/18 Time of Encounter: 19:00 - Subjective Interval History: SUBJECTIVE: The patient feels better. We have not seen any nausea or vomiting since admitting him to the hospital floor. He does not have any substantial abdominal pain. Denies chest pain. Denies coughing and wheezing. He makes good amounts of urine. His nothing by mouth. He has diverting colostomy. OBJECTIVE: The patient is morbidly obese with BMI of above 50. Skin: Free of rash and discoloration. There is unstageable decubitus ulcer in sacral area. ENMT: Oral/pharyngeal mucosa is normal in appearance. Eyes: Sclera is white. There is no discharge from eyes. Respiratory: Normal breath sounds; no crackles or wheezes. CV: Heart is regular; no gallop or murmur. GI: Abdomen is soft and not tender. There is no palpable mass or visceromegaly. Neuro: There is no focal deficits. ADDITIONAL DATA: See results of CT of abdomen and pelvis done at admission. CBC and BMP are normal. ASSESSMENT AND PLAN: Ileus. To continue nothing by mouth diet and IV fluids. Decubitus ulcer of sacral area. We asked the wound care nurse specialist to evaluate the patient. Chronic lymphedema of both lower extremities with morbid obesity (BMI of 56.9). To continue supportive treatment. - Exam Vitals: Temp Pulse Resp BP Pulse Ox 98.5 F 85 15 112/74 88 12/09/18 04:49 12/09/18 04:49 12/09/18 04:49 12/09/18 04:49 12/09/18 04:49 Exam: xx - Assessment and Plan (1) Ileus Current Visit: Yes Status: Acute (2) Decubitus ulcer Current Visit: Yes Status: Chronic (3) Lymphedema of both lower extremities Current Visit: No Status: Chronic (4) Morbid obesity with BMI of 50.0-59.9, adult Current Visit: Yes Status: Acute - Time Spent with Patient Total time spent is greater than 50% in coordination of care (as documented) at patient's floor/unit and/or counseling patient: 25 - 35 minutes Plan of Care Discussed with: patient Internal Medicine: Result - Labs CBC & Chem 7: 12/08/18 07:51 12/08/18 07:51 Labs: Short CBC 12/08/18 Range/Units 07:51 WBC 9.6 (4.3-11.1) K/mcL Hgb 15.0 (12.9-16.9) g/dL Hct 46.4 (37.5-50.1) % Plt Count 238 (140-400) K/mcL Neutrophils # 6.8 (1.6-8.9) K/mcL BMP 12/08/18 07:51 Sodium 141 Potassium 3.6 Chloride 100 Carbon Dioxide 27 BUN 26 H Creatinine 0.81 Glucose 138 H Calcium 8.9 - ABG Interpretation ABG results: PT/INR, D-dimer PT 12.6 Seconds (9.4-12.1) H 12/08/18 09:01 - Impressions Impressions Chest/Abdomen X-ray 12/08/18 07:00 IMPRESSION: Severely distended stomach and moderately distended bowel suggesting ileus. No pneumoperitoneum. No acute process in the chest. D/ / 12/08/2018 11:58:10 Nestor Whitaker MD / will Interpreting Provider: Nestor Whitaker MD Consult Discharge Plan - Plan Referrals: NONE,PCP [Primary Care Provider] - (2) Decubitus ulcer Qualifiers: Qualified Code(s): L89.150 - Pressure ulcer of sacral region, unstageable
[2018-12-09] MEDS: *HR* Heparin 5,000 UNIT/ML VIAL SQ SCH ×3 (05:54→21:14)
[2018-12-09] MEDS: 0.9 % Sodium Chloride 1,000 ML IVC SCH ×2 (05:54→21:14)
[2018-12-09 07:06] LABS: Basophils # 0.1 K/mcL (0.0-0.2); Basophils % 0.8 %; Eosinophils # 0.2 K/mcL (0.0-0.6); Eosinophils % 1.9 %; Hematocrit 44.1 % (37.5-50.1); Immature Granulocytes % 0.4 % (0-4); Lymphocytes # 2.4 K/mcL (0.6-4.6); Lymphocytes % 22.9 %; Mean Corpuscular HGB Conc 31.7 g/dL (31.6-35.5); Mean Corpuscular Hemoglobin 27.7 pg (28.0-33.3); Mean Corpuscular Volume 87.2 fL (83.0-100.0); Monocytes # 0.9 K/mcL (0.0-1.3); Monocytes % 8.1 %; Platelet Count 286 K/mcL (140-400); Red Blood Count 5.06 M/mcL (4.19-5.50); Segmented Neutrophils % 65.9 %
[2018-12-09 07:19] LABS: BUN/Creatinine Ratio 46 (6-26); Blood Urea Nitrogen 34 mg/dL (8-23); Calcium 8.5 mg/dL (8.6-10.3); Carbon Dioxide 26 mEq/L (23-29); Chloride 102 mEq/L (98-107); Glucose 104 mg/dL (70-105); Osmolality,Calculated 292 (280-300); Potassium 3.5 mEq/L (3.5-5.1); Sodium 137 mEq/L (136-145); eGFR For Non-African Americans > 60 (> 60)
[2018-12-09] MEDS: Furosemide 40 MG TABLET PO SCH (10:13)
[2018-12-09] MEDS: Metoclopramide 10 MG/2 ML VIAL IVP SCH ×3 (10:14→17:49)
[2018-12-09] MEDS: Pantoprazole 40 MG VIAL IVP SCH (10:14)
[2018-12-09] MEDS: Sucralfate 1 GM TABLET PO SCH ×3 (10:23→21:13)
[2018-12-09] MEDS: Gabapentin 300 MG CAPSULE PO SCH ×2 (14:33→21:13)
[2018-12-09] MEDS: Spironolactone 25 MG TABLET PO SCH (21:13)
--- NOTE | 2018-12-09 23:01 | Electrocardiograph Report ---
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
[2018-12-10] MEDS: Metoclopramide 10 MG/2 ML VIAL IVP SCH ×5 (00:35→23:02)
--- NOTE | 2018-12-10 05:54 | Internal Med Progress Note ---
Hospitalist Progress Note - Encounter Date of Encounter: 12/09/18 Time of Encounter: 19:00 - Subjective Interval History: SUBJECTIVE: The patient feels progressively better. We have not seen any nausea or vomiting since admitting him to the hospital floor. He does not have any substantial abdominal pain. He feels hungry. Denies chest pain. Denies coughing and wheezing. He makes good amounts of urine. He has diverting colostomy. OBJECTIVE: The patient is morbidly obese with BMI of above 50. Skin: Free of rash and discoloration. There is unstageable decubitus ulcer in sacral area. ENMT: Oral/pharyngeal mucosa is normal in appearance. Eyes: Sclera is white. There is no discharge from eyes. Respiratory: Normal breath sounds; no crackles or wheezes. CV: Heart is regular; no gallop or murmur. GI: Abdomen is soft and not tender. There is no palpable mass or visceromegaly. Neuro: There is no focal deficits. ADDITIONAL DATA: See results of CT of abdomen and pelvis done at admission. CBC and BMP from yesterday are normal. ASSESSMENT AND PLAN: Ileus. Better. I will start him on clears. He is on scheduled IV Reglan. Decubitus ulcer of sacral area. He had recently diverting colostomy. He is stage IV sacral area wound has healed quite a bit. There is a wound in the right buttock. See description and treatments from the wound care nurse specialist. Chronic lymphedema of both lower extremities with morbid obesity (BMI of 56.9). To continue supportive treatment. - Exam Vitals: Temp Pulse Resp BP Pulse Ox 97.7 F 70 17 142/88 92 12/10/18 03:56 12/10/18 03:56 12/10/18 03:56 12/10/18 03:56 12/10/18 03:56 Exam: xx - Assessment and Plan (1) Ileus Current Visit: Yes Status: Acute (2) Decubitus ulcer Current Visit: Yes Status: Chronic (3) Lymphedema of both lower extremities Current Visit: No Status: Chronic (4) Morbid obesity with BMI of 50.0-59.9, adult Current Visit: Yes Status: Acute - Time Spent with Patient Total time spent is greater than 50% in coordination of care (as documented) at patient's floor/unit and/or counseling patient: 25 - 35 minutes Plan of Care Discussed with: patient Internal Medicine: Result - Labs CBC & Chem 7: 12/09/18 06:22 12/09/18 06:22 Labs: Short CBC 12/09/18 Range/Units 06:22 WBC 10.6 (4.3-11.1) K/mcL Hgb 14.0 (12.9-16.9) g/dL Hct 44.1 (37.5-50.1) % Plt Count 286 (140-400) K/mcL Neutrophils # 7.0 (1.6-8.9) K/mcL BMP 12/09/18 06:22 Sodium 137 Potassium 3.5 Chloride 102 Carbon Dioxide 26 BUN 34 H Creatinine 0.74 Glucose 104 Calcium 8.5 L - ABG Interpretation ABG results: PT/INR, D-dimer PT 12.6 Seconds (9.4-12.1) H 12/08/18 09:01 - Impressions Impressions Abdomen/Pelvis CT 12/07/18 17:18 IMPRESSION: 1. Dilation of the stomach and proximal small bowel extending to the proximal to mid jejunum. Findings are either related to ileus versus an early small bowel obstruction. The distal small bowel and colon are relatively collapsed. 2. Indeterminate soft tissue stranding within the right gluteal soft tissues along the cleft with overlying skin thickening. Findings are suggestive of at least cellulitis. Early phlegmonous change cannot be excluded. A drainable fluid collection is not otherwise identified. 3. No other acute abdominal or pelvic abnormality on this unenhanced study. D/ / 12/07/2018 19:09:11 Gillian High MD / [facility] Interpreting Provider: Gillian High MD Chest/Abdomen X-ray 12/08/18 07:00 IMPRESSION: Severely distended stomach and moderately distended bowel suggesting ileus. No pneumoperitoneum. No acute process in the chest. D/ / 12/08/2018 11:58:10 Nestor Whitaker MD / will Interpreting Provider: Nestor Whitaker MD X-Ray 12/09/18 05:38 IMPRESSION: 1. Stable ileus with marked distention of the stomach with air. D/ / 12/09/2018 08:29:20 Jeramie Duenas MD / jeffrey Interpreting Provider: Jeramie Duenas MD Consult Discharge Plan - Plan Referrals: NONE,PCP [Primary Care Provider] - (2) Decubitus ulcer Qualifiers: Qualified Code(s): L89.150 - Pressure ulcer of sacral region, unstageable
[2018-12-10] MEDS: *HR* Heparin 5,000 UNIT/ML VIAL SQ SCH ×3 (06:46→20:19)
[2018-12-10] MEDS: Gabapentin 300 MG CAPSULE PO SCH ×3 (08:15→20:19)
[2018-12-10] MEDS: Furosemide 40 MG TABLET PO SCH (08:15)
[2018-12-10] MEDS: Sucralfate 1 GM TABLET PO SCH ×4 (08:15→20:19)
[2018-12-10] MEDS: Spironolactone 25 MG TABLET PO SCH ×2 (08:15→20:19)
[2018-12-10] MEDS: Pantoprazole 40 MG VIAL IVP SCH (08:15)
[2018-12-10] MEDS: 0.9 % Sodium Chloride 1,000 ML IVC SCH (15:48)
--- NOTE | 2018-12-10 22:09 | Internal Med Progress Note ---
Hospitalist Progress Note - Encounter Date of Encounter: 12/10/18 Time of Encounter: 19:00 - Subjective Interval History: SUBJECTIVE: Today morning I decided to switch him from clear liquids diet to cardiac diet; did not have any problems to tolerate clears. Then, after lunch would notice him having increased abdominal distention with quite a bit of firmness of the abdominal wall. Without nausea or vomiting. Denies chest pain. Denies coughing and wheezing. He makes good amounts of urine. He has diverting colostomy. OBJECTIVE: The patient is morbidly obese with BMI of above 50. Skin: Free of rash and discoloration. There is unstageable decubitus ulcer in sacral area. ENMT: Oral/pharyngeal mucosa is normal in appearance. Eyes: Sclera is white. There is no discharge from eyes. Respiratory: Normal breath sounds; no crackles or wheezes. CV: Heart is regular; no gallop or murmur. GI: Abdomen is very distended. It is firm in all 4 quadrants. I can hear hypoactive bowel sounds. Neuro: There is no focal deficits. ADDITIONAL DATA: See results of CT of abdomen and pelvis done at admission. KUB from today afternoon is showing abdominal distention; gastric outlet obstruction versus gastric volvulus. ASSESSMENT AND PLAN: Abdominal distention. I discussed this case with Dr. Mcconnell, gastroenterology. He is going to do EGD on that the patient tomorrow morning. I am switching this patient to clears; any by mouth after midnight. Decubitus ulcer of sacral area. He had recently diverting colostomy. He is stage IV sacral area wound has healed quite a bit. There is a wound in the right buttock. See description and treatments from the wound care nurse specialist. Chronic lymphedema of both lower extremities with morbid obesity (BMI of 56.9). To continue supportive treatment. - Exam Vitals: Temp Pulse Resp BP Pulse Ox 98.6 F 116 16 147/92 92 12/10/18 18:42 12/10/18 18:42 12/10/18 18:42 12/10/18 18:42 12/10/18 18:42 Exam: xx - Assessment and Plan (1) Ileus Current Visit: Yes Status: Acute (2) Decubitus ulcer Current Visit: Yes Status: Chronic (3) Lymphedema of both lower extremities Current Visit: No Status: Chronic (4) Morbid obesity with BMI of 50.0-59.9, adult Current Visit: Yes Status: Acute - Time Spent with Patient Total time spent is greater than 50% in coordination of care (as documented) at patient's floor/unit and/or counseling patient: 25 - 35 minutes Plan of Care Discussed with: patient Internal Medicine: Result - Labs CBC & Chem 7: 12/09/18 06:22 12/09/18 06:22 - ABG Interpretation ABG results: PT/INR, D-dimer PT 12.6 Seconds (9.4-12.1) H 12/08/18 09:01 - Impressions Impressions KUB X-Ray 12/10/18 16:00 IMPRESSION: Severe gaseous distention of what appears to be the stomach within the left upper abdomen with normal appearing orientation. Severe gastric outlet obstruction is favored. Gastric volvulus cannot be excluded but felt to be less likely. Strongly recommend placement of nasogastric tube for decompression. Critical results were called by Dr. David Mccarthy MD to Vivian Jiménez, nurse on 12/10/2018 at 16:32. D/ / David Mccarthy MD / David Mccarthy MD Interpreting Provider: David Mccarthy MD Consult Discharge Plan - Plan Referrals: NONE,PCP [Primary Care Provider] - (2) Decubitus ulcer Qualifiers: Qualified Code(s): L89.150 - Pressure ulcer of sacral region, unstageable
[2018-12-11 07:41] LABS: BUN/Creatinine Ratio 43 (6-26); Blood Urea Nitrogen 29 mg/dL (8-23); Calcium 8.1 mg/dL (8.6-10.3); Carbon Dioxide 18 mEq/L (23-29); Chloride 102 mEq/L (98-107); Glucose 152 mg/dL (70-105); Osmolality,Calculated 283 (280-300); Potassium 3.5 mEq/L (3.5-5.1); Sodium 132 mEq/L (136-145); eGFR For Non-African Americans > 60 (> 60)
[2018-12-11] MEDS: Spironolactone 25 MG TABLET PO SCH (07:44)
[2018-12-11] MEDS: Gabapentin 300 MG CAPSULE PO SCH (07:44)
[2018-12-11] MEDS: Pantoprazole 40 MG VIAL IVP SCH (07:44)
[2018-12-11] MEDS: Sucralfate 1 GM TABLET PO SCH (07:45)
[2018-12-11] MEDS: Furosemide 40 MG TABLET PO SCH (07:45)
[2018-12-11] MEDS: Metoclopramide 10 MG/2 ML VIAL IVP SCH ×4 (07:49→23:11)
[2018-12-11] MEDS: *HR* Heparin 5,000 UNIT/ML VIAL SQ SCH ×3 (07:49→23:11)
[2018-12-11] MEDS ORDERED: Ipratropium/Albuterol Neb 3 ML IH PRN (08:47)
[2018-12-11 08:50] LABS: Basophils # 0.1 K/mcL (0.0-0.2); Basophils % 0.6 %; Eosinophils # 0.1 K/mcL (0.0-0.6); Eosinophils % 0.3 %; Hematocrit 49.3 % (37.5-50.1); Immature Granulocytes % 0.7 % (0-4); Lymphocytes # 2.3 K/mcL (0.6-4.6); Lymphocytes % 11.2 %; Mean Corpuscular HGB Conc 33.7 g/dL (31.6-35.5); Mean Corpuscular Hemoglobin 28.5 pg (28.0-33.3); Mean Corpuscular Volume 84.6 fL (83.0-100.0); Mean Platelet Volume 11.3 fL (9.4-12.4); Monocytes # 1.2 K/mcL (0.0-1.3); Monocytes % 5.9 %; Platelet Count 259 K/mcL (140-400); Red Blood Count 5.83 M/mcL (4.19-5.50); Red Cell Distribution Width 16.6 % (11.5-14.5); Segmented Neutrophils % 81.3 %
[2018-12-11 08:55] LABS: Hemoglobin 16.6 g/dL (12.9-16.9)
--- NOTE | 2018-12-11 10:32 | Gastroenterology Consult Note ---
Date of Encounter: 12/11/18 Time of Encounter: 08:00 - Time Spent With Patient Total time spent is greater than 50% in coordination of care (as documented) at patient's floor/unit and/or counseling patient: GI History of Present Illness - Data of Consult Requesting Physician: Brennan Hand - Consult Narrative History of present illness: Mr. Adams is a 63 year old male Past Med Surg Social Fam HX - Past Medical History Medical history: other Additional medical history: lymphedema Psychiatric history: no psych history - Past Surgical History Surgical History: colostomy Additional surgical history: colostomy - Social History Smoking Status: Never smoker Smokeless Tobacco Status: No Alcohol use: rarely Drug use: marijuana - Family History Mother Family Member Ethnicity: Non- Living Status: Hx Family Cardiac Disorders: Yes Hx Family Respiratory Disorders: Yes Hx Family Cancer: No Hx Family GI Disorders: No Hx Family Endocrine Disorder: No Hx Family Neuromuscular Disorders: No Hx Family Neurologic Disorders: No Hx Family HEENT Disorders: No Hx Family Autoimmune Disorders: No Father Living Status: Hx Family Cardiac Disorders: Yes (htn) Hx Family Respiratory Disorders: No Hx Family Cancer: No Hx Family GI Disorders: No Hx Family Endocrine Disorder: Yes Hx Family Neuromuscular Disorders: Yes Hx Family Neurologic Disorders: Yes Hx Family HEENT Disorders: No Hx Family Autoimmune Disorders: No - Constitutional Vitals: Temp Pulse Resp BP Pulse Ox 97.7 F 116 20 130/90 90 12/11/18 08:01 12/11/18 08:01 12/11/18 09:02 12/11/18 08:01 12/11/18 09:02 Results - Labs CBC & Chem 7: 12/11/18 04:15 12/11/18 04:15 Labs: Last Result Calcium 8.1 mg/dL (8.6-10.3) L 12/11/18 04:15 < 0.03 ng/mL (< 0.04) 12/07/18 17:28 Entire Visit Hgb 16.6 g/dL (12.9-16.9) D 12/11/18 04:15 Hct 49.3 % (37.5-50.1) 12/11/18 04:15 PT 12.6 Seconds (9.4-12.1) H 12/08/18 09:01 0.9 mg/dL (0.3-1.0) 12/07/18 17:28 AST 26 Units/L (13-39) 12/07/18 17:28 ALT 40 Units/L (7-52) 12/07/18 17:28 26 Units/L (11-82) 12/07/18 17:28 - ABG ABG results: PT/INR, D-dimer PT 12.6 Seconds (9.4-12.1) H 12/08/18 09:01 - Impressions Impressions KUB X-Ray 12/10/18 16:00 IMPRESSION: Severe gaseous distention of what appears to be the stomach within the left upper abdomen with normal appearing orientation. Severe gastric outlet obstruction is favored. Gastric volvulus cannot be excluded but felt to be less likely. Strongly recommend placement of nasogastric tube for decompression. Critical results were called by Dr. David Mccarthy MD to Vivian Jiménez, nurse on 12/10/2018 at 16:32. D/ / David Mccarthy MD / David Mccarthy MD Interpreting Provider: David Mccarthy MD Consult Discharge Plan - Plan Referrals: NONE,PCP [Primary Care Provider] - - Attending Attestation Patient who has been bed bound for about a year with decubiltus ulcers that were apparently not healing so underwent diverting colostomy about a year ago.
[2018-12-11] MEDS: 0.9 % Sodium Chloride w KCl 20 MEQ/1,000 ML MLS IVC SCH (14:02)
--- NOTE | 2018-12-11 21:53 | Internal Med Progress Note ---
Hospitalist Progress Note - Encounter Date of Encounter: 12/11/18 Time of Encounter: 19:00 - Subjective Interval History: SUBJECTIVE: The patient developed more abdominal distention yesterday after lunch. It was on a cardiac diet. Then, we stopped feeding him. I presented him to Dr. Mcconnell, GI diseases. The patient was supposed to have EGD today morning. We decided, that he will have stomach decompression first. NG tube was inserted, connected to low continuous wall suction. Denies chest pain. Denies coughing and wheezing. He makes good amounts of urine. He has diverting colostomy. OBJECTIVE: The patient is morbidly obese with BMI of above 50. Skin: Free of rash and discoloration. There is a wound in the area of the right buttock, see description by the wound care nurse specialist. ENMT: Oral/pharyngeal mucosa is normal in appearance. Eyes: Sclera is white. There is no discharge from eyes. Respiratory: Normal breath sounds; no crackles or wheezes. CV: Heart is regular; no gallop or murmur. GI: Abdomen is very distended. It is firm in all 4 quadrants. I can hear hypoactive bowel sounds. Neuro: There is no focal deficits. ADDITIONAL DATA: See results of CT of abdomen and pelvis done at admission. KUB from yesterday and today is favoring the diagnosis of gastric outlet obstruction. ASSESSMENT AND PLAN: Abdominal distention. I discussed this case with Dr. Mcconnell, gastroenterology. The patient will have NG tube for some time for decompression. Then, he will likely need EGD. Decubitus ulcer of sacral area. He had recently diverting colostomy. His stage IV sacral area wound has healed quite a bit. There is a wound in the right buttock. See description and treatments from the wound care nurse specialist. Chronic lymphedema of both lower extremities with morbid obesity (BMI of 56.9). To continue supportive treatment. - Exam Vitals: Temp Pulse Resp BP Pulse Ox 97.4 F L 101 20 161/72 95 12/11/18 19:45 12/11/18 19:45 12/11/18 19:45 12/11/18 19:45 12/11/18 19:45 Exam: xx - Assessment and Plan (1) Ileus Current Visit: Yes Status: Acute (2) Decubitus ulcer Current Visit: Yes Status: Chronic (3) Lymphedema of both lower extremities Current Visit: No Status: Chronic (4) Morbid obesity with BMI of 50.0-59.9, adult Current Visit: Yes Status: Acute - Time Spent with Patient Total time spent is greater than 50% in coordination of care (as documented) at patient's floor/unit and/or counseling patient: 25 - 35 minutes Plan of Care Discussed with: patient Internal Medicine: Result - Labs CBC & Chem 7: 12/11/18 04:15 12/11/18 04:15 Labs: Short CBC 12/11/18 Range/Units 04:15 WBC 20.9 H D (4.3-11.1) K/mcL Hgb 16.6 D (12.9-16.9) g/dL Hct 49.3 (37.5-50.1) % Plt Count 259 (140-400) K/mcL Neutrophils # 17.0 H (1.6-8.9) K/mcL BMP 12/11/18 04:15 Sodium 132 L Potassium 3.5 Chloride 102 Carbon Dioxide 18 L BUN 29 H Creatinine 0.67 L Glucose 152 H Calcium 8.1 L - ABG Interpretation ABG results: PT/INR, D-dimer PT 12.6 Seconds (9.4-12.1) H 12/08/18 09:01 - Impressions Impressions KUB X-Ray 12/11/18 13:46 IMPRESSION: Questionable tip of the NG tube in the left upper quadrant but the enteric tube is otherwise not well-visualized. Enteric tube is not well seen in the distal esophagus. Recommend dedicated chest x-ray along with a KUB. The findings were sent to the Radiology Results [facility] at 2:19 pm on 12/11/2018to be communicated to a licensed caregiver. D/ / 12/11/2018 14:24:48 Gillian High MD / [email or web address] Interpreting Provider: Gillian High MD Chest X-Ray 12/11/18 15:02 IMPRESSION: NG tube tip not visualized but it does course through the left upper quadrant Left basilar opacification could represent atelectasis or pneumonia D/ / Gil Vance MD / Gil Vance MD Interpreting Provider: Gil Vance MD X-Ray 12/11/18 15:03 IMPRESSION: 1. NG tube tip and side-port in the fundus of the stomach 2. Gaseous distention of the stomach D/ / Gil Vance MD / Gil Vance MD Interpreting Provider: Gil Vance MD Consult Discharge Plan - Plan Referrals: NONE,PCP [Primary Care Provider] - (2) Decubitus ulcer Qualifiers: Qualified Code(s): L89.150 - Pressure ulcer of sacral region, unstageable
[2018-12-12 05:43] LABS: Basophils # 0.1 K/mcL (0.0-0.2); Basophils % 0.5 %; Eosinophils # 0.1 K/mcL (0.0-0.6); Eosinophils % 0.4 %; Hematocrit 46.1 % (37.5-50.1); Hemoglobin 15.4 g/dL (12.9-16.9); Immature Granulocytes % 0.8 % (0-4); Lymphocytes # 3.5 K/mcL (0.6-4.6); Lymphocytes % 16.6 %; Mean Corpuscular HGB Conc 33.4 g/dL (31.6-35.5); Mean Corpuscular Hemoglobin 28.1 pg (28.0-33.3); Mean Platelet Volume 11.5 fL (9.4-12.4); Monocytes # 1.7 K/mcL (0.0-1.3); Monocytes % 7.8 %; Neutrophils # 15.8 K/mcL (1.6-8.9); Platelet Count 253 K/mcL (140-400); Red Blood Count 5.49 M/mcL (4.19-5.50); Segmented Neutrophils % 73.9 %
[2018-12-12 06:07] LABS: BUN/Creatinine Ratio 41 (6-26); Blood Urea Nitrogen 30 mg/dL (8-23); Carbon Dioxide 17 mEq/L (23-29); Chloride 106 mEq/L (98-107); Glucose 118 mg/dL (70-105); Osmolality,Calculated 285 (280-300); Potassium 3.7 mEq/L (3.5-5.1); Sodium 134 mEq/L (136-145); eGFR For Non-African Americans > 60 (> 60)
[2018-12-12] MEDS: Metoclopramide 10 MG/2 ML VIAL IVP SCH ×3 (06:10→17:26)
[2018-12-12] MEDS: *HR* Heparin 5,000 UNIT/ML VIAL SQ SCH ×3 (06:10→22:28)
[2018-12-12] MEDS: Pantoprazole 40 MG VIAL IVP SCH (10:02)
[2018-12-12] MEDS: 0.9 % Sodium Chloride w KCl 20 MEQ/1,000 ML MLS IVC SCH (12:10)
--- NOTE | 2018-12-12 16:31 | Internal Med Progress Note ---
Hospitalist Progress Note - Encounter Date of Encounter: 12/12/18 Time of Encounter: 19:00 - Subjective Interval History: SUBJECTIVE: The patient was admitted with abdominal distention. We inserted NG tube yesterday afternoon; for decompression. The abdomen remains mildly distended today afternoon. The patient feels very hungry. I agreed to give him ice chips. I am hoping to get EGD tomorrow morning/afternoon. Denies chest pain. Denies coughing and wheezing. He makes good amounts of urine. He has diverting colostomy. OBJECTIVE: The patient is morbidly obese with BMI of above 50. Skin: Free of rash and discoloration. There is a wound in the area of the right buttock, see description by the wound care nurse specialist. ENMT: Oral/pharyngeal mucosa is normal in appearance. Eyes: Sclera is white. There is no discharge from eyes. Respiratory: Normal breath sounds; no crackles or wheezes. CV: Heart is regular; no gallop or murmur. GI: Abdomen is very distended. It is firm in all 4 quadrants. I can hear hypoactive bowel sounds. Neuro: There is no focal deficits. ADDITIONAL DATA: See results of CT of abdomen and pelvis done at admission. KUB from today morning shows mildly distended stomach, containing a gastric tube with the tip in the proximal aspect. His CBC from today shows normal hemoglobin and he increased WBC of 21.4 thousand (20.9 thousand yesterday). ASSESSMENT AND PLAN: Abdominal distention. I discussed this case with Dr. Mcconnell, gastroenterology. To continue NG for decompression. I hope, the patient will have EGD tomorrow. We suspect him to have gastric outlet obstruction. Decubitus ulcer of sacral area. He had recently diverting colostomy. His stage IV sacral area wound has healed quite a bit. There is a wound in the right buttock. See description and treatments from the wound care nurse specialist. Cultures from the wound shows Proteus mirabilis. It is sensitive to Zosyn. Leukocytosis. It may be reactive. The patient does not have any fever or chills. I would start him on IV Zosyn. Chronic lymphedema of both lower extremities with morbid obesity (BMI of 56.9). To continue supportive treatment. - Exam Vitals: Temp Pulse Resp BP Pulse Ox 97.7 F 101 16 104/73 93 12/12/18 15:35 12/12/18 15:35 12/12/18 15:35 12/12/18 15:35 12/12/18 15:35 Exam: xx - Assessment and Plan (1) Abdominal distension Current Visit: Yes Status: Acute (2) Decubitus ulcer Current Visit: Yes Status: Chronic (3) Lymphedema of both lower extremities Current Visit: No Status: Chronic (4) Morbid obesity with BMI of 50.0-59.9, adult Current Visit: Yes Status: Acute - Time Spent with Patient Total time spent is greater than 50% in coordination of care (as documented) at patient's floor/unit and/or counseling patient: 25 - 35 minutes Plan of Care Discussed with: patient Internal Medicine: Result - Labs CBC & Chem 7: 12/12/18 05:00 12/12/18 05:00 Labs: Short CBC 12/12/18 Range/Units 05:00 WBC 21.4 H (4.3-11.1) K/mcL Hgb 15.4 (12.9-16.9) g/dL Hct 46.1 (37.5-50.1) % Plt Count 253 (140-400) K/mcL Neutrophils # 15.8 H (1.6-8.9) K/mcL BMP 12/12/18 05:00 Sodium 134 L Potassium 3.7 Chloride 106 Carbon Dioxide 17 L BUN 30 H Creatinine 0.74 Glucose 118 H Calcium 8.0 L - ABG Interpretation ABG results: PT/INR, D-dimer PT 12.6 Seconds (9.4-12.1) H 12/08/18 09:01 Consult Discharge Plan - Plan Referrals: NONE,PCP [Primary Care Provider] -
[2018-12-13] MEDS: Piperacillin/Tazobactam 3.375 GM in 0.9 % Sodium Chloride Mini Bag 100 ML IVPB SCH ×3 (00:54→17:52)
[2018-12-13] MEDS: Metoclopramide 10 MG/2 ML VIAL IVP SCH ×4 (00:54→17:52)
[2018-12-13 03:39] LABS: Basophils # 0.1 K/mcL (0.0-0.2); Basophils % 0.6 %; Eosinophils # 0.2 K/mcL (0.0-0.6); Eosinophils % 1.4 %; Hemoglobin 13.8 g/dL (12.9-16.9); Immature Granulocytes % 0.7 % (0-4); Lymphocytes # 2.7 K/mcL (0.6-4.6); Lymphocytes % 19.1 %; Mean Corpuscular HGB Conc 32.9 g/dL (31.6-35.5); Mean Corpuscular Hemoglobin 27.9 pg (28.0-33.3); Mean Corpuscular Volume 84.8 fL (83.0-100.0); Mean Platelet Volume 11.6 fL (9.4-12.4); Monocytes # 1.3 K/mcL (0.0-1.3); Monocytes % 9.3 %; Neutrophils # 9.6 K/mcL (1.6-8.9); Platelet Count 253 K/mcL (140-400); Red Blood Count 4.95 M/mcL (4.19-5.50); Red Cell Distribution Width 15.3 % (11.5-14.5); Segmented Neutrophils % 68.9 %
[2018-12-13 03:58] LABS: BUN/Creatinine Ratio 40 (6-26); Blood Urea Nitrogen 27 mg/dL (8-23); Calcium 8.1 mg/dL (8.6-10.3); Carbon Dioxide 18 mEq/L (23-29); Chloride 111 mEq/L (98-107); Glucose 103 mg/dL (70-105); Osmolality,Calculated 289 (280-300); Potassium 3.5 mEq/L (3.5-5.1); Sodium 137 mEq/L (136-145); eGFR For Non-African Americans > 60 (> 60)
[2018-12-13] MEDS: *HR* Heparin 5,000 UNIT/ML VIAL SQ SCH ×3 (05:03→20:33)
[2018-12-13] MEDS: 0.9 % Sodium Chloride w KCl 20 MEQ/1,000 ML MLS IVC SCH ×2 (05:04→17:52)
[2018-12-13] MEDS: Pantoprazole 40 MG VIAL IVP SCH (10:52)
--- NOTE | 2018-12-13 12:25 | Anesthesia Evaluation PreOp ---
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 Diverting Iliostomy, EGD/Colonoscopy,) Alcohol Use: rarely Drug use: marijuana Medications and Allergies Spironolactone [Aldactone] 100 mg PO DAILY 12/05/17 [History] Ammonium Lactate [Evangelina-Hydrolac] 1 appl TP DAILY 12/07/18 [History] Chloraseptic [place] [Chloraseptic] 1 spray MM Q6H PRN 12/07/18 [History] Collagenase Oint [Santyl] 1 appl TP DAILY MDD + NEEDED 12/07/18 [History] Docusate [Colace] 100 mg PO BID PRN 12/07/18 [History] Ferrous Sulfate 324 mg PO DAILY 12/07/18 [History] Furosemide [Lasix] 40 mg PO DAILY 12/07/18 [History] Gabapentin [Neurontin] 600 mg PO TID 12/07/18 [History] Multivit,Th Iron,Other Min [Therems-M] 1 tab PO DAILY 12/07/18 [History] Omeprazole [PriLOSEC] 20 mg PO BID 12/07/18 [History] Oxycodone HCl [Roxybond] 20 mg PO AD PRN 12/07/18 [History] Sodium Hypochlorite [Dakin's] 1 appl TP BID 12/07/18 [History] Sodium Hypochlorite [Dakin's] 1 appl TP DAILY MDD DAILY + PRN 12/07/18 [History] Sucralfate [Carafate] 1 gm PO QID 12/07/18 [History] Allergy/AdvReac Type Severity Reaction Status Date / Time No Known Allergies Allergy Verified 01/03/18 11:58 - Meds/Allergy Pre-op Review Medications Reviewed: Yes Allergies Reviewed: Yes Beta Blockers on Current Med List: No Anesthesia Results - Labs 12/13/18 03:07 12/13/18 03:07 - Imaging EKG: report reviewed (Sinus rhythm Right axis deviation Low voltage, precordial leads Nonspecific ST-T changes) Anesthesia Exam Vital Signs/O2 Sat, Most Current Temp Pulse Resp BP Pulse Ox 97.9 F 95 22 116/78 93 12/13/18 10:48 12/13/18 10:48 12/13/18 10:48 12/13/18 10:48 12/13/18 10:48 - HEENT Pupil (Motor): Pupils equal, EOMI Mallampati: III Teeth: Poor dentition Oral Opening: Greater than 3 - DIESEL ENGINEER LOC: Oriented DIESEL ENGINEER Motor: Normal RUE, Normal LUE, Normal RLE, Normal LLE, Normal Face DIESEL ENGINEER Sensory: Normal: RUE, LUE, RLE, LLE, Face - Cardiac Rhythm: Regular Murmur: None JVD: No Carotid Bruit: No - Pulmonary Breath Sounds: bilateral Clear Respiratory Effort: Symmetrical Anesthesia Assess/Plan ASA Score: 4 Level of consciousness: Cooperative Anesthetic Plan: MAC Autologous Blood: Yes Monitoring Plan: Standard Monitors Recovery Plan: Other
[2018-12-13] MEDS ORDERED: Lidocaine -MPF 2% 2 ML VIAL ONE (12:46)
[2018-12-13] MEDS ORDERED: *HR* Propofol 200 MG/20 ML VIAL IVP ONE ×2 (12:46)
--- NOTE | 2018-12-13 13:58 | Anesthesia Evaluation Post Op ---
Date of Encounter: 12/13/18 Time of Encounter: 13:57 - Vital Signs Vital Signs: 177/81, HR 88, SpO2 98%, RR 16 - Lungs Lungs: Clear Ascult./Percussion - Airway Airway: Non-obstructed - Cardiovascular Regular Rate - Mental Status Mental Status: Alert & Oriented, Answers Appropriately - Pain Pain Scale: 0 Pain Scale used: Numeric (1 - 10) - Nausea Vomiting Nausea Vomiting: Not Present - Hydration Hydration: NPO, Has not voided - Discharge PostOp Status: Transfer Patient to floor
[2018-12-13] MEDS ORDERED: Acetaminophen 325 MG TABLET PO ONE (19:45)
[2018-12-14] MEDS: Metoclopramide 10 MG/2 ML VIAL IVP SCH ×5 (00:22→23:27)
[2018-12-14] MEDS: Piperacillin/Tazobactam 3.375 GM in 0.9 % Sodium Chloride Mini Bag 100 ML IVPB SCH ×4 (00:23→23:27)
[2018-12-14] MEDS: *HR* Heparin 5,000 UNIT/ML VIAL SQ SCH ×3 (05:35→21:26)
--- NOTE | 2018-12-14 06:06 | Internal Med Progress Note ---
Hospitalist Progress Note - Encounter Date of Encounter: 12/13/18 Time of Encounter: 19:00 - Subjective Interval History: SUBJECTIVE: The patient had EGD today. The verbal report from the procedure is telling us, that a 7 cm ulcer was found. NG tube for decompression was restarted. The patient pulled it out. He is demanding food; he tells me, that he will not stay fasting. Denies chest pain. Denies coughing and wheezing. He makes good amounts of urine. He has diverting colostomy. OBJECTIVE: The patient is morbidly obese with BMI of above 50. Skin: Free of rash and discoloration. There is a wound in the area of the right buttock, see description by the wound care nurse specialist. ENMT: Oral/pharyngeal mucosa is normal in appearance. Eyes: Sclera is white. There is no discharge from eyes. Respiratory: Normal breath sounds; no crackles or wheezes. CV: Heart is regular; no gallop or murmur. GI: Abdomen is mildly distended. It is relatively soft in all 4 quadrants. I can hear hypoactive bowel sounds. Neuro: There is no focal deficits. ADDITIONAL DATA: See results of CT of abdomen and pelvis done at admission. KUB from yesterday morning shows mildly distended stomach, containing a gastric tube with the tip in the proximal aspect. His WBC has decreased. It is at 13.9 thousand; 21.4 thousand yesterday. With hemoglobin of 13.8 and normal platelet count. ASSESSMENT AND PLAN: Abdominal distention. I discussed this case with Dr. Mcconnell, gastroenterology. EGD has been done. I am waiting for the report. Because it has been likely found. The patient refuses NG tube; pulled it out. He is not going to be compliant with nothing by mouth diet. I started him on ice chips and breaths. Decubitus ulcer of sacral area. He had recently diverting colostomy. His stage IV sacral area wound has healed quite a bit. There is a wound in the right buttock. See description and treatments from the wound care nurse specialist. Cultures from the wound shows Proteus mirabilis. It is sensitive to Zosyn. Leukocytosis. Better after starting him on IV Zosyn. Chronic lymphedema of both lower extremities with morbid obesity (BMI of 56.9). To continue supportive treatment. - Exam Vitals: Temp Pulse Resp BP Pulse Ox 97.7 F 78 15 116/73 93 12/14/18 05:44 12/14/18 05:44 12/14/18 05:44 12/14/18 05:44 12/14/18 05:44 Exam: xx - Assessment and Plan (1) Abdominal distension Current Visit: Yes Status: Acute (2) Decubitus ulcer Current Visit: Yes Status: Chronic (3) Lymphedema of both lower extremities Current Visit: No Status: Chronic (4) Morbid obesity with BMI of 50.0-59.9, adult Current Visit: Yes Status: Acute - Time Spent with Patient Total time spent is greater than 50% in coordination of care (as documented) at patient's floor/unit and/or counseling patient: 25 - 35 minutes Plan of Care Discussed with: patient Internal Medicine: Result - Labs CBC & Chem 7: 12/13/18 03:07 12/13/18 03:07 - ABG Interpretation ABG results: PT/INR, D-dimer PT 12.6 Seconds (9.4-12.1) H 12/08/18 09:01 - Impressions Impressions KUB X-Ray 12/11/18 13:46 IMPRESSION: Questionable tip of the NG tube in the left upper quadrant but the enteric tube is otherwise not well-visualized. Enteric tube is not well seen in the distal esophagus. Recommend dedicated chest x-ray along with a KUB. The findings were sent to the Radiology Results Communication [facility] at 2:19 pm on 12/11/2018to be communicated to a licensed caregiver. D/ / 12/11/2018 14:24:48 Gillian High MD / bcarter Interpreting Provider: Gillian High MD Consult Discharge Plan - Plan Referrals: NONE,PCP [Primary Care Provider] -
[2018-12-14] MEDS: Pantoprazole 40 MG VIAL IVP SCH (11:22)
[2018-12-14] MEDS: 0.9 % Sodium Chloride w KCl 20 MEQ/1,000 ML MLS IVC SCH ×3 (11:23→20:00)
[2018-12-14] MEDS: 0.9 % Sodium Chloride 1,000 ML IVC SCH (14:30)
[2018-12-15 03:46] LABS: Basophils # 0.1 K/mcL (0.0-0.2); Basophils % 0.8 %; Eosinophils # 0.3 K/mcL (0.0-0.6); Eosinophils % 4.4 %; Hematocrit 34.5 % (37.5-50.1); Immature Granulocytes % 0.5 % (0-4); Lymphocytes # 1.9 K/mcL (0.6-4.6); Lymphocytes % 30.4 %; Mean Corpuscular HGB Conc 32.8 g/dL (31.6-35.5); Mean Corpuscular Hemoglobin 28.1 pg (28.0-33.3); Mean Corpuscular Volume 85.8 fL (83.0-100.0); Mean Platelet Volume 11.1 fL (9.4-12.4); Monocytes # 0.6 K/mcL (0.0-1.3); Monocytes % 8.7 %; Neutrophils # 3.5 K/mcL (1.6-8.9); Platelet Count 211 K/mcL (140-400); Red Blood Count 4.02 M/mcL (4.19-5.50); Red Cell Distribution Width 15.2 % (11.5-14.5); Segmented Neutrophils % 55.2 %
[2018-12-15 03:55] LABS: Hemoglobin 11.3 g/dL (12.9-16.9)
[2018-12-15 04:05] LABS: BUN/Creatinine Ratio 17 (6-26); Blood Urea Nitrogen 10 mg/dL (8-23); Calcium 7.7 mg/dL (8.6-10.3); Carbon Dioxide 21 mEq/L (23-29); Chloride 110 mEq/L (98-107); Glucose 98 mg/dL (70-105); Osmolality,Calculated 285 (280-300); Potassium 3.5 mEq/L (3.5-5.1); Sodium 138 mEq/L (136-145); eGFR For Non-African Americans > 60 (> 60)
[2018-12-15] MEDS: Metoclopramide 10 MG/2 ML VIAL IVP SCH ×2 (05:22→13:02)
[2018-12-15] MEDS: *HR* Heparin 5,000 UNIT/ML VIAL SQ SCH (05:22)
[2018-12-15] MEDS: 0.9 % Sodium Chloride w KCl 20 MEQ/1,000 ML MLS IVC SCH ×2 (05:22→16:14)
--- NOTE | 2018-12-15 05:50 | Internal Med Progress Note ---
Hospitalist Progress Note - Encounter Date of Encounter: 12/14/18 Time of Encounter: 19:00 - Subjective Interval History: SUBJECTIVE: The patient had EGD yesterday. A big (7 cm) ulcer was found; nonbleeding and nonobstructing. The patient refused NG tube/decompression after EGD. He did not agree with her nothing by mouth 30. I offered him ice chips and breaths. He has not developed abdominal distention in the last 24 hours. Denies having significant abdominal pain. Denies chest pain. Denies coughing and wheezing. He makes good amounts of urine. He has diverting colostomy. OBJECTIVE: The patient is morbidly obese with BMI of above 50. Skin: Free of rash and discoloration. There is a wound in the area of the right buttock, see description by the wound care nurse specialist. ENMT: Oral/pharyngeal mucosa is normal in appearance. Eyes: Sclera is white. There is no discharge from eyes. Respiratory: Normal breath sounds; no crackles or wheezes. CV: Heart is regular; no gallop or murmur. GI: Abdomen is distended. It is relatively soft in all 4 quadrants. Neuro: There is no focal deficits. ADDITIONAL DATA: Waiting for pathology results. I will repeat CBC and BMP in the morning. ASSESSMENT AND PLAN: The patient was admitted with severe abdominal distention. Seems to be better today. To continue IV Reglan. He is on Carafate. I will add IV Protonix to his treatments. I will advance his diet to full range of clear liquids. See notes from director of enrollment. Decubitus ulcer of sacral area. He had recently diverting colostomy. His stage IV sacral area wound has healed quite a bit. There is a wound in the right buttock. See description and treatments from the wound care nurse specialist. Cultures from the wound shows Proteus mirabilis. It is sensitive to Zosyn. Leukocytosis. Better after starting him on IV Zosyn. Chronic lymphedema of both lower extremities with morbid obesity (BMI of 56.9). To continue supportive treatment. - Exam Vitals: Temp Pulse Resp BP Pulse Ox 99.0 F 68 15 108/68 93 12/14/18 19:53 12/14/18 19:53 12/14/18 19:53 12/14/18 19:53 12/14/18 19:53 Exam: xx - Assessment and Plan (1) Abdominal distension Current Visit: Yes Status: Acute (2) Decubitus ulcer Current Visit: Yes Status: Chronic (3) Lymphedema of both lower extremities Current Visit: No Status: Chronic (4) Morbid obesity with BMI of 50.0-59.9, adult Current Visit: Yes Status: Acute - Time Spent with Patient Total time spent is greater than 50% in coordination of care (as documented) at patient's floor/unit and/or counseling patient: 25 - 35 minutes Plan of Care Discussed with: patient Internal Medicine: Result - Labs CBC & Chem 7: 12/15/18 03:37 12/15/18 03:37 Labs: Short CBC 12/15/18 Range/Units 03:37 WBC 6.3 D (4.3-11.1) K/mcL Hgb 11.3 L D (12.9-16.9) g/dL Hct 34.5 L (37.5-50.1) % Plt Count 211 (140-400) K/mcL Neutrophils # 3.5 (1.6-8.9) K/mcL BMP 12/15/18 03:37 Sodium 138 Potassium 3.5 Chloride 110 H Carbon Dioxide 21 L BUN 10 Creatinine 0.59 L Glucose 98 Calcium 7.7 L - ABG Interpretation ABG results: PT/INR, D-dimer PT 12.6 Seconds (9.4-12.1) H 12/08/18 09:01 Consult Discharge Plan - Plan Referrals: NONE,PCP [Primary Care Provider] -
[2018-12-15] MEDS: Pantoprazole 40 MG VIAL IVP SCH (10:46)
[2018-12-15] MEDS: Piperacillin/Tazobactam 3.375 GM in 0.9 % Sodium Chloride Mini Bag 100 ML IVPB SCH ×3 (10:47→23:56)
--- NOTE | 2018-12-15 14:24 | Internal Med Progress Note ---
Hospitalist Progress Note - Encounter Date of Encounter: 12/15/18 Time of Encounter: 14:20 - Subjective Interval History: Pt stated that he is feeling better, wnats to be a full code and wants to get back to [facility] home. - Exam Vitals: Temp Pulse Resp BP Pulse Ox 98 F 74 16 114/74 97 12/15/18 12:28 12/15/18 12:28 12/15/18 12:28 12/15/18 12:28 12/15/18 12:28 Exam: xx - Summary of Assessment and Plan Summary of Assessment and Plan: This is a 63 yom with morbid obesity presents with sepsis 1)sepsis due to decub Had MRD actinebacger, I am in the process to reach out to ID mean while, start colistin and watch the renal fucntion. Prognosis is poor since pt is nonambulatory 2)mrobid obesty: out pt work up 3) large intermitent bleeding gastric ulcer: cont sucrfate, PPI Pt is at high risk for bleeing, will hold heparin 4) deiblity: Pt will need rehab at residential 5)code: pt wants to be a full code I doubt in the event of a code, pt will make it bu twe will follow pt's wishes 6)dispo: await ID opoinin, advacing the diet. Time: 35min - Time Spent with Patient Total time spent is greater than 50% in coordination of care (as documented) at patient's floor/unit and/or counseling patient: Internal Medicine: Result - Labs CBC & Chem 7: 12/15/18 03:37 12/15/18 03:37 Labs: Short CBC 12/15/18 Range/Units 03:37 WBC 6.3 D (4.3-11.1) K/mcL Hgb 11.3 L D (12.9-16.9) g/dL Hct 34.5 L (37.5-50.1) % Plt Count 211 (140-400) K/mcL Neutrophils # 3.5 (1.6-8.9) K/mcL BMP 12/15/18 03:37 Sodium 138 Potassium 3.5 Chloride 110 H Carbon Dioxide 21 L BUN 10 Creatinine 0.59 L Glucose 98 Calcium 7.7 L - ABG Interpretation ABG results: PT/INR, D-dimer PT 12.6 Seconds (9.4-12.1) H 12/08/18 09:01 Consult Discharge Plan - Plan Referrals: NONE,PCP [Primary Care Provider] -
[2018-12-15] MEDS ORDERED: SODIUM CHLORIDE 0.9% IVPB SCH (15:00)
[2018-12-15] MEDS ORDERED: COLISTIN IVPB SCH (15:00)
[2018-12-15] MEDS: Sucralfate 1 GM TABLET PO SCH ×2 (16:16→21:06)
[2018-12-15] MEDS: Nystatin SUSP 5 ML UD.LIQ PO SCH ×2 (18:17→21:07)
[2018-12-15] MEDS: SODIUM CHLORIDE 0.9% IVPB SCH (18:17)
[2018-12-15] MEDS: COLISTIN IVPB SCH (18:17)
[2018-12-15] MEDS: Gabapentin 300 MG CAPSULE PO SCH (21:06)
[2018-12-15] MEDS: Spironolactone 25 MG TABLET PO SCH (21:07)
[2018-12-16] MEDS: COLISTIN IVPB SCH ×2 (05:33→16:51)
[2018-12-16] MEDS: SODIUM CHLORIDE 0.9% IVPB SCH ×2 (05:33→16:51)
[2018-12-16] MEDS: 0.9 % Sodium Chloride w KCl 20 MEQ/1,000 ML MLS IVC SCH ×3 (08:14→23:00)
[2018-12-16] MEDS: Piperacillin/Tazobactam 3.375 GM in 0.9 % Sodium Chloride Mini Bag 100 ML IVPB SCH (08:16)
[2018-12-16] MEDS: Furosemide 40 MG TABLET PO SCH (08:16)
[2018-12-16] MEDS: Sucralfate 1 GM TABLET PO SCH ×4 (08:16→21:50)
[2018-12-16] MEDS: Pantoprazole 40 MG VIAL IVP SCH (08:17)
[2018-12-16] MEDS: Spironolactone 25 MG TABLET PO SCH ×2 (08:17→20:55)
[2018-12-16] MEDS: Nystatin SUSP 5 ML UD.LIQ PO SCH ×4 (08:17→20:55)
[2018-12-16] MEDS: Gabapentin 300 MG CAPSULE PO SCH ×3 (08:17→20:56)
[2018-12-16] MEDS: Ondansetron 4 MG/2 ML VIAL IVP PRN (08:29)
[2018-12-16 09:05] LABS: Basophils # 0.1 K/mcL (0.0-0.2); Basophils % 0.8 %; Eosinophils # 0.4 K/mcL (0.0-0.6); Eosinophils % 4.8 %; Hematocrit 38.4 % (37.5-50.1); Hemoglobin 12.4 g/dL (12.9-16.9); Immature Granulocytes % 0.5 % (0-4); Lymphocytes # 1.8 K/mcL (0.6-4.6); Lymphocytes % 21.4 %; Mean Corpuscular HGB Conc 32.3 g/dL (31.6-35.5); Mean Corpuscular Hemoglobin 28.1 pg (28.0-33.3); Mean Corpuscular Volume 86.9 fL (83.0-100.0); Mean Platelet Volume 11.3 fL (9.4-12.4); Monocytes # 0.7 K/mcL (0.0-1.3); Monocytes % 8.6 %; Neutrophils # 5.4 K/mcL (1.6-8.9); Platelet Count 282 K/mcL (140-400); Red Blood Count 4.42 M/mcL (4.19-5.50); Red Cell Distribution Width 15.3 % (11.5-14.5); Segmented Neutrophils % 63.9 %
--- NOTE | 2018-12-16 10:40 | Infectious Disease Consult ---
Infectious Disease-Consult - Encounter Date/Time Date of Encounter: 12/16/18 Time of Encounter: 10:45 - Data of Consult Requesting Physician: Juan Fowler Primary Care Provider: PCP NONE - HPI HPI: Patient is a 63-year-old male who was admitted to the hospital on 12/07/18 with nausea and vomiting and concerns for ileus versus SBO. Infectious disease was consulted on 12/16/18 for sepsis and wound cultures positive for Proteus mirabilis and fields resistant Acinetobacter Baumannii. Patient is a 63-year-old male who is a resident of [facility] with a past medical history of morbid obesity, lower extremity decubitus ulcers, recent colostomy for diversion performed at [facility], and is bedbound. He presented to [facility] with a one-day history of nausea and multiple dark brown episodes of emesis. On presentation he was he was hemodynamically stable, his abdomen was soft and nontender, and chronic unkempt decubitus ulcers were noted. CT scan was performed which was significant for dilation of the stomach and proximal small bowel concerning for ileus versus SBO. There was also an incidental finding of soft tissue stranding in the right gluteal soft tissues suggestive of cellulitis. Patient was admitted to the hospital for concerns of SBO and made NPO. Prior to admission cultures of his wound were obtained, but antimicrobials were not warranted at that time as patient was hemodynamically stable, did not have any leukocytosis, and there were no clinical signs other than the CT to suggest active infection. Over the next few days x-ray imaging identified increasing abdominal distention. An NG tube was placed and gastroenterology was consulted. On 12/11 patient had a rapid increase in his white blood cell count to 20.9 without bandemia. This was suspected to be reactive in nature secondary to the ileus. His white blood cell count slightly increased 21.4 the next day and then fell to 13.9 on 12/13/18. On 12/13 patient spiked one fever of 100.7 axillary temp which occurred few hours after his EGD. On 12/12 patient's decubitus ulcer wound culture grew Proteus mirabilis and he was started on Zosyn with the first dose on 12/13/18. His leukocytosis improved over the next few days and his vitals remained stable. On 12/15 patient's wound culture also grew fields resistant Acinetobacter baumannii and he was started on Colestin. Of note, wound care was consulted on admission for this patient for management of his sacral decubitus ulcer. Patient was reportedly treated in December 2017 for a stage IV pressure injury to his sacrum and was transferred to [facility] for further wound care and a diverting colostomy. Per their note, the majority of the wound has healed but in a crevice on the right buttock there was an open wound that measured 6 cm x 1 cm with a beefy red wound bed. Today patient denies any fevers, chills, chest pain, short of breath, abdominal pain, nausea, vomiting, diarrhea. He is tolerating his diet. - ROS Review of Systems: 10 system review of systems performed and is negative except as stated in hi story of present illness - Results CBC & Chem 7: 12/17/18 04:00 12/17/18 04:00 - Exam Vitals: Temp Pulse Resp BP Pulse Ox 97.8 F 77 16 116/78 95 12/16/18 10:10 12/16/18 10:10 12/16/18 10:10 12/16/18 10:10 12/16/18 10:10 Exam: General: Morbidly obese, no acute distress HEENT: Head is atraumatic normocephalic, pupils are equal and round, EOMI, mucosa moist, external ears and nares patent Neck: Unable to assess for JVD to obesity, trachea midline Chest: Surgical chest wall rise, no tenderness to palpation Cardiovascular: Regular rate and rhythm, no murmurs Respiratory: Clear to auscultation bilaterally, no rales rhonchi or wheezing Abdomen: Obese, there is a colostomy bag in the left lower quadrant. Soft, nontender, no guarding or rigidity Extremities: Bandaged lower extremities due to wounds Skin: Unable to personally examine sacral decubitus ulcer due to body habitus Neurological: Alert and oriented 3, no obvious focal neurological deficits Psych: Appropriate mood and affect Spironolactone [Aldactone] 100 mg PO DAILY 12/05/17 [History] Ammonium Lactate [Evangelina-Hydrolac] 1 appl TP DAILY 12/07/18 [History] Chloraseptic [place] [Chloraseptic] 1 spray MM Q6H PRN 12/07/18 [History] Collagenase Oint [Santyl] 1 appl TP DAILY MDD + NEEDED 12/07/18 [History] Docusate [Colace] 100 mg PO BID PRN 12/07/18 [History] Ferrous Sulfate 324 mg PO DAILY 12/07/18 [History] Furosemide [Lasix] 40 mg PO DAILY 12/07/18 [History] Gabapentin [Neurontin] 600 mg PO TID 12/07/18 [History] Multivit,Th Iron,Other Min [Therems-M] 1 tab PO DAILY 12/07/18 [History] Omeprazole [PriLOSEC] 20 mg PO BID 12/07/18 [History] Oxycodone HCl [Roxybond] 20 mg PO AD PRN 12/07/18 [History] Sodium Hypochlorite [Dakin's] 1 appl TP BID 12/07/18 [History] Sodium Hypochlorite [Dakin's] 1 appl TP DAILY MDD DAILY + PRN 12/07/18 [History] Sucralfate [Carafate] 1 gm PO QID 12/07/18 [History] Colistin (Colistimethate Na) [Colistimethate] 170 mg IV Q12H #10 vial 12/17/18 [Rx] Allergy/AdvReac Type Severity Reaction Status Date / Time No Known Allergies Allergy Verified 01/03/18 11:58 - Assessment and Plan (1) Sepsis Current Visit: No Status: Resolved -12/07: Patient presented with N/V. Hemodynamically stable on admission, no leukocytosis, not septic -12/07: CT abdomen and pelvis showed dilation of stomach and proximal small bowel concerning for Ileus vs. SBO -12/07: CT abdomen and pelvis revealed soft tissue stranding of right gluteal soft tissue suggesting cellulitis -12/10: KUB XR showed severe gaseous distention of stomach favoring gastric outlet obstruction -12/11: NG tube inserted -12/11: developed leukocytosis of 20.9, without bandemia. Possibly secondary to underlying obstruction vs. sepsis -12/13: Underwent EGD by GI -12/13: spiked one fever of 100.7, axillary temperature. No blood cultures obtained -12/13: wound culture growing proteus, started on zosyn -12/15: wound culture growing MDR acinetobacter, started on colistin -12/15: leukocytosis resolved, hemodynamically stable Plan: -Patient meets sepsis criteria due to leukocytosis and fever -Wound cultures growing MDR acinetobacter and proteus -On zosyn day 4 -On colistin day 2 -Sepsis resolved, hemodynamically stable -Recommend stopping zosyn -Continue colistin at 170mg Q12H for 12 more days Qualifiers: Sepsis type: sepsis due to unspecified organism Qualified Code(s): A41.9 - Sepsis, unspecified organism SNOMED Code(s): 51433532 (2) MDR Acinetobacter baumannii infection Current Visit: Yes Status: Acute -12/15: wound cultures obtained on 12/07 gew MDR acinetobacter -12/15: Started on colistin, currently day 2 -Wound care evaluated the ulcer and it appeared to be healing, however an open wound measuring [id number] was noted -Recommend continuing colistin 12 more days SNOMED Code(s): 112620236 (3) Sacral decubitus ulcer Current Visit: Yes Status: Acute -History of chronic stage 4 sacral decubitus ulcer -Underwent treatment one year ago and had to be transferred to [facility] for further treatment for the extensive ulcer and diverting colostomy -Wound culture growing proteus and MDR acinetobacter Qualifiers: Qualified Code(s): L89.152 - Pressure ulcer of sacral region, stage 2 SNOMED Code(s): 901396211 (4) Morbid obesity with BMI of 50.0-59.9, adult Current Visit: Yes Status: Acute -bed bound, history of significant stage 4 sacral decubitus ulcer SNOMED Code(s): 814820742, 77010248862420 Past Med Surg Social Fam HX - Past Medical History Medical history: other Additional medical history: lymphedema Psychiatric history: no psych history - Past Surgical History Surgical History: colostomy Additional surgical history: colostomy - Social History Smoking Status: Never smoker Smokeless Tobacco Status: No Alcohol use: rarely Drug use: marijuana - Family History Mother Family Member Ethnicity: Non- Living Status: Hx Family Cardiac Disorders: Yes Hx Family Respiratory Disorders: Yes Hx Family Cancer: No Hx Family GI Disorders: No Hx Family Endocrine Disorder: No Hx Family Neuromuscular Disorders: No Hx Family Neurologic Disorders: No Hx Family HEENT Disorders: No Hx Family Autoimmune Disorders: No Father Living Status: Hx Family Cardiac Disorders: Yes (htn) Hx Family Respiratory Disorders: No Hx Family Cancer: No Hx Family GI Disorders: No Hx Family Endocrine Disorder: Yes Hx Family Neuromuscular Disorders: Yes Hx Family Neurologic Disorders: Yes Hx Family HEENT Disorders: No Hx Family Autoimmune Disorders: No Consult Discharge Plan - Plan Referrals: NONE,PCP [Primary Care Provider] - Prescriptions: Colistin (Colistimethate Na) [Colistimethate] 170 mg IV Q12H #10 vial - Attending Attestation I examined this patient and my medical decision-making was reviewed with the Resident Physician. I agree with the documented findings, disposition and treatment plan as described except to the extent set forth below. Patient seen and examined. Agree with above review of system and physical exam findings. I did get a chest to speak with wound care and I appreciated their input and information they were able to provide. Assessment and plan: 1.Sepsis likely secondary to sacral decubitus ulcer 2.Multidrug resistant Acetobacter baumanni infection 3.Sacral decubitus ulcer stage IV improving 4.Morbid obesity BMI 62 Recommendations: I did get a chest to speak with microbiology. There is no suppressed an tibiotics that the patient was susceptible to for the Acinetobacter. We will start the patient on colistin agree with the current dose of 170 mg every 12 hours That should also cover Proteus We can stop the Zosyn Duration of treatment 14 days total Patient will need a power glide Discussed with the PICC line team the Cipro glide is fine for colistin Monitor labs and for drug toxicity
--- NOTE | 2018-12-16 15:10 | Internal Med Progress Note ---
Hospitalist Progress Note - Encounter Date of Encounter: 12/16/18 Time of Encounter: 15:08 - Subjective Interval History: Pt wants to go back to nursign home, stated that he wants air matress - Exam Vitals: Temp Pulse Resp BP Pulse Ox 97.8 F 75 16 120/82 94 12/16/18 14:07 12/16/18 14:07 12/16/18 14:07 12/16/18 14:07 12/16/18 14:07 Exam: Gen: Lying in bed NAD Hear: S1, S2, RRR Lungs: poor airentry due to body habitus Abd: soft, protubrent LE: 3+ pitting edema - Summary of Assessment and Plan Summary of Assessment and Plan: This is a 63 yom with morbid obesity presents with sepsis 1)sepsis due to decub Had MRD actinebacger, I am in the process to reach out to ID mean while, start colistin and watch the renal fucntion. Prognosis is poor since pt is nonambulatory Pt grew out of MRD sandhya Go asked ID to see the pt ID is deciding on the medication 2)mrobid obesty: out pt work up 3) large intermitent bleeding gastric ulcer: cont sucrfate, PPI Pt is at high risk for bleeing, will hold heparin hgb stable 4) deiblity: Pt will need rehab at [facility] 5)code: pt wants to be a full code I doubt in the event of a code, pt will make it bu twe will follow pt's wishes 6)dispo: advancing diet, waiting for ID opinion Time: 35min - Time Spent with Patient Total time spent is greater than 50% in coordination of care (as documented) at patient's floor/unit and/or counseling patient: Internal Medicine: Result - Labs CBC & Chem 7: 12/16/18 08:30 12/15/18 03:37 Labs: Short CBC 12/16/18 Range/Units 08:30 WBC 8.5 (4.3-11.1) K/mcL Hgb 12.4 L (12.9-16.9) g/dL Hct 38.4 (37.5-50.1) % Plt Count 282 (140-400) K/mcL Neutrophils # 5.4 (1.6-8.9) K/mcL - ABG Interpretation ABG results: PT/INR, D-dimer PT 12.6 Seconds (9.4-12.1) H 12/08/18 09:01 Consult Discharge Plan - Plan Referrals: NONE,PCP [Primary Care Provider] - Prescriptions: Amoxicillin/Clavulanate [Augmentin] 875 mg PO BIDWM #14 tablet
[2018-12-17 04:31] LABS: Basophils # 0.1 K/mcL (0.0-0.2); Basophils % 1.1 %; Eosinophils # 0.5 K/mcL (0.0-0.6); Eosinophils % 7.3 %; Hematocrit 37.7 % (37.5-50.1); Hemoglobin 12.1 g/dL (12.9-16.9); Immature Granulocytes % 0.5 % (0-4); Lymphocytes # 2.5 K/mcL (0.6-4.6); Lymphocytes % 34.2 %; Mean Corpuscular HGB Conc 32.1 g/dL (31.6-35.5); Mean Corpuscular Hemoglobin 27.9 pg (28.0-33.3); Mean Corpuscular Volume 86.9 fL (83.0-100.0); Mean Platelet Volume 11.1 fL (9.4-12.4); Monocytes # 0.7 K/mcL (0.0-1.3); Monocytes % 9.4 %; Neutrophils # 3.5 K/mcL (1.6-8.9); Nucleated Red Blood Cells 0.3 /100 WBC (0); Platelet Count 242 K/mcL (140-400); Red Blood Count 4.34 M/mcL (4.19-5.50); Red Cell Distribution Width 15.3 % (11.5-14.5); Segmented Neutrophils % 47.5 %
[2018-12-17 04:51] LABS: Alanine Aminotransferase 48 Units/L (7-52); Albumin 2.7 g/dL (3.5-5.7); Albumin/Globulin Ratio 0.9 (1.1-2.2); Alkaline Phosphatase 39 Units/L (34-104); Aspartate Amino Transferase 33 Units/L (13-39); BUN/Creatinine Ratio 13 (6-26); Bilirubin,Total 0.7 mg/dL (0.3-1.0); Blood Urea Nitrogen 7 mg/dL (8-23); Calcium 8.2 mg/dL (8.6-10.3); Carbon Dioxide 24 mEq/L (23-29); Chloride 108 mEq/L (98-107); Globulin 3.1 g/dL (2.4-3.5); Glucose 94 mg/dL (70-105); Osmolality,Calculated 276 (280-300); Potassium 4.1 mEq/L (3.5-5.1); Sodium 134 mEq/L (136-145); Total Protein 5.8 g/dL (6.4-8.9); eGFR For Non-African Americans > 60 (> 60)
[2018-12-17] MEDS: COLISTIN IVPB SCH ×2 (05:56→16:53)
[2018-12-17] MEDS: SODIUM CHLORIDE 0.9% IVPB SCH ×2 (05:56→16:53)
[2018-12-17] MEDS: Spironolactone 25 MG TABLET PO SCH ×2 (09:32→11:57)
[2018-12-17] MEDS: Sucralfate 1 GM TABLET PO SCH ×3 (09:32→16:56)
[2018-12-17] MEDS: Gabapentin 300 MG CAPSULE PO SCH ×2 (09:33→15:18)
[2018-12-17] MEDS: Nystatin SUSP 5 ML UD.LIQ PO SCH ×3 (09:33→16:56)
[2018-12-17] MEDS: Furosemide 40 MG TABLET PO SCH ×2 (09:36→11:57)
--- NOTE | 2018-12-17 13:21 | Discharge Summary ---
- NOTES TO OUTPATIENT PROVIDER Notes to Outpatient Provider: PCp 2-5 dyas, pallative care in 4-8 weeks for goal of therapy, ID in 1-2 weeks, GI in 1-2 weeks Orders not resulted at time of discharge: Pending orders 12/13/18 13:47 Surgical Pathology [PTH] Routine 12/18/18 04:00 Complete Blood Count [HEME] AM 0400 Comprehensive Metabolic Panel AM 0400 12/19/18 04:00 Complete Blood Count [HEME] AM 0400 Comprehensive Metabolic Panel AM 0400 12/20/18 04:00 Complete Blood Count [HEME] AM 0400 Comprehensive Metabolic Panel AM 0400 12/21/18 04:00 Complete Blood Count [HEME] AM 0400 Comprehensive Metabolic Panel AM 0400 Date of Encounter: 12/17/18 Time of Encounter: 13:18 - Discharge Diagnosis (1) Abdominal distension Priority: Primary Status: Acute (2) MDR Acinetobacter baumannii infection Priority: Secondary Status: Acute (3) Sacral decubitus ulcer Priority: Secondary Status: Acute Qualifiers: Qualified Code(s): L89.152 - Pressure ulcer of sacral region, stage 2 Hospital course: Benjamin Adams is a morbidly obese 63 year old man resident of [facility] who is bedridden with bilateral lower extremity and decubitus wounds and has a colostomy done for diversion at [facility] presenting to the ER complaining of nausea and dark brown vomitus that occurred multiple times in the past 1 day leaving him unable to keep anything own. No bloody emesis reported, no abdominal pain, changes in the colostomy output, fever or chills. In the ER he was seen clinically and hemodynamically stable. Lab work was grossly unremarkable. Imaging studies as reviewed by me showed dilation of the stomach and proximal small bowel extending to the proximal to mid jejunum, findings related to ileus or early SBO as per the official report. Pt was kept in the hospital and pt was seen by GI, who took the pt for EGD which showed a large ulcer, clean based. Pt was given transfusion. Pt then had abx with that, pt WBC is down trending, hwoever, pt wound grew out of MRD acitnebacter, we are waiting for ID to make their final recommendations as to abx, then pt will be discharged. Pt should avoid ALL Nsaids and follow up with GI, ID, PCP. - Time Spent with Patient Total time spent providing and/or coordinating discharge services: - Discharge Medications Prescriptions: New Amoxicillin/Clavulanate [Augmentin] 875 mg PO BIDWM #14 tablet No Action Spironolactone [Aldactone] 100 mg PO DAILY Docusate [Colace] 100 mg PO BID PRN PRN Reason: Constipation Oxycodone HCl [Roxybond] 20 mg PO AD PRN PRN Reason: Pain Ammonium Lactate [Evangelina-Hydrolac] 1 appl TP DAILY Chloraseptic [place] [Chloraseptic] 1 spray MM Q6H PRN PRN Reason: Sore Throat Collagenase Oint [Santyl] 1 appl TP DAILY MDD + NEEDED Ferrous Sulfate 324 mg PO DAILY Furosemide [Lasix] 40 mg PO DAILY Gabapentin [Neurontin] 600 mg PO TID Multivit,Th Iron,Other Min [Therems-M] 1 tab PO DAILY Omeprazole [PriLOSEC] 20 mg PO BID Sodium Hypochlorite [Dakin's] 1 appl TP DAILY MDD DAILY + PRN Sodium Hypochlorite [Dakin's] 1 appl TP BID Sucralfate [Carafate] 1 gm PO QID Home Medications: Spironolactone [Aldactone] 100 mg PO DAILY 12/05/17 [History] Ammonium Lactate [Evangelina-Hydrolac] 1 appl TP DAILY 12/07/18 [History] Chloraseptic [place] [Chloraseptic] 1 spray MM Q6H PRN 12/07/18 [History] Collagenase Oint [Santyl] 1 appl TP DAILY MDD + NEEDED 12/07/18 [History] Docusate [Colace] 100 mg PO BID PRN 12/07/18 [History] Ferrous Sulfate 324 mg PO DAILY 12/07/18 [History] Furosemide [Lasix] 40 mg PO DAILY 12/07/18 [History] Gabapentin [Neurontin] 600 mg PO TID 12/07/18 [History] Multivit,Th Iron,Other Min [Therems-M] 1 tab PO DAILY 12/07/18 [History] Omeprazole [PriLOSEC] 20 mg PO BID 12/07/18 [History] Oxycodone HCl [Roxybond] 20 mg PO AD PRN 12/07/18 [History] Sodium Hypochlorite [Dakin's] 1 appl TP BID 12/07/18 [History] Sodium Hypochlorite [Dakin's] 1 appl TP DAILY MDD DAILY + PRN 12/07/18 [History] Sucralfate [Carafate] 1 gm PO QID 12/07/18 [History] Amoxicillin/Clavulanate [Augmentin] 875 mg PO BIDWM #14 tablet 12/16/18 [Rx] Allergies/Adverse Reactions: Allergy/AdvReac Type Severity Reaction Status Date / Time No Known Allergies Allergy Verified 01/03/18 11:58 Date of admission: 12/11/18 14:15 Primary care physician: PCP NONE Consults: 12/07/18 19:56 Consult to Wound Care [CONS] Routine Reason for Consult: decubitus ulcers Call Completed: No 12/07/18 23:03 Consult to Uke Operator [CONS] Routine Reason for SW Consult: d/c to ECF 12/10/18 21:58 Consult to Gastroenterology [CONS] Routine Consulting Provider: Gastroenterology Roselia Reason for Consult: ABDOMINAL DISTENSION; KUB IS FAVORING DX OF GASTRIC OUTLET OBSTRUCTION (VERSUS GASTRIC VOLVULUS) Time Notified: 18:00 Call Completed: Yes 12/13/18 08:28 Consult to Invasive Line Access Team [CONS] Routine Reason for Consult: Limited IV access Line Type: EPIV 12/16/18 08:20 Consult to Infectious Diseases [CONS] Routine Consulting Provider: Infectious Disease Andrews Reason for Consult: MRD Proteus Call Completed: Yes - Constitutional Vitals: Temp Pulse Resp BP Pulse Ox 97.8 F 78 16 101/69 94 12/17/18 11:04 12/17/18 11:04 12/17/18 11:04 12/17/18 11:04 12/17/18 11:04 Exam: Gen: Lying in bed NAD Hear: S1, S2, RRR Lungs: poor airentry due to body habitus Abd: soft, protubrent LE: 3+ pitting edema - Patient Status Disposition: Transfer Inpatient Rehab Fac Condition: Fair - Discharge Instructions Follow Up With: NONE,PCP [Primary Care Provider] -
--- NOTE | 2018-12-17 13:25 | Physician Discharge Referral ---
[facility] Referral Info [facility] - Diagnosis (1) Abdominal distension Priority: Primary Status: Acute (2) MDR Acinetobacter baumannii infection Status: Acute (3) Sacral decubitus ulcer Status: Acute - Transfer Medications Prescriptions: Amoxicillin/Clavulanate [Augmentin] 875 mg PO BIDWM #14 tablet Home Medications: Spironolactone [Aldactone] 100 mg PO DAILY 12/05/17 [History] Ammonium Lactate [Evangelina-Hydrolac] 1 appl TP DAILY 12/07/18 [History] Chloraseptic [place] [Chloraseptic] 1 spray MM Q6H PRN 12/07/18 [History] Collagenase Oint [Santyl] 1 appl TP DAILY MDD + NEEDED 12/07/18 [History] Docusate [Colace] 100 mg PO BID PRN 12/07/18 [History] Ferrous Sulfate 324 mg PO DAILY 12/07/18 [History] Furosemide [Lasix] 40 mg PO DAILY 12/07/18 [History] Gabapentin [Neurontin] 600 mg PO TID 12/07/18 [History] Multivit,Th Iron,Other Min [Therems-M] 1 tab PO DAILY 12/07/18 [History] Omeprazole [PriLOSEC] 20 mg PO BID 12/07/18 [History] Oxycodone HCl [Roxybond] 20 mg PO AD PRN 12/07/18 [History] Sodium Hypochlorite [Dakin's] 1 appl TP BID 12/07/18 [History] Sodium Hypochlorite [Dakin's] 1 appl TP DAILY MDD DAILY + PRN 12/07/18 [History] Sucralfate [Carafate] 1 gm PO QID 12/07/18 [History] Amoxicillin/Clavulanate [Augmentin] 875 mg PO BIDWM #14 tablet 12/16/18 [Rx] Allergies/Adverse Reactions: Allergy/AdvReac Type Severity Reaction Status Date / Time No Known Allergies Allergy Verified 01/03/18 11:58 - Respiratory Orders Smoking Cessation: Smoking cessation has been advised. For more information, call the [place] Tobacco Quit Line at 5-194-GNDB-NOW. CERTIFICATION: I certify that the transfer of the above named patient to an Extended Care Facility is necessary for the continuing treatment of the diagnosis listed. The above information is true and accurate reflection of patient's current condition. Confidential - Redisclosure prohibited without a patient's written consent.
[2018-12-17 14:41] VITALS: BP 96/66
== END 2018-12-17 18:53 | DRG 720 ==
LOC: 3ANU 16:46 → EMEROOARM 16:46 → SUATTDRO 21:04 → 3ANU 21:55 → SUATTDRO 12-11 14:15
PROVIDERS: ADMIT Internal Medicine; ATTEND Internal Medicine
PROC: ENDOEBX (2018-12-13 14:00)

== ENCOUNTER 2020-04-01 13:01 | Inpatient (IN) ==
[2020-04-01 13:43] LABS: Hematocrit 47.9 % (37.5-50.1); Hemoglobin 14.4 g/dL (12.9-16.9); Mean Corpuscular HGB Conc 30.1 g/dL (31.6-35.5); Mean Corpuscular Hemoglobin 27.9 pg (28.0-33.3); Mean Corpuscular Volume 92.6 fL (83.0-100.0); Mean Platelet Volume 10.4 fL (9.4-12.4); Platelet Count 218 K/mcL (140-400); Red Blood Count 5.17 M/mcL (4.19-5.50); Red Cell Distribution Width 15.3 % (11.5-14.5); White Blood Count 5.7 K/mcL (4.3-11.1)
[2020-04-01 13:44] LABS: INR 1.2; Prothrombin Time 13.4 Seconds (9.4-12.1)
[2020-04-01 13:47] LABS: Activated Partial Thrombo Time 31.7 Seconds (26.0-36.0)
[2020-04-01 14:02] LABS: BUN/Creatinine Ratio 24 (6-26); Blood Urea Nitrogen 23 mg/dL (8-23); Calcium 8.2 mg/dL (8.6-10.3); Carbon Dioxide 34 mEq/L (23-29); Chloride 98 mEq/L (98-107); Glucose 115 mg/dL (70-105); Osmolality,Calculated 293 (280-300); Potassium 3.8 mEq/L (3.5-5.1); Sodium 139 mEq/L (136-145); eGFR For African Americans > 60 (> 60); eGFR For Non-African Americans > 60 (> 60)
[2020-04-01 14:08] LABS: Lymphocytes # 2.2 K/mcL (0.6-4.6); Monocytes # 0.3 K/mcL (0.0-1.3); Neutrophils # 3.2 K/mcL (1.6-8.9)
[2020-04-01 14:09] LABS: Platelet Estimate Normal (Normal)
[2020-04-01 14:11] LABS: Reactive Lymphocytes Present (Not Present)
[2020-04-01 14:12] LABS: Troponin I 0.06 ng/mL (< 0.04)
[2020-04-01] MEDS ORDERED: Isovue-370 500 ML BOTTLE IVP ONE (14:12)
[2020-04-01 14:58] LABS: ABG Base Excess 8 mEq/L (-2 to 3); ABG HCO3 38 mEq/L (21-27); ABG Oxygen Saturation 90 % (95-98); ABG PCO2 72 mmHg (35-45); ABG PH 7.33 pH Units (7.32-7.45); ABG PO2 66 mmHg (85-104); ABG TCO2 40 mEq/L (20-26)
[2020-04-01] MEDS ORDERED: cefTRIAXone 1,000 MG in Water for inj. (sterile) 10 ML IVP ONE (15:00)
[2020-04-01] MEDS ORDERED: Azithromycin 500 MG in 0.9 % Sodium Chloride 250 ML IVPB ONE (15:00)
[2020-04-01 17:08] LABS: ABG Base Excess 9 mEq/L (-2 to 3); ABG HCO3 39 mEq/L (21-27); ABG Oxygen Saturation 89 % (95-98); ABG PCO2 80 mmHg (35-45); ABG PO2 66 mmHg (85-104); ABG TCO2 41 mEq/L (20-26)
[2020-04-01] MEDS ORDERED: Naloxone 0.4 MG/ML INJ IVP PRN (18:05)
[2020-04-01] MEDS ORDERED: *HR* Heparin 5,000 UNIT/ML VIAL IVP ONE (18:05)
[2020-04-01] MEDS ORDERED: *HR* Heparin 5,000 UNIT/ML VIAL IVP PRN ×2 (18:05)
[2020-04-01] MEDS ORDERED: Perflutren Lipid Microsphere 1.3 ML in 0.9 % Sodium Chloride 8.7 ML IVP PRN (18:16)
[2020-04-01] MEDS: Heparin 25,000UNIT/250ML 1/2NS 25,000 UNIT/250 ML IV.SOLN IVC SCH (19:07)
[2020-04-01] MEDS: Dexamethasone 4 MG/ML VIAL IVP SCH (19:35)
[2020-04-01] MEDS: Piperacillin/Tazobactam 3.375 GM in 0.9 % Sodium Chloride Mini Bag 100 ML IVPB SCH (19:36)
[2020-04-01 19:38] LABS: ABG Base Excess 7 mEq/L (-2 to 3); ABG HCO3 35 mEq/L (21-27); ABG Oxygen Saturation 92 % (95-98); ABG PCO2 64 mmHg (35-45); ABG PH 7.35 pH Units (7.32-7.45); ABG PO2 71 mmHg (85-104); ABG TCO2 37 mEq/L (20-26); Blood Gas Modality avaps; Blood Gas Pressure Support 40 cm H2O; Blood Gas VT 550 cc
[2020-04-01] MEDS ORDERED: Ipratropium/Albuterol Neb 3 ML IH SCH (20:00)
[2020-04-01] MEDS: Ipratropium 1 PUFF INHALER IH SCH (23:28)
[2020-04-01] MEDS: Vancomycin 2,000 MG/520 ML IV.SOLN IVPB SCH (23:30)
[2020-04-02] MEDS: Ipratropium 1 PUFF INHALER IH SCH ×6 (03:29→23:41)
[2020-04-02] MEDS: Piperacillin/Tazobactam 3.375 GM in 0.9 % Sodium Chloride Mini Bag 100 ML IVPB SCH ×3 (04:45→21:11)
[2020-04-02 04:59] LABS: Basophils % 0.4 %; Hematocrit 44.4 % (37.5-50.1); Immature Granulocytes % 0.4 % (0-4); Lymphocytes # 0.9 K/mcL (0.6-4.6); Lymphocytes % 18.3 %; Mean Corpuscular HGB Conc 31.5 g/dL (31.6-35.5); Mean Corpuscular Volume 92.1 fL (83.0-100.0); Monocytes # 0.2 K/mcL (0.0-1.3); Monocytes % 3.5 %; Neutrophils # 3.7 K/mcL (1.6-8.9); Platelet Count 192 K/mcL (140-400); Red Blood Count 4.82 M/mcL (4.19-5.50); Red Cell Distribution Width 14.8 % (11.5-14.5); Segmented Neutrophils % 77.4 %; White Blood Count 4.8 K/mcL (4.3-11.1)
[2020-04-02 05:16] LABS: BUN/Creatinine Ratio 33 (6-26); Blood Urea Nitrogen 26 mg/dL (8-23); C-Reactive Protein 109 mg/L (Less than 10); Calcium 7.8 mg/dL (8.6-10.3); Carbon Dioxide 29 mEq/L (23-29); Chloride 98 mEq/L (98-107); Glucose 138 mg/dL (70-105); Magnesium 2.1 mg/dL (1.6-2.6); Osmolality,Calculated 293 (280-300); Phosphorous 2.8 mg/dL (2.7-4.5); Potassium 4.1 mEq/L (3.5-5.1); Sodium 138 mEq/L (136-145); eGFR For African Americans > 60 (> 60); eGFR For Non-African Americans > 60 (> 60)
[2020-04-02 05:19] LABS: Albumin 3.2 g/dL (3.5-5.7); Albumin/Globulin Ratio 0.9 (1.1-2.2); Bilirubin,Direct 0.1 mg/dL (0.0-0.2); Bilirubin,Indirect 0.4 mg/dL (0.0-1.0); Bilirubin,Total 0.5 mg/dL (0.3-1.0); Globulin 3.4 g/dL (2.4-3.5); Total Protein 6.6 g/dL (6.4-8.9); Troponin I 0.03 ng/mL (< 0.04)
[2020-04-02 05:28] LABS: Heparin anti-factor XA UFH 1.31 IU/mL (0.30-0.70)
[2020-04-02 05:45] LABS: Platelet Estimate Normal (Normal)
[2020-04-02 06:12] LABS: ABG Base Excess 5 mEq/L (-2 to 3); ABG HCO3 31 mEq/L (21-27); ABG Oxygen Saturation 82 % (95-98); ABG PCO2 49 mmHg (35-45); ABG PH 7.41 pH Units (7.32-7.45); ABG PO2 47 mmHg (85-104); ABG TCO2 32 mEq/L (20-26)
[2020-04-02] MEDS: Heparin 25,000UNIT/250ML 1/2NS 25,000 UNIT/250 ML IV.SOLN IVC SCH ×2 (09:07→21:09)
[2020-04-02] MEDS: Vancomycin 2,000 MG/520 ML IV.SOLN IVPB SCH ×2 (09:11→21:10)
[2020-04-02] MEDS: Dexamethasone 4 MG/ML VIAL IVP SCH (09:12)
[2020-04-02] MEDS: Pantoprazole 40 MG VIAL IVP SCH (09:12)
[2020-04-02] MEDS ORDERED: Furosemide 40 MG/4 ML VIAL IVP ONE (09:57)
[2020-04-03] MEDS: Ipratropium 1 PUFF INHALER IH SCH ×5 (04:02→20:15)
[2020-04-03] MEDS: Piperacillin/Tazobactam 3.375 GM in 0.9 % Sodium Chloride Mini Bag 100 ML IVPB SCH ×2 (05:59→09:04)
[2020-04-03 07:14] LABS: Hematocrit 40.6 % (37.5-50.1); Hemoglobin 12.9 g/dL (12.9-16.9); Mean Corpuscular HGB Conc 31.8 g/dL (31.6-35.5); Mean Corpuscular Volume 88.1 fL (83.0-100.0); Mean Platelet Volume 11.7 fL (9.4-12.4); Monocytes # 0.4 K/mcL (0.0-1.3); Platelet Count 216 K/mcL (140-400); Red Blood Count 4.61 M/mcL (4.19-5.50); Red Cell Distribution Width 14.6 % (11.5-14.5); White Blood Count 5.4 K/mcL (4.3-11.1)
[2020-04-03 07:20] LABS: Heparin anti-factor XA UFH 0.71 IU/mL (0.30-0.70)
[2020-04-03 07:56] LABS: BUN/Creatinine Ratio 31 (6-26); Blood Urea Nitrogen 26 mg/dL (8-23); Calcium 7.9 mg/dL (8.6-10.3); Carbon Dioxide 29 mEq/L (23-29); Chloride 100 mEq/L (98-107); Glucose 142 mg/dL (70-105); Osmolality,Calculated 293 (280-300); Potassium 3.6 mEq/L (3.5-5.1); Sodium 138 mEq/L (136-145); Vancomycin,Trough 24 mcg/mL (5-10); eGFR For African Americans > 60 (> 60); eGFR For Non-African Americans > 60 (> 60)
[2020-04-03] MEDS: Pantoprazole 40 MG VIAL IVP SCH (08:25)
[2020-04-03] MEDS: Dexamethasone 4 MG/ML VIAL IVP SCH (08:25)
[2020-04-03 08:51] LABS: Lymphocytes # 0.8 K/mcL (0.6-4.6); Neutrophils # 4.2 K/mcL (1.6-8.9)
[2020-04-03 08:52] LABS: Platelet Estimate Normal (Normal)
[2020-04-03] MEDS: Vancomycin 2,000 MG/520 ML IV.SOLN IVPB SCH (09:03)
[2020-04-03] MEDS: Heparin 25,000UNIT/250ML 1/2NS 25,000 UNIT/250 ML IV.SOLN IVC SCH ×2 (09:50→09:51)
[2020-04-03] MEDS ORDERED: Furosemide 40 MG/4 ML VIAL IVP ONE (11:03)
[2020-04-03] MEDS ORDERED: *HR* Enoxaparin 100 MG/ML SYRINGE SQ SCH (18:00)
[2020-04-03] MEDS ORDERED: *HR* Warfarin 5 MG TABLET PO ONE (18:00)
[2020-04-03] MEDS ORDERED: Warfarin perPT PO PRN (18:00)
[2020-04-03] MEDS ORDERED: Vancomycin 1,500 MG/265 ML IV.SOLN IVPB SCH (21:00)
[2020-04-03] MEDS: Doxycycline 100 MG CAPSULE PO SCH (21:06)
[2020-04-04] MEDS: Heparin 25,000UNIT/250ML 1/2NS 25,000 UNIT/250 ML IV.SOLN IVC SCH (00:29)
[2020-04-04] MEDS: Ipratropium 1 PUFF INHALER IH SCH ×7 (00:37→23:42)
[2020-04-04 03:13] LABS: Basophils % 0.2 %; Eosinophils % 0.2 %; Hematocrit 39.6 % (37.5-50.1); Hemoglobin 12.8 g/dL (12.9-16.9); Immature Granulocytes % 0.8 % (0-4); Lymphocytes # 1.1 K/mcL (0.6-4.6); Lymphocytes % 20.2 %; Mean Corpuscular HGB Conc 32.3 g/dL (31.6-35.5); Mean Corpuscular Hemoglobin 28.4 pg (28.0-33.3); Mean Corpuscular Volume 87.8 fL (83.0-100.0); Mean Platelet Volume 11.6 fL (9.4-12.4); Monocytes # 0.4 K/mcL (0.0-1.3); Monocytes % 7.4 %; Platelet Count 231 K/mcL (140-400); Red Blood Count 4.51 M/mcL (4.19-5.50); Red Cell Distribution Width 14.6 % (11.5-14.5); Segmented Neutrophils % 71.2 %; White Blood Count 5.3 K/mcL (4.3-11.1)
[2020-04-04 03:14] LABS: INR 1.2; Prothrombin Time 13.5 Seconds (9.4-12.1)
[2020-04-04 03:16] LABS: Neutrophils # 3.8 K/mcL (1.6-8.9)
[2020-04-04 03:40] LABS: BUN/Creatinine Ratio 38 (6-26); Blood Urea Nitrogen 30 mg/dL (8-23); Calcium 7.8 mg/dL (8.6-10.3); Carbon Dioxide 30 mEq/L (23-29); Chloride 99 mEq/L (98-107); Glucose 155 mg/dL (70-105); Osmolality,Calculated 291 (280-300); Platelet Estimate Normal (Normal); Potassium 3.2 mEq/L (3.5-5.1); Reactive Lymphocytes Present (Not Present); Sodium 136 mEq/L (136-145); eGFR For African Americans > 60 (> 60); eGFR For Non-African Americans > 60 (> 60)
[2020-04-04] MEDS ORDERED: Potassium Chloride 20 MEQ, Lidocaine 1% 2 ML in 0.9 % Sodium Chloride 250 ML IVPB ONE (06:09)
[2020-04-04] MEDS: Doxycycline 100 MG CAPSULE PO SCH ×2 (09:27→22:35)
[2020-04-04] MEDS: Dexamethasone 4 MG/ML VIAL IVP SCH (09:27)
[2020-04-04] MEDS: Pantoprazole 40 MG VIAL IVP SCH (09:27)
[2020-04-04] MEDS ORDERED: Potassium Chloride Elixir 20 MEQ/15 ML UDC PO ONE (10:53)
[2020-04-04] MEDS: *HR* Rivaroxaban 15 MG TABLET PO SCH ×2 (11:32→22:35)
[2020-04-05 02:41] LABS: Basophils % 0.2 %; Hematocrit 40.6 % (37.5-50.1); Immature Granulocytes % 1.3 % (0-4); Lymphocytes # 1.3 K/mcL (0.6-4.6); Lymphocytes % 23.6 %; Mean Corpuscular Hemoglobin 28.5 pg (28.0-33.3); Mean Platelet Volume 11.5 fL (9.4-12.4); Monocytes # 0.4 K/mcL (0.0-1.3); Monocytes % 7.6 %; Neutrophils # 3.6 K/mcL (1.6-8.9); Platelet Count 234 K/mcL (140-400); Red Blood Count 4.56 M/mcL (4.19-5.50); Red Cell Distribution Width 14.8 % (11.5-14.5); Segmented Neutrophils % 67.3 %; White Blood Count 5.4 K/mcL (4.3-11.1)
[2020-04-05 02:50] LABS: INR 1.5; Prothrombin Time 16.9 Seconds (9.4-12.1)
[2020-04-05 02:59] LABS: BUN/Creatinine Ratio 37 (6-26); Blood Urea Nitrogen 26 mg/dL (8-23); Carbon Dioxide 28 mEq/L (23-29); Chloride 102 mEq/L (98-107); Glucose 146 mg/dL (70-105); Osmolality,Calculated 291 (280-300); Potassium 3.6 mEq/L (3.5-5.1); Sodium 137 mEq/L (136-145); eGFR For African Americans > 60 (> 60); eGFR For Non-African Americans > 60 (> 60)
[2020-04-05 03:12] LABS: Platelet Estimate Normal (Normal); Reactive Lymphocytes Present (Not Present)
[2020-04-05] MEDS: Ipratropium 1 PUFF INHALER IH SCH ×7 (04:18→23:29)
[2020-04-05] MEDS: Doxycycline 100 MG CAPSULE PO SCH ×2 (10:34→21:04)
[2020-04-05] MEDS: *HR* Rivaroxaban 15 MG TABLET PO SCH ×2 (10:34→21:04)
[2020-04-05] MEDS: Dexamethasone 4 MG/ML VIAL IVP SCH (10:35)
[2020-04-05] MEDS: Pantoprazole 40 MG VIAL IVP SCH (10:35)
[2020-04-06] MEDS: Ipratropium 1 PUFF INHALER IH SCH ×5 (03:19→20:19)
[2020-04-06 09:35] LABS: Basophils % 0.4 %; Eosinophils # 0.1 K/mcL (0.0-0.6); Eosinophils % 1.6 %; Hemoglobin 14.1 g/dL (12.9-16.9); Immature Granulocytes % 1.9 % (0-4); Lymphocytes # 2.2 K/mcL (0.6-4.6); Mean Corpuscular Hemoglobin 28.9 pg (28.0-33.3); Mean Corpuscular Volume 90.2 fL (83.0-100.0); Mean Platelet Volume 11.3 fL (9.4-12.4); Monocytes # 0.4 K/mcL (0.0-1.3); Monocytes % 5.7 %; Neutrophils # 4.1 K/mcL (1.6-8.9); Platelet Count 252 K/mcL (140-400); Red Blood Count 4.88 M/mcL (4.19-5.50); Red Cell Distribution Width 15.2 % (11.5-14.5); Segmented Neutrophils % 59.4 %
[2020-04-06 09:37] LABS: INR 1.7; Prothrombin Time 19.1 Seconds (9.4-12.1)
[2020-04-06 09:49] LABS: BUN/Creatinine Ratio 42 (6-26); Blood Urea Nitrogen 27 mg/dL (8-23); Calcium 8.6 mg/dL (8.6-10.3); Carbon Dioxide 30 mEq/L (23-29); Chloride 103 mEq/L (98-107); Glucose 88 mg/dL (70-105); Osmolality,Calculated 291 (280-300); Potassium 3.8 mEq/L (3.5-5.1); Sodium 138 mEq/L (136-145); eGFR For African Americans > 60 (> 60); eGFR For Non-African Americans > 60 (> 60)
[2020-04-06] MEDS: Dexamethasone 4 MG/ML VIAL IVP SCH (12:16)
[2020-04-06] MEDS: *HR* Rivaroxaban 15 MG TABLET PO SCH ×2 (12:16→21:24)
[2020-04-06] MEDS: Doxycycline 100 MG CAPSULE PO SCH ×2 (12:16→21:24)
[2020-04-07] MEDS: Ipratropium 1 PUFF INHALER IH SCH ×4 (00:28→11:00)
[2020-04-07] MEDS: Heparin 25,000UNIT/250ML 1/2NS 25,000 UNIT/250 ML IV.SOLN IVC SCH (06:35)
[2020-04-07] MEDS: Dexamethasone 4 MG/ML VIAL IVP SCH (07:42)
[2020-04-07] MEDS: Doxycycline 100 MG CAPSULE PO SCH (07:43)
[2020-04-07] MEDS: *HR* Rivaroxaban 15 MG TABLET PO SCH (07:44)
[2020-04-07 08:27] VITALS: BP 113/59
== END 2020-04-07 14:15 | DRG 177 ==
LOC: EMEROOARM 13:01 → 2NENU 13:01 → SUATTDRO 18:05 → 2NENU 20:07
PROVIDERS: ADMIT Student in an Organized Health Care Education/Training Program; ATTEND Internal Medicine

== ENCOUNTER 2021-09-14 23:06 | Inpatient (IN) ==
[2021-09-14] MEDS ORDERED: Ipratropium/Albuterol Neb 3 ML IH ONE (23:35)
[2021-09-14] MEDS ORDERED: methylPREDNISolone 125 MG/2 ML VIAL IVP ONE (23:36)
[2021-09-15 00:20] LABS: VBG HCO3 32 mEq/L (21-27); VBG PCO2 61 mmHg (41-51); VBG PH 7.33 pH Units (7.32-7.42); VBG PO2 53 mmHg (25-50)
[2021-09-15 00:35] LABS: Basophils # 0.1 K/mcL (0.0-0.2); Basophils % 0.6 %; Eosinophils % 0.1 %; Hemoglobin 18.5 g/dL (12.9-16.9); Immature Granulocytes % 0.6 % (0-4); Lymphocytes # 0.8 K/mcL (0.6-4.6); Lymphocytes % 4.2 %; Mean Corpuscular HGB Conc 31.7 g/dL (31.6-35.5); Mean Corpuscular Hemoglobin 29.2 pg (28.0-33.3); Mean Platelet Volume 10.7 fL (9.4-12.4); Monocytes # 0.5 K/mcL (0.0-1.3); Monocytes % 2.9 %; Neutrophils # 16.2 K/mcL (1.6-8.9); Platelet Count 227 K/mcL (140-400); Red Blood Count 6.34 M/mcL (4.19-5.50); Segmented Neutrophils % 91.6 %; White Blood Count 17.7 K/mcL (4.3-11.1)
[2021-09-15 00:42] LABS: Bacteria,Urine Few per hpf (None-Few); Bilirubin,Urine Negative (Negative); Blood,Urine Small (Negative); Clarity,Urine Turbid (Clear); Color,Urine Yellow (Yellow); Glucose,Urine (UA) Normal (Normal); Ketones,Urine Negative (Negative); Leukocyte Esterase,Urine Large (Negative); Mucus,Urine Moderate per lpf (None-Few); Nitrite,Urine Negative (Negative); PH,Urine 6.5 pH Units (5.0-8.0); Protein,Urine Trace mg/dL (Neg-Trace); Specific Gravity,Urine 1.016 (1.010-1.025); Squamous Epithelial Cell,Urine Few per hpf (None-Few); Urobilinogen,Urine Normal (Normal); WBC,Urine TNTC per hpf (0-3)
[2021-09-15 00:45] LABS: Alanine Aminotransferase 27 Units/L (7-52); Albumin 3.6 g/dL (3.5-5.7); Alkaline Phosphatase 51 Units/L (34-104); Aspartate Amino Transferase 31 Units/L (13-39); BUN/Creatinine Ratio 17 (6-26); Blood Urea Nitrogen 21 mg/dL (8-23); Carbon Dioxide 31 mEq/L (23-29); Chloride 97 mEq/L (98-107); Glucose 107 mg/dL (70-105); Hematocrit 58.3 % (37.5-50.1); Osmolality,Calculated 283 (280-300); Sodium 135 mEq/L (136-145); Troponin I 0.06 ng/mL (< 0.04); eGFR For African Americans > 60 (> 60); eGFR For Non-African Americans 58 (> 60)
[2021-09-15] MEDS ORDERED: Albuterol 2.5 MG/3 ML NEBULIZER IH ONE (00:45)
[2021-09-15 00:49] LABS: Adenovirus Not Detected (Not Detect); Bordetella Pertussis Not Detected (Not Detect); Chlamydophila pneumoniae Not Detected (Not Detect); Coronavirus 229E Not Detected (Not Detect); Coronavirus HKU1 Not Detected (Not Detect); Coronavirus NL63 Not Detected (Not Detect); Coronavirus OC43 Not Detected (Not Detect); Human Metapneumovirus Not Detected (Not Detect); Human Rhinovirus/Enterovirus Not Detected (Not Detect); Influenza A Subtype 2009 H1 Not Detected (Not Detect); Influenza B Not Detected (Not Detect); Mycoplasma pneumoniae Not Detected (Not Detect); Parainfluenza Virus 1 Not Detected (Not Detect); Parainfluenza Virus 2 Not Detected (Not Detect); Parainfluenza Virus 3 Not Detected (Not Detect); Parainfluenza Virus 4 Not Detected (Not Detect); Respiratory Syncytial Virus Not Detected (Not Detect); SARS-CoV-2 Not Detected (Not Detect)
[2021-09-15 00:58] LABS: Bilirubin,Direct 0.5 mg/dL (0.0-0.2); Bilirubin,Indirect 0.5 mg/dL (0.0-1.0); Lipase 12 Units/L (11-82); Magnesium 1.7 mg/dL (1.6-2.6)
[2021-09-15] MEDS ORDERED: Piperacillin/Tazobactam 3.375 GM in 0.9 % Sodium Chloride Mini Bag 100 ML IVPB ONE (01:30)
[2021-09-15 01:32] LABS: Albumin/Globulin Ratio 0.8 (1.1-2.2); Globulin 4.4 g/dL (2.4-3.5)
[2021-09-15] MEDS ORDERED: Vancomycin 2,000 MG/520 ML IV.SOLN IVPB ONE (02:00)
[2021-09-15] MEDS ORDERED: Isovue-370 500 ML BOTTLE IVP ONE (02:39)
[2021-09-15] MEDS ORDERED: Naloxone 0.4 MG/ML INJ IVP PRN (03:47)
[2021-09-15] MEDS ORDERED: Ondansetron 4 MG/2 ML VIAL IVP PRN (03:47)
[2021-09-15 04:24] LABS: ABG Base Excess 5 mEq/L (-2 to 3); ABG HCO3 39 mEq/L (21-27); ABG Oxygen Saturation 98 % (95-98); ABG PCO2 94 mmHg (35-45); ABG PH 7.23 pH Units (7.32-7.45); ABG PO2 137 mmHg (85-104); ABG TCO2 42 mEq/L (20-26)
[2021-09-15] MEDS ORDERED: 0.9 % Sodium Chloride 1,000 ML IVC SCH ×2 (05:30→12:15)
[2021-09-15] MEDS ORDERED: Perflutren Lipid Microsphere 1.3 ML in 0.9 % Sodium Chloride 8.7 ML IVP PRN (05:40)
[2021-09-15 07:38] LABS: ABG Base Excess 5 mEq/L (-2 to 3); ABG HCO3 33 mEq/L (21-27); ABG Oxygen Saturation 86 % (95-98); ABG PCO2 58 mmHg (35-45); ABG PH 7.36 pH Units (7.32-7.45); ABG PO2 55 mmHg (85-104); ABG TCO2 35 mEq/L (20-26)
[2021-09-15 07:49] LABS: Hematocrit 52.6 % (37.5-50.1); Mean Corpuscular HGB Conc 31.9 g/dL (31.6-35.5); Mean Corpuscular Hemoglobin 28.6 pg (28.0-33.3); Mean Corpuscular Volume 89.5 fL (83.0-100.0); Mean Platelet Volume 10.7 fL (9.4-12.4); Platelet Count 215 K/mcL (140-400); Red Blood Count 5.88 M/mcL (4.19-5.50); Red Cell Distribution Width 17.2 % (11.5-14.5); White Blood Count 17.8 K/mcL (4.3-11.1)
[2021-09-15 07:54] LABS: Hemoglobin 16.8 g/dL (12.9-16.9)
[2021-09-15 08:00] LABS: BUN/Creatinine Ratio 17 (6-26); Blood Urea Nitrogen 22 mg/dL (8-23); Calcium 8.5 mg/dL (8.6-10.3); Carbon Dioxide 29 mEq/L (23-29); Chloride 97 mEq/L (98-107); Glucose 163 mg/dL (70-105); Osmolality,Calculated 283 (280-300); Potassium 4.5 mEq/L (3.5-5.1); Sodium 133 mEq/L (136-145); eGFR For African Americans > 60 (> 60); eGFR For Non-African Americans 55 (> 60)
[2021-09-15] MEDS ORDERED: Piperacillin/Tazobactam 3.375 GM in 0.9 % Sodium Chloride Mini Bag 100 ML IVPB SCH (08:00)
[2021-09-15] MEDS ORDERED: Vancomycin 2,000 MG/520 ML IV.SOLN IVPB SCH (09:00)
[2021-09-15] MEDS: Cefepime HCl 1,000 MG in 0.9 % Sodium Chloride Mini Bag 100 ML IVPB SCH ×2 (11:37→19:45)
[2021-09-15] MEDS ORDERED: Furosemide 40 MG/4 ML VIAL IVP ONE (11:39)
[2021-09-15 11:40] LABS: ABG Base Excess 6 mEq/L (-2 to 3); ABG HCO3 36 mEq/L (21-27); ABG Oxygen Saturation 89 % (95-98); ABG PCO2 71 mmHg (35-45); ABG PH 7.31 pH Units (7.32-7.45); ABG PO2 65 mmHg (85-104); ABG TCO2 38 mEq/L (20-26)
[2021-09-15] MEDS: Ipratropium/Albuterol Neb 3 ML IH SCH ×3 (15:30→20:53)
[2021-09-15] MEDS: MethylPREDNISolone 40 MG/ML VIAL IVP SCH (16:17)
[2021-09-15] MEDS: Vancomycin 2,000 MG/520 ML IV.SOLN IVPB SCH (16:17)
[2021-09-15 18:32] LABS: VBG HCO3 33 mEq/L (21-27); VBG PCO2 59 mmHg (41-51); VBG PH 7.36 pH Units (7.32-7.42); VBG PO2 46 mmHg (25-50)
[2021-09-16] MEDS: MethylPREDNISolone 40 MG/ML VIAL IVP SCH ×3 (00:10→16:11)
[2021-09-16] MEDS: Ipratropium/Albuterol Neb 3 ML IH SCH ×4 (00:12→10:59)
[2021-09-16] MEDS: Cefepime HCl 1,000 MG in 0.9 % Sodium Chloride Mini Bag 100 ML IVPB SCH ×2 (03:30→11:25)
[2021-09-16 04:20] LABS: Basophils % 0.1 %; Hemoglobin 16.1 g/dL (12.9-16.9); Mean Platelet Volume 11.8 fL (9.4-12.4)
[2021-09-16 04:22] LABS: Hematocrit 50.2 % (37.5-50.1); Immature Granulocytes % 0.5 % (0-4); Immature Platelets 8.2 % (1.1-6.1); Lymphocytes # 0.7 K/mcL (0.6-4.6); Lymphocytes % 4.8 %; Mean Corpuscular HGB Conc 32.1 g/dL (31.6-35.5); Mean Corpuscular Hemoglobin 28.5 pg (28.0-33.3); Mean Corpuscular Volume 88.8 fL (83.0-100.0); Monocytes # 0.3 K/mcL (0.0-1.3); Monocytes % 2.2 %; Neutrophils # 13.2 K/mcL (1.6-8.9); Platelet Count 199 K/mcL (140-400); Red Blood Count 5.65 M/mcL (4.19-5.50); Red Cell Distribution Width 16.8 % (11.5-14.5); Segmented Neutrophils % 92.4 %; White Blood Count 14.3 K/mcL (4.3-11.1)
[2021-09-16 04:26] LABS: Alanine Aminotransferase 28 Units/L (7-52); Albumin 3.3 g/dL (3.5-5.7); Albumin/Globulin Ratio 0.8 (1.1-2.2); Alkaline Phosphatase 41 Units/L (34-104); Aspartate Amino Transferase 24 Units/L (13-39); BUN/Creatinine Ratio 34 (6-26); Bilirubin,Total 0.5 mg/dL (0.3-1.0); Blood Urea Nitrogen 30 mg/dL (8-23); Calcium 8.6 mg/dL (8.6-10.3); Carbon Dioxide 31 mEq/L (23-29); Chloride 99 mEq/L (98-107); Globulin 4.1 g/dL (2.4-3.5); Glucose 172 mg/dL (70-105); Osmolality,Calculated 290 (280-300); Potassium 4.2 mEq/L (3.5-5.1); Sodium 135 mEq/L (136-145); Total Protein 7.4 g/dL (6.4-8.9); eGFR For African Americans > 60 (> 60); eGFR For Non-African Americans > 60 (> 60)
[2021-09-16 04:46] LABS: Platelet Estimate Normal (Normal)
[2021-09-16] MEDS: Vancomycin 2,000 MG/520 ML IV.SOLN IVPB SCH (04:55)
[2021-09-16] MEDS ORDERED: Ipratropium/Albuterol Neb 3 ML IH PRN (15:06)
[2021-09-16] MEDS ORDERED: Perflutren Lipid Microsphere 1.3 ML in 0.9 % Sodium Chloride 8.7 ML IVP PRN (15:07)
[2021-09-16] MEDS: Vancomycin 1,500 MG/265 ML IV.SOLN IVPB SCH (16:11)
[2021-09-16] MEDS: Furosemide 40 MG TABLET PO SCH (17:34)
[2021-09-17] MEDS ORDERED: Cefepime HCl 2,000 MG in 0.9 % Sodium Chloride Mini Bag 100 ML IVPB SCH
[2021-09-17] MEDS: MethylPREDNISolone 40 MG/ML VIAL IVP SCH ×2 (00:46→08:17)
[2021-09-17 03:08] LABS: Basophils % 0.2 %; Hematocrit 51.3 % (37.5-50.1); Immature Granulocytes % 0.5 % (0-4); Lymphocytes # 0.7 K/mcL (0.6-4.6); Mean Corpuscular HGB Conc 31.2 g/dL (31.6-35.5); Mean Corpuscular Hemoglobin 28.3 pg (28.0-33.3); Mean Corpuscular Volume 90.8 fL (83.0-100.0); Monocytes # 0.4 K/mcL (0.0-1.3); Monocytes % 3.5 %; Platelet Count 215 K/mcL (140-400); Red Blood Count 5.65 M/mcL (4.19-5.50); Red Cell Distribution Width 17.2 % (11.5-14.5); Segmented Neutrophils % 89.8 %; White Blood Count 11.1 K/mcL (4.3-11.1)
[2021-09-17 03:29] LABS: Alanine Aminotransferase 21 Units/L (7-52); Albumin 3.2 g/dL (3.5-5.7); Albumin/Globulin Ratio 0.8 (1.1-2.2); Alkaline Phosphatase 38 Units/L (34-104); Aspartate Amino Transferase 16 Units/L (13-39); BUN/Creatinine Ratio 41 (6-26); Bilirubin,Total 0.4 mg/dL (0.3-1.0); Blood Urea Nitrogen 31 mg/dL (8-23); Carbon Dioxide 28 mEq/L (23-29); Chloride 103 mEq/L (98-107); Globulin 3.9 g/dL (2.4-3.5); Glucose 152 mg/dL (70-105); Osmolality,Calculated 296 (280-300); Potassium 4.4 mEq/L (3.5-5.1); Sodium 138 mEq/L (136-145); Total Protein 7.1 g/dL (6.4-8.9); eGFR For African Americans > 60 (> 60); eGFR For Non-African Americans > 60 (> 60)
[2021-09-17] MEDS: Vancomycin 1,500 MG/265 ML IV.SOLN IVPB SCH ×2 (04:18→16:49)
[2021-09-17] MEDS: Famotidine 20 MG TABLET PO SCH (08:16)
[2021-09-17] MEDS: Furosemide 40 MG TABLET PO SCH (08:16)
[2021-09-17] MEDS: *HR* Rivaroxaban 10 MG TABLET PO SCH (08:16)
[2021-09-17] MEDS: Ertapenem 1,000 MG in 0.9 % Sodium Chloride Mini Bag 100 ML IVPB SCH (08:17)
[2021-09-17] MEDS: PARoxetine 10 MG TABLET PO SCH (08:21)
[2021-09-18 03:59] LABS: White Blood Count 8.7 K/mcL (4.3-11.1)
[2021-09-18 04:00] LABS: Hematocrit 49.8 % (37.5-50.1); Hemoglobin 15.5 g/dL (12.9-16.9); Immature Granulocytes % 0.5 % (0-4); Lymphocytes # 1.4 K/mcL (0.6-4.6); Lymphocytes % 16.5 %; Mean Corpuscular HGB Conc 31.1 g/dL (31.6-35.5); Mean Corpuscular Hemoglobin 28.3 pg (28.0-33.3); Mean Corpuscular Volume 90.9 fL (83.0-100.0); Mean Platelet Volume 11.7 fL (9.4-12.4); Monocytes # 0.8 K/mcL (0.0-1.3); Monocytes % 8.8 %; Neutrophils # 6.4 K/mcL (1.6-8.9); Platelet Count 228 K/mcL (140-400); Red Blood Count 5.48 M/mcL (4.19-5.50); Red Cell Distribution Width 17.3 % (11.5-14.5); Segmented Neutrophils % 74.2 %
[2021-09-18] MEDS: Vancomycin 1,500 MG/265 ML IV.SOLN IVPB SCH (04:25)
[2021-09-18 04:27] LABS: Alanine Aminotransferase 21 Units/L (7-52); Albumin 3.1 g/dL (3.5-5.7); Albumin/Globulin Ratio 0.9 (1.1-2.2); Aspartate Amino Transferase 15 Units/L (13-39); BUN/Creatinine Ratio 49 (6-26); Bilirubin,Total 0.4 mg/dL (0.3-1.0); Blood Urea Nitrogen 34 mg/dL (8-23); Calcium 7.9 mg/dL (8.6-10.3); Carbon Dioxide 28 mEq/L (23-29); Chloride 104 mEq/L (98-107); Globulin 3.6 g/dL (2.4-3.5); Glucose 138 mg/dL (70-105); Osmolality,Calculated 294 (280-300); Potassium 4.1 mEq/L (3.5-5.1); Sodium 137 mEq/L (136-145); Total Protein 6.7 g/dL (6.4-8.9); eGFR For African Americans > 60 (> 60); eGFR For Non-African Americans > 60 (> 60)
[2021-09-18 05:43] LABS: Alkaline Phosphatase 32 Units/L (34-104)
[2021-09-18] MEDS: *HR* Rivaroxaban 10 MG TABLET PO SCH (08:38)
[2021-09-18] MEDS: Famotidine 20 MG TABLET PO SCH (08:38)
[2021-09-18] MEDS: PARoxetine 10 MG TABLET PO SCH (08:38)
[2021-09-18] MEDS: Ertapenem 1,000 MG in 0.9 % Sodium Chloride Mini Bag 100 ML IVPB SCH (08:39)
[2021-09-18 09:21] LABS: Estimated Average Glucose 131 mg/dl; Hemoglobin A1C 6.2 %
[2021-09-18] MEDS: Piperacillin/Tazobactam 3.375 GM in 0.9 % Sodium Chloride Mini Bag 100 ML IVPB SCH (16:45)
[2021-09-19] MEDS: Piperacillin/Tazobactam 3.375 GM in 0.9 % Sodium Chloride Mini Bag 100 ML IVPB SCH ×3 (00:26→17:36)
[2021-09-19 06:49] LABS: Basophils % 0.3 %; Eosinophils # 0.2 K/mcL (0.0-0.6); Eosinophils % 3.5 %; Hematocrit 52.9 % (37.5-50.1); Hemoglobin 16.5 g/dL (12.9-16.9); Immature Granulocytes % 0.3 % (0-4); Lymphocytes # 2.1 K/mcL (0.6-4.6); Lymphocytes % 32.1 %; Mean Corpuscular HGB Conc 31.2 g/dL (31.6-35.5); Mean Corpuscular Hemoglobin 28.8 pg (28.0-33.3); Mean Corpuscular Volume 92.3 fL (83.0-100.0); Mean Platelet Volume 10.7 fL (9.4-12.4); Monocytes # 0.5 K/mcL (0.0-1.3); Monocytes % 7.6 %; Neutrophils # 3.7 K/mcL (1.6-8.9); Platelet Count 206 K/mcL (140-400); Red Blood Count 5.73 M/mcL (4.19-5.50); Red Cell Distribution Width 17.6 % (11.5-14.5); Segmented Neutrophils % 56.2 %; White Blood Count 6.6 K/mcL (4.3-11.1)
[2021-09-19 08:00] LABS: BUN/Creatinine Ratio 40 (6-26); Blood Urea Nitrogen 32 mg/dL (8-23); Calcium 7.7 mg/dL (8.6-10.3); Carbon Dioxide 28 mEq/L (23-29); Chloride 105 mEq/L (98-107); Glucose 82 mg/dL (70-105); Osmolality,Calculated 292 (280-300); Potassium 4.3 mEq/L (3.5-5.1); Sodium 138 mEq/L (136-145); eGFR For African Americans > 60 (> 60); eGFR For Non-African Americans > 60 (> 60)
[2021-09-19] MEDS: Famotidine 20 MG TABLET PO SCH (08:05)
[2021-09-19] MEDS: PARoxetine 10 MG TABLET PO SCH (08:05)
[2021-09-19] MEDS: *HR* Rivaroxaban 10 MG TABLET PO SCH (08:05)
[2021-09-20] MEDS: Piperacillin/Tazobactam 3.375 GM in 0.9 % Sodium Chloride Mini Bag 100 ML IVPB SCH ×3 (00:10→07:33)
[2021-09-20] MEDS: Famotidine 20 MG TABLET PO SCH (07:33)
[2021-09-20] MEDS: *HR* Rivaroxaban 10 MG TABLET PO SCH (07:33)
[2021-09-20] MEDS: PARoxetine 10 MG TABLET PO SCH (07:33)
[2021-09-20 11:58] VITALS: BP 111/68; PULSE 64; TEMP 98.4; O2SAT 94
== END 2021-09-20 13:04 | DRG 871 ==
LOC: EMEROOARM 23:06 → 3BNU 23:06 → SUATTDRO 09-15 12:46 → 2ANU 09-15 17:55
PROVIDERS: ADMIT Internal Medicine; ATTEND Internal Medicine